=== PATIENT | female | born 1965 | race Caucasian/White ===

== ENCOUNTER 2016-12-30 06:30 | Day surgery (SDC) | payer OTHER ==
[~2016-12-30] VITALS: Ht 160 cm; Wt 62.1 kg
[~2016-12-30 06:30] MED LIST: ALPRAZOLAM0.5 MG PO; CITALOPRAM HBR20 MG PO; CLONIDINE HCL0.1 MG PO; CLONIDINE HCL0.2 MG PO; CYMBALTA30 MG PO; FAMCICLOVIR500 MG PO; MELOXICAM15 MG PO; NIACOR500 MG PO; NORCO 10-325 T1 EACH PO; NORCO 5-325 TA1 EACH PO; NORTRIPTYLINE H25 MG PO; OMEPRAZOLE20 MG PO; PREDNISONE20 MG PO; PROPRANOLOL HCL20 MG PO; TIROSINT75 MCG PO; TRAZODONE HCL100 MG PO; VENTOLIN HFA18 GM INH
--- NOTE | 2016-12-30 10:15 | NUR ---
12/30/16 1015 Lexi Ngo 0930 PT IV IS HARD TO FLUSH, DRESSING INTACT, BLOOD RETURN NOTED AND NO SWELLING AT IV SITE. 0959 PT O2 SAT, 100% O2 REMOVED. 1013 PT O2 DECREASED TO 89 WHEN ASLEEP, 2L NC PLACED ON PT. 1015 PT O2 SAT 100%.
[2016-12-30] MEDS ORDERED: HYDROCODON-ACE1 EAC8 PO (11:38)
[2016-12-30] MEDS ORDERED: PROMETHAZINE HC25 M1 PO (11:43)
--- NOTE | 2016-12-30 12:57 | NUR ---
LE 1200 UP TO BATHROOM WITH ONE PERSON ASSIST. VOIDED. BACK IN ROOM GETTING DRESSED. 1225 DC INSTRUCTIONS GIVEN. LEFT VIA W/C.
--- NOTE | 2017-01-01 07:17 | OR ---
[facility] [address] [place], [place] [address] Signed DATE OF OPERATION: 12/30/2016 SURGEON: Holger Hess MD PREOPERATIVE DIAGNOSIS: Loose bodies, right elbow. POSTOPERATIVE DIAGNOSIS: Loose bodies, right elbow with severe osteoarthritis, radiocapitellar joint. PROCEDURE: Arthrotomy, right elbow with removal of loose bodies x3 followed by a radial head excision. SURGEON: Holger Hess MD. ANESTHESIA: General. SPECIMENS: There were no specimens. COMPLICATIONS: There were no complications. TOURNIQUET TIME: About 45 minutes. WHAT WAS DONE: The patient was taken to the operating room. After anesthesia was induced and airway secured, the patient was positioned, prepped and draped in a routine sterile fashion. The arm was exsanguinated with Esmarch bandage. Pneumatic tourniquet was inflated to about 250 mmHg pressure. We then made a gentle anterolateral incision centered over the lateral epicondyle. Skin was divided sharply. Subcutaneous tissue was bluntly spread. The extensor origin was gently released and retracted anteriorly. Several loose bodies were identified and extracted from the elbow. We then examined the elbow joint. We still could not quite achieve full extension, but not because of residual loose bodies, because of impingement of the radiocapitellar joint. Inspection reveals severe peripheral osteophytes about the radial head. We, therefore, took a small oscillating saw and resected the radial head. Once this was accomplished, the patient again had a full extension of the elbow without any impingement. We placed a bone wax over the open bony surface. The elbow was copiously irrigated. No additional loose fragments were identified. We then gently elevated the posterior flap and passed into the olecranon fossa and again there were no additional loose fragments noted. The wounds were gently irrigated. A single 3.5 BioComposite anchor was then placed in the lateral epicondylar area and used to reattach the common extensor origin. We then closed the extensor origin Electronically Signed By: HOLGER HESS MD 01/01/17 0717 PATIENT NAME: JOHNATHAN GOMEZ MAI OPERATIVE REPORT DATE OF : 63 PHYSICIAN: HOLGER HESS MD REPORT #: [id number] REPORT IS CONFIDENTIAL AND NOT TO BE RELEASED WITHOUT AUTHORIZATION [address] [address] Signed with interrupted sutures of FiberWire. Routine wound closure was then accomplished and sterile dressing applied over to bulky dressing and a posterior splint were placed. The patient was awakened to the recovery room where she arrived in stable condition. Counts were correct and antibiotic protocols were followed. MD NORTH Jones/MODL /[id number] cc: Jacob Pablo MD Electronically Signed By: HOLGER HESS MD 01/01/17 0717 PATIENT NAME: JOHNATHAN GOMEZ MAI OPERATIVE REPORT DATE OF : 63 PHYSICIAN: HOLGER HESS MD REPORT #: [id number] REPORT IS CONFIDENTIAL AND NOT TO BE RELEASED WITHOUT AUTHORIZATION
== END 2016-12-30 12:25 | disposition home or self-care (01) ==
LOC: DS 06:30 → OPS 06:30 → DS 09:15 → OPS 09:15
PROVIDERS: Orthopaedic Surgery
PROC: 0RCL0ZZ Extirpation of Matter from Right Elbow Joint, Open Approach (ICD-10-PCS; 2016-12-30)
PROC: 0HBDXZZ Excision of Right Lower Arm Skin, External Approach (ICD-10-PCS; principal; 2016-12-30 08:15)
DX: M19.021 Primary osteoarthritis, right elbow (principal); M24.021 Loose body in right elbow; G43.909 Migraine, unspecified, not intractable, without status migrainosus; F43.10 Post-traumatic stress disorder, unspecified; F32.9 Major depressive disorder, single episode, unspecified; F41.9 Anxiety disorder, unspecified; E03.9 Hypothyroidism, unspecified; K76.9 Liver disease, unspecified; Z88.5 Allergy status to narcotic agent; Z88.8 Allergy status to other drugs, medicaments and biological substances; Z79.899 Other long term (current) drug therapy
CPT/HCPCS: 01710; 01740; C1713; J0330; J0690; J1170; J1885; J2250; J2270; J2405; J2704; J3010; J7120

== ENCOUNTER 2018-03-24 12:27 | Emergency (ER) | payer OTHER ==
[~2018-03-24] VITALS: Ht 160 cm; Wt 62.1 kg
[~2018-03-24 12:27] MED LIST changes: +HYDROCODON-ACE1 EAC8 PO; +PROMETHAZINE HC25 M1 PO
--- OUTSIDE RECORDS SUMMARY | 2018-03-24 12:32 | XMS ---
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 Denisse has no Care Guidelines for this patient. Leonidas VISIT COUNT (12 MO.) 1 CHATO Fraser TOTAL 1 NOTE: Visits indicate total known visits. ED/UCC VISIT TRACKING (12 MO.) 03/24/2018 12:28 CHATO M[facility]ugh OR TYPE: Emergency COMPLAINT: - NVD/ABD PAIN INPATIENT VISIT TRACKING (12 MO.) No inpatient visits to display in this time frame [email or web address]
[2018-03-24] MEDS ORDERED: LEXAPRO20 MG PO (12:43)
[2018-03-24] MEDS ORDERED: ROPINIROLE HC0.25 MG PO (12:44)
[2018-03-24] MEDS ORDERED: ONDANSETRON ODT8 MG PO (14:37)
== END 2018-03-24 14:55 | disposition home or self-care (01) ==
LOC: ED 12:27
DX: R11.2 Nausea with vomiting, unspecified (principal); R10.84 Generalized abdominal pain; G43.909 Migraine, unspecified, not intractable, without status migrainosus; F43.10 Post-traumatic stress disorder, unspecified; F17.200 Nicotine dependence, unspecified, uncomplicated; Z88.8 Allergy status to other drugs, medicaments and biological substances; Z79.899 Other long term (current) drug therapy
CPT/HCPCS: 36415; 80053; 83690; 85025; 96360; 99284-25; 99406; J3486; J7030

== ENCOUNTER 2019-01-04 06:35 | Day surgery (SDC) | payer OTHER ==
[~2019-01-04] VITALS: Ht 157.5 cm; Wt 47.6 kg
[~2019-01-04 06:35] MED LIST changes: +LEXAPRO20 MG PO; +ONDANSETRON ODT8 MG PO; +ROPINIROLE HC0.25 MG PO; +ULTRAM50 MG PO
--- NOTE | 2019-01-04 10:54 | NUR ---
01/04/19 1054 Carolina,Lexi 1027 PT ARRIVED TO PACU ASLEEP AND RESP EVEN AND UNLABORED. PT ON RA AND MAINTAINING OWN AIRWAY 1030 PT WOKE TO VERBAL STIMULI AND IS REORIENTED TO PACU, PT REPORTS NO PAIN OR NAUSEA. PT ENOCUARGED TO DEEP BREATHE. PT VERY DROWSY AND BACK TO SLEEP. 1036 PT WOKE AND REPORTS PAIN IN ELBOW 09/25, O2 SAT 91%. PT ENCOURAGED TO DEEP BREATHE. O2 INCREASING.
--- NOTE | 2019-01-04 11:55 | NUR ---
ICED WATER AND PUDDING GIVEN. CALL LIGHT WITHIN REACH. CAREGIVER PAGED.
[2019-01-04] MEDS ORDERED: ULTRAM50 MG PO (12:33)
--- NOTE | 2019-01-04 13:33 | NUR ---
1250 PT USED CALL LIGHT TO TELL US KNOW SHE IS READY TO GO HOME, GAVE HER DISCHARGE INSTRUCTIONS SHE VOICED UNDERSTANDING. REMOVED IV CATH. TIP IN TACT. HELPED HER GET DRESSED AND WHEELED HER FRONT OF HOSPITAL VIA WHEELCHAIR.
--- NOTE | 2019-01-04 14:46 | NUR ---
PT SLEEPING SOUNDLY, DID NOT DISTURB. WILL FOLLOW NEEDED
--- NOTE | 2019-01-06 07:44 | OR ---
[facility] [address] [place] [place] [address] Signed DATE OF OPERATION: 01/04/2019 SURGEON: Holger Townsend MD PREOPERATIVE DIAGNOSIS: Loose bodies, right elbow. POSTOPERATIVE DIAGNOSIS: Loose bodies, right elbow, with intra-articular fibrosis, right elbow, following radial head fracture and radial head excision. PROCEDURE: Elbow arthroscopy with limited debridement and removal of loose bodies x2. ANESTHESIA: General. SPECIMENS AND COMPLICATIONS: There were no specimens or complications. TOURNIQUET TIME: 45 minutes. WHAT WAS DONE: The patient was taken to the operating room. After anesthesia was induced and airway secured, the patient was positioned prone. The right arm was placed on an arm board and hung over the side of the bed at 90 degrees of flexion. After routine prep and sterile drape, the bony topography in the location of the ulnar nerve were marked on the elbow. An anteromedial portal was created about 1.5 cm anterior to the medial epicondyle. We then introduced an 18-gauge needle into the anconeal triangle and filled the elbow with saline. We then introduced the scope through the anteromedial portal. An anterolateral portal was created using transillumination and localization with a spinal needle. There was a rather marked synovitis in the elbow and 2 mm shaver was introduced and a limited synovectomy performed. Two loose fragments were identified and removed from the elbow. There was also a fair amount of scar tissue/fibrous tissue both in the ulnar trochlear groove and in the radial capitellar space. We then made an auxiliary posterolateral portal. Again through this, we introduced the scope. There were no additional loose bodies encountered in the medial and the lateral gutter or in the olecranon fossa; however, there was still a fair amount of scar tissue. Again, we introduced the shaver by redirecting the portal and did an excision of the scar tissue. At this point, the Electronically Signed By: HOLGER TOWNSEND MD 01/06/19 0744 PATIENT NAME: JOHNATHAN GOMEZ OPERATIVE REPORT DATE OF : 63 REPORT #: [id number] PHYSICIAN: HOLGER TOWNSEND MD PCP: DIANELYS SAMANO MD REPORT IS CONFIDENTIAL AND NOT TO BE RELEASED WITHOUT AUTHORIZATION [facility] [address] [place] [id number] Signed elbow could be extended to about 5 degrees. The elbow was irrigated and drained. The portals were closed and sterile dressings applied. The patient was awakened and taken to the recovery room and arrived in stable condition. Counts were correct and antibiotic protocols were followed. Holger Townsend MD WFB/MODL /[id number] Copies: ~ Electronically Signed By: HOLGER TOWNSEND MD 01/06/19 0744 PATIENT NAME: JOHNATHAN GOMEZ OPERATIVE REPORT DATE OF : 63 REPORT #: [id number] PHYSICIAN: HOLGER TOWNSEND MD PCP: DIANELYS SAMANO MD REPORT IS CONFIDENTIAL AND NOT TO BE RELEASED WITHOUT AUTHORIZATION
== END 2019-01-04 13:05 | disposition home or self-care (01) ==
LOC: OPS 06:35 → DS 06:35 → OPS 08:45 → DS 08:45 → OPS 13:05
PROVIDERS: Orthopaedic Surgery
PROC: 0RBL4ZZ Excision of Right Elbow Joint, Percutaneous Endoscopic Approach (ICD-10-PCS; 2019-01-04)
PROC: 0RCL4ZZ Extirpation of Matter from Right Elbow Joint, Percutaneous Endoscopic Approach (ICD-10-PCS; principal; 2019-01-04 08:45)
DX: M24.021 Loose body in right elbow (principal); M25.821 Other specified joint disorders, right elbow; G43.909 Migraine, unspecified, not intractable, without status migrainosus; F43.10 Post-traumatic stress disorder, unspecified; F42.9 Obsessive-compulsive disorder, unspecified; F32.9 Major depressive disorder, single episode, unspecified; F41.9 Anxiety disorder, unspecified; E03.9 Hypothyroidism, unspecified; M86.9 Osteomyelitis, unspecified; Z88.8 Allergy status to other drugs, medicaments and biological substances; Z79.899 Other long term (current) drug therapy
CPT/HCPCS: 01740; J0131; J0330; J0690; J1100; J1885; J2250; J2405; J2704; J3010; J7121

== ENCOUNTER 2019-11-08 22:57 | Emergency (ER) | payer OTHER ==
[~2019-11-08] VITALS: Ht 157.5 cm; Wt 47.6 kg
--- OUTSIDE RECORDS SUMMARY | ~2019-11-08 | XMS | Clinical Summary ---
Demographics + + + | Address | [address] | | | [place] [address] | + + + | Home Phone | | + + + | Preferred Language | Unknown | + + + | Marital Status | Single | + + + | Bahai Affiliation | Unknown | + + + | Race | White | + + + | Ethnic Group | Not or | + + + Author + + + | Author | [facility] | | | and [place] | + + + | Organization | [facility] | | | and [place] | + + + | Address | Unknown | + + + | Phone | Unavailable | + + + Support + + +---------+ + | Name | Relationship | Address | Phone | + + +---------+ + | Elida Langenhahn | ECON | Unknown | | + + +---------+ + Care Team Providers + +------+ + | Care Supervisor Shaving And Splitting Name | Role | Phone | + +------+ + | Jacob Pablo MD | PCP | | + +------+ + Allergies + + + + + + | Active Allergy | Reactions | Severity | Noted | Comments | | | | | Date | | + + + + + + | Rosuvastatin | Rash | Low | 06/02/19 | | | | | | 19 | | + + + + + + | Haloperidol | Other (See Comments) | | 06/02/19 | Stroke like | | | | | 19 | symptoms | + + + + + + | Interferons | Other (See Comments) | | 06/02/19 | Blisters in mouth | | | | | 19 | | + + + + + + Medications + +-----+ +---------+------+------+-------+ | Medication | Sig | Dispensed | Refills | Star | End | Statu | | | | | | t | Date | s | | | | | | Date | | | + +-----+ +---------+------+------+-------+ | cloNIDine | | | 0 | 03/1 | | Activ | | (CATAPRES) 0.2 MG | | | | 3/20 | | e | | tablet | | | | 19 | | | + +-----+ +---------+------+------+-------+ | levothyroxine | | | 0 | 04/0 | | Activ | | (SYNTHROID) 75 MCG | | | | 6/20 | | e | | tablet | | | | 19 | | | + +-----+ +---------+------+------+-------+ | omeprazole | | | 0 | 04/0 | | Activ | | (PRILOSEC) 20 mg | | | | 6/20 | | e | | capsule | | | | 19 | | | + +-----+ +---------+------+------+-------+ | ondansetron | | | 0 | 02/0 | | Activ | | (ZOFRAN ODT) 8 mg | | | | 6/20 | | e | | disintegrating | | | | 19 | | | | tablet | | | | | | | + +-----+ +---------+------+------+-------+ | rOPINIRole | | | 0 | 04/1 | | Activ | | (REQUIP) 0.25 mg | | | | 0/20 | | e | | tablet | | | | 19 | | | + +-----+ +---------+------+------+-------+ Active Problems No known active problems Immunizations + + + + | Name | Administration Dates | Next Due | + + + + | PNEUMOCOCCAL | 07/01/2014 | | | POLYSACCHARIDE | | | | 23-VALENT (PPSV23) | | | + + + + Social History + +-------+ +--------+------+ | Tobacco Use | Types | Packs/Day | Years | Date | | | | | Used | | + +-------+ +--------+------+ | Current Every Day | | | | | | Smoker | | | | | + +-------+ +--------+------+ + +---+---+---+ | Smokeless Tobacco: | | | | | Never Used | | | | + +---+---+---+ + + + | Sex Assigned at | Date Recorded | | | | + + + | Not on file | | + + + Last Filed Vital Signs + + + + + | Vital Sign | Reading | Time Taken | Comments | + + + + + | Blood Pressure | 142/87 | 06/01/2018 9:09 AM | | | | | PDT | | + + + + + | Pulse | 82 | 06/01/2018 9:09 AM | | | | | PDT | | + + + + + | Temperature | - | - | | + + + + + | Respiratory Rate | - | - | | + + + + + | Oxygen Saturation | - | - | | + + + + + | Inhaled Oxygen | - | - | | | Concentration | | | | + + + + + | Weight | 57.6 kg (127 lb) | 06/01/2018 9:09 AM | | | | | PDT | | + + + + + | Height | 160 cm (5' 3") | 06/01/2018 9:09 AM | | | | | PDT | | + + + + + | Body Mass Index | 22.5 | 06/01/2018 9:09 AM | | | | | PDT | | + + + + + Plan of Treatment + + + + + | Health Maintenance | Due Date | Last | Comments | | | | Done | | + + + + + | Hepatitis C | | | | | Screening | 5 | | | + + + + + | Med Mgmt: TSH | | | | | | 5 | | | + + + + + | Medication | | | | | Management | 5 | | | + + + + + | Cervical Cancer | | | | | Screening (Pap) | 5 | | | + + + + + | Colorectal Cancer | | | | | Screening | 5 | | | | (Colonoscopy) | | | | + + + + + | Vaccine: Zoster (1 | | | | | of 2) | 5 | | | + + + + + | Breast Cancer | | | | | Screening | 0 | | | + + + + + | Vaccine: Influenza | | 03/07/19 | | | (#1) | 0 | 20, | | | | | 11/07/19 | | | | | 17, | | | | | 11/27/19 | | | | | 16, | | | | | Addition | | | | | al | | | | | history | | | | | exists | | + + + + + | Vaccine: | | 11/07/19 | | | Dtap/Tdap/Td (2 - | 7 | 17, | | | Td) | | 08/22/19 | | | | | 13, | | | | | 06/15/19 | | | | | 13 | | + + + + + | Vaccine: | Completed | 07/02/19 | | | Pneumococcal 19-64 | | 15 | | + + + + + Results Not on filefrom Last 3 Months Insurance + +--------+ +--------+ +---------+--------+ | Payer | Benefi | Subscriber | Effect | Phone | Address | Type | | | t Plan | ID | donna | | | | | | / | | Dates | | | | | | Group | | | | | | + +--------+ +--------+ +---------+--------+ | [employer] | MODA | [id number] | | [phone] | | Medica | | MEDICAID HMO | HEALTH | | 018-Pr | 1 | | id | | | MDCD | | esent | | | | | | [place]MO [place] | | | | | | + +--------+ +--------+ +---------+--------+ + +--------+ +--------+ + + | Guarantor Name | Accoun | Relation to | Date | Phone | Billing Address | | | t Type | Patient | of | | | | | | | | | | + +--------+ +--------+ + + | Kendall Clay | Person | Self [birth year] [address] | | | al/Fam | | 1966 | [phone] | [place] [address] | | | [place] | | | 5 (Home) | | + +--------+ +--------+ + + | Kendall Clay Rigoberto | Person | Self | [birth year] | [address] | | | al/Fam | | 1966 | [phone] | [place] [address] | | | [place] | | | 5 (Home) | | + +--------+ +--------+ + + Advance Directives + + + + + | Type | Date Recorded | Patient | Explanation | | | | Gravedigger | | + + + + + | Power of | | | | | Whip Operator | | | | + + + + + | Advance | | | | | Directive | | | | + + + + +
--- OUTSIDE RECORDS SUMMARY | ~2019-11-08 | XMS | Encounter Summary ---
Demographics + + + | Address | [address] | | | [place] [address] | + + + | Home Phone | | + + + | Preferred Language | Unknown | + + + | Marital Status | Single | + + + | Muslim Affiliation | Unknown | + + + | Race | White | + + + | Ethnic Group | Not or | + + + Author + + + | Author | [facility] | | | and [place] | [...] Team Providers + +------+ + | Care Analytical Lab Technician Name | Role | Phone | + +------+ + | Jacob Pablo MD | PCP | | + +------+ + Reason for Visit + + + | Reason | Comments | + + + | Elbow Pain | right elbow pain | + + + | Numbness | right hand | + + + Evaluate & Treat (Routine) +--------+--------+ + + + + | Status | Reason | Specialty | Diagnoses / | Referred By | Referred To | | | | | Procedures | Contact | Contact | +--------+--------+ + + + + | Closed | | Physical | Diagnoses | Hess, | Coleman, | | | | Medicine and | Cubital | Holger Finn, | Siva Marquez MD | | | | Rehabilitatio | tunnel | MD [address] | [address] | | | | n | syndrome, | [address] | [place] | | | | | right | [place], | [place], [place] | | | | | Procedures | [place] [address] | [address] Phone: | | | | | [place] | Phone: | [phone] | | | | | &/SENS 3-4 | [phone] | Fax: | | | | | NRV CNDJ | Fax: | [phone] | | | | | PRECONF | [phone] | | | | | | ELTRODE [place] | | | | | | | [place] | | | | | | | &/SENS 5-6 | | | | | | | NRV CNDJ | | | | | | | PRECONF | | | | | | | [place] | | | | | | | [place] EM[place], | | | | | | | NEEDLE, TWO | | | | | | | [place] | | | | | | | NEEDLE EMG | | | | | | | EA EXTREMITY | | | | | | | W/PARASPINL | | | | | | | AREA | | | | | | | LIMITED | | | +--------+--------+ + + + + Encounter Details +--------+ + + + + | Date | Type | Department | Care Team | Description | +--------+ + + + + | 06/01/ | Procedure | [facility] [place] | Siva Cee | Carpal tunnel | | 2019 | visit | PHYSIATRY [address] | TMD [address] | syndrome of right | | | | [address] | [place], [place] | wrist; Ulnar | | | | [place], [place] | [address] | neuropathy at elbow, | | | | [address] | | right | | | | [phone] | | | +--------+ + + + + Social History + [...] on file | | + + + documented as of this encounter Last Filed Vital Signs + + + [...] | | + + + + + documented in this encounter Progress Notes Siva Cee MD - 06/01/2018 9:00 AM PDT [facility] Musculoskeletal, Sports and Spine, Physiatry [address] [address] Test Date: 06/01/2018 Patient Name: Kendall Clay : 1965 Physician: Siva Cee MD MR #: [id number] Sex: Male Referring Physician: Holger Hess MD HISTORY: The patient is a very pleasant 53 year-old left-handed female who is being seen today at th e request of Dr. Holger Hess for complaints of right elbow pain, on the ulnar side of the e lbow, radiating down the forearm to the 5th digit of the right hand. She does report period ic paresthesias, primarily in the ulnar side of the hand but she does state that at times al l of the fingers can be numb. The patient does also report a "locking" sensation of the lef t elbow. She has had a prior surgery for arthritis in that elbow. The patient denies any history of diabetes. She does have a history of multiple cancers, a lcohol abuse and hypothyroidism. She denies any numbness in the left hand or in the feet. Nerve Conduction Studies Anti Sensory Summary Table Site NR Peak (ms) Norm Peak (ms) P-T Amp (V) Norm P-T Amp Site1 Site2 Delta-P (ms) Dist (cm) Benjy (m/s) Norm Benjy (m/s) Right Radial Anti Sensory (Base 1st Digit) Wrist 2.5 <3.1 31.3 Wrist Base 1st Digit 2.5 10.0 40 Motor Summary Table Site NR Onset (ms) Norm Onset (ms) O-P Amp (mV) Norm O-P Amp Site1 Site2 Delta-0 (ms) Dist (cm) Benjy (m/s) Norm Benjy (m/s) Right Median Motor (Abd Poll Brev) Wrist *5.2 <4.2 *4.5 >5 Elbow Wrist 3.9 19.0 *49 >50 Elbow 9.1 4.6 Right Ulnar Motor (Abd Dig Minimi) Wrist 2.9 <4.2 10.6 >3 B Elbow Wrist 3.4 19.0 56 >53 B Elbow 6.3 8.7 A Elbow B Elbow 2.3 10.0 *43 >53 A Elbow 8.6 8.2 Comparison Summary Table Site NR Peak (ms) Norm Peak (ms) P-T Amp (V) Site1 Site2 Delta-P (ms) Norm Delta (ms) Right Median/Ulnar Palm Comparison (Wrist - 8cm) Median Palm *2.5 <2.2 32.5 Median Palm Ulnar Palm *0.4 <0.3 Ulnar Palm 2.1 <2.2 7.7 EMG Side Muscle Nerve Root Ins Act Fibs Psw Amp Dur Poly Recrt Int Pat Comment Right Deltoid Axillary C5-6 Nml Nml Nml Nml Nml 0 Nml Nml Right Biceps Musculocut C5-6 Nml Nml Nml Nml Nml 0 Nml Nml Right Triceps Radial C6-7-8 Nml Nml Nml Nml Nml 0 Nml Nml Right PronatorTeres Median C6-7 Nml Nml Nml Nml Nml 0 Nml Nml Right 1stDorInt Ulnar C8-T1 Nml Nml Nml Nml Nml 0 Nml Nml Nerve Conduction Studies Motor Left/Right Comparison Site L Lat (ms) R Lat (ms) L-R Lat (ms) L Amp (mV) R Amp (mV) L-R Amp (%) Site1 Site2 L Ve l (m/s) R Benjy (m/s) L-R Benjy (m/s) Median Motor (Abd Poll Brev) Wrist *5.2 *4.5 Elbow Wrist *49 Elbow 9.1 4.6 Ulnar Motor (Abd Dig Minimi) Wrist 2.9 10.6 B Elbow Wrist 56 B Elbow 6.3 8.7 A Elbow B Elbow *43 A Elbow 8.6 8.2 Anti Sensory Left/Right Comparison Site L Lat (ms) R Lat (ms) L-R Lat (ms) L Amp (V) R Amp (V) L-R Amp (%) Site1 Site2 L Benjy (m/s) R Benjy (m/s) L-R Benjy (m/s) Radial Anti Sensory (Base 1st Digit) Wrist 2.5 31.3 Wrist Base 1st Digit 40 Comparison Left/Right Comparison Site L Lat (ms) R Lat (ms) L-R Lat (ms) L Amp (V) R Amp (V) L-R Amp (%) Median/Ulnar Palm Comparison (Wrist - 8cm) Median Palm *2.5 32.5 Ulnar Palm 2.1 7.7 NCV FINDINGS: Evaluation of the Right median motor nerve showed prolonged distal onset latency, reduced a mplitude, and decreased conduction velocity (Elbow-Wrist). The Right ulnar motor nerve show ed decreased conduction velocity (A Elbow-B Elbow). The Right median/ulnar (palm) compariso n nerve showed prolonged distal peak latency (Median Palm) and abnormal peak latency differe nce (Median Palm-Ulnar Palm). All remaining nerves (as indicated in the preceding tables) w ere within normal limits. EMG FINDINGS: All examined muscles (as indicated in the preceding table) showed no evidence of electrical instability. IMPRESSION: There is electrodiagnostic evidence of ulnar neuropathy at the elbow. The severity would b e classified as moderate as there is considerable slowing but no significant drop in amplitu de. There is also electrodiagnostic evidence of median neuropathy at the wrist. The findings a re consistent with a clinical diagnosis of carpal tunnel syndrome. The severity would be gr aded as moderate. There was no electrodiagnostic evidence of cervical radiculopathy, brachial plexopathy or p eripheral neuropathy. We briefly discussed treatment options for these issues. The patient will also be followin g up with Dr. Holger Hess for further discuss of today s test and for additional treatmen t. Siva Cee MD Fellow, [employer]. documented in this encounter Plan of Treatment Not on filedocumented as of this encounter Visit Diagnoses + + | Diagnosis | + + | Carpal tunnel syndrome of right wrist Carpal tunnel syndrome | + + | Ulnar neuropathy at elbow, right | + + documented in this encounter
--- OUTSIDE RECORDS SUMMARY | ~2019-11-08 | XMS ---
Demographics + + + | Address | [address] | | | [place] [address] | + + + | Preferred Language | Unknown | + + + | Marital Status | Unknown | + + + | Spiritism Affiliation | Unknown | + + + | Race | Unknown | + + + | Ethnic Group | Unknown | + + + Author + + + | Author | [facility] | + + + | Organization | [facility] | + + + | Address | [address] | | | [place] [address] | + + + | Phone | | + + + Care Team Providers + + + + | Care Wire Straightener Name | Role | Phone | + + + + Unavailable | Unavailable | + + + + PROBLEMS +---------+ + + +--------+ + + | Type | Condition | ICD9-CM | [id number] | Onset | Condition | SNOMED | | | | Code | Code | Dates | Status | Code | +---------+ + + +--------+ + + | Problem | Marijuana | F12.10 | | | Active | 66311843 | | | use | | | | | | +---------+ + + +--------+ + + | Problem | Hypothyroi | | E03.9 | | Active | 34460419 | | | dism | | | | | | +---------+ + + +--------+ + + | Problem | Tobacco | | Z72.0 | | Active | 936192306 | | | use | | | | | | | | disorder | | | | | | +---------+ + + +--------+ + + | Problem | Mixed | | N39.46 | | Active | 344804540 | | | incontinen | | | | | | | | ce | | | | | | +---------+ + + +--------+ + + | Problem | | Q86.0 | | | Active | 816077753 | | | alcohol | | | | | | | | syndrome | | | | | | +---------+ + + +--------+ + + | Problem | Hypertensi | 401.9 | | | Active | 04864562 | | | on | | | | | | +---------+ + + +--------+ + + | Problem | Osteoarthr | M15.9 | | | Active | 824806015 | | | itis of | | | | | | | | multiple | | | | | | | | joints | | | | | | +---------+ + + +--------+ + + | Problem | RLS | | G25.81 | | Active | 42302252 | | | (restless | | | | | | | | legs | | | | | | | | syndrome) | | | | | | +---------+ + + +--------+ + + | Problem | Osteomyeli | M46.26 | | | Active | | | | tis of | | | | | | | | lumbar | | | | | | | | spine | | | | | | +---------+ + + +--------+ + + | Problem | Injury of | S69.92XA | | | Active | 7042532615 | | | left hand | | | | | 4875015 | +---------+ + + +--------+ + + | Problem | Injury of | S69.92XA | | | Active | 7041763643 | | | left wrist | | | | | 2984301 | +---------+ + + +--------+ + + | Problem | Acute | 296.20 | | | Active | 146663997 | | | depression | | | | | | +---------+ + + +--------+ + + | Problem | Anxiety | 300.00 | | | Active | 41843046 | +---------+ + + +--------+ + + | Problem | Depression | 311 | | | Active | 569663193 | +---------+ + + +--------+ + + | Problem | HTN | | I10 | | Active | 41898328 | | | (hypertens | | | | | | | | ion) | | | | | | +---------+ + + +--------+ + + | Problem | Depression | | F32.9 | | Active | 974824795 | +---------+ + + +--------+ + + | Problem | Colorectal | C19 | | | Active | 935212427 | | | cancer | | | | | | +---------+ + + +--------+ + + | Problem | Alcohol | Z78.9 | | | Active | 627880 | | | use | | | | | | +---------+ + + +--------+ + + | Problem | Migraine | 346.90 | | | Active | 99739223 | +---------+ + + +--------+ + + | Problem | Cervical | 622.8 | | | Active | 1024334660 | | | mass | | | | | 1702379 | +---------+ + + +--------+ + + | Problem | Wellness | V70.0 | | | Active | 0943144838 | | | examinatio | | | | | 36504 | | | n | | | | | | +---------+ + + +--------+ + + | Problem | Bug bites | 919.4 | | | Active | 36607862 | +---------+ + + +--------+ + + | Problem | Left | | M25.512 | | Active | 316889989 | | | shoulder | | | | | | | | pain | | | | | | +---------+ + + +--------+ + + | Problem | Wart | B07.9 | | | Active | 78850746 | +---------+ + + +--------+ + + | Problem | Hyperlipid | 272.4 | | | Active | 94604964 | | | emia | | | | | | +---------+ + + +--------+ + + | Problem | Hyperchole | | E78.0 | | Active | 87677722 | | | sterolemia | | | | | | +---------+ + + +--------+ + + ALLERGIES Unknown Allergies SOCIAL HISTORY No smoking Hx information available PLAN OF CARE VITAL SIGNS MEDICATIONS Unknown Medications RESULTS No Results PROCEDURES No Known procedures IMMUNIZATIONS No Known Immunizations"
--- OUTSIDE RECORDS SUMMARY | ~2019-11-08 | XMS ---
Demographics + + + | Address | [address] | | | [place] [address] | + + + | Preferred Language | Unknown | + + + | Marital Status | Unknown | + + + | Gnosticism Affiliation | Unknown | + + + | Race | Unknown | + + + | Ethnic Group | Unknown | + + + Author + + + | Author | [facility] | + + + | Organization | [facility] | + + + | Address | [address] | | | [place] [address] | + + + | Phone | | + + + Care Team Providers + + + + | Care Staff Technologist Name | Role | Phone | + + + + Unavailable | Unavailable | + + + + PROBLEMS + + + + + + + + | Type | Condition | ICD9-CM | [id number] | Onset | Condition | SNOMED | | | | Code | Code | Dates | Status | Code | + + + + + + + + | Assessment | Seasonal | | J30.2 | 07 July, | Active | [id number] | | | allergies | | | 2017 | | | + + + + + + + + | Assessment | Tobacco | | Z72.0 | 07 July, | Active | 074066263 | | | use | | | 2017 | | | | | disorder | | | | | | + + + + + + + + | Problem | Marijuana | F12.10 | | | Active | 87627107 | | | use | | | | | | + + + + + + + + | Problem | Hypothyroi | | E03.9 | | Active | 05727631 | | | dism | | | | | | + + + + + + + + | Problem | Tobacco | | Z72.0 | | Active | 301558136 | | | use | | | | | | | | disorder | | | | | | + + + + + + + + | Problem | Mixed | | N39.46 | | Active | 552298931 | | | incontinen | | | | | | | | ce | | | | | | + + + + + + + + | Problem | | Q86.0 | | | Active | 632418028 | | | alcohol | | | | | | | | syndrome | | | | | | + + + + + + + + | Problem | Hypertensi | 401.9 | | | Active | 82728322 | | | on | | | | | | + + + + + + + + | Problem | Osteoarthr | M15.9 | | | Active | 263265698 | | | itis of | | | | | | | | multiple | | | | | | | | joints | | | | | | + + + + + + + + | Problem | RLS | | G25.81 | | Active | 40703131 | | | (restless | | | | | | | | legs | | | | | | | | syndrome) | | | | | | + + + + + + + + | Problem | Osteomyeli | M46.26 | | | Active | | | | tis of | | | | | | | | lumbar | | | | | | | | spine | | | | | | + + + + + + + + | Problem | Injury of | S69.92XA | | | Active | 3817618033 | | | left hand | | | | | 2126432 | + + + + + + + + | Problem | Injury of | S69.92XA | | | Active | 5202176552 | | | left wrist | | | | | 0060552 | + + + + + + + + | Problem | Acute | 296.20 | | | Active | 214888307 | | | depression | | | | | | + + + + + + + + | Problem | Anxiety | 300.00 | | | Active | 00625053 | + + + + + + + + | Problem | Depression | 311 | | | Active | 155819465 | + + + + + + + + | Problem | HTN | | I10 | | Active | 85790228 | | | (hypertens | | | | | | | | ion) | | | | | | + + + + + + + + | Problem | Depression | | F32.9 | | Active | 523075568 | + + + + + + + + | Problem | Colorectal | C19 | | | Active | 825437386 | | | cancer | | | | | | + + + + + + + + | Problem | Alcohol | Z78.9 | | | Active | 440308 | | | use | | | | | | + + + + + + + + | Problem | Migraine | 346.90 | | | Active | 90846168 | + + + + + + + + | Problem | Cervical | 622.8 | | | Active | 9179167036 | | | mass | | | | | 8617984 | + + + + + + + + | Problem | Wellness | V70.0 | | | Active | 8505603240 | | | examinatio | | | | | 15369 | | | n | | | | | | + + + + + + + + | Problem | Bug bites | 919.4 | | | Active | 65860074 | + + + + + + + + | Problem | Left | | M25.512 | | Active | 972883374 | | | shoulder | | | | | | | | pain | | | | | | + + + + + + + + | Problem | Wart | B07.9 | | | Active | 32994576 | + + + + + + + + | Problem | Hyperlipid | 272.4 | | | Active | 67912651 | | | emia | | | | | | + + + + + + + + | Problem | Hyperchole | | E78.0 | | Active | 90494887 | | | sterolemia | | | | | | + + + + + + + + ALLERGIES + + + + +--------+ | Substance | Reaction | Event Type | Date | Status | + + + + +--------+ | Haldol | stroke like | Non Drug | June, | Active | | | symptoms | Allergy | | | + + + + +--------+ | Crestor | rash | Non Drug | June, | Active | | | | Allergy | | | + + + + +--------+ | Interferon | Blisters in | Non Drug | June, | Active | | | mouth | Allergy | | | + + + + +--------+ SOCIAL HISTORY No smoking Hx information available PLAN OF CARE VITAL SIGNS + + + + | Height | 62 in | 2016-07-07 | + + + + | Weight | 137 lbs | 2016-07-07 | + + + + | BMI | 25.05 kg/m2 | 2016-07-07 | + + + + | Temperature | 98.2 degrees Fahrenheit | 2016-07-07 | + + + + | Heart Rate | 78 /min | 2016-07-07 | + + + + | Blood pressure systolic | 131 mm Hg | 2016-07-07 | + + + + | Blood pressure diastolic | 81 mm Hg | 2016-07-07 | + + + + MEDICATIONS + + + + + + + +--------+ | Medicati | Instruct | Dosage | Frequenc | Start | End Date | Duration | Status | | on | ions | | y | Date | | | | + + + + + + + +--------+ | Levothyr | Orally | 1 tablet | 24h | | | | Active | | oxine | Once a | every | | | | | | | Sodium | day | morning | | | | | | | 75 MCG | | on an | | | | | | | | | empty | | | | | | | | | stomach | | | | | | + + + + + + + +--------+ | Sumatrip | | | | | | | Active | | zazueta 25 | | | | | | | | | MG/ACT | | | | | | | | + + + + + + + +--------+ | Albutero | Inhalati | 2 puffs | 4h | 19 Sep, | | | Active | | l | on every | as | | 2015 | | | | | Sulfate | 4 hrs | needed | | | | | | | HFA 108 | | | | | | | | | (90 | | | | | | | | | Base) | | | | | | | | | MCG/ACT | | | | | | | | + + + + + + + +--------+ | Omeprazo | Orally | 1 tablet | 24h | | | 90 days | Active | | le 20 MG | Once a | | | | | | | | | day | | | | | | | + + + + + + + +--------+ | Escitalo | Orally | 1 tablet | 24h | | | | Active | | pram | Once a | | | | | | | | Oxalate | day | | | | | | | | 10 MG | | | | | | | | + + + + + + + +--------+ | Ventolin | | | | | | | Active | | HFA | | | | | | | | + + + + + + + +--------+ | Requip | Orally | 1 tablet | 24h | 20 Nov, | | 90 days | Active | | 0.25 MG | Once a | 1 to 3 | | 2015 | | | | | | day | hours | | | | | | | | | before | | | | | | | | | bedtime | | | | | | + + + + + + + +--------+ | Clonidin | Orally | 1 tablet | | 23 Dec, | | 90 days | Active | | e HCl | daily at | | | 2014 | | | | | 0.2 MG | bedtime | | | | | | | + + + + + + + +--------+ RESULTS No Results PROCEDURES + + + + + | Procedure | Date Ordered | Related Diagnosis | Body Site | + + + + + | Est Level II | July 07, 2016 | | | | Limited | | | | + + + + + | [id number] MED/CURRENT | July 07, 2016 | | | | MED MERGE | | | | + + + + + IMMUNIZATIONS No Known Immunizations"
--- OUTSIDE RECORDS SUMMARY | ~2019-11-08 | XMS | Encounter Summary ---
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 Artem. 3. NG tube coiled in the fundus. LEM LIST Active Problems: Acute respiratory failure Metabolic encephalopathy Drug overdose Leukopenia Hypothermia ASSESSMENT & PLAN NEURO: Unknown baseline or underlying psychiatric problems but she overdosed on nortryptiline; we will make sure her qrs <100 msec otherwise she will need bicarb drip, also will support h er airways and hemodynamics The pt does present with hypothernmia and leukopenia: the latter could be explained by t he alf effect of nortriptiline but the combination makes me suspiciuos of infection, w ill wells culture and rewarm; will hold off abx since pt is hemoidynamically stable Suicidal: Consultted psychiatry. Crisis response will need to be consulted when the bridgette ent is medically cleared. Sitter 1:1. CV: stable PULM: No concerns GI/NUTRITION: Nutrition: swallow eval per speech. RENAL/LYTES: No issues , watch uo ID: As above under neuro HEME: No e/o active bleeding Leukopenia as above ENDO: bs goal 80-180 MUSC/SKIN: Early mobility PROPHYLAXIS: Stress ulcer prophylaxis: pepcid DVT prophylaxis: heparin VAP bundle: chlorhexadine oral care, HOB >30 degrees. Disposition: I have spoken with Dr. Davison and she has graciously accepted the care of is patient out to the acute care floor. Code Status: Full Code Primary Care Physician: Jef Diaz *Please bill 40 minutes of critical care time spent evaluating the patient, reviewing the d natacha and formulating a plan exclusive of all other procedures. KIT Pleitez 07/02/2014 1:20 PM Tree Carrillo MA, CCC-LEARNING COACH - 07/02/2014 12:45 PM PDTFormatting of this note might be different from e original. Therapy Progress Note by Erica Cardenas MA CCC-LEARNING COACH at 07/02/14 5939 Author: Erica Cardenas MA CCC-LEARNING COACH Service: (none) Author Type: Speech and Office Secretary ologist Filed: 07/02/14 8114 Date of Service: 07/02/145 Status: Signed Wood Shingle Roofer: Erica Cardenas MA CCC-LEARNING COACH (Speech and Language Pathologist) 07/02/14 2775 Swallowing Assessment Eval Swallowing Evaluation Yes Initial Swallow Assessment Behavior/Cognition Cooperative Dentition Dentures upper;Dentures lower;Dentures not present Oral Motor Exam Labial ROM WFL Lingual ROM WFL Consistencies Consistencies Assessed Yes Thin Presentation Cup;Self Fed Oral Phase Thin WFL Pharyngeal Phase No overt signs or symptoms of aspiration Regular Presentation Self Fed Oral Phase WFL Pharyngeal Phase No overt signs or symptoms of aspiration Recommendations Liquids Consistency Recommendations Thin Diet Consistency Recommendation Regular Recommendations Set up with meals;Check on patients frequently throught out meals Risk for Aspiration Mild Compensatory Swallowing Strategies Upright as possible for all oral intake;Remain upright f or 30 minutes after meals;Slow rate presentation;Small bites/sips;Eat/feed slowly Recommended Form of Meds Meds with recommended liquid Summary pt states she had her esophagus "streched in 2003" and has no difficulty since then . no overt s/s of aspiraiton. Pt able to chew without dentures and states she wants a regu lar diet. please re-order ST if further concerns arise. Staff Notified RN Plan of Care Treatment Plan Eval consult only;No futher therapy recommended;Discharge from ST at this ti me Dysphagia Goals Dice Table Person Goals Safe/efficient oral intake Pt will have safe/efficient oral intake Thin liquids;Regular diet;Goal met;New/revised goa l Short Term Goals Follow swallow precautions Pt will follow swallow precautions Goal met;New/revised goal onversion T ransaction, Provider Unknown - 07/02/2014 12:06 AM PDTFormatting of this note might be diffe rent from the original. Progress Notes by Mimi Gant RRT at 07/02/145 Author: Mimi Gant RRT Service: (none) Author Type: Registered Respiratory Therapi Filed: 07/02/148 Date of Service: 07/02/145 Status: Signed Wood Shingle Roofer: Mimi Gant RRT (Registered Respiratory Therapist) 07/01/14 6694 Automode Pressure Support 10 cmH20 Insp cycle off (%) 30 % Vent Type/Mode Vent Type Servo i Vent Mode CPAP/pressure support Device feeds Resp Rate Total 10 br/min Inhaled Vt (mL) 369 mL Exhaled Vt (mL) 414 mL PEEP 5 cmH20 FiO2 30 % ET CO2 31 mmHg Peak Airway Pressure 15 cmH2O Mean Airway Pressure 9 cmH20 Ve 4.3 mL RT Entry Insp Rise Time (sec) 0.15 sec Trigger flow (L/min) 5 L/m Apnea backup On RSBI 86 WOB (V/L) 0.7 Dynamic Compliance (L/cm H2O) 50 L/cm H2O HOB>/= 30 Degrees Y Backup Ventilation Backup Ti 0.9 sec. Backup PC above PEEP 20 cmH2O Backup Set Rate 15 b/min Alarms Alarms On Y Resp Rate High Alarm 36 br/min Resp Rate Low Alarm 4 Press High Alarm 45 cmH2O Ve High Alarm 17 L/min Ve Low Alarm 2 L/min PEEP High Alarm 10 cmH2O PEEP Low Alarm 2 cmH2O T Apnea 45 sec(s) Alarm sound level (%) 100 % Extubated Extubated Yes How was extubation tolerated? Well Oxygen Therapy/Pulse Ox O2 Device ETT Humidification HME SpO2 100 % Vitals/Respiratory Assessment Assessment Type Assess only Heart Rate 81 Heart Rate Source Monitor Resp 10 Patient Effort Good Level of Consciousness Restless;Agitated;Alert Respiratory Pattern Irregular;Unlabored Patient Tolerance Tolerated well Breath Sounds Breath Sounds Bilateral Clear Airway Suctioning/Secretions Suction Type Inline Secretion Amount Scant Secretion Color LYNN Secretion Consistency LYNN Oral Suctioning/Secretions Suction Type Yankauer Secretion Amount Moderate Secretion Color Creamy;Yellow Secretion Consistency Thick Sx Tolerance Tolerated well Pt extubated post ABG results. MD notified and aware that pt occasionally decreased RR to 4 bpm, but Ve remains constant and adequate. Pt immediately began crying post extubation and stated that was a DNR and did not want to be resuscitated. Nursing at bedside. No increased wob. No c/o sob. No stridor at this time. Good oxygenation on 2 lpm nc. Good vocal demonstra tion. HD stable at this time. Uneventful extubation. onver hernan Transaction, Provider Unknown - 07/01/2014 4:00 PM PDT Progress Notes by Radha Centeno RN at 07/01/141599 Author: Radha Centeno RN Service: Wound/Ostomy Care Author Type: Registered Nurse Filed: 07/01/14 1607 Date of Service: 07/01/141599 Status: Signed Wood Shingle Roofer: Radha Centeno RN (Registered Nurse) Patient seen today by travel cota for evaluation due to low Siva score. Today's Siva scale score is 12 indicating the patient is at high risk for pressure ulcer development or i njury. Currently has no pressure injury. Patient is on a Progress mattress providing her w ith low air loss as well as pressure redistribution. Assisted RN to turn her onto her right side. Heels offloaded on pillow. Developed care plan: potential for skin breakdown. SPOT is in place. Please consult wound care if further needs arise. Thank you, Radha Centeno RN CWON 4:00 PM 07/01/2014 onver hernan Transaction, Provider Unknown - 07/01/2014 2:53 PM PDT Progress Notes by Charles Green RN at 07/01/141452 Author: Charles Green RN Service: (none) Author Type: Registered Nurse Filed: 07/01/141455 Date of Service: 07/01/141452 Status: Signed Wood Shingle Roofer: Charles Green RN (Registered Nurse) Received call from [facility], regarding pt home medication. As pharmacist was going throug h medication, it was found that bottle said to contain Alprazolam actually held 14 tabs of t razadone 50mg and 18 tabs of trazadone 100mg. Pharmacist was concerned that pt may have take n other medication than just what was initially believed. KIT Gonzales notified. onver hernan Transaction, Provider Unknown - 07/01/2014 2:06 PM PDT Progress Notes by Yesenia Page RD, CD at 07/01/14 5190 Author: Yesenia Page RD CD Service: (none) Author Type: Registered Dietitian Filed: 07/01/144 Date of Service: 07/01/141405 Status: Signed Wood Shingle Roofer: Yesenia Page RD, CD (Registered Dietitian) 07/01/14 7021 Subjective Timepoint Admit Pt c/o Routine ICU consult received. Pt also triggered for wt loss and difficulty chewing. Admitted secondary to drug overdose. RN reports pt may be extubated later today. Propofol currently off for sedation holiday. Diet Experience Self-selected diet(s) followed Unknown as no family/friends in room. Fluid / Beverage Intake Oral Fluids Amount NPO. No maintenance IV fluids running, piggybacks hanging. Food Intake Amount of Food NPO Enteral Nutrition Intake Access OG Anthropometrics Weight change Pt's BMI (21.5) WNL, pt 105% of midpoint of ideal body wt range. Wt maintena nce desired. Biochemical data, medical tests, and procedures reviewed Biochemical data, medical tests, and procedures reviewed K+ low, being replaced per electro lyte replacement protocol. Na+ elevated at 146. Blood sugars well controlled. Estimated Energy Needs Total Energy Estimated Needs 6010-4534 kcal/day Method for Estimating Needs 25-30 kcal/kg based on admit wt of 55 kg Estimated Protein Needs Total Protein Estimated Needs 66-83 gr/day Method for Estimating Needs 1.2-1.5 gr/kg based on admit wt of 55 kg Fluid Needs Total Fluid Estimated Needs 8697-9978 ml/day Method for Estimating Needs 30-35 ml/kg based on admit wt of 55 kg. Recommendations Recommended energy needs If extubated, ADAT to general. Enteral feeds if pt remains intuba rupinder. Will follow for reported wt loss and dysphagia. Further nutrition intervention as ind icated. Yesenia Page RD, CD onver hernan Transaction, Provider Unknown - 07/01/2014 1:23 PM PDT Case Management by DON Olivarez at 07/01/14 1323 Author: DON Olivarez Service: (none) Author Type: Printer Slotter Operator Filed: 07/01/14 4122 Date of Service: 07/01/14 1323 Status: Addendum Wood Shingle Roofer: DON Olivarez (Printer Slotter Operator) Related Notes: Original Note by DON Olivarez (Printer Slotter Operator) filed at 07/01/14 1342 07/01/14 1318 Discharge Planning Evaluation Admitting Diagnosis altered mental status Readmission No Living Arrangements Alone Support Systems Spouse/significant other Type of Residence Private residence House type House-1 story Steps to enter 1 Bathrooms on 1st Floor 1-Full Independent with ADL's Yes Independent with Mobility Yes (does not own/use cane, walker, w/c) Mental Status Unable to answer questions Prior functional status Pt is independent in ADLs and IADLs (drives). Pt has [facility] in-home care 2 times per week for cooking, cleaning, etc. Resources Financial concerns No Transportation issues No Patient/Family concerns No Prescription Plan Yes Previous home health equipment No Vascular access device No Ostomy/Drains/Appliances No Anticipated Disposition Facility Type Home .Met with: pt's SO Yunior [phone] and discussed discharge planning, Pt is a 49 y.o., female who lives alone. Yunior reports pt is on SSI, no HH, no home 02, no blood thinners. Yunior reports pt has hx of depression and "gets frustrated with life" but does not believe pt purposefully overdosed. Yunior states pt has no hx of suicide in the past. CM attempted to call dtr Elida "Gia" but number was di sconnected. Pt lives alone in low income housing and can do chores that do not require heav y lifting. Pt has state caregiver 2x/week that helps w/ chores. Yunior is unsure if pt has P OA. CM spoke w/ pt's dtr Elida "Gia" [phone] who confirms above information. Elida whiting in [place] and is pt's only child. Elida reports she does not believe pt would intentio bobby overdose on medication. CM updated Elida phone in [employer]. Patient's PCP is: Jef Diaz Patient's insurance: [employer] Medicaid Coverage concerns: no Medication coverage/concerns: yes/no Community resources utilized / needed: Assistance in transportation: family transport via private auto Identification of any specific education / training: Barriers to Discharge / Alternative housing needed: Anticipated DCP: pending clinical course, anticipate pt will return home to prior living si [facility] DON Olivarez Jagruti Tyler ARNP - 07/01/2014 1:15 PM PDTFormatting of this note might be different f rom the original. Progress Notes by KIT Pleitez at 07/01/14 5490 Author: KIT Pleitez Service: Second Facing Baster Author Type: Second Facing Baster Filed: 07/01/14 7931 Date of Service: 07/01/14 8216 Status: Signed Wood Shingle Roofer: KIT Pleitez (Nurse Practitioner) [facility] Service: Second Facing Baster Progress Note Johnathan Clay 49 y.o. Date of Admission: 06/30/2014 Indication for ICU Admission: mental status changes CHIEF COMPLAINT: drug overdose HISTORY OF PRESENT ILLNESS The patient is a 49 y.o. female with significant past medical history of depression on derrick riptyline, cervical and rectal cancer(?) s/p hysterectomy , s/p cholecystectomy, PTSD, and l iver disease(?). Patient was found down by her SO, confused; he thinks she took 18 tablets of the 25 mg nort riptyline. Parametrics were called and she was found to be altered-unresponsive to 2 mg narc an. She arrived to the [facility] ED with GCS of 4, was intubated due to need for airway prot ection. Her temp was cold at 85 fahrenheit; UDS pos for tca, ecg : qtc 507 ms, qrs 94; the p t was started on bicarb drip. ICU Timeline: 06/30/14: Patient was admitted to the ICU already intubated. Started on a bicarbonate infusi on. Overnight Event: Overnight she woke up and was agitated and not following commands. Sedatio n was started. PAST MEDICAL HISTORY Past Medical History Diagnosis Date Cancer cervical and colorectal, per report from [facility] PTSD (post-traumatic stress disorder) Migraines Thyroid disease PAST SURGICAL HISTORY Past Surgical History Procedure Laterality Date Hysterectomy Cholecystectomy ALLERGIES Allergies Allergen Reactions Crestor [Rosuvastatin] Other (See Comments) Unknown Haldol [Haloperidol] Other (See Comments) Unknown Interferons Other (See Comments) Unknown MEDICATIONS PRIOR TO ADMISSION Prior to Admission medications Not on File FAMILY HISTORY OF SIGNIFICANCE History reviewed. No pertinent family history. SOCIAL HISTORY History Social History Marital Status: Single Spouse Name: N/A Number of Children: N/A Years of Education: N/A Occupational History Not on file. Social History Main Topics Smoking status: Current Every Day Smoker Smokeless tobacco: Not on file Alcohol Use: Yes Comment: unknown Drug Use: Yes Special: Marijuana Comment: per daughter, has medical marijuana card. Sexual Activity: Not on file Other Topics Concern Not on file Social History Narrative No narrative on file PHYSICAL EXAM VITAL SIGNS Temp: [91.8 F (33.2 C)-99.3 F (37.4 C)] 98.2 F (36.8 C) Heart Rate: [68-113] 69 Resp: [9-36] 14 BP: (79-165)/(48-106) 89/55 mmHg FiO2 : [25 %-35 %] 35 % EXAM GEN: tubed vented sedated NEURO: PERRLA, Off sedation she NARAYAN but is not yet following commands. She reaches for the ETT. Currently in physical restraints. HEENT: sclerae clear, nonicteric, oral mmm, pink, no exudates NGT and ETT in place. NECK: supple, trachea midline HEART: RRR, LUNGS: clear b/l, no wheezing, rales or rhonchi, symmetric chest expansion, even/unlabored respirations ABD: soft, nondistended, nontender to palpation, no masses, abd with low transverse surgic al scar EXTR: no edema, clubbing or cyanosis SKIN: warm, dry, no rash or mottling; no e/o skin breakdown over the occiput, scapulae, elb ows, sacrum or heels, left elbow bruise, LINES/TUBES: NGT, ett 5-15, 3 piv DATA Recent Labs Lab 07/01/14 0414 WBC 5.41 HGB 12.3 HCT 36.8 PLT 234 Recent Labs Lab 07/01/14 1150 07/01/14 0414 06/30/14 1700 NA -- 146* -- 143 K 3.9 3.3* < > 2.9* CL -- 114* -- 110* CO2 -- 22* -- 22* ANIONGAP -- 13 -- 13 GLUF -- 73 -- 104* BUN -- 10 -- 13 CREATININE -- 0.94 -- 0.73 BCR -- 11 -- 17 CA -- 8.2* -- 7.6* EGFR -- >60 -- >60 PHOS -- 3.2 -- -- MG 3.0* 1.8 < > -- < > = values in this interval not displayed. No results for input(s): INR in the last 168 hours. IMAGING X-ray Chest 1 View 07/01/2014 FINDINGS/ IMPRESSION: Endotracheal tube 4.9 cm above the josé luis. Enteric tube side-port within the stomach. No pneumothorax, no pleural effusion. Lungs are clear. Upper mediastinal contour and heart size are normal. No acute osseous abnormality. Electronical ly signed by Casey Kohli MD on 07/01/2014 7:05 AM X-ray Chest 1 View 06/30/2014 1. No infiltrates or congestion. 2. ET tube 2.5 cm above the josé luis. Retract 2 cm for optimal positioning. This was called to the ICU at 3:30 PM date of study, and discu ssed with the patient's nurse Artem. 3. NG tube coiled in the fundus. LEM LIST Active Problems: Acute respiratory failure Metabolic encephalopathy Drug overdose Leukopenia Hypothermia ASSESSMENT & PLAN NEURO: Unknown baseline or underlying psychiatric problems but seems like she overdosed on nort ryptiline; we will make sure her qrs <100 msec otherwise she will need bicarb drip, also denita l support her airways and hemodynamics The pt does present with hypothernmia and leukopenia: the latter could be explained by t he alf effect of nortriptiline but the combination makes me suspiciuos of infection, w ill wells culture and rewarm; will hold off abx since pt is hemoidynamically stable Precedex started and hopefully will be able to wean to extubate. CV: stable PULM: Intubated for airway protection, no e/o aspiration GI/NUTRITION: Npo for now RENAL/LYTES: No issues , watch uo ID: As above under neuro HEME: No e/o active bleeding Leukopenia as above ENDO: bs goal 80-180 MUSC/SKIN: Early mobility PROPHYLAXIS: Stress ulcer prophylaxis: pepcid DVT prophylaxis: heparin VAP bundle: chlorhexadine oral care, HOB >30 degrees. Disposition: ICU care as above Code Status: Full Code Primary Care Physician: Jef Diaz *Please bill 40 minutes of critical care time spent evaluating the patient, reviewing the d natacha and formulating a plan exclusive of all other procedures. KIT Pleitez 07/01/2014 1:15 PM onversion Transaction, Provider Unknown - 06/30/2014 3:05 PM PDTFormatting of this note might be diff erent from the original. Progress Notes by Jacklyn Barroso RPH at 06/30/14 1505 Author: Jacklyn Barroso RPH Service: (none) Author Type: Pharmacist Filed: 06/30/14 1505 Date of Service: 06/30/14 150 Status: Signed Wood Shingle Roofer: Jacklyn Barroso RPH (Pharmacist) Clinical Pharmacy Note: Renal Monitoring Johnathan Clay 49 y.o. female Ht Readings from Last 1 Encounters: No data found for Ht Wt Readings from Last 1 Encounters: No data found for Wt Creatinine clearance cannot be calculated (Unknown ideal weight.) Pharmacy dosing for renal function per Dr. Jacques Santo. Currently, there are no labs. Pharmacy will adjust medications, if necessary, when labs are reported. Jacklyn Barroso PharmD 06/30/2014 3:04 PM docume nted in this encounter H&P Notes Jacques Santo MD - 06/30/2014 3:04 PM PDTFormatting of this note might be different fro m the original. H&P by Jacques Santo MD at 06/30/14 1500 Author: Jacques Santo MD Service: Second Facing Baster Author Type: Second Facing Baster Filed: 06/30/14 1621 Date of Service: 06/30/141503 Status: Signed Wood Shingle Roofer: Jacques Santo MD (Physician) [facility] Service: Second Facing Baster Admission History & Physical Johnathan Clay 49 y.o. Date of Admission: 06/30/2014 Requesting Physician: Er at [facility], dr ontiveros Indication for ICU Admission: mental status changes History Obtained From: chart review CHIEF COMPLAINT: drug overdose HISTORY OF PRESENT ILLNESS The patient is a 49 y.o. female with significant past medical history of depression on derrick ryptiline, per report has a hx of cervical and rectal cancer(?) s/p hysterectomy , s/p chelc ystectomy, ptsd, liver disease(?); she was found down by her SO , confused; he thinks she to ok 18 tablets of the 25 mg nortryptiline; ems called and she was altered , did not respond to 2 mg narcan; she arrived to the [facility] ED with gcs of 4, was intubated. Her temp w as 85 fahrenheit; uds pos for tca, ecg : qtc 507 ms, qrs 94; the pt was started on bicarb dr preciado. Wbc 1.7 hct 45 plt 238 ua negative lft wnl REVIEW OF SYSTEMS Review of systems not obtained due to intubated. PAST MEDICAL HISTORY No past medical history on file. PAST SURGICAL HISTORY No past surgical history on file. ALLERGIES Allergies Allergen Reactions Crestor [Rosuvastatin] Other (See Comments) Unknown Haldol [Haloperidol] Other (See Comments) Unknown Interferons Other (See Comments) Unknown MEDICATIONS PRIOR TO ADMISSION Prior to Admission medications Not on File FAMILY HISTORY OF SIGNIFICANCE No family history on file. SOCIAL HISTORY History Social History Marital Status: Single Spouse Name: N/A Number of Children: N/A Years of Education: N/A Occupational History Not on file. Social History Main Topics Smoking status: Not on file Smokeless tobacco: Not on file Alcohol Use: Not on file Drug Use: Not on file Sexual Activity: Not on file Other Topics Concern Not on file Social History Narrative No narrative on file PHYSICAL EXAM VITAL SIGNS Temp: [92.5 F (33.6 C)-93.2 F (34 C)] 93.2 F (34 C) Heart Rate: [80-90] 83 Resp: [9-36] 14 BP: (130-165)/(85-106) 130/85 mmHg EXAM GEN: tubed vented sedated NEURO: PERRLA, heavily sedated on admission, will assess the neuro exam off sedation HEENT: sclerae clear, nonicteric, oral mmm, pink, no exudates NECK: supple, trachea midline HEART: RRR, LUNGS: clear b/l, no wheezing, rales or rhonchi, symmetric chest expansion, even/unlabored respirations ABD: soft, nondistended, nontender to palpation, no masses, abd with low transverse surgic al scar EXTR: no edema, clubbing or cyanosis SKIN: warm, dry, no rash or mottling; no e/o skin breakdown over the occiput, scapulae, elb ows, sacrum or heels, left elbow bruise, LINES/TUBES: ett 5-15, 3 piv DATA No results for input(s): WBC, RBC, HGB, HCT, MCV, MCH, MCHC, RDW, PLT, MPV, BANDSABS, NEUTR OABS, LYMPHSABS, ATYPLYMPABS, MONOSABS, BASOSABS, EOSABS, MORPH in the last 168 hours. No results for input(s): NA, K, CL, CO2, ANIONGAP, GLUF, BUN, CREATININE, BCR, CA, ALB, ISMAEL B, AG, PROT, BILITOT, ALKPHOS, ALT, AST, EGFR, PHOS, MG in the last 168 hours. No results for input(s): INR in the last 168 hours. IMAGING cxr ett deep , will pull out 2 cm PROBLEM LIST Active Problems: Acute respiratory failure Metabolic encephalopathy Drug overdose Leukopenia Hypothermia ASSESSMENT & PLAN NEURO: Unknown baseline or underlying psychiatric problems but seems like she overdosed on nort ryptiline; we will make sure her qrs <100 msec otherwise she will need bicarb drip, also denita l support her airways and hemodynamics The pt does present with hypothernmia and leukopenia: the latter could be explained by t he alf effect of nortriptiline but the combination makes me suspiciuos of infection, w ill wells culture and rewarm; will hold off abx since pt is hemoidynamically stable CV: stable PULM: Intubated for airway protection, no e/o aspiration GI/NUTRITION: Npo for now RENAL/LYTES: No issues , watch uo ID: As above under neuro HEME: No e/o active bleeding Leukopenia as above ENDO: bs goal 80-180 MUSC/SKIN: Early mobility PROPHYLAXIS: Stress ulcer prophylaxis: pepcid DVT prophylaxis: heparin VAP bundle: chlorhexadine oral care, HOB >30 degrees. Disposition: Will wake her up and assess her neuro status and try to get hold of family Code Status: Full Code Primary Care Physician: Jef Diaz *Please bill 75 minutes of critical care time spent evaluating the patient, reviewing the d natacha and formulating a plan exclusive of all other procedures. Jacques Santo MD 06/30/2014 3:34 PM documented in this e ncounter Consult Notes Priyanka Kenney ARNP - 07/03/2014 10:03 AM PDT Consults by VICTORIANO Sharma at 07/03/14 1003 Author: VICTORIANO Sharma Service: (none) Author Type: Advanced Registered Nurs e Practitioner Filed: 07/03/14 1045 Date of Service: 07/03/14 1003 Status: Signed Wood Shingle Roofer: VICTORIANO Sharma (Advanced Registered Nurse Practitioner) Consult Orders: 1. Inpatient consult to Psychiatry [[id number]] ordered by KIT Pleitez at [id number] [facility] Service: Psychiatry Initial Consult Note Date of Admission: 06/30/2014 Reason for Consultation: Psychiatry Requesting Physician: KIT Pleitez History Obtained From: patient, chart review, Quality of history: fair PROBLEM LIST Active Problems: Acute respiratory failure Metabolic encephalopathy Drug overdose Leukopenia Hypothermia I. IDENTIFYING INFORMATION This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 section. | + +--------+ + + + | CULTURE, BLOOD, 2ND | STAT | 06/30/2014 | | Results for this | | SPECIMEN (NON-ORD) | | 5:08 PM | | procedure are in the | | | | PDT | | results section. | + +--------+ + + + | CULTURE, BLOOD | STAT | 06/30/2014 | | Results for this | | | | 5:00 PM | | procedure are in the | | | | PDT | | results section. | + +--------+ + + + | BASIC METABOLIC | Routin | 06/30/2014 | | Results for this | | PANEL | e | 5:00 PM | | procedure are in the | | | | PDT | | results section. | + +--------+ + + + | POC GLUCOSE | Routin | 06/30/2014 | | Results for this | | | e | 4:31 PM | | procedure are in the | | | | PDT | | results section. | + +--------+ + + + | XR CHEST 1 VIEW | Routin | 06/30/2014 | | Results for this | | | e | 3:24 PM | | procedure are in the | | | | PDT | | results section. | + +--------+ + + + | POC CG 4, ISTAT | Routin | 06/30/2014 | | Results for this | | ARTERIAL | e | 3:23 PM | | procedure are in the | | | | PDT | | results section. | + +--------+ + + + | ECG 12 LEAD | Routin | 06/30/2014 | | Results for this | | | e | 3:08 PM | | procedure are in the | | | | PDT | | results section. | + +--------+ + + + | MRSA NAAT | Routin | 06/30/2014 | | Results for this | | | e | 2:55 PM | | procedure are in the | | | | PDT | | results section. | + +--------+ + + + | URINALYSIS WITH | Routin | 06/30/2014 | | Results for this | | MICROSCOPIC IF | e | 2:55 PM | | procedure are in the | | INDICATED | | PDT | | results section. | + +--------+ + + + | GRAM STAIN, REFLEX | Timed | 06/30/2014 | | Results for this | | SPUTUM CULTURE | | 2:45 PM | | procedure are in the | | | | PDT | | results section. | + +--------+ + + + documented in this encounter Results ECG 12 lead (07/04/2014 11:44 AM PDT) + + + + + + | Component | Value | Ref Range | Performed | Pathologist | | | | | At | Signature | + + + + + + | DIAGNOSIS: | Normal sinus | | EXTERNAL | | | | rhythmNormal ECGWhen | | LAB | | | | compared with ECG of | | | | | | 04-JUL-2014 05:45,No | | | | | | significant change was | | | | | | foundConfirmed by TERESA, | | | | | | KHURRAM ([id number]) on 07/04/2014 | | | | | | 1:42:03 PM | | | | + + + + + + + + | Specimen | + + | | + + + + + | Narrative | Performed At | + + + | Historically converted procedure from [facility] Epic environment | EXTERNAL LAB | + + + + +---------+ + + | Performing | Address | City/State/Zipcode | Phone Number | | Organization | | | | + +---------+ + + | EXTERNAL LAB | | | | + +---------+ + + ECG 12 lead (07/04/2014 5:45 AM PDT) + + + + + + | Component | Value | Ref Range | Performed | Pathologist | | | | | At | Signature | + + + + + + | DIAGNOSIS: | Normal sinus | | EXTERNAL | | | | rhythmNormal ECGWhen | | LAB | | | | compared with ECG of | | | | | | 30-JUN-2014 15:08,QT has | | | | | | shortenedConfirmed by | | | | | | KHURRAM MOORE ([id number]) on | | | | | | 07/04/2014 1:29:00 PM | | | | + + + + + + + + | Specimen | + + | | + + + + + | Narrative | Performed At | + + + | Historically converted procedure from [facility] Epic environment | EXTERNAL LAB | + + + + +---------+ + + | Performing | Address | City/State/Zipcode | Phone Number | | Organization | | | | + +---------+ + + | EXTERNAL LAB | | | | + +---------+ + + External Lab: [facility] (07/04/2014 4:40 AM PDT) + + + + + + | Component | Value | Ref Range | Performed | Pathologist | | | | | At | Signature | + + + + + + | WBC | 4.30Comment: Testing | 3.80 - 11.00 | EXTERNAL | | | | performed at [facility], [address] | K/uL | LAB | | | | [address], | | | | | | [place] [address] | | | | + + + + + + | Non- | 3.95Comment: Testing | 3.70 - 5.10 | EXTERNAL | | | Red Blood | performed at [facility], [address] | M/uL | LAB | | | Cells | [address], | | | | | Counted | [place] [address] | | | | + + + + + + | Hemoglobin | 12.8Comment: Testing | 11.3 - 15.5 | EXTERNAL | | | | performed at [facility], [address] | g/dL | LAB | | | | [address], | | | | | | [place] [address] | | | | + + + + + + | Hematocrit, | 38.8Comment: Testing | 34.0 - 46.0 % | EXTERNAL | | | POC | performed at [facility], [address] | | LAB | | | | [address], | | | | | | [place] [address] | | | | + + + + + + | MCV | 98.1Comment: Testing | 80.0 - 100.0 fl | EXTERNAL | | | | performed at [facility], [address] | | LAB | | | | [address], | | | | | | [place] [address] | | | | + + + + + + | MCH | 32.3Comment: Testing | 27.0 - 34.0 pg | EXTERNAL | | | | performed at [facility], [address] | | LAB | | | | [address], | | | | | | [place] [address] | | | | + + + + + + | MCHC | 32.9Comment: Testing | 32.0 - 35.5 | EXTERNAL | | | | performed at [facility], [address] | g/dL | LAB | | | | [address], | | | | | | [place] [address] | | | | + + + + + + | RDW-CV | 45.5Comment: Testing | 37 - 53 fl | EXTERNAL | | | | performed at [facility], [address] | | LAB | | | | [address], | | | | | | [place] [address] | | | | + + + + + + | Platelet | 274Comment: Testing | 150 - 400 K/uL | EXTERNAL | | | Count | performed at [facility], [address] | | LAB | | | Plasma | [address], | | | | | | [place] [address] | | | | + + + + + + | MPV | 8.2Comment: Testing | fl | EXTERNAL | | | | performed at [facility], [address] | | LAB | | | | [address], | | | | | | [place] [address] | | | | + + + + + + | Differentia | AUTOMATEDComment: | | EXTERNAL | | | l Type | Testing performed at | | LAB | | | | [facility], [address] | | | | | | [place] | | | | | | [address] | | | | + + + + + + | % Segmented | 44.81Comment: Testing | % | EXTERNAL | | | | performed at [facility], [address] | | LAB | | | Neutrophils | [address], | | | | | | [place] [address] | | | | + + + + + + | % | 28.27Comment: Testing | % | EXTERNAL | | | Lymphocytes | performed at [facility], [address] | | LAB | | | | [address], | | | | | | [place] [address] | | | | + + + + + + | % Monocytes | 20.58Comment: Testing | % | EXTERNAL | | | | performed at [facility], [address] | | LAB | | | | [address], | | | | | | [place] [address] | | | | + + + + + + | % | 5.14Comment: Testing | % | EXTERNAL | | | Eosinophils | performed at [facility], [address] | | LAB | | | | [address], | | | | | | [place] [address] | | | | + + + + + + | % Basophils | 1.20Comment: Testing | % | EXTERNAL | | | | performed at [facility], [address] | | LAB | | | | [address], | | | | | | [place] [address] | | | | + + + + + + | Absolute | 1.93Comment: Testing | 1.90 - 7.40 | EXTERNAL | | | Segmented | performed at [facility], [address] | K/uL | LAB | | | Neutrophils | [address], | | | | | | [place] [address] | | | | + + + + + + | Absolute | 1.22Comment: Testing | 1.00 - 3.90 | EXTERNAL | | | Lymphocytes | performed at [facility], [address] | K/uL | LAB | | | | [address], | | | | | | [place] [address] | | | | + + + + + + | Absolute | 0.89 (H)Comment: Testing | 0.00 - 0.80 | EXTERNAL | | | Monocytes | performed at [facility], [address] | K/[address] | LAB | | | | [address], | | | | | | [place] [address] | | | | + + + + + + | Absolute | 0.22Comment: Testing | 0.00 - 0.50 | EXTERNAL | | | Eosinophils | performed at [facility], [address] | K/uL | LAB | | | | [address], | | | | | | [place] [address] | | | | + + + + + + | Absolute | 0.05Comment: Testing | 0.00 - 0.10 | EXTERNAL | | | Basophils | performed at [facility], [address] | K/uL | LAB | | | | [address], | | | | | | [place] [address] | | | | + + + + + + + + | Specimen | + + | Blood specimen | | (specimen) | + + + +---------+ + + | Performing | Address | City/State/Zipcode | Phone Number | | Organization | | | | + +---------+ + + | EXTERNAL LAB | | | | + +---------+ + + Phosphorus (07/04/2014 4:40 AM PDT) + + + + + + | Component | Value | Ref Range | Performed | Pathologist | | | | | At | Signature | + + + + + + | PHOSPHORUS | 4.3Comment: Testing | 2.3 - 4.8 mg/dL | EXTERNAL | | | | performed at [facility], [address] | | LAB | | | | [address], | | | | | | [place] [address] | | | | + + + + + + + + | Specimen | + + | Blood specimen | | (specimen) | + + + +---------+ + + | Performing | Address | City/State/Zipcode | Phone Number | | Organization | | | | + +---------+ + + | EXTERNAL LAB | | | | + +---------+ + + Magnesium (07/04/2014 4:40 AM PDT) + + + + + + | Component | Value | Ref Range | Performed | Pathologist | | | | | At | Signature | + + + + + + | Magnesium | 1.9Comment: Testing | 1.7 - 2.4 mg/dL | EXTERNAL | | | | performed at [facility], [address] | | LAB | | | | [address], | | | | | | [place] [address] | | | | + + + + + + + + | Specimen | + + | Blood specimen | | (specimen) | + + + +---------+ + + | Performing | Address | City/State/Zipcode | Phone Number | | Organization | | | | + +---------+ + + | EXTERNAL LAB | | | | + +---------+ + + Basic Metabolic Panel (07/04/2014 4:40 AM PDT) + + + + + + | Component | Value | Ref Range | Performed | Pathologist | | | | | At | Signature | + + + + + + | Na | 137Comment: Testing | 135 - 143 | EXTERNAL | | | | performed at [facility], [address] | mmol/L | LAB | | | | [address], | | | | | | [place] [address] | | | | + + + + + + | K | 4.0Comment: Testing | 3.5 - 4.9 | EXTERNAL | | | | performed at [facility], [address] | mmol/L | LAB | | | | [address], | | | | | | [place] [address] | | | | + + + + + + | Cl | 103Comment: Testing | 99 - 109 mmol/L | EXTERNAL | | | | performed at [facility], [address] | | LAB | | | | [address], | | | | | | [place] [address] | | | | + + + + + + | CO2 | 28Comment: Testing | 23 - 32 mmol/L | EXTERNAL | | | | performed at [facility], [address] | | LAB | | | | [address], | | | | | | [place] [address] | | | | + + + + + + | Anion Gap | 10Comment: Testing | 5 - 20 mmol/L | EXTERNAL | | | | performed at [facility], [address] | | LAB | | | | [address], | | | | | | [place] [address] | | | | + + + + + + | Glucose, | 93Comment: Testing | 65 - 99 mg/dL | EXTERNAL | | | Fasting | performed at [facility], [address] | | LAB | | | | [address], | | | | | | [place] [address] | | | | + + + + + + | BUN | 9Comment: Testing | 8 - 25 mg/dL | EXTERNAL | | | | performed at [facility], [address] | | LAB | | | | [address], | | | | | | [place] [address] | | | | + + + + + + | Creatinine | 0.81Comment: Testing | 0.50 - 1.00 | EXTERNAL | | | | performed at [facility], [address] | mg/dL | LAB | | | | [address], | | | | | | [place] [address] | | | | + + + + + + | BUN/Creatin | 11Comment: Testing | | EXTERNAL | | | ine Ratio | performed at [facility], [address] | | LAB | | | | [address], | | | | | | [place] [address] | | | | + + + + + + | Calcium | 8.8Comment: Testing | 8.5 - 10.5 | EXTERNAL | | | | performed at [facility], [address] | mg/dL | LAB | | | | [address], | | | | | | [place] [address] | | | | + + + + + + | Estimated | >60Comment: GFR <60: | mL/min/1.73m2 | EXTERNAL | | | GFR | CHRONIC KIDNEY DISEASE, | | LAB | | | | IF FOUND OVER A 3 MONTH | | | | | | PERIOD.GFR <15: KIDNEY | | | | | | FAILURE.FOR | | | | | | AMERICANS, MULTIPLY THE | | | | | | CALCULATED GFR BY | | | | | | 1.210.Testing performed | | | | | | at [facility], [address] | | | | | | [address], | | | | | | [place] [address] | | | | + + + + + + + + | Specimen | + + | Blood specimen | | (specimen) | + + + +---------+ + + | Performing | Address | City/State/Zipcode | Phone Number | | Organization | | | | + +---------+ + + | EXTERNAL LAB | | | | + +---------+ + + Potassium (07/03/2014 4:45 PM PDT) + + + + + + | Component | Value | Ref Range | Performed | Pathologist | | | | | At | Signature | + + + + + + | K | 4.2Comment: Testing | 3.5 - 4.9 | EXTERNAL | | | | performed at [facility];[address] | mmol/L | LAB | | | | [address];[place], [place] | | | | | | [address] | | | | + + + + + + + + | Specimen | + + | Blood specimen | | (specimen) | + + + +---------+ + + | Performing | Address | City/State/Zipcode | Phone Number | | Organization | | | | + +---------+ + + | EXTERNAL LAB | | | | + +---------+ + + Potassium (07/03/2014 11:16 AM PDT) + + + + + + | Component | Value | Ref Range | Performed | Pathologist | | | | | At | Signature | + + + + + + | K | 3.5Comment: Testing | 3.5 - 4.9 | EXTERNAL | | | | performed at [facility];[address] | mmol/L | LAB | | | | [address];[place], [place] | | | | | | [address] | | | | + + + + + + + + | Specimen | + + | Blood specimen | | (specimen) | + + + +---------+ + + | Performing | Address | City/State/Zipcode | Phone Number | | Organization | | | | + +---------+ + + | EXTERNAL LAB | | | | + +---------+ + + External Lab: CBC (07/03/2014 5:19 AM PDT) + + + + + + | Component | Value | Ref Range | Performed | Pathologist | | | | | At | Signature | + + + + + + | WBC | 5.80Comment: Testing | 3.80 - 11.00 | EXTERNAL | | | | performed at [facility], [address] | K/uL | LAB | | | | [address], | | | | | | [place] [address] | | | | + + + + + + | Non- | 3.86Comment: Testing | 3.70 - 5.10 | EXTERNAL | | | Red Blood | performed at [facility], [address] | M/uL | LAB | | | Cells | [address], | | | | | Counted | [place] [address] | | | | + + + + + + | Hemoglobin | 12.4Comment: Testing | 11.3 - 15.5 | EXTERNAL | | | | performed at [facility], [address] | g/dL | LAB | | | | [address], | | | | | | [place] [address] | | | | + + + + + + | Hematocrit, | 37.4Comment: Testing | 34.0 - 46.0 % | EXTERNAL | | | POC | performed at [facility], [address] | | LAB | | | | [address], | | | | | | [place] [address] | | | | + + + + + + | MCV | 97.0Comment: Testing | 80.0 - 100.0 fl | EXTERNAL | | | | performed at [facility], [address] | | LAB | | | | [address], | | | | | | [place] [address] | | | | + + + + + + | MCH | 32.0Comment: Testing | 27.0 - 34.0 pg | EXTERNAL | | | | performed at [facility], [address] | | LAB | | | | [address], | | | | | | [place] [address] | | | | + + + + + + | MCHC | 33.0Comment: Testing | 32.0 - 35.5 | EXTERNAL | | | | performed at [facility], [address] | g/dL | LAB | | | | [address], | | | | | | [place] [address] | | | | + + + + + + | RDW-CV | 45.1Comment: Testing | 37 - 53 fl | EXTERNAL | | | | performed at [facility], [address] | | LAB | | | | [address], | | | | | | [place] [address] | | | | + + + + + + | Platelet | 241Comment: Testing | 150 - 400 K/uL | EXTERNAL | | | Count | performed at [facility], [address] | | LAB | | | Plasma | [address], | | | | | | [place] [address] | | | | + + + + + + | MPV | 8.3Comment: Testing | fl | EXTERNAL | | | | performed at [facility], [address] | | LAB | | | | [address], | | | | | | [place] [address] | | | | + + + + + + | Differentia | AUTOMATEDComment: | | EXTERNAL | | | l Type | Testing performed at | | LAB | | | | [facility], [address] | | | | | | [place] | | | | | | [address] | | | | + + + + + + | % Segmented | 70.16Comment: Testing | % | EXTERNAL | | | | performed at [facility], [address] | | LAB | | | Neutrophils | [address], | | | | | | [place] [address] | | | | + + + + + + | % | 15.84Comment: Testing | % | EXTERNAL | | | Lymphocytes | performed at [facility], [address] | | LAB | | | | [address], | | | | | | [place] [address] | | | | + + + + + + | % Monocytes | 10.76Comment: Testing | % | EXTERNAL | | | | performed at [facility], [address] | | LAB | | | | [address], | | | | | | [place] [address] | | | | + + + + + + | % | 2.48Comment: Testing | % | EXTERNAL | | | Eosinophils | performed at [facility], [address] | | LAB | | | | [address], | | | | | | [place] [address] | | | | + + + + + + | % Basophils | 0.76Comment: Testing | % | EXTERNAL | | | | performed at [facility], [address] | | LAB | | | | [address], | | | | | | [place] [address] | | | | + + + + + + | Absolute | 4.07Comment: Testing | 1.90 - 7.40 | EXTERNAL | | | Segmented | performed at [facility], [address] | K/uL | LAB | | | Neutrophils | [address], | | | | | | [place] [address] | | | | + + + + + + | Absolute | 0.92 (L)Comment: Testing | 1.00 - 3.90 | EXTERNAL | | | Lymphocytes | performed at [facility], [address] | K/uL | LAB | | | | [address], | | | | | | [place] [address] | | | | + + + + + + | Absolute | 0.62Comment: Testing | 0.00 - 0.80 | EXTERNAL | | | Monocytes | performed at [facility], [address] | K/uL | LAB | | | | [address], | | | | | | [place] [address] | | | | + + + + + + | Absolute | 0.14Comment: Testing | 0.00 - 0.50 | EXTERNAL | | | Eosinophils | performed at [facility], [address] | K/uL | LAB | | | | [address], | | | | | | [place] [address] | | | | + + + + + + | Absolute | 0.04Comment: Testing | 0.00 - 0.10 | EXTERNAL | | | Basophils | performed at [facility], [address] | K/uL | LAB | | | | [address], | | | | | | [place] [address] | | | | + + + + + + + + | Specimen | + + | Blood specimen | | (specimen) | + + + +---------+ + + | Performing | Address | City/State/Zipcode | Phone Number | | Organization | | | | + +---------+ + + | EXTERNAL LAB | | | | + +---------+ + + Phosphorus (07/03/2014 5:19 AM PDT) + + + + + + | Component | Value | Ref Range | Performed | Pathologist | | | | | At | Signature | + + + + + + | PHOSPHORUS | 4.0Comment: Testing | 2.3 - 4.8 mg/dL | EXTERNAL | | | | performed at [facility], [address] | | LAB | | | | [address], | | | | | | [place] [address] | | | | + + + + + + + + | Specimen | + + | | + + + +---------+ + + | Performing | Address | City/State/Zipcode | Phone Number | | Organization | | | | + +---------+ + + | EXTERNAL LAB | | | | + +---------+ + + Magnesium (07/03/2014 5:19 AM PDT) + + + + + + | Component | Value | Ref Range | Performed | Pathologist | | | | | At | Signature | + + + + + + | Magnesium | 1.9Comment: Testing | 1.7 - 2.4 mg/dL | EXTERNAL | | | | performed at [facility], [address] | | LAB | | | | [address], | | | | | | [place] [address] | | | | + + + + + + + + | Specimen | + + | | + + + +---------+ + + | Performing | Address | City/State/Zipcode | Phone Number | | Organization | | | | + +---------+ + + | EXTERNAL LAB | | | | + +---------+ + + Basic Metabolic Panel (07/03/2014 5:19 AM PDT) + + + + + + | Component | Value | Ref Range | Performed | Pathologist | | | | | At | Signature | + + + + + + | Na | 135Comment: Testing | 135 - 143 | EXTERNAL | | | | performed at [facility], [address] | mmol/L | LAB | | | | [address], | | | | | | [place] [address] | | | | + + + + + + | K | 3.2 (L)Comment: Testing | 3.5 - 4.9 | EXTERNAL | | | | performed at [facility], [address] | mmol/L | LAB | | | | [address], | | | | | | [place] [address] | | | | + + + + + + | Cl | 102Comment: Testing | 99 - 109 mmol/L | EXTERNAL | | | | performed at [facility], [address] | | LAB | | | | [address], | | | | | | [place] [address] | | | | + + + + + + | CO2 | 28Comment: Testing | 23 - 32 mmol/L | EXTERNAL | | | | performed at [facility], [address] | | LAB | | | | [address], | | | | | | [place] [address] | | | | + + + + + + | Anion Gap | 8Comment: Testing | 5 - 20 mmol/L | EXTERNAL | | | | performed at [facility], [address] | | LAB | | | | [address], | | | | | | [place] [address] | | | | + + + + + + | Glucose, | 124 (H)Comment: Testing | 65 - 99 mg/dL | EXTERNAL | | | Fasting | performed at [facility], [address] | | LAB | | | | [address], | | | | | | [place] [address] | | | | + + + + + + | BUN | 9Comment: Testing | 8 - 25 mg/dL | EXTERNAL | | | | performed at [facility], [address] | | LAB | | | | [address], | | | | | | [place] [address] | | | | + + + + + + | Creatinine | 0.89Comment: Testing | 0.50 - 1.00 | EXTERNAL | | | | performed at [facility], [address] | mg/dL | LAB | | | | [address], | | | | | | [place] [address] | | | | + + + + + + | BUN/Creatin | 10Comment: Testing | | EXTERNAL | | | ine Ratio | performed at [facility], [address] | | LAB | | | | [address], | | | | | | [place] [address] | | | | + + + + + + | Calcium | 8.5Comment: Testing | 8.5 - 10.5 | EXTERNAL | | | | performed at [facility], [address] | mg/dL | LAB | | | | [address], | | | | | | [place] [address] | | | | + + + + + + | Estimated | >60Comment: GFR <60: | mL/min/1.73m2 | EXTERNAL | | | GFR | CHRONIC KIDNEY DISEASE, | | LAB | | | | IF FOUND OVER A 3 MONTH | | | | | | PERIOD.GFR <15: KIDNEY | | | | | | FAILURE.FOR | | | | | | AMERICANS, MULTIPLY THE | | | | | | CALCULATED GFR BY | | | | | | 1.210.Testing performed | | | | | | at [facility], [address] | | | | | | [address], | | | | | | [place] [address] | | | | + + + + + + + + | Specimen | + + | Blood specimen | | (specimen) | + + + +---------+ + + | Performing | Address | City/State/Zipcode | Phone Number | | Organization | | | | + +---------+ + + | EXTERNAL LAB | | | | + +---------+ + + POC Glucose (07/02/2014 11:35 AM PDT) + + + + + + | Component | Value | Ref Range | Performed | Pathologist | | | | | At | Signature | + + + + + + | Glucose, | 75Comment: Testing | 65 - 99 mg/dL | EXTERNAL | | | Fingerstick | performed at [facility];[address] | | LAB | | | | [address];[place] | | | | | | [address] | | | | + + + + + + + + | Specimen | + + | | + + + +---------+ + + | Performing | Address | City/State/Zipcode | Phone Number | | Organization | | | | + +---------+ + + | EXTERNAL LAB | | | | + +---------+ + + XR Chest 1 Vw (07/02/2014 5:50 AM PDT) + + | Specimen | + + | | + + + + + | Impressions | Performed At | + + + | 1. Interval removal of endotracheal tube with unchanged | | | nasogastric tube. 2. Unchanged probable minimal segmental | | | atelectasis at the left lung base. 3. Evidence of old | | | granulomatous disease. 4. Small right pleural effusion. | | | | | + + + + + + | Narrative | Performed At | + + + | [facility] XR CHEST 1 VIEW 07/02/2014 5:50 AM HISTORY: | | | Overdose. Daily assessment for life support lines and tubes. | | | TECHNIQUE: AP chest film 0515 hours. COMPARISON: Chest | | | radiographs, most recent 07/01/14. FINDINGS: The endotracheal tube | | | has been. The enteric tube is again noted, the tip in the region of | | | the gastric cardia. Unchanged minimal opacity at both lung bases | | | probably related to subsegmental atelectasis. Tiny probable calcified | | | granulomas are seen bilaterally. Slight blunting of the right | | | costophrenic angle is again seen. No pneumothorax is found. The | | | cardiac silhouette and pulmonary vasculature are normal. | | + + + + + | Procedure Note | + + | Dimitri, Rad Conversion - 10/01/2018 8:46 AM PDT [facility] CHE[facility] 1 VIEW07/02/2014 | | 5:50 AM HISTORY:Overdose. Daily assessment for life support lines and tubes. | | TECHNIQUE:AP chest film 0515 hours. COMPARISON:Chest radiographs, most recent 07/01/14. | | FINDINGS:The endotracheal tube has been. The enteric tube is again noted, the tip in the | | region of the gastric cardia. Unchanged minimal opacity at both lung bases probably | | related to subsegmental atelectasis. Tiny probable calcified granulomas are seen | | bilaterally. Slight blunting of the right costophrenic angle is again seen. No | | pneumothorax is found. The cardiac silhouette and pulmonary vasculature are normal. | | IMPRESSION: 1. Interval removal of endotracheal tube with unchanged nasogastric tube. | | 2. Unchanged probable minimal segmental atelectasis at the left lung base. 3. Evidence | | of old granulomatous disease. 4. Small right pleural effusion. | | | |FINDINGS: | |The endotracheal tube has been. The enteric tube is again noted, the tip in the region of t he gastric cardia. Unchanged minimal opacity at both lung bases probably related to subsegme ntal atelectasis. Tiny probable calcified granulomas are seen | |bilaterally. Slight blunting of the right costophrenic angle is again seen. No pneumothorax is found. The cardiac silhouette and pulmonary vasculature are normal. | | | |IMPRESSION: | |1. Interval removal of endotracheal tube with unchanged nasogastric tube. | | | |2. Unchanged probable minimal segmental atelectasis at the left lung base. | | | |3. Evidence of old granulomatous disease. | | | |4. Small right pleural effusion. | | | | | + + External Lab: [facility] (07/02/2014 4:11 AM PDT) + + + + + + | Component | Value | Ref Range | Performed | Pathologist | | | | | At | Signature | + + + + + + | WBC | 8.12Comment: Testing | 3.80 - 11.00 | EXTERNAL | | | | performed at [facility];888 | K/uL | LAB | | | | [address];[place] | | | | | | [address] | | | | + + + + + + | Non- | 4.01Comment: Testing | 3.70 - 5.10 | EXTERNAL | | | Red Blood | performed at [facility];888 | M/uL | LAB | | | Cells | [address];[place] | | | | | Counted | [id number] | | | | + + + + + + | Hemoglobin | 13.2Comment: Testing | 11.3 - 15.5 | EXTERNAL | | | | performed at [facility];888 | g/dL | LAB | | | | [address];[place] | | | | | | [address] | | | | + + + + + + | Hematocrit, | 39.3Comment: Testing | 34.0 - 46.0 % | EXTERNAL | | | POC | performed at [facility];[address] | | LAB | | | | [address];[place] | | | | | | [address] | | | | + + + + + + | MCV | 97.9Comment: Testing | 80.0 - 100.0 fl | EXTERNAL | | | | performed at [facility];[address] | | LAB | | | | [address];[place] | | | | | | [address] | | | | + + + + + + | MCH | 32.8Comment: Testing | 27.0 - 34.0 pg | EXTERNAL | | | | performed at [facility];[address] | | LAB | | | | [address];[place] | | | | | | [address] | | | | + + + + + + | MCHC | 33.5Comment: Testing | 32.0 - 35.5 | EXTERNAL | | | | performed at [facility];888 | g/dL | LAB | | | | [address];[place] | | | | | | [address] | | | | + + + + + + | RDW-CV | 45.9Comment: Testing | 37 - 53 fl | EXTERNAL | | | | performed at [facility];[address] | | LAB | | | | [address];[place] | | | | | | [address] | | | | + + + + + + | Platelet | 232Comment: Testing | 150 - 400 K/uL | EXTERNAL | | | Count | performed at [facility];888 | | LAB | | | Plasma | [address];[place] | | | | | | [address] | | | | + + + + + + | MPV | 7.8Comment: Testing | fl | EXTERNAL | | | | performed at [facility];[address] | | LAB | | | | [address];[place] | | | | | | [address] | | | | + + + + + + | Differentia | AUTOMATEDComment: | | EXTERNAL | | | l Type | Testing performed at | | LAB | | | | [facility];[address];[place] [address] | | | | + + + + + + | % Segmented | 76.85Comment: Testing | % | EXTERNAL | | | | performed at [facility];888 | | LAB | | | Neutrophils | [address];[place] | | | | | | [address] | | | | + + + + + + | % | 10.13Comment: Testing | % | EXTERNAL | | | Lymphocytes | performed at [facility];[address] | | LAB | | | | [address];[place] | | | | | | [address] | | | | + + + + + + | % Monocytes | 10.46Comment: Testing | % | EXTERNAL | | | | performed at [facility];[address] | | LAB | | | | [address];[place] | | | | | | [address] | | | | + + + + + + | % | 1.54Comment: Testing | % | EXTERNAL | | | Eosinophils | performed at [facility];[address] | | LAB | | | | [address];[place] | | | | | | [address] | | | | + + + + + + | % Basophils | 1.02Comment: Testing | % | EXTERNAL | | | | performed at [facility];[address] | | LAB | | | | [address];[place] | | | | | | [address] | | | | + + + + + + | Absolute | 6.24Comment: Testing | 1.90 - 7.40 | EXTERNAL | | | Segmented | performed at [facility];888 | K/uL | LAB | | | Neutrophils | [address];[place] | | | | | | [address] | | | | + + + + + + | Absolute | 0.82 (L)Comment: Testing | 1.00 - 3.90 | EXTERNAL | | | Lymphocytes | performed at [facility];888 | K/uL | LAB | | | | [address];[place] | | | | | | [address] | | | | + + + + + + | Absolute | 0.85 (H)Comment: Testing | 0.00 - 0.80 | EXTERNAL | | | Monocytes | performed at [facility];888 | K/uL | LAB | | | | [address];[place] | | | | | | [address] | | | | + + + + + + | Absolute | 0.13Comment: Testing | 0.00 - 0.50 | EXTERNAL | | | Eosinophils | performed at [facility];888 | K/uL | LAB | | | | [address];[place] | | | | | | [address] | | | | + + + + + + | Absolute | 0.08Comment: Testing | 0.00 - 0.10 | EXTERNAL | | | Basophils | performed at [facility];888 | K/uL | LAB | | | | [address];[place], [place] | | | | | | [address] | | | | + + + + + + + + | Specimen | + + | Blood specimen | | (specimen) | + + + +---------+ + + | Performing | Address | City/State/Zipcode | Phone Number | | Organization | | | | + +---------+ + + | EXTERNAL LAB | | | | + +---------+ + + Phosphorus (07/02/2014 4:11 AM PDT) + + + + + + | Component | Value | Ref Range | Performed | Pathologist | | | | | At | Signature | + + + + + + | PHOSPHORUS | 3.3Comment: Testing | 2.3 - 4.8 mg/dL | EXTERNAL | | | | performed at [facility] | | LAB | | | | [address];[place], [place] | | | | | | [address] | | | | + + + + + + + + | Specimen | + + | | + + + +---------+ + + | Performing | Address | City/State/Zipcode | Phone Number | | Organization | | | | + +---------+ + + | EXTERNAL LAB | | | | + +---------+ + + Magnesium (07/02/2014 4:11 AM PDT) + + + + + + | Component | Value | Ref Range | Performed | Pathologist | | | | | At | Signature | + + + + + + | Magnesium | 1.9Comment: SLT | 1.7 - 2.4 mg/dL | EXTERNAL | | | | HEMOLYSISTesting | | LAB | | | | performed at [facility] | | | | | | [address];[place], [place] | | | | | | [address] | | | | + + + + + + + + | Specimen | + + | | + + + +---------+ + + | Performing | Address | City/State/Zipcode | Phone Number | | Organization | | | | + +---------+ + + | EXTERNAL LAB | | | | + +---------+ + + Basic Metabolic Panel (07/02/2014 4:11 AM PDT) + + + + + + | Component | Value | Ref Range | Performed | Pathologist | | | | | At | Signature | + + + + + + | Na | 138Comment: Testing | 135 - 143 | EXTERNAL | | | | performed at [facility];888 | mmol/L | LAB | | | | [address];[place] | | | | | | [address] | | | | + + + + + + | K | 3.4 (L)Comment: Testing | 3.5 - 4.9 | EXTERNAL | | | | performed at [facility];888 | mmol/L | LAB | | | | [address];[place] | | | | | | [address] | | | | + + + + + + | Cl | 106Comment: Testing | 99 - 109 mmol/L | EXTERNAL | | | | performed at [facility];[address] | | LAB | | | | [address];[place] | | | | | | [address] | | | | + + + + + + | CO2 | 24Comment: Testing | 23 - 32 mmol/L | EXTERNAL | | | | performed at [facility];[address] | | LAB | | | | [address];[place] | | | | | | [address] | | | | + + + + + + | Anion Gap | 11Comment: Testing | 5 - 20 mmol/L | EXTERNAL | | | | performed at [facility];[address] | | LAB | | | | [address];[place] | | | | | | [address] | | | | + + + + + + | Glucose, | 76Comment: Testing | 65 - 99 mg/dL | EXTERNAL | | | Fasting | performed at [facility];[address] | | LAB | | | | [address];[place] | | | | | | [address] | | | | + + + + + + | BUN | 5 (L)Comment: Testing | 8 - 25 mg/dL | EXTERNAL | | | | performed at [facility];[address] | | LAB | | | | [address];[place] | | | | | | [address] | | | | + + + + + + | Creatinine | 0.75Comment: Testing | 0.50 - 1.00 | EXTERNAL | | | | performed at [facility];888 | mg/dL | LAB | | | | [address];[place] | | | | | | [address] | | | | + + + + + + | BUN/Creatin | 6Comment: Testing | | EXTERNAL | | | ine Ratio | performed at [facility];888 | | LAB | | | | [address];[place] | | | | | | [address] | | | | + + + + + + | Calcium | 8.3 (L)Comment: Testing | 8.5 - 10.5 | EXTERNAL | | | | performed at [facility];888 | mg/dL | LAB | | | | [address];[place] | | | | | | [address] | | | | + + + + + + | Estimated | >60Comment: GFR <60: | mL/min/1.73m2 | EXTERNAL | | | GFR | CHRONIC KIDNEY DISEASE, | | LAB | | | | IF FOUND OVER A 3 MONTH | | | | | | PERIOD.GFR <15: KIDNEY | | | | | | FAILURE.FOR | | | | | | AMERICANS, MULTIPLY THE | | | | | | CALCULATED GFR BY | | | | | | 1.210.Testing performed | | | | | | at [facility];[address];[place] [address] | | | | + + + + + + + + | Specimen | + + | Blood specimen | | (specimen) | + + + +---------+ + + | Performing | Address | City/State/Zipcode | Phone Number | | Organization | | | | + +---------+ + + | EXTERNAL LAB | | | | + +---------+ + + Potassium (07/01/2014 10:58 PM PDT) + + + + + + | Component | Value | Ref Range | Performed | Pathologist | | | | | At | Signature | + + + + + + | K | 4.3Comment: SLT | 3.5 - 4.9 | EXTERNAL | | | | HEMOLYSISTesting | mmol/L | LAB | | | | performed at [facility];[address] | | | | | | [address];[place] | | | | | | [address] | | | | + + + + + + + + | Specimen | + + | Blood specimen | | (specimen) | + + + +---------+ + + | Performing | Address | City/State/Zipcode | Phone Number | | Organization | | | | + +---------+ + + | EXTERNAL LAB | | | | + +---------+ + + Potassium (07/01/2014 6:15 PM PDT) + + + + + + | Component | Value | Ref Range | Performed | Pathologist | | | | | At | Signature | + + + + + + | K | 4.0Comment: Testing | 3.5 - 4.9 | EXTERNAL | | | | performed at [facility];888 | mmol/L | LAB | | | | [address];[place], [place] | | | | | | [address] | | | | + + + + + + + + | Specimen | + + | Blood specimen | | (specimen) | + + + +---------+ + + | Performing | Address | City/State/Zipcode | Phone Number | | Organization | | | | + +---------+ + + | EXTERNAL LAB | | | | + +---------+ + + Potassium (07/01/2014 11:50 AM PDT) + + + + + + | Component | Value | Ref Range | Performed | Pathologist | | | | | At | Signature | + + + + + + | K | 3.9Comment: Testing | 3.5 - 4.9 | EXTERNAL | | | | performed at [facility];888 | mmol/L | LAB | | | | [address];[place] | | | | | | [address] | | | | + + + + + + + + | Specimen | + + | Blood specimen | | (specimen) | + + + +---------+ + + | Performing | Address | City/State/Zipcode | Phone Number | | Organization | | | | + +---------+ + + | EXTERNAL LAB | | | | + +---------+ + + Magnesium (07/01/2014 11:50 AM PDT) + + + + + + | Component | Value | Ref Range | Performed | Pathologist | | | | | At | Signature | + + + + + + | Magnesium | 3.0 (H)Comment: Testing | 1.7 - 2.4 mg/dL | EXTERNAL | | | | performed at [facility];[address] | | LAB | | | | [address];[place], [place] | | | | | | [address] | | | | + + + + + + + + | Specimen | + + | Blood specimen | | (specimen) | + + + +---------+ + + | Performing | Address | City/State/Zipcode | Phone Number | | Organization | | | | + +---------+ + + | EXTERNAL LAB | | | | + +---------+ + + XR Chest 1 Vw (07/01/2014 6:02 AM PDT) + + | Specimen | + + | | + + + + + | Impressions | Performed At | + + + | FINDINGS/ IMPRESSION: Endotracheal tube 4.9 cm above the josé luis. | | | Enteric tube side-port within the stomach. No pneumothorax, no | | | pleural effusion. Lungs are clear. Upper mediastinal contour and | | | heart size are normal. No acute osseous abnormality. | | | | | + + + + + + | Narrative | Performed At | + + + | JOHNATHAN CLAY 1965 49 years XR CHEST 1 VIEW 07/01/2014 6:02 | | | AM INDICATION: Tube and line position. COMPARISON: Jun 30 2014 | | | TECHNIQUE: Chest 1 view, AP view of the chest | | + + + + + | Procedure Note | + + | Dimitri, Rad Conversion - 10/01/2018 8:46 AM PDT [facility] | | 1965 | | 49 years | | XR CHEST 1 VIEW | | 07/01/2014 6:02 AM | | | | INDICATION: Tube and line position. | | | | COMPARISON: Jun 30 2014 | | | | TECHNIQUE: Chest 1 view, AP view of the chest | | | | IMPRESSION: | | FINDINGS/ IMPRESSION: | | | | Endotracheal tube 4.9 cm above the josé luis. Enteric tube side-port within the stomach. | | | | No pneumothorax, no pleural effusion. Lungs are clear. | | | | Upper mediastinal contour and heart size are normal. | | | | No acute osseous abnormality. | | | | | + + External Lab: CBC (07/01/2014 4:14 AM PDT) + + + + + + | Component | Value | Ref Range | Performed | Pathologist | | | | | At | Signature | + + + + + + | WBC | 5.41Comment: Testing | 3.80 - 11.00 | EXTERNAL | | | | performed at [facility];888 | K/uL | LAB | | | | [address];[place], [place] | | | | | | [address] | | | | + + + + + + | Non- | 3.77Comment: Testing | 3.70 - 5.10 | EXTERNAL | | | Red Blood | performed at [facility];888 | M/uL | LAB | | | Cells | [address];[place] | | | | | Counted | [address] | | | | + + + + + + | Hemoglobin | 12.3Comment: Testing | 11.3 - 15.5 | EXTERNAL | | | | performed at [facility];888 | g/dL | LAB | | | | [address];[place] | | | | | | [address] | | | | + + + + + + | Hematocrit, | 36.8Comment: Testing | 34.0 - 46.0 % | EXTERNAL | | | POC | performed at [facility];[address] | | LAB | | | | [address];[place] | | | | | | [address] | | | | + + + + + + | MCV | 97.7Comment: Testing | 80.0 - 100.0 fl | EXTERNAL | | | | performed at [facility];[address] | | LAB | | | | [address];[place] | | | | | | [address] | | | | + + + + + + | MCH | 32.7Comment: Testing | 27.0 - 34.0 pg | EXTERNAL | | | | performed at [facility];[address] | | LAB | | | | [address];[place] | | | | | | [address] | | | | + + + + + + | MCHC | 33.5Comment: Testing | 32.0 - 35.5 | EXTERNAL | | | | performed at [facility];888 | g/dL | LAB | | | | [address];[place] | | | | | | [address] | | | | + + + + + + | RDW-CV | 45.1Comment: Testing | 37 - 53 fl | EXTERNAL | | | | performed at [facility];[address] | | LAB | | | | [address];[place] | | | | | | [address] | | | | + + + + + + | Platelet | 234Comment: Testing | 150 - 400 K/uL | EXTERNAL | | | Count | performed at [facility];[address] | | LAB | | | Plasma | [address];[place] | | | | | | [address] | | | | + + + + + + | MPV | 7.6Comment: Testing | fl | EXTERNAL | | | | performed at [facility];[address] | | LAB | | | | [address];[place] | | | | | | [address] | | | | + + + + + + | Differentia | AUTOMATEDComment: | | EXTERNAL | | | l Type | Testing performed at | | LAB | | | | [facility];[address];[place] [address] | | | | + + + + + + | % Segmented | 70.03Comment: Testing | % | EXTERNAL | | | | performed at [facility];[address] | | LAB | | | Neutrophils | [address];[place] | | | | | | [address] | | | | + + + + + + | % | 18.23Comment: Testing | % | EXTERNAL | | | Lymphocytes | performed at [facility];[address] | | LAB | | | | [address];[place] | | | | | | [address] | | | | + + + + + + | % Monocytes | 10.16Comment: Testing | % | EXTERNAL | | | | performed at [facility];[address] | | LAB | | | | [address];[place] | | | | | | [address] | | | | + + + + + + | % | 0.99Comment: Testing | % | EXTERNAL | | | Eosinophils | performed at [facility];[address] | | LAB | | | | [address];[place] | | | | | | [address] | | | | + + + + + + | % Basophils | 0.59Comment: Testing | % | EXTERNAL | | | | performed at [facility];[address] | | LAB | | | | [address];[place] | | | | | | [address] | | | | + + + + + + | Absolute | 3.79Comment: Testing | 1.90 - 7.40 | EXTERNAL | | | Segmented | performed at [facility];888 | K/uL | LAB | | | Neutrophils | [address];[place] | | | | | | [address] | | | | + + + + + + | Absolute | 0.99 (L)Comment: Testing | 1.00 - 3.90 | EXTERNAL | | | Lymphocytes | performed at [facility];888 | K/uL | LAB | | | | [address];[place] | | | | | | [address] | | | | + + + + + + | Absolute | 0.55Comment: Testing | 0.00 - 0.80 | EXTERNAL | | | Monocytes | performed at [facility];888 | K/uL | LAB | | | | [address];[place] | | | | | | [address] | | | | + + + + + + | Absolute | 0.05Comment: Testing | 0.00 - 0.50 | EXTERNAL | | | Eosinophils | performed at [facility];888 | K/uL | LAB | | | | [address];[place] | | | | | | [address] | | | | + + + + + + | Absolute | 0.03Comment: Testing | 0.00 - 0.10 | EXTERNAL | | | Basophils | performed at [facility];888 | K/uL | LAB | | | | [address];[place] | | | | | | [address] | | | | + + + + + + + + | Specimen | + + | Blood specimen | | (specimen) | + + + +---------+ + + | Performing | Address | City/State/Zipcode | Phone Number | | Organization | | | | + +---------+ + + | EXTERNAL LAB | | | | + +---------+ + + Phosphorus (07/01/2014 4:14 AM PDT) + + + + + + | Component | Value | Ref Range | Performed | Pathologist | | | | | At | Signature | + + + + + + | PHOSPHORUS | 3.2Comment: Testing | 2.3 - 4.8 mg/dL | EXTERNAL | | | | performed at [facility];[address] | | LAB | | | | [address];[place], [place] | | | | | | [address] | | | | + + + + + + + + | Specimen | + + | | + + + +---------+ + + | Performing | Address | City/State/Zipcode | Phone Number | | Organization | | | | + +---------+ + + | EXTERNAL LAB | | | | + +---------+ + + Magnesium (07/01/2014 4:14 AM PDT) + + + + + + | Component | Value | Ref Range | Performed | Pathologist | | | | | At | Signature | + + + + + + | Magnesium | 1.8Comment: Testing | 1.7 - 2.4 mg/dL | EXTERNAL | | | | performed at [facility];[address] | | LAB | | | | [address];[place], [place] | | | | | | [address] | | | | + + + + + + + + | Specimen | + + | | + + + +---------+ + + | Performing | Address | City/State/Zipcode | Phone Number | | Organization | | | | + +---------+ + + | EXTERNAL LAB | | | | + +---------+ + + Basic Metabolic Panel (07/01/2014 4:14 AM PDT) + + + + + + | Component | Value | Ref Range | Performed | Pathologist | | | | | At | Signature | + + + + + + | Na | 146 (H)Comment: Testing | 135 - 143 | EXTERNAL | | | | performed at [facility];888 | mmol/L | LAB | | | | [address];[place] | | | | | | [address] | | | | + + + + + + | K | 3.3 (L)Comment: Testing | 3.5 - 4.9 | EXTERNAL | | | | performed at [facility];888 | mmol/L | LAB | | | | [address];[place] | | | | | | [address] | | | | + + + + + + | Cl | 114 (H)Comment: Testing | 99 - 109 mmol/L | EXTERNAL | | | | performed at [facility];[address] | | LAB | | | | [address];[place] | | | | | | [address] | | | | + + + + + + | CO2 | 22 (L)Comment: Testing | 23 - 32 mmol/L | EXTERNAL | | | | performed at [facility];[address] | | LAB | | | | [address];[place] | | | | | | [address] | | | | + + + + + + | Anion Gap | 13Comment: Testing | 5 - 20 mmol/L | EXTERNAL | | | | performed at [facility];[address] | | LAB | | | | [address];[place] | | | | | | [address] | | | | + + + + + + | Glucose, | 73Comment: Testing | 65 - 99 mg/dL | EXTERNAL | | | Fasting | performed at [facility];[address] | | LAB | | | | [address];[place] | | | | | | [address] | | | | + + + + + + | BUN | 10Comment: Testing | 8 - 25 mg/dL | EXTERNAL | | | | performed at [facility];[address] | | LAB | | | | [address];[place] | | | | | | [address] | | | | + + + + + + | Creatinine | 0.94Comment: Testing | 0.50 - 1.00 | EXTERNAL | | | | performed at [facility];888 | mg/dL | LAB | | | | [address];[place] | | | | | | [address] | | | | + + + + + + | BUN/Creatin | 11Comment: Testing | | EXTERNAL | | | ine Ratio | performed at [facility];[address] | | LAB | | | | [address];[place] | | | | | | [address] | | | | + + + + + + | Calcium | 8.2 (L)Comment: Testing | 8.5 - 10.5 | EXTERNAL | | | | performed at [facility];888 | mg/dL | LAB | | | | [address];[place], [place] | | | | | | [address] | | | | + + + + + + | Estimated | >60Comment: GFR <60: | mL/min/1.73m2 | EXTERNAL | | | GFR | CHRONIC KIDNEY DISEASE, | | LAB | | | | IF FOUND OVER A 3 MONTH | | | | | | PERIOD.GFR <15: KIDNEY | | | | | | FAILURE.FOR | | | | | | AMERICANS, MULTIPLY THE | | | | | | CALCULATED GFR BY | | | | | | 1.210.Testing performed | | | | | | at [facility];[address];[place] [address] | | | | + + + + + + + + | Specimen | + + | Blood specimen | | (specimen) | + + + +---------+ + + | Performing | Address | City/State/Zipcode | Phone Number | | Organization | | | | + +---------+ + + | EXTERNAL LAB | | | | + +---------+ + + Potassium (06/30/2014 10:54 PM PDT) + + + + + + | Component | Value | Ref Range | Performed | Pathologist | | | | | At | Signature | + + + + + + | K | 3.7Comment: Testing | 3.5 - 4.9 | EXTERNAL | | | | performed at [facility];888 | mmol/L | LAB | | | | [address];[place] | | | | | | [id number] | | | | + + + + + + + + | Specimen | + + | Blood specimen | | (specimen) | + + + +---------+ + + | Performing | Address | City/State/Zipcode | Phone Number | | Organization | | | | + +---------+ + + | EXTERNAL LAB | | | | + +---------+ + + Culture, Blood, 2nd Specimen (06/30/2014 5:08 PM PDT) + + | Specimen | + + | Blood specimen | | (specimen) | + + + + + | Narrative | Performed At | + + + | Specimen Description BLOOD, PERIPHERAL DRAW | EXTERNAL LAB | | SPECIAL REQUESTS L HAND | | | Testing performed at [facility];[address] | | | [facility];[place] [address] CULTURE | | | NO GROWTH | | | Testing performed at [facility], [address], [place], [place] | | | [address] | | + + + + +---------+ + + | Performing | Address | City/State/Zipcode | Phone Number | | Organization | | | | + +---------+ + + | EXTERNAL LAB | | | | + +---------+ + + Basic Metabolic Panel (06/30/2014 5:00 PM PDT) + + + + + + | Component | Value | Ref Range | Performed | Pathologist | | | | | At | Signature | + + + + + + | Na | 143Comment: Testing | 135 - 143 | EXTERNAL | | | | performed at [facility];888 | mmol/L | LAB | | | | [address];[place] | | | | | | [id number] | | | | + + + + + + | K | 2.9 (L)Comment: Testing | 3.5 - 4.9 | EXTERNAL | | | | performed at [facility] [place];[address] | mmol/L | LAB | | | | [address];[place] | | | | | | [address] | | | | + + + + + + | Cl | 110 (H)Comment: Testing | 99 - 109 mmol/L | EXTERNAL | | | | performed at [facility];[address] | | LAB | | | [address];[place] | | | | | | [address] | | | | + + + + + + | CO2 | 22 (L)Comment: Testing | 23 - 32 mmol/L | EXTERNAL | | | | performed at [facility];[address] | | LAB | | | | [address];[place] | | | | | | [id number] | | | | + + + + + + | Anion Gap | 13Comment: Testing | 5 - 20 mmol/L | EXTERNAL | | | | performed at [facility];[address] | | LAB | | | | [address] [address];[place] | | | | | | [address] | | | | + + + + + + | Glucose, | 104 (H)Comment: Testing | 65 - 99 mg/dL | EXTERNAL | | | Fasting | performed at [facility];[address] | | LAB | | | | [address];[place] | | | | | | [address] | | | | + + + + + + | BUN | 13Comment: Testing | 8 - 25 mg/dL | EXTERNAL | | | | performed at [facility];[address] | | LAB | | | | [address];[place] | | | | | | [address] | | | | + + + + + + | Creatinine | 0.73Comment: Testing | 0.50 - 1.00 | EXTERNAL | | | | performed at [facility];888 | mg/dL | LAB | | | | [address];[place] | | | | | | [address] | | | | + + + + + + | BUN/Creatin | 17Comment: Testing | | EXTERNAL | | | ine Ratio | performed at [facility];[address] | | LAB | | | | [address];[place] | | | | | | [address] | | | | + + + + + + | Calcium | 7.6 (L)Comment: Testing | 8.5 - 10.5 | EXTERNAL | | | | performed at [facility];888 | mg/dL | LAB | | | | [address];[place], [place] | | | | | | [address] | | | | + + + + + + | Estimated | >60Comment: GFR <60: | mL/min/1.73m2 | EXTERNAL | | | GFR | CHRONIC KIDNEY DISEASE, | | LAB | | | | IF FOUND OVER A 3 MONTH | | | | | | PERIOD.GFR <15: KIDNEY | | | | | | FAILURE.FOR | | | | | | AMERICANS, MULTIPLY THE | | | | | | CALCULATED GFR BY | | | | | | 1.210.Testing performed | | | | | | at [facility];[address];[place] [address] | | | | + + + + + + + + | Specimen | + + | Blood specimen | | (specimen) | + + + +---------+ + + | Performing | Address | City/State/Zipcode | Phone Number | | Organization | | | | + +---------+ + + | EXTERNAL LAB | | | | + +---------+ + + Culture, Blood (06/30/2014 5:00 PM PDT) + + | Specimen | + + | Blood specimen | | (specimen) | + + + + + | Narrative | Performed At | + + + | Specimen Description BLOOD, PERIPHERAL DRAW | EXTERNAL LAB | | SPECIAL REQUESTS RAC | | | Testing performed at [facility];8 | | | [facility];[place] [address] CULTURE | | | NO GROWTH | | | Testing performed at [facility], [address] [place] | | | [address] | | + + + + +---------+ + + | Performing | Address | City/State/Zipcode | Phone Number | | Organization | | | | + +---------+ + + | EXTERNAL LAB | | | | + +---------+ + + POC Glucose (06/30/2014 4:31 PM PDT) + + + + + + | Component | Value | Ref Range | Performed | Pathologist | | | | | At | Signature | + + + + + + | Glucose, | 111 (H)Comment: Testing | 65 - 99 mg/dL | EXTERNAL | | | Fingerstick | performed at [facility];[address] | | LAB | | | | [address];[place], [place] | | | | | | [address] | | | | + + + + + + + + | Specimen | + + | | + + + +---------+ + + | Performing | Address | City/State/Zipcode | Phone Number | | Organization | | | | + +---------+ + + | EXTERNAL LAB | | | | + +---------+ + + XR Chest 1 Vw (06/30/2014 3:24 PM PDT) + + | Specimen | + + | | + + + + + | Impressions | Performed At | + + + | 1. No infiltrates or congestion. 2. ET tube 2.5 cm above the | | | josé luis. Retract 2 cm for optimal positioning. This was called to the [facility] ICU at 3:30 PM date of study, and discussed with the patient's nurse | | | Artem. 3. NG tube coiled in the fundus. | | + + + + + + | Narrative | Performed At | + + + | HISTORY: Drug overdose. COMPARISON: None. TECHNIQUE: AP | | | portable film of the chest at 1520 hours FINDINGS: No infiltrates | | | or effusions. The heart size is normal. ET tube tip 2.5 cm above the | | | josé luis. Optimally, this should be retracted 2 cm. NG tube partially | | | coiled in the fundus. Clips in the right upper quadrant of the | | | abdomen. | | + + + + + | Procedure Note | + + | Dimitri, Rad Conversion - 10/01/2018 8:46 AM PDT HISTORY:Drug overdose. COMPARISON:None. | | TECHNIQUE:AP portable film of the chest at 1520 hours FINDINGS:No infiltrates or | | effusions. The heart size is normal. ET tube tip 2.5 cm above the josé luis. Optimally, | | this should be retracted 2 cm. NG tube partially coiled in the fundus. Clips in the | | right upper quadrant of the abdomen. IMPRESSION: 1. No infiltrates or congestion.2. ET | | tube 2.5 cm above the jsoé luis. Retract 2 cm for optimal positioning. This was called to | | the ICU at 3:30 PM date of study, and discussed with the patient's nurse Artem.3. NG | | tube coiled in the fundus. | | PM | |FINDINGS: | |No infiltrates or effusions. The heart size is normal. ET tube tip 2.5 cm above the josé luis. Optimally, this should be retracted 2 cm. NG tube partially coiled in the fundus. Clips in the right upper quadrant of the abdomen. | | | |IMPRESSION: | |1. No infiltrates or congestion. | |2. ET tube 2.5 cm above the josé luis. Retract 2 cm for optimal positioning. This was called to the ICU at 3:30 PM date of study, and discussed with the patient's nurse Artem. | |3. NG tube coiled in the fundus. | | | | | + + POC CG 4, ISTAT Arterial (06/30/2014 3:23 PM PDT) + + + + + + | Component | Value | Ref Range | Performed | Pathologist | | | | | At | Signature | + + + + + + | PH ART | 7.514 (H)Comment: | 7.350 - 7.450 | EXTERNAL | | | | Testing performed at | | LAB | | | | [facility];[address];[place] [address] | | | | + + + + + + | PCO2 ART | 29 (L)Comment: Testing | 35 - 45 mmHg | EXTERNAL | | | | performed at [facility];[address] | | LAB | | | | [address];[place] | | | | | | [address] | | | | + + + + + + | PO2 ART | 82Comment: Testing | 80 - 105 mmHg | EXTERNAL | | | | performed at [facility];[address] | | LAB | | | | [address];[place] | | | | | | [address] | | | | + + + + + + | Lactate, | <0.3 (L)Comment: Testing | 0.36 - 1.25 | EXTERNAL | | | Arterial | performed at [facility];888 | mmol/L | LAB | | | | [address];[place] | | | | | | [address] | | | | + + + + + + | HCO3 ART | 24Comment: Testing | 22 - 26 mmol/L | EXTERNAL | | | | performed at [facility];[address] | | LAB | | | | [address];[place] | | | | | | [address] | | | | + + + + + + | POC | 25Comment: Testing | 23 - 27 mEq/L | EXTERNAL | | | APPEARANCE | performed at [facility];[address] | | LAB | | | UA | [address];[place] | | | | | | [address] | | | | + + + + + + | Base | 0Comment: Testing | 0 - 3 mEq/L | EXTERNAL | | | Excess, | performed at [facility];[address] | | LAB | | | Arterial | [address];[place] | | | | | | [address] | | | | + + + + + + | O2 SAT ART | 98Comment: Testing | 95 - 98 % | EXTERNAL | | | | performed at [facility];[address] | | LAB | | | | [address];[place] | | | | | | [address] | | | | + + + + + + | Temp, POC | 33.9 (L)Comment: Testing | C | EXTERNAL | | | | performed at [facility];[address] | | LAB | | | | [address];[place] | | | | | | [address] | | | | + + + + + + | FiO2, POC | 25Comment: Testing | % | EXTERNAL | | | | performed at [facility];[address] | | LAB | | | | [address];[place] | | | | | | [address] | | | | + + + + + + | Comment, | Tidal Volume = | | EXTERNAL | | | POC | 14Comment: Peep = 5Resp | | LAB | | | | Rate = 42Testing | | | | | | performed at [facility];[address] | | | | | | [address];[place], [place] | | | | | | [address] | | | | + + + + + + + + | Specimen | + + | | + + + +---------+ + + | Performing | Address | City/State/Zipcode | Phone Number | | Organization | | | | + +---------+ + + | EXTERNAL LAB | | | | + +---------+ + + ECG 12 lead (06/30/2014 3:08 PM PDT) + + + + + + | Component | Value | Ref Range | Performed | Pathologist | | | | | At | Signature | + + + + + + | DIAGNOSIS: | Normal sinus | | EXTERNAL | | | | rhythmProlonged | | LAB | | | | QTAbnormal ECGNo | | | | | | previous ECGs | | | | | | availableConfirmed by | | | | | | THIERNO PETERSON ([id number]) on | | | | | | 07/01/2014 11:16:34 AM | | | | + + + + + + + + | Specimen | + + | | + + + + + | Narrative | Performed At | + + + | Historically converted procedure from [employer] Epic environment | EXTERNAL LAB | + + + + +---------+ + + | Performing | Address | City/State/Zipcode | Phone Number | | Organization | | | | + +---------+ + + | EXTERNAL LAB | | | | + +---------+ + + Urinalysis with Microscopic if Indicated (06/30/2014 2:55 PM PDT) + + + + + + | Component | Value | Ref Range | Performed | Pathologist | | | | | At | Signature | + + + + + + | Color | YELLOWComment: Testing | | EXTERNAL | | | | performed at [facility], [address] | | LAB | | | | [address], | | | | | | [place] [address] | | | | + + + + + + | Clarity, | CLEARComment: Testing | | EXTERNAL | | | Urine | performed at [facility], [address] | | LAB | | | | [address], | | | | | | [place] [address] | | | | + + + + + + | Specific | 1.009Comment: Testing | 1.002 - 1.030 | EXTERNAL | | | [place], | performed at [facility], [address] | | LAB | | | Urine | [address], | | | | | | [place] [address] | | | | + + + + + + | Leukocyte | NEGATIVEComment: | | EXTERNAL | | | Esterase, | Testing performed at | | LAB | | | Urine | [facility], [address] | | | | | | [place] | | | | | | [address] | | | | + + + + + + | Nitrite, | NEGATIVEComment: Testing | | EXTERNAL | | | Urine | performed at [facility], [address] | | LAB | | | | [address], | | | | | | [place] [address] | | | | + + + + + + | Urobilinoge | 0.2Comment: Testing | mg/dL | EXTERNAL | | | n, Urine | performed at [facility], [address] | | LAB | | | | [address], | | | | | | [place] [address] | | | | + + + + + + | Protein, | NEGATIVEComment: Testing | mg/dL | EXTERNAL | | | Urine | performed at [facility], [address] | | LAB | | | | [address], | | | | | | [place] [address] | | | | + + + + + + | pH, Urine | 7.5Comment: Testing | 5.0 - 8.0 | EXTERNAL | | | | performed at [facility], [address] | | LAB | | | | [address], | | | | | | [place] [address] | | | | + + + + + + | Blood, | NEGATIVEComment: Testing | | EXTERNAL | | | Urine | performed at [facility], [address] | | LAB | | | | [address], | | | | | | [place] [address] | | | | + + + + + + | Ketones | TRACE (A)Comment: | mg/dL | EXTERNAL | | | | Testing performed at | | LAB | | | | [facility], [address] | | | | | | [place] | | | | | | [address] | | | | + + + + + + | Bilirubin, | NEGATIVEComment: Testing | | EXTERNAL | | | Urine | performed at [facility], [address] | | LAB | | | | [address], | | | | | | [place] [address] | | | | + + + + + + | Glucose, | NEGATIVEComment: Testing | mg/dL | EXTERNAL | | | Urine | performed at [facility], [address] | | LAB | | | | [address], | | | | | | [place] [address] | | | | + + + + + + + + | Specimen | + + | Urine specimen | | (specimen) | + + + +---------+ + + | Performing | Address | City/State/Zipcode | Phone Number | | Organization | | | | + +---------+ + + | EXTERNAL LAB | | | | + +---------+ + + MRSA NAAT (06/30/2014 2:55 PM PDT) + + | Specimen | + + | | + + + + + | Narrative | Performed At | + + + | S[facility]ARES(NOSE) | EXTERNAL LAB | | Testing performed at [address];[place] [address] MRSA PCR | | | NEGATIVE Testing performed at | | | [address];[place] [address] | | + + + + +---------+ + + | Performing | Address | City/State/Zipcode | Phone Number | | Organization | | | | + +---------+ + + | EXTERNAL LAB | | | | + +---------+ + + Gram Stain, reflex Sputum Culture (06/30/2014 2:45 PM PDT) + + | Specimen | + + | Body fluid sample | | (specimen) | + + + + + | Narrative | Performed At | + + + | Specimen Description TRACHEAL ASPIRATE GRAM | EXTERNAL LAB | | STAIN LESS THAN 10 WBCS/LPF | | | LESS THAN 10 SEC/LPF | | | NO ORGANISMS SEEN | | | CULTURE 4+ | | | NORMAL UPPER | | | RESPIRATORY TREMAYNE | | | Testing performed at [facility], [address], [place] | | | [address] | | + + + + +---------+ + + | Performing | Address | City/State/Zipcode | Phone Number | | Organization | | | | + +---------+ + + | EXTERNAL LAB | | | | + +---------+ + + documented in this encounter Visit Diagnoses + + | Diagnosis | + + | Acute respiratory failure (HCC) Acute respiratory failure | + + | Drug overdose, initial encounter | + + | Leukopenia Leukocytopenia, unspecified | + + | Metabolic encephalopathy | + + documented in this encounter
--- OUTSIDE RECORDS SUMMARY | ~2019-11-08 | XMS | Encounter Summary ---
Demographics + + + | Address | [address] | | | [place] [address] | + + + | Home Phone | | + + + | Preferred Language | Unknown | + + + | Marital Status | Single | + + + | Mu-Ism Affiliation | Unknown | + + + | Race | White | + + + | Ethnic Group | Not or | + + + Author + + + | Author | [facility] | | | and [place] | + + + | Organization | [facility] | | | and [...] Team Providers + +------+ + | Care Hydraulic Barker Operator Name | Role | Phone | + +------+ + | Jacob Pablo MD | PCP | | + +------+ + Encounter Details +--------+ + + + + | Date | Type | Department | Care Team | Description | +--------+ + + + + | 05/24/ | Imaging | [facility] | Provider, | | | 2020 | Exam | [facility] | [address] | | | | | [address] | [address] | | | | | [address] | [place] [address] | | | | | [place] [address] | | | | | | [phone] | | | +--------+ + + + [...] + + documented as of this encounter Plan of Treatment Not on filedocumented as of this encounter Procedures + +--------+ + + + | Procedure Name | Priori | Date/Time | Associated Diagnosis | Comments | | | ty | | | | + +--------+ + + + | XR ELBOW RIGHT 3 + | Routin | 12/31/2017 | | Results for this | | VW | e | 12:00 AM | | procedure are in the | | | | PST | | results section. | + +--------+ + + + documented in this encounter Results XR Elbow Right 3 + Vw (12/31/2017 12:00 AM PST) + + | Specimen | + + | | + + + + + | Narrative | Performed At | + + + | External films for comparison only | [facility] | | | | | No results will be in the chart. | | + + + + +---------+ + + | Performing | Address | City/State/Zipcode | Phone Number | | Organization | | | | + +---------+ + + | [facility] | | | | + +---------+ + + documented in this encounter Visit Diagnoses Not on filedocumented in this encounter"
== END 2019-11-09 01:35 | disposition home or self-care (01) ==
LOC: ED 22:57
DX: S53.401A Unspecified sprain of right elbow, initial encounter (principal); W01.198A Fall on same level from slipping, tripping and stumbling with subsequent striking against other object, initial encounter; G43.909 Migraine, unspecified, not intractable, without status migrainosus; F43.10 Post-traumatic stress disorder, unspecified; F17.200 Nicotine dependence, unspecified, uncomplicated; Z88.8 Allergy status to other drugs, medicaments and biological substances; Z79.899 Other long term (current) drug therapy; Z85.41 Personal history of malignant neoplasm of cervix uteri; Z85.038 Personal history of other malignant neoplasm of large intestine
CPT/HCPCS: 73080; 90471; 90715; 99283-25

== ENCOUNTER 2020-03-11 08:47 | Inpatient (IN) | payer OTHER ==
[~2020-03-11] VITALS: Ht 157.5 cm; Wt 52.8 kg
--- NOTE | 2020-03-11 13:40 | NUR ---
PT ARRIVED TO FLOOR VIA STRETCHER. TRANSFERED SELF TO BED. PT IS ALERT AND ORIENTED X4. RATING UPPER ABDOMINAL PAIN AT 6/10 A BURNING SENSATION. BOWEL TONES ARE HYPOACTIVE. LUNGS SOMEWHAT COARSE IN BASES AND WITH EXPIRATORY WHEEZING IN UPPER LOBES. CIWA SCORE OF 4. PT REPORTS PREVIOUS WITHDRAWLS FROM ALCOHOL. HEART SOUNDS NORMAL. PT CAME TO FLOOR ON 2L NC. PT TITRATED TO RA SATTING AT 95%. PT REPROTS NAUSEA AND IS DRY HEAVING. MEDICATION TO BE GIVEN.
--- NOTE | 2020-03-11 15:00 | NUR ---
PT UP TO BATHROOM THEN BACK TO BED WITH NO ASSISTANCE. IV CAME OUT. REPLACED IN LEFT FOREARM. PT REPORTS NAUSEA AND STARTED TO DRY HEAVE, WITH SCANT AMOUNT OF CLEAR YELLOW COLORED EMESIS. COMPAZINE ADMISNTERED. CALL LIGHT IN REACH.
--- NOTE | 2020-03-11 16:00 | NUR ---
ROUNDED ON PT. PT IN BED WITH EYES CLOSED. RESPIRATIONS EQUAL AND NONLABORED. CALL LIGHT IN REACH.
--- NOTE | 2020-03-11 17:44 | NUR ---
PT DRY HEAVING WITH ABOUT 30ML OF YELLOW EMESIS. PHENERGAN ADMINISTERED.
--- NOTE | 2020-03-11 18:27 | NUR ---
PT REPORTING 6/10 ABDOMINAL PAIN. 4MG MORPHINE ADMISNTERED.
--- NOTE | 2020-03-11 19:03 | NUR ---
RECEIVED REPORT FROM BASIL AVILEZ. pt RESTING IN BED. CALL LIGHT WITHIN REACH. WHITEBOARD UPDATED.
--- NOTE | 2020-03-11 20:14 | NUR ---
pt WOULD LIKE CAILIN WYATT, BOYFRIEND, TO BE HER VISITOR FOR TOMORROW.
--- NOTE | 2020-03-11 20:14 | NUR ---
ROUNDED CHARGE. ALLERGY BAND PLACED ON pt. PRIMARY RN PAULA IN ROOM.
--- NOTE | 2020-03-11 20:28 | NUR ---
IN TO DO ASSESSMENT AND MEDS. pt REPORTED 3/10 PAIN, DISCUSSED PAIN MANAGEMENT. DENIES NAUSEA AT THIS TIME. SCORED 7 ON THE CIWA SCORE. DISCUSSED WITHDRAWAL MANAGEMENT. pt WILL CALL IF SYMPTOMS BECOME WORSE. MEDICATIONS GIVEN (SEE MAR). ASSESSMENT DONE. pt UP TO VOID AND BACK TO BED SBA. CALL LIGHT WITHIN REACH.
--- NOTE | 2020-03-11 22:15 | NUR ---
ROUNDED ON pt. RESTING IN BED WITH EYES CLOSED, RESPIRATIONS REGULAR AND UNLABORED. CALL LIGHT WITHIN REACH.
--- NOTE | 2020-03-11 23:44 | NUR ---
IV PUMP BEEPING, NEW BAG HUNG (SEE MAR). NO REQUESTS AT THIS TIME. pt DENIED NAUSEA, REPORTED "A LITTLE PAIN" REFUSED MEDICATION. CALL LIGHT WITHIN REACH.
--- NOTE | 2020-03-12 02:02 | NUR ---
CALL LIGHT ON. pt SITTING IN BED MOANING FROM PAIN REPORTED 11/25. SEE MAR, NAUSEA MEDS PER pt REQUEST "IN CASE THE PAIN MEDS MAKE ME VOMIT" ASSESSMENT DONE. OTHER THAN PAIN NO CHANGES FROM PRIOR. pt REPORTED DECREASED HEADACHE AND TREMORS, NO SWEATING AT THIS TIME. CALL LIGHT WITHIN REACH.
--- NOTE | 2020-03-12 03:09 | NUR ---
ROUNDED ON pt. RESTING WITH EYES CLOSED, RESPIRATIONS REGULAR AND UNLABORED. DID NOT WAKE TO QUIET VOICE. CALL LIGHT WITHIN REACH.
--- NOTE | 2020-03-12 05:21 | NUR ---
CALL LIGHT ON. IV PUMP BEEPING, ERROR RESOLVED. pt UP TO VOID SBA. BACK TO BED. REPORTED 3/10 PAIN. VITALS AND I&O RECORDED. LAB INTO DRAW. CALL LIGHT WITHIN REACH.
--- NOTE | 2020-03-12 08:16 | NUR ---
PT RESTING SOUNDLY AT TIME OF REPORT. CONTINUES TO REST EYES CLOSED BREATHING EVEN AND UNLABORED
[2020-03-12] MEDS ORDERED: CLONIDINE HCL0.2 MG PO (09:16)
[2020-03-12] MEDS ORDERED: ROPINIROLE HC0.25 MG PO (09:17)
[2020-03-12] MEDS ORDERED: LEVOTHYROXINE75 MCG PO (09:18)
--- NOTE | 2020-03-12 10:02 | NUR ---
Patient states that she has enough money for food and medications through food stamps. She states that she does not have enough money for laundry soap, and dish soap etc. She states that she does buy cigarrettes but she is trying to quit "now that they are nine dollars per pack". Pt states she going back and forth between vape pen and cigarrettes while she is trying to quit. Pt states that her rent is $112.00 per month [place] [address], and she is able to pay this with her social security money.
--- NOTE | 2020-03-12 10:22 | NUR ---
PT DIET ADVANCED TO CLEAR LIQUID SHE REQUESTS JELLO AND TOELRATES IT WITH NO NAUSEA OR INCREASED PAIN. PANCREATITIS EDUCATIONAL MATERIAL PROVIDED DISCUSSED AT LENGTH SHE VERBALIZES UNDERSTANDNING. NO TREMORS, HEADACHE, INCREASED BP, CONFUSION, OR OTHER AT THIS TIME
--- NOTE | 2020-03-12 10:28 | NUR ---
Kendall is requesting smoking cessation, this referral was made to [facility]. In initial assessment it was thought that the patient has 20 hours of assistance each week, when in reality her caregiver actually helps her 5 hours per week. Pt does feel that this is adequate.
--- NOTE | 2020-03-12 10:29 | NUR ---
Patient rounding has been completed on this patient. Patient is happy with her care, states that her pain is well controlled, and feels like the nurses "are taking good care of me."
--- NOTE | 2020-03-12 10:51 | NUR ---
PATIENT UP TO BATHROOM, IND. VITALS AND I&O'S CHARTED. CALL LIGHT IN REACH. NO FURTHER NEEDS AT THIS TIME.
--- NOTE | 2020-03-12 12:27 | NUR ---
PT AWAKENS FROM A NAP RATES PAIN 2/10 AT THIS TIME. EATS ANOTHER JELLO WITH SCHEDULED POTASSIUM.
--- NOTE | 2020-03-12 13:31 | NUR ---
PATIENT UP TO BATHROOM AND BACK TO BED, IND. PATIENT SAID SHOWER MAYBE LATER. VITALS AND I&O'S CHARTED. CALL LIGHT IN REACH. NO FURTHER NEEDS AT THIS TIME.
--- NOTE | 2020-03-12 13:56 | NUR ---
PT REFUSED NICOTINE PATCH THIS MORNING BUT REQUESTS IT AT THIS TIME STATING SHE IS STARTING TO CRAVE. OFFERED LOZENGE SHE CHOOSES PATCH. OXY ADMINISTERED TO KEEP PAIN CONTROLLED.
--- NOTE | 2020-03-12 16:57 | NUR ---
PT SCORES 15 ON CWA C/0 PUGH, PAIN, ANXIETY. DR DALTON NOTIFIED. MEDICATED WT MORPHINE FOR BACK PAIN. PT CONTINUES TO BE COOPERATIVE STATES SHE DRINKS ABOUT A 1/2 CASE OF BEER DAILY NORMALLY, BUT OVER DID IT FOR HER BIRTHDAY.
--- NOTE | 2020-03-12 18:08 | NUR ---
PT NO LONGER RESTLESS VISITING ON THE PHONE
--- NOTE | 2020-03-12 18:50 | NUR ---
PATIENT IN BED WATCHING TV. FRESH WATER GIVEN. VITALS AND I&O'S CHARTED. CALL LIGHT IN REACH. NO FURTHER NEEDS AT THIS TIME.
--- NOTE | 2020-03-12 19:05 | NUR ---
CHARGE REPORT RECEIVED FROM DAY SHIFT.
--- NOTE | 2020-03-12 19:45 | NUR ---
REPORT RECEIVED FROM DAY SHIFT RN. PT LYING IN BED ALERT AND ORIENTED. DENIES PAIN OR NAUSEA AT THIS TIME. IVF INFUSING. WHITE BOARD UPDATED. PT DENIES NEEDS. CALL LIGHT IN REACH.
--- NOTE | 2020-03-12 20:36 | NUR ---
PT BACK TO BED FROM INDEPENDENTLY. PT C/O ITCHING. STATES "I FEEL LIKE I'M TEARING MY SKIN OFF". SMALL OPEN AREAS NOTED ON BACK ALONG WITH RAISED SCRATCH GUSTAFSON. PT ALSO NOTED TO BE TREMULOUS, RESTLESS/ANXIOUS. C/O HEADACHE AND REPORTS WHAT SHE THOUGHT WAS AUDITORY HALLUCINATIONS. CIWA=14. VS WITHIN PARAMETERS. DR. DALTON NOTIFIED AND WILL PUT NEW ORDERS IN.
--- NOTE | 2020-03-12 20:45 | NUR ---
PRN ADMINISTERED FOR CIWA >8 PER ORDER. CLEAR LIQUIDS PROVIDED.
--- NOTE | 2020-03-12 22:00 | NUR ---
V/S AND I&O DONE AND RECORDED. WARM BLANKET PROVIDED.
--- NOTE | 2020-03-12 22:00 | NUR ---
UPON ENTERING ROOM PT RESTING WITH EYES CLOSED. REPORTS SHE WAS "HAVING NIGHTMARES" BUT THIS IS NOT UNUSUAL FOR HER. PT APPEARS LESS ANXIOUS THAN BEFORE. REPORTS SHE IS FEELING BETTER AND ITCHING HAS IMPROVED. ASSESSMENT COMPLETE. PRN ADMINISTERED FOR 7/10 ABD PAIN. SCHEDULED MEDS ADMINISTERED. IVF INFUSING PER ORDER. WARM BLANKET PROVIDED. PT DENIES QUESTIONS OR CONCERNS. CALL LIGHT IN REACH.
--- NOTE | 2020-03-12 23:07 | NUR ---
PT RESTING ON RIGHT SIDE WITH EYES CLOSED. RESPIRATIONS EVEN AND UNLABORED. SLIGHT TREMORS NOTED IN UPPER AND LOWER EXTREMITIES. PT'S FACE RELAXED.
--- NOTE | 2020-03-13 01:01 | NUR ---
PT RESTING IN BED WITH EYES CLOSED. MILD TREMORS NOTED. RESPIRATIONS EVEN AND ULABORED. SpO2 94% ON RA. HR 70'S.
--- NOTE | 2020-03-13 02:48 | NUR ---
PT RESTING ON LEFT SIDE WITH EYES CLOSED, NAD.
--- NOTE | 2020-03-13 04:12 | NUR ---
PT UP TO BR WITH MINIMAL SBA TO VOID 900 ML YELLOW URINE. GAIT STEADY. BACK TO BED, MO WELL. PT C/O ITCHING, HEADACHE, AND AGITATION. TREMORS VISIBLE. CIWA=11. MEDICATED WITH PRN FOR CIWA >8. PRN FOR PAIN ADMINISTERED FOR REPORTED 5/10 ABD PAIN. WARM BLANKET PROVIDED. CALL LIGHT IN REACH.
--- NOTE | 2020-03-13 06:01 | NUR ---
PATIENT WAS IN BED RESTING WITH EYES CLOSED WHEN THIS BELT OPERATOR ENTERED ROOM. VITALS AND I&O RECORDED. PATIENT REQUESTED A RED JELLO TO EAT. JELLO PROVIDED. PATIENT WAS SLIGHTLY UNSTEADY ON HER FEET. PATIENT ENCOURAGED TO NOT GET UP OFF THE TOILET WITHOUT A STAFF MEMBER THERE TO ASSIST. CALL LIGHT IN REACH. PATIENT DENIES ANY FUTHER NEEDS AT THIS TIME AND STATES "I'M PROBABALY GOING TO FALL BACK TO SLEEP".
--- NOTE | 2020-03-13 06:23 | NUR ---
SCHEDULED MEDS ADMINISTERED PER EMAR. PT WAS UP TO BR WITH SBA. GAIT UNSTEADY. BACK TO BED, MO WELL. PT ENCOURAGED TO USE NURSE CALL LIGHT WITH AMBULATION. PT VERBALIZES AGREEMENT. PT DENIES NAUSEA. REPORTS PAIN IS TOLERABLE. ALSO REPORTS ITCHING AND ANXIETY IMPROVED. SLIGHT TREMORS NOTED. NO FURTHER NEEDS. BED ALARM FOR SAFETY. CALL LIGHT IN REACH.
--- NOTE | 2020-03-13 06:50 | NUR ---
BED ALARM SOUNDING. PT UP TO SIDE OF BED BECAUSE SHE FELT INCONTINENT OF URINE. SMALL AMOUNT OF INCONTINENCE NOTED. PT UP TO BR WITH SBA TO VOID. LINEN CHANGED. CLEAN UNDERWEAR PROVIDED FOR PT. PT GAIT UNSTEADY. REMINDED PT TO USE NURSE CALL LIGHT IF GETTING OUT OF BED. PT VERBALIZES UNDERSTANDING. CIWA=3 WITH MILD TREMORS NOTED. BED ALARM FOR SAFETY. CALL LIGHT IN REACH.
--- NOTE | 2020-03-13 07:34 | NUR ---
this rn received report from thien elkins. pt appears to be resting at this time with bed alarm on.
--- NOTE | 2020-03-13 08:23 | NUR ---
Pt. up in bed eating. no other needs at this time. call light with in reach
--- NOTE | 2020-03-13 08:25 | NUR ---
this rn in pts room with seamus elkins. pt appears to be sitting up in bed and is alert and oriented. pt does have some trembling, itching and hallucinations noted. pt stated to this rn that she was "hoping the doctor will let me go tomorrow so i can go see the sharks" this rn [place] pt [place] pt stated that she might have dreamed this
[2020-03-13] MEDS ORDERED: OMEPRAZOLE40 MG PO (08:56)
--- NOTE | 2020-03-13 09:05 | NUR ---
MED REC COMPELETE
--- NOTE | 2020-03-13 09:15 | NUR ---
IN TO DO ASSESSMENT AND MORNING MEDS. PT ORIENTED TO PLACE AND TIME. REPORTS PAIN AT 4. REPORTS NOT WANTING ANY PRN MEDS AT THIS TIME. UP TO HELP PT IN RESTROOM. PT REPORTS MILD HEADACHE AND OCCASSIONAL ITCHING. TREMORS ON RT ARM WHEN ARMS STRETCHED OUT AND GRIPPING HAND.PT REPORTS " I HOPE TO GO HOME TOMORROW SO I CAN SEE THE SHARKS." WHEN TALKING WITH HER SHE STATES "MAYBE IT WAS A DREAM" PT NOW IN BED RESTING. CALL LIGHT WITH IN REACH. NO OTHER NEEDS AT THIS TIME.
--- NOTE | 2020-03-13 09:15 | NUR ---
Spoke with Kendall. She states she is feeling somewhat better today. Tolerating liquid diet without pain. Denies needs to go home when cleared medically by Dr. Ochoafriend will stay with her to help out on discharge.
--- NOTE | 2020-03-13 10:09 | NUR ---
PATIENT WAS ADMITTED AT HIGH RISK FOR MALNUTRITION DUE TO SOME WEIGHT LOSS. SHE STATES THAT HER NORMAL BODY WEIGHT IS 135 LBS. SHE WAS ADMITTED AT 116 LBS (BUT SAID SHE WAS UP TO 110 LBS). SHE GOT DOWN TO 101 LBS WITHIN THE PAST FEW MONTHS BECAUSE SHE WOULD EAT THEN VOMIT IT BACK UP "BECAUSE MY PANCREAS DIDN'T LIKE IT." SHE HAS A HISTORY OF DRINKING ETOH. SHE HAS UPPER AND LOWER DENTURES WHICH SHE WAS NOT WEARING THIS MORNING. HER DIET JUST GOT ADVANCED TO A FULL LIQUID. A NUTRITION INTERNVENTION COULD BE TO TALK TO HER ABOUT FOOD CHOICES WHEN SHE GOES HOME, DEPENDING ON IF SHE NEEDS A LOW-FAT DIET OR NOT. WILL CONTINUE TO MONITOR.
--- NOTE | 2020-03-13 11:25 | NUR ---
this rn in to check on pt. pt appears to be resting at this time with respirations noted. pt has some tremors noted while at rest
--- NOTE | 2020-03-13 12:18 | NUR ---
PT IN BED, TV ON. PT APPEARS VERY DROWSY, SEEMS UNINTERESTED IN VISIT AT THIS TIME. GAVE BLESSING, WILL FOLLOW
--- NOTE | 2020-03-13 13:00 | NUR ---
THIS RN IN PTS ROOM TO EDUCATE PT AND PTS BOYFRIEND ON PRACREATITIS. PT STATED UNDERSTANDING AND STATES THERE IS NO NEED FOR ANYTHING FURTHER AT THIS TIME
--- NOTE | 2020-03-13 13:20 | NUR ---
Spoke with pt and she complains of feeling antsy. She is a smoker and would like to stop smoking. Informed I will order Smoking Cessation and someone from [facility] will discuss with her.
--- NOTE | 2020-03-13 15:09 | NUR ---
pt. has been resting in bed most of the day. She is sitting up in bed talking to her visitor. no other needs at this time. call light with in reach
--- NOTE | 2020-03-13 15:12 | NUR ---
PT TELLING [facility] MENTAL RETARDATION AIDE ARVIND THAT SHE WAS HAVING PAIN IN HER RUQ. ARVIND IN TO GIVE PT THE OPTION TO USE HEAT OR ICE PACKS AT THIS TIME TO ASSIST WITH HER PAIN OF 4/10. PT DECIDED TO WANT TO USE HEAT
--- NOTE | 2020-03-13 17:13 | NUR ---
Pt. took a shower, bed linens changed. no other needs at this time. call light with in reach
--- NOTE | 2020-03-13 19:01 | NUR ---
IN ROOM FOR REPORT, PT IS SLEEPING ON/OFF. SHE HAS A WARM PACK TO HER ABD AT THIS TIME FOR PAIN. CALL LIGHT IS CLOSE AND PT DENIES NEEDS.
--- NOTE | 2020-03-13 19:05 | NUR ---
CHARGE NURSE REPORT RECEIVED FROM DAYSNVFT. NO NEEDS AT THIS TIME.
--- NOTE | 2020-03-13 19:51 | NUR ---
PT CALLED COMPLAINING OF 7/10 CAS IN RUQ THAT RADIATES TO HER BACK. SHE IS BENT OVER IN PAIN AND MOANING. ADMINISTERED 2 OXYCODONE. AND WILL RETURN TO CHECK ON HER IN A BIT. SHE DENIES FURTHER NEEDS AT THIS TIME. CALL LIGHT IS CLOSE.
--- NOTE | 2020-03-13 21:32 | NUR ---
PATIENT WAS UP TO THE BATHROOM. PATIENT IS BACK IN BED. REGULAR SODA AND CUP OF ICE PROVIDED AND CHEWING GUM PER PATIENT'S REQUEST. PRIMARY RN ASHLEY IS AWARE.
--- NOTE | 2020-03-13 22:00 | NUR ---
IN ROOM TO ADMINISTER MEDICATIONS AND ASSESS PT. CIWA IS 9 ADMINISTERED ATIVAN PER PROTOCOL. PT STATES ITCHING IS GONE. PT REPORTS INCREASED ABD PAIN MAY BE FROM HAVING TOO MUCH FULL LIQUIDS. HER PAIN IS UNDER CONTROL NOW. SHE DENIES FURTHER NEEDS AT THIS TIME. CALL LIGHT IS CLOSE.
--- NOTE | 2020-03-14 00:24 | NUR ---
PT IS RESTING WITH EYES CLOSED, RR IS EVEN AND NONLABORED. CALL LIGHT IS CLOSE.
--- NOTE | 2020-03-14 02:19 | NUR ---
PT IS RESTING WITH EYES CLOSED, RR IS EVEN AND NONLABORED. CALL LIGHT IS CLOSE.
--- NOTE | 2020-03-14 04:20 | NUR ---
PT IS RESTING WITH EYES CLOSED, RR IS EVEN AND NONLABORED. CALL LIGHT IS CLOSE AND IV IS INFUSING FINE.
--- NOTE | 2020-03-14 06:01 | NUR ---
AFTER LAB WAS DONE DRAWING BLOOD, ADMINISTERED THYROID MED AND ASSESSED PT. SHE RATES PAIN AT 4/10. ADMINISTERED 5MG OXYCODONE. CIWA SCORE OF 2 AT THIS TIME. PT HAS FRESH ICEWATER AT BEDSIDE AND DENIES FURTHER NEEDS. CALL LIGHT IS CLOSE.
--- NOTE | 2020-03-14 07:24 | NUR ---
this rn received report from oriana elkins. pt appears to be resting comfortably at this time with respirations noted.
--- NOTE | 2020-03-14 09:00 | NUR ---
THIS RN IN PTS ROOM TO DO PTS MORNING ASSESSMENT AND GIVE MORNING MEDS. PT STATES THAT SHE HAS A HEADACHE THIS AM. THIS RN TO GIVE PT ANOTHER 5MG TAB OF OXYCODONE TO ASSIST PT IN HER PAIN. PT AGREEABLE TO THIS PLAN. PT HAS NO OTHER CONCERNS AT THIS TIME.
--- NOTE | 2020-03-14 10:11 | NUR ---
pt appears to be resting comforatbly at this time with respirations noted
--- NOTE | 2020-03-14 10:20 | NUR ---
No change in plan for dc.
--- NOTE | 2020-03-14 12:22 | NUR ---
this rn in pts room to get pt slunch order. pt states that she has no pain at this time. pt states that she is hungry this rn assisted pt in picking out food to assist with not making her stomach upset like it did yesterday
[2020-03-14] MEDS ORDERED: ONDANSETRON ODT4 MG SL (13:50)
[2020-03-14] MEDS ORDERED: NICOTINE LOZENGE4 MG BUCCAL (13:51)
[2020-03-14] MEDS ORDERED: NICOTINE PATCH1 EACH TD (13:51)
== END 2020-03-14 15:14 | disposition home or self-care (01) | DRG 440 ==
LOC: ED 08:47 → MS 12:22
PROVIDERS: ADMIT Internal Medicine; ATTEND Internal Medicine
DX: K85.20 Alcohol induced acute pancreatitis without necrosis or infection (principal); F10.10 Alcohol abuse, uncomplicated; Z20.822 Contact with and (suspected) exposure to COVID-19; F43.10 Post-traumatic stress disorder, unspecified; E03.9 Hypothyroidism, unspecified; J44.9 Chronic obstructive pulmonary disease, unspecified; F32.9 Major depressive disorder, single episode, unspecified; F17.210 Nicotine dependence, cigarettes, uncomplicated; Z88.8 Allergy status to other drugs, medicaments and biological substances; Z79.899 Other long term (current) drug therapy; Z79.891 Long term (current) use of opiate analgesic; Z85.41 Personal history of malignant neoplasm of cervix uteri; Z85.038 Personal history of other malignant neoplasm of large intestine
CPT/HCPCS: 36415; 74177; 80053; 80076; 83690; 83735; 85025; 99285-25; 99406; C9803; J0780; J1170; J1200; J1650; J2060; J2270; J2405; J2550; J3480; J3486; J7030; J7121; Q0177; Q9967; U0003

== ENCOUNTER 2020-03-19 21:29 | Observation (INO) | payer OTHER ==
[~2020-03-19] VITALS: Ht 157.5 cm; Wt 50.7 kg
[~2020-03-19 21:29] MED LIST changes: +LEVOTHYROXINE75 MCG PO; +NICOTINE LOZENGE4 MG BUCCAL; +NICOTINE PATCH1 EACH TD; +OMEPRAZOLE40 MG PO; +ONDANSETRON ODT4 MG SL
[2020-03-20] MEDS ORDERED: IBU-200200 MG PO (05:49)
--- NOTE | 2020-03-20 06:25 | NUR ---
0530 - pT ADMITTED TO ROOM 119 VIA STRETCHER FROM ED, ALERT AND ORIENTED, COOPERATIVE, UP TO BR, VOIDED, INDEPENDENT, BACK TO BED. WAS ON 2L NC O2 WHEN TRANSFERRED FROM ED TO M/S FLOOR. 100% SATS, WEANED OFF AND IS ON ROOM AIR AT THIS TIME, SL RFA, PATENT. NO C/O PAIN OR N/V AT THIS TIME, ORIENTED TO ROOM AND HOSP ROUTINES. NPO, DID OWN MOUTH CARE, ORAL SPONGES AT BEDSIDE. STATED UNDERSTANDING, MALE MEDICAL CASH POSTER IN ROOM
--- NOTE | 2020-03-20 06:32 | NUR ---
Pt admitted at 0530 from ED. c/o N/V and abd pain, comfortable at this time, no further emesis or c/o abd pain. was medicated in ED with Dilaudid,Morphine and Zofran, effective. Coop with assessment, currently on room air. Independent/SBA in room, no gait problems. CIWA score on admit was 2, very mild hand tremors. [place], states vision problems. IVF infusing. 2 warm blankets given, NPO. oral swabs at bedside. Has voided large amounts of yellow urine. Call light at bedside. Pt hx of daily 9-12 beers and 3-6 in last few days, had 1/2 beer yesterday. hx of daily MJ smoking and cigarrette smoking.
--- NOTE | 2020-03-20 09:05 | NUR ---
REPORT RECIEVED FROM NIGHT RN AND PT. CARE RESUMED. PT. RESTLESS AND STATES SHE HAS EPIGASTRIC PAIN RADIATING TO BACK THAT IS 5/10. PT. STATES SHE DRINKS A 12 PACK BEER PER DAY AND LAST DRINK WAS THURSDAY. SHE HAS HAD 3 BEERS/DAY PAST WEEK DUE TO PAIN. CIWA SCORE OF 9. IV SITE WNL W/ LR RUNNING AT 125ML/HR. PT. ALERT AND ORIENTED. BOWEL TONES HYPOACTIVE. PT. LEFT RESTING IN BED WITH CALL LIGHT IN REACH AND WITH FRIEND PRESENT
--- NOTE | 2020-03-20 10:30 | NUR ---
CIWA ASSESSMENT COMPLETED. PT. STILL IS DROWSY AND STILL REPORTS PAIN OF 5/10. NICODERM PATCH APPLIED TO LEFT DELTOID. 1MG ATIVAN ADMIN. PT. LEFT RESTING IN BED WITH CALL LIGHT IN REACH.
--- NOTE | 2020-03-20 12:47 | NUR ---
PATIENT ASLEEP AND DROWSY BUT EASY TO AROUSE. REPORTS 5/10 PAIN IN EPIGASTRIC AREA RADIATING TO BACK. CIWA SCORE OF 11. IV SITE WNL AND FLUSHED. PT. ALERT AND ORIENTED. IVF RUNNING AT 125ML/HR. FRIEND AT BEDSIDE AND PT. LEFT RESTING IN BED WITH CALL LIGHT IN REACH.
--- NOTE | 2020-03-20 14:16 | NUR ---
PT SOMEWHAT ALERT-LAYING IN BED WITH LEGS VERY RESTLESS. PT STATED PAIN AT 3-4 SHE WOULD FADE IN AND OUT DURING VISIT. GAVE BLESSING WILL FOLLOW
--- NOTE | 2020-03-20 14:30 | NUR ---
CIWA SCORE OF 13. PT. GIVEN 1MG OF ATIVAN. PT. DESATS. WHILE SLEEPING TO 87-89%. SEEMS TO HAVE APNEIC PERIODS. PLACED ON 1L O2 NC. O2 SAT INCREASED TO 92% WHILE RESTING.
--- NOTE | 2020-03-20 15:17 | NUR ---
CIWA SCORE OF 5. PT. AMBULATED WITH 1 PERSON STANDBY ASSIST TO BATHROOM. PT. VOIDED 350ML YELLOW URINE. PT. STILL TREMULOUS AND ITCHY AND REPORTS MILD HEADACHE. PT. DROWSY BUT ORIENTED. BP WAS 185/[address] LOU NOTIFIED. NO NEW ORDERS. PT. LEFT RESTING IN BED WITH CALL LIGHT IN REACH.
--- NOTE | 2020-03-20 17:27 | NUR ---
CIWA SCORE OF 9. PT. AMBULATED WITH STANDBY ASSIST TO BATHROOM . VERY TREMULOUS AND REPORTS BEING LIGHTHEADED. VOIDED 150ML CLEAR YELLOW URINE IN TOILET. PT. REPORTS INCREASED PAIN 6/10 AND REQUESTED PAIN MED. GIVEN 1MG DILAUDID. BP IS 185/107 AND MAP IS 126. TAKEN AGAIN, BP IS 177/93 AND MAP IS 113. PT. LEFT RESTING IN BED WITH CALL LIGHT IN REACH.
--- NOTE | 2020-03-20 18:04 | NUR ---
PATIENT ON 1L 02 NC. Q1H CIWA ASSESSMENTS STARTED AT 0900 AND NOW ARE Q2H. CIWA SCORES RANGE FROM 5-13 AND PATIENT HAS RECEIVED 2MG OF ATIVAN. PT. TREMULOUS AND WEAK WITH AMBULATION BP ELEVATED THROUGHOUT THE DAY. CONTINUOUS EPIGASTRIC PAIN RADIATING TO BACK. DILAUDID GIVEN FOR PAIN. PT. IS ORIENTED AND ALERT AND AMBULATES WITH STANDBY ASSIST TO BATHROOM.
--- NOTE | 2020-03-20 19:10 | NUR ---
SHIFT REPORT FROM NURSE CHOWDHURY AND NURSE SEGUNDO. PT LAYING IN BED BUT DOES AWAKE STAFF ENTERS ROOM. PT REQUESTS "SOMETHING FOR MY GUT", FURTHER QUESTIONING REVEALS THAT PT WOULD LIKE PAIN MEDS. WILL CHECK EMAR AND PROVIDE FOR PT.
--- NOTE | 2020-03-20 20:00 | NUR ---
IN ROOM TO ADMINISTER PRN DILAUDID. IV IN R FA INFILTRATED. NEW 22G IV PLACED IN L FA. 1MG PRN DILAUDID ADMINISTERED FOR 5/10 ABDOMINAL PAIN. IVF INFUSING PER ORDERS.
--- NOTE | 2020-03-20 20:34 | NUR ---
PT IV ALARMING. PT WITH EYES CLOSED RESP EVEN AND UNLABORED. IV SITE WNL. IV FLUIDS INFUSING PER ORDER.
--- NOTE | 2020-03-20 21:36 | NUR ---
IN ROOM FOR ASSESSMENT, VS/I&OS, MEDS. PT WAS SLEEPING THIS NURSE ENTERED ROOM. PT AWOKE TO LIGHT TOUCH ON LEG. NO TREMORS NOTED UNTIL PT ATTEMPTED TO STAND TO GO TO TOILET; LIGHT TREMORS NOTED WHEN PT TURNING SANDER TENDER. NO SWEATING, NO APPARENT ANXIETY, PT IS ORIENTED. CIWA 1 AT THIS TIME. PT VOIDED 400ML CLEAR YELLOW URINE. PT ASSISTED BACK TO BED, TOOK PO MEDS. BP ELEVATED; ADMINISTERED SCHEDULED CLONIDINE. NO FURTHER NEEDS AT THIS TIME. CALL LIGHT WITHIN REACH.
--- NOTE | 2020-03-21 00:15 | NUR ---
CHECKED ON PT. PT LAYING RIGHT LATERAL, NO SIGNS OF DISTRESS. EVEN UNLABORED BREATHING NOTED. CALL LIGHT WITHIN REACH
--- NOTE | 2020-03-21 02:10 | NUR ---
0200 VS PERFORMED. VSS. PT WAS SLEEPING STAFF ENTERED THE ROOM; AWAKES EASILY. PT UP TO TOILET TO VOID. PT REPORTS PAIN 5/10. 1MG DILAUDID ADMINISTERED. SHORTLY AFTER PT BACK IN BED, PT BEGAN TO EXPERIENCE NAUSEA. 4MG IV ZOFRAN ADMINISTERED. EMESIS BAG WITHIN REACH. CALL LIGHT AND BEDSIDE TABLE WITHIN REACH. NO FURTHER NEEDS AT THIS TIME.
--- NOTE | 2020-03-21 05:20 | NUR ---
PT UP TO TOILET TO VOID. VS/I&OS PERFORMED AT THIS TIME. PT REPORTS SLIGHT HEADACHE, "A LITTLE SWEATY" AND LIGHT TREMOR NOTICABLE. CIWA 5 AT THIS TIME. PT RETURNED TO BED. NO FURTHER NEEDS AT THIS TIME. CALL LIGHT WITHIN REACH
--- NOTE | 2020-03-21 07:45 | NUR ---
PATIENT USED CALL LIGHT APPROPRIATELY TO REQUEST PAIN MEDS. PT. GRIMACING AND HOLDING ABDOMEN. REPORTS 6/10 PAIN AND DENIES NAUSEA. LUNGS CLEAR THROUGHOUT. IV SITE WNL AND FLUSHED WELL. CIWA SCORE OF 7. PT. AMBULATED WITH STANDBY ASSIST TO BATHROOM AND TOLERATED WELL. MORNING MEDS GIVEN. PT. ORIENTED, ALERT AND PLEASANT. PT. LEFT RESTING IN BED WITH BOYFRIEND AT BEDSIDE.
--- NOTE | 2020-03-21 10:42 | NUR ---
IVF TITRATED TO 85ML/HR PER ORDER. PT. ON THE PHONE AND ALERT, ORIENTED.
--- NOTE | 2020-03-21 10:56 | NUR ---
PATIENT AWAKE IN BED, VITALS AND I&OS CHARTED. NO OTHER NEEDS AT THIS TIME
--- NOTE | 2020-03-21 11:32 | NUR ---
PATIENT USED CALL LIGHT APPROPRIATELY TO REQUEST PAIN MEDS. PAIN IS 6/10 IN ABD AND BURNING. ADMIN. 1MG DILAUDID. CIWA SCORE OF 7.
--- NOTE | 2020-03-21 13:36 | NUR ---
PATIENT REPORTS PAIN HAS DECREASED TO A TOLERABLE LEVEL AT 3/10. AMBULATED INDEPENDENTLY TO BATHROOM AND BACK TO THE CHAIR. TOLERATED WELL AND APPEARED ONLY MILDLY TREMULOUS. PT. ALERT AND ORIENTED AND ATE JELLO AND APPLE TOLERATED WELL. DENIES NAUSEA. IV SITE WNL AND IVF RUNNING AT 85ML/HR.
--- NOTE | 2020-03-21 14:09 | NUR ---
BASIL CHOWDHURY HAD JUST MOVED PT TO CHAIR FROM BED. PT LOOKS BETTER TODAY, HOPES TO TAKE A SHOWER SOON. PT BEGAN TO VISIT WITH ME, AND ASKED QUESTIONS FOR HER RN OR . SHE SAID SHE HAS HAD ALL THE ALCOHOL TAKEN FROM HER HOME, IS READY TO QUIT DRINKING. SHE STATED IF I DON'T QUIT I WILL . INFORMED BASIL SEGUNDO, SHE WILL GIVE PT INFO SHE IS REQUESTING.GAVE PT A Peggy [place]IS[place] AND HAD PRAYER WITH HER. WILL FOLLOW NEEDED
--- NOTE | 2020-03-21 14:20 | NUR ---
PATIENT UP IN CHAIR, FAMILY IN ROOM. RN IN ROOM. LINENS CHANGED. VITALS AND I&OS CHARTED. NO OTHER NEEDS AT THIS TIME
--- NOTE | 2020-03-21 14:28 | NUR ---
Patient states that she has a caregiver and a boyfriend who help her. Caregiver comes 20 hrs per week, helps with cleaning, helps with shopping. Boyfriend helps with other needs, but does not have a drivers license. Pt requesting Peer to Peer to help with her alcohol use this admission. [place] [facility] [place] this pt.
--- NOTE | 2020-03-21 14:36 | NUR ---
PT REQUESTING INFORMATION ABOUT ALCOHOL WITHDRAWALS AND HOW TO MANAGE SYMPTOMS. EDUCATIONAL HANDOUTS PROVIDED AND REVIEWED WITH PT AND Fletcher BAHENA. CASE MANAGEMENT WILL WORK ON GETTING A PEER TO PEER COUNSELOR. PT WITH ABD PAIN 4/10, GIVEN 1MG IV DILAUDID. IV SALINE LOCKED FOR SHOWER.
--- NOTE | 2020-03-21 15:17 | NUR ---
Called and left a message for Peer to Peer requesting they visit pt. I spoke with Kendall and she states she has consistently consumed alcohol for 45 years. He SO is in the room and is also want her to stop drinking. He states he seldom drinks and has removed all the alcohol from the house. Pt feels she is starting to go into DTs as she is jittery and sweating. She has ativan she can take if needed.
--- NOTE | 2020-03-21 15:47 | NUR ---
PATIENT ASSISTED WITH SHOWER BY MACHINE PACKAGE SEALER. RETURNED TO CHAIR AND BECAME TREMULOUS THROUGHOUT BODY. PT. DENIES PAIN, BUT STATES SHE FEELS LIKE IT IS DUE TO WITHDRAWAL. ADMIN. 1MG OF ATIVAN. CIWA SCORE OF 17. WILL REASSESS IN AN HOUR. PT. LEFT RESTING IN CHAIR WITH BOYFRIEND AT BEDSIDE.
--- NOTE | 2020-03-21 16:49 | NUR ---
PATIENT CIWA SCORE IS 13. PATIENT'S BOYFRIEND NOTED THAT SHE WAS FACETIMING WITH SISTER AND STATED SHE THOUGHT SHE WAS ON A BEACH, WHICH SHE WAS NOT. PT. AMBULATED FROM CHAIR TO BED AND STATED SHE WAS VERY SLEEPY. MARGARITA FROM [facility] HERE TO SEE PT. WILL REASSESS CIWA IN AN HOUR
--- NOTE | 2020-03-21 17:39 | NUR ---
PATIENT AWAKE IN BED, BOYFRIEND IN ROOM. SBA TO BR. PATIENT ASKED TO GO OUTSIDE WITH BF TO HAVE A CIGARETTE, THIS [employer] CLERK EXPLAINED THE NON SMOKING POLICY AT THE HOSPITAL. PATIENT UNDERSTANDS, ASKS FOR NEW NICOTINE PATCH. CALL LIGHT IN REACH. NO OTHER NEEDS
--- NOTE | 2020-03-21 18:16 | NUR ---
PATIENT CIWA SCORE IS 15. PT. REPORTS WORSENING 4/10 PAIN IN EPIGASTRIC/BACK AREA. ALERT AND ORIENTED, BUT FIDGETY AND TREMORS PRESENT. GIVEN 1MG DILAUDID. PT. LEFT RESTING IN BED WITH BOYFRIEND AT BEDSIDE.
--- NOTE | 2020-03-21 19:00 | NUR ---
REPORT RECEIVED FROM LUCIANA GRACIA AND SANYA GRACIA. PT RESTING IN BED, VISITOR AT BEDSIDE. STATES NO NEEDS. IVF INFUSING WNL. CALL LIGHT IN REACH
--- NOTE | 2020-03-21 19:45 | NUR ---
IN TO GET VITALS FOR RN, NO FURTHER NEEDS AT THIS TIME
--- NOTE | 2020-03-21 20:45 | NUR ---
IN TO GET VITALS, I&Os DONE, RN IN FOR MEDS, WATER, JUICE, AND JELLO PROVIDED
--- NOTE | 2020-03-21 20:59 | NUR ---
MEDICATIONS ADMINISTERED, PT REQUESTS PRN MEDICATIONS FOR 4/10 ABDOMINAL PAIN. IVF INFUSING WNL. CIWA SCORE OF 8. HOURLY VITALS CONTINUE TO BE COMPLETED. PT STATES NO NAUSEA, NO TREMORS NOTED, MODERATE HEADACHE, MILD ANXIETY. TOLERATING CLEAR LIQUID DIET. WIN[employer] RUNNER PROVIDED JUICE, JELLO. NO OTHER NEEDS AT THIS TIME. CALL LIGHT IN REACH
--- NOTE | 2020-03-21 21:40 | NUR ---
ROUNDED ON PATIENT, WHO IS RESTING IN BED ON R LATERAL SIDE. IVF INFUSING WNL. PT REPORTS NO NEEDS, IS CALM AND COOPERATIVE, CONTINUES TO STATE SLIGHT HEADACHE AND MINIMAL ABD/BACK PAIN. AGRICULTURIST CONTINUES TO TAKE VS HOURLY
--- NOTE | 2020-03-21 23:10 | NUR ---
IN TO GET Q1 VITALS, NO FURTHER NEEDS AT THIS TIME
--- NOTE | 2020-03-21 23:45 | NUR ---
IN TO GET Q1 VITALS, NO FURTHER NEEDS AT THIS TIME, PT IS RESTING
--- NOTE | 2020-03-22 00:13 | NUR ---
CALL LIGHT ON, PT STATES AND ACCADENTAL PULL OU OF IV, SHOT MAN IN TO ASST PT, WILL INFORM PRIMARY RN
--- NOTE | 2020-03-22 00:28 | NUR ---
PT REQUESTS PRN DILUADID FOR 4/10 ABD/BACK PAIN. CIWA SCORE OF 4. VSS. REHABILITATION THERAPIST IN ROOM TO START NEW IV. IVF INFUSING WNL. NO FURTHER NEEDS, CALL LIGHT IN REACH
--- NOTE | 2020-03-22 00:35 | NUR ---
CALL LIGHT ANSWERED. pt ACCIDENTLY PULLED IV SITE WHILE GETTING UP TO GO TO RESTROOM. CATHETER TIP INTACT. NEW PIV STARTED WITH THREE ATTEMPTS IN LEFT FOREARM, pt TOLERATED WELL. VEINS FRAGILE, IV STARTED WITHOUT TOURNIQUET. IVF INFUSING WNL. PRIMARY RN IN ROOM. CALL LIGHT IN REACH. pt INSTRUCTED TO USE CALL LIGHT PRIOR TO GETTING OUT OF BED, VERBALIZES UNDERSTANDING.
--- NOTE | 2020-03-22 00:45 | NUR ---
IN TO GET Q1 VITALS, PT IS BACK TO RESTING
--- NOTE | 2020-03-22 02:56 | NUR ---
VITALS COMPLETE. PT RESTING IN BED WITH EYES CLOSED. INTERMITTENT TWITCHING/TREMORS NOTED. WAKES TO VOICE, CALM AND COOPERATIVE WITH CARE. VSS. CIWA 3. IVF INFUSING WNL. NO FURTHER NEEDS AT THIS TIME
--- NOTE | 2020-03-22 03:18 | NUR ---
CALL LIGHT ANSWERED. pt REQUESTING PRN PAIN MEDICATION, RATES PAIN 4/10 IN ABDOMEN, "MY HEAD HURTS, BUT NOT BAD EARLIER." CIWA 7 AT THIS TIME. pt REQUESTING ANXIETY MEDICATION. STATES "I WOKE UP FEELING ANGRY AND I DON'T LIKE THAT, I'M REALLY AGITATED". TREMORS VISIBLE, SLIGHTLY DIAPHORETIC, pt DENIES HALLUCINATIONS, BUT STATES MY MIND IS ALL OVER THE PLACE. "I DON'T KNOW WHAT I THOUGHT I SAW OR IF IT WAS IN MY DREAM". PRN PAIN AND ANXIETY MEDICATION ADMINISTERED IV WNL. NEW BAG IVF INFUSING. CALL LIGHT IN REACH. LIGHTS OFF IN ROOM.
--- NOTE | 2020-03-22 03:33 | NUR ---
CALL LIGHT ON, UNABLE TO HEAR PT, IN RM PT GROGGY ASKING OF SHE IS GOING ANYWHERE, REDIECTABLE, PT THEN ASKING FOR AT CONSULTING BUSINESS DEVELOPER, TOLD PT NONE TO OFFER, PRIMARY RN INFORMED
--- NOTE | 2020-03-22 04:45 | NUR ---
IN TO GET VITALS, RN IN ASSESS PT, NO FURTHER NEEDS AT THIS TIME
--- NOTE | 2020-03-22 05:07 | NUR ---
CIWA INCREASED TO 17 PT IS NOW AWAKE. MODERATE SWEATING, SCRATCHING HEAD, MILD TREMORS, CONFUSION. PT STATES "MY TAIL KEEPS WAGGING". ORIENTED TO THE FACT THAT SHE FEELS AGITATED. RATES PAIN 4/10, 1MG DILAUDID ADMINISTERED. WILL INITIATE HOURLY VITALS ONCE MORE.
--- NOTE | 2020-03-22 05:48 | NUR ---
IN TO GET Q1 VITALS, PT BACK TO RESTING AT THIS TIME
--- NOTE | 2020-03-22 06:19 | NUR ---
ROUNDED ON PATIENT, RESTING IN BED WITH EYES CLOSED, BREATHING EVEN AND UNLABORED. AWAKENS TO TOUCH AND VOICE. CIWA SCORE 7, PT STATES NO NAUSEA, NO HEADACHE, TREMORS CAN BE FELT BUT NOT SEEN. STATES MILDLY AGITATED. ORIENTED x4. PT RUBS STOMACH AND SAYS "I FEEL SOMETHING HERE", DENIES PAIN AT THIS TIME. THIS RN LEAVING, PT CLOSES EYES AND RESUMES RESTING. NO FURTHER APPARENT NEEDS.
--- NOTE | 2020-03-22 07:27 | NUR ---
REPORT RECEIVED FROM BASIL GONZLAEZ. PT RESTING ON RIGHT SIDE IN POSITION IN BED. RESPIRATIONS EVEN AND UNLABORED. BED RAILS UP. CALL LIGHT WITHIN REACH. PT ALLOWED TO REST.
--- NOTE | 2020-03-22 07:30 | NUR ---
THIS RN TO ROOM TO CHECK CIWA SCORE AND VITALS SIGNS. PT AWAKENS TO VOICE AND REPORTS 5/10 HEADACHE, ITCHING AND STATES "I'M IRRITABLE." CIWA SCORE OF 9 AT THIS TIME. 0.5 ATAVAN GIVEN BY BASIL CHOWDHURY. ASSESSMENT DONE BY LUCIANA RNL. PT DENIES ADDITIONAL REQUESTS OR COMPLAINTS. CALL LIGHT WITHIN REACH.
--- NOTE | 2020-03-22 08:00 | NUR ---
REPORT RECEIVED FROM NIGHT RN AND PT. CARE RESUMED. PT. REPORTS PAIN OF 4/10 AND ADMIN. IV DILAUDID. PT. ASKS "IS THERE SOMEONE ELSE IN THE ROOM? I HEAR PEOPLE TALKING TO ME". PT. SCRATCHING CHEST AND ARMS AND MILDLY TREMULOUS. AMBULATED WITH STANDBY ASSIST TO BATHROOM AND UNMEASURED VOID. PT. ORIENTED AND STATES SHE HAS NOT SLEPT WELL. PT. CLOSED HER EYES AND STATED THAT THERE WAS A PET SHE WAS SEEING. WHEN ASKED, SHE STATED SHE WAS SEEING A SQUIRREL. PT. RESTING IN BED WITH BED ALARM ON.
--- NOTE | 2020-03-22 08:04 | NUR ---
Notified by Rn, pt was seen by Peer to Peer last night after I left. Pt is not feeling well today and having hallucinations.
--- NOTE | 2020-03-22 08:23 | NUR ---
THIS RN TO ROOM TO CHECK ON PT. PT RESTING IN BED ON BACK WITH EYES CLOSED. RESPIRATIONS EVEN AND UNLABOED. HEAD OF BED ELEVATED TO 30 DEGREES. BED RAILS UP. BED ALARM ON. PT ALLOWED TO REST.
--- NOTE | 2020-03-22 09:21 | NUR ---
THIS RN TO ROOM TO CHECK ON PT. MD STATES SHE WOULD LIKE PT TO TRY TO EAT. PT RESTING ON RIGHT SIDE WITH EYES CLOSED, RESPIRATIONS EVEN AND UNLABORED. PT RESPONDS TO VOICE AND LIGHT TOUCH. PT REPORTS SHE IS "EXCITED" TO EAT BREAKFAST. ORDER PLACED. SBA UP TO RESTROOM. PT VOIDS CLEAR YELLOW URINE WITHOUT ISSUE. PT UP TO CHAIR, PLAYING VIDEO GAMES. PT REPORTS 3/10 PAIN IN ABDOMEN AND DENIES NEED FOR ADDITIONAL PAIN MEDICAITON. CIWA SCORE OF 4. PT UPDATED ON PLAN OF CARE. PT STATES SHE IS NOT READY TO GO HOME "BECAUSE I DONT' KNOW IF MY DTs ARE UNDER CONTROL." PT REPORTS SHE PLANS TO STOP DRINKING ALCOHOL WHEN SHE GETS HOME. PT DENIES ADDITIONAL REQUESTS OR COMPLAINTS. PT EATING BREAKFAST. CALL LIGHT WITHIN REACH.
--- NOTE | 2020-03-22 09:54 | NUR ---
NEW MEDICATION DUE. PT REMAINS UP TO CHAIR EATING BREAKFAST. PT DENIES NAUSEA AND REPORTS 2/10 ABDOMINAL PAIN. MEDICATION GIVEN (SEE MAR). IV FLUIDS STOPPED PER MD ORDER. IV SALINE LOCKED PER PROTOCOL. ALCOHOL CAP APPLIED. PT DENIES ADDITIONAL REQUESTS OR COMPLAINTS AT THIS TIME. CALL LIGHT WITHIN REACH.
--- NOTE | 2020-03-22 11:52 | NUR ---
PATIENT AMBULATED TO BATHROOM WITH STANDBY ASSIST. TOLERATED WELL. PT. RATES ABD PAIN 04/25. PT. ORIENTED. AND STATED SHE WAS WORRIED ABOUT GOING HOME WHILE SHE WAS WITHDRAWING AND IN PAIN. THIS RN DISCUSSED HER CONCERNS AND SUPPORT SYSTEMS AT HOME. PT. PT. LEFT RESTING IN BED AND DENIED FURTHER NEED. CALL LIGHT IN REACH.
[2020-03-22] MEDS ORDERED: CHLORDIAZEPOXID25 MG PO (12:41)
[2020-03-22] MEDS ORDERED: VITAMIN B-1100 M1 PO (12:42)
[2020-03-22] MEDS ORDERED: HYDROCODON-ACE1 EA14 PO (12:43)
--- NOTE | 2020-03-22 13:20 | NUR ---
PT SITTING IN CHAIR, TRYING TO FINISH MEAL. DT'S MAKING IT DIFFICULT FOR PT TO EAT AND DRINK FROM A STRAW. PT AGAIN STATES SHE IS READY TO QUIT DRINKING. PT ALSO SAID SHE IS "NOT GOING TO NO GROUP SESSION". SHE SAYS SHE WILL DO PEER TO PEER COUNSELING. I ENCOURAGED HER TO LEAVE EVERY OPTION AVAILABLE TO HER TO SUCCEED. SHE SAID SHE WOULD CONSIDER. GAVE BLESSING
--- NOTE | 2020-03-22 13:30 | NUR ---
PATIENT DISCHARGED. DISCHARGE INSTRUCTIONS REVIEWED AND PT VERBALIZED UNDERSTANDING. IV REMOVED WITH CATH INTACT. PT. VITALS STABLE, PT. AMBULATED INDEPENDENTLY TO THE WHEELCHAIR. PT. GIVEN PO TYLENOL FOR ABD PAIN. PT. ORIENTED AND ALERT. PICKED UP BY CAR BY TELE TECH WITH ALL BELONGINGS.
== END 2020-03-22 13:30 | disposition home or self-care (01) ==
LOC: ED 21:29 → MS 21:30
PROVIDERS: ADMIT Internal Medicine; ATTEND Internal Medicine
DX: K85.90 Acute pancreatitis without necrosis or infection, unspecified (principal); K86.1 Other chronic pancreatitis; F10.20 Alcohol dependence, uncomplicated; F17.200 Nicotine dependence, unspecified, uncomplicated; I10 Essential (primary) hypertension; E03.9 Hypothyroidism, unspecified; K21.9 Gastro-esophageal reflux disease without esophagitis; Z90.49 Acquired absence of other specified parts of digestive tract; Z88.8 Allergy status to other drugs, medicaments and biological substances; Z20.822 Contact with and (suspected) exposure to COVID-19
CPT/HCPCS: 36415; 71045; 80053; 81001; 83690; 83735; 85025; 96372; 96374; 96375; 96376; 99285-25; 99406; C9113; C9803; G0378; J1170; J1650; J1885; J2060; J2270; J2405; J2765; J3411; J3480; J7120; J7121; U0003

== ENCOUNTER 2020-08-15 16:49 | Emergency (ER) | payer OTHER ==
[~2020-08-15] VITALS: Ht 157.5 cm; Wt 54.4 kg
[~2020-08-15 16:49] MED LIST changes: +CHLORDIAZEPOXID25 MG PO; +HYDROCODON-ACE1 EA14 PO; +IBU-200200 MG PO; +VITAMIN B-1100 M1 PO
[2020-08-15] MEDS ORDERED: ESCITALOPRAM OX20 MG PO (19:52)
[2020-08-16] MEDS ORDERED: ONDANSETRON ODT4 MG PO (10:18)
[2020-08-16] MEDS ORDERED: HYDROCODON-ACE1 EA10 PO (10:18)
== END 2020-08-16 10:42 | disposition home or self-care (01) ==
LOC: ED 16:49
DX: K85.90 Acute pancreatitis without necrosis or infection, unspecified (principal); G43.909 Migraine, unspecified, not intractable, without status migrainosus; F17.200 Nicotine dependence, unspecified, uncomplicated; Z88.8 Allergy status to other drugs, medicaments and biological substances; Z79.899 Other long term (current) drug therapy; Z85.41 Personal history of malignant neoplasm of cervix uteri; Z85.038 Personal history of other malignant neoplasm of large intestine
CPT/HCPCS: 74177; 80053; 83690; 85025; 96375; 96376; 99284-25; J1170; J1200; J1790; J2270; J2405; J3480; J7030; Q9967

== ENCOUNTER 2020-10-26 09:31 | Emergency (ER) | payer OTHER ==
[~2020-10-26] VITALS: Ht 157.5 cm; Wt 59.0 kg
[~2020-10-26 09:31] MED LIST changes: +ESCITALOPRAM OX20 MG PO; +HYDROCODON-ACE1 EA10 PO; +ONDANSETRON ODT4 MG PO
[2020-10-26] MEDS ORDERED: HYDROCODON-ACE1 EA10 PO (11:55)
[2020-10-26] MEDS ORDERED: PROMETHAZINE HC25 M1 PO (11:56)
== END 2020-10-26 12:14 | disposition home or self-care (01) ==
LOC: ED 09:31
DX: K86.1 Other chronic pancreatitis (principal); G43.909 Migraine, unspecified, not intractable, without status migrainosus; F17.200 Nicotine dependence, unspecified, uncomplicated; Z91.09 Other allergy status, other than to drugs and biological substances; Z88.1 Allergy status to other antibiotic agents; Z88.8 Allergy status to other drugs, medicaments and biological substances; Z79.899 Other long term (current) drug therapy; F43.10 Post-traumatic stress disorder, unspecified; Z85.038 Personal history of other malignant neoplasm of large intestine; Z85.41 Personal history of malignant neoplasm of cervix uteri
CPT/HCPCS: 80053; 81001; 83690; 85025; 96374; 96375; 99284-25; J1170; J2550; J7030

== ENCOUNTER 2020-11-09 03:49 | Emergency (ER) | payer OTHER ==
[~2020-11-09] VITALS: Ht 160 cm; Wt 61.2 kg
[2020-11-09] MEDS ORDERED: HYDROCODON-ACE1 EA10 PO (05:42)
== END 2020-11-09 06:21 | disposition home or self-care (01) ==
LOC: ED 03:49
DX: R11.10 Vomiting, unspecified (principal); G43.909 Migraine, unspecified, not intractable, without status migrainosus; K85.90 Acute pancreatitis without necrosis or infection, unspecified; F17.200 Nicotine dependence, unspecified, uncomplicated; Z85.41 Personal history of malignant neoplasm of cervix uteri; Z85.038 Personal history of other malignant neoplasm of large intestine; Z91.038 Other insect allergy status; Z88.8 Allergy status to other drugs, medicaments and biological substances; Z79.899 Other long term (current) drug therapy
CPT/HCPCS: 80053; 81001; 83690; 83735; 85025; 96374; 96375; 99284-25; C9113; J1170; J2405; J7040

== ENCOUNTER 2020-11-28 15:24 | Emergency (ER) | payer OTHER ==
[~2020-11-28] VITALS: Ht 160 cm; Wt 54.4 kg
[2020-11-28] MEDS ORDERED: HYDROCODON-ACE1 EAC8 PO (17:01)
[2020-11-28] MEDS ORDERED: ONDANSETRON ODT4 MG SL (17:01)
== END 2020-11-28 17:53 | disposition home or self-care (01) ==
LOC: ED 15:24
DX: K86.1 Other chronic pancreatitis (principal); F17.200 Nicotine dependence, unspecified, uncomplicated; G43.909 Migraine, unspecified, not intractable, without status migrainosus; Z85.3 Personal history of malignant neoplasm of breast; Z85.41 Personal history of malignant neoplasm of cervix uteri; Z85.038 Personal history of other malignant neoplasm of large intestine; Z88.8 Allergy status to other drugs, medicaments and biological substances; Z79.899 Other long term (current) drug therapy
CPT/HCPCS: 74022; 80053; 83690; 83735; 85025; 96374; 96375; 96376; 99284-25; J1170; J2405; J7030

== ENCOUNTER 2020-12-10 12:25 | Inpatient (IN) | payer OTHER ==
[~2020-12-10] VITALS: Ht 160 cm; Wt 54.0 kg
[2020-12-11] MEDS ORDERED: ONDANSETRON ODT4 MG PO (14:38)
[2020-12-11] MEDS ORDERED: ENZYMATIC DIGE1 EACH PO (14:40)
[2020-12-11] MEDS ORDERED: IBU-200200 MG PO (14:41)
[2020-12-11] MEDS ORDERED: MELATONIN5 M5 PO (14:41)
[2020-12-13] MEDS ORDERED: ONDANSETRON ODT4 MG PO (17:00)
[2020-12-13] MEDS ORDERED: HYDROCODON-ACE1 EA10 PO (17:00)
== END 2020-12-13 18:00 | disposition home or self-care (01) | DRG 440 ==
LOC: ED 12:25 → MS 12:26
PROVIDERS: ADMIT Student in an Organized Health Care Education/Training Program; ATTEND Student in an Organized Health Care Education/Training Program
DX: K85.90 Acute pancreatitis without necrosis or infection, unspecified (principal); F32.A Depression, unspecified; F43.10 Post-traumatic stress disorder, unspecified; F10.10 Alcohol abuse, uncomplicated; E78.5 Hyperlipidemia, unspecified; Z85.41 Personal history of malignant neoplasm of cervix uteri; Z66 Do not resuscitate; Z85.3 Personal history of malignant neoplasm of breast; Z20.822 Contact with and (suspected) exposure to COVID-19; G43.909 Migraine, unspecified, not intractable, without status migrainosus; Z90.710 Acquired absence of both cervix and uterus; F17.290 Nicotine dependence, other tobacco product, uncomplicated; Z90.49 Acquired absence of other specified parts of digestive tract; Z88.8 Allergy status to other drugs, medicaments and biological substances; Z98.890 Other specified postprocedural states; Z79.899 Other long term (current) drug therapy
CPT/HCPCS: 74177; 74183; 80048; 80053; 80061; 81001; 83690; 83735; 85025; 94760; 96372; 96374; 96375; 96376; 99285-25; A9577; A9579; C9803; G0378; J1170; J1650; J2405; J2550; J7121; U0003

== ENCOUNTER 2020-12-23 21:01 | Emergency (ER) | payer OTHER ==
[~2020-12-23] VITALS: Ht 160 cm; Wt 54.4 kg
[~2020-12-23 21:01] MED LIST changes: +ENZYMATIC DIGE1 EACH PO; +MELATONIN5 M5 PO
[2020-12-23] MEDS ORDERED: FENOFIBRATE48 MG PO (21:32)
== END 2020-12-24 01:55 | disposition home or self-care (01) ==
LOC: ED 21:01
DX: K85.90 Acute pancreatitis without necrosis or infection, unspecified (principal); G43.909 Migraine, unspecified, not intractable, without status migrainosus; F17.200 Nicotine dependence, unspecified, uncomplicated; Z88.8 Allergy status to other drugs, medicaments and biological substances; Z79.899 Other long term (current) drug therapy
CPT/HCPCS: 80053; 81001; 83690; 83735; 85025; 96374; 96375; 96376; 99284-25; C9113; J1170; J2405; J7030

== ENCOUNTER 2020-12-27 09:41 | Observation (INO) | payer OTHER ==
[~2020-12-27] VITALS: Ht 160 cm; Wt 52.3 kg
[~2020-12-27 09:41] MED LIST changes: +FENOFIBRATE48 MG PO
[2020-12-27] MEDS ORDERED: ONDANSETRON ODT8 MG PO (13:37)
--- NOTE | 2020-12-27 14:55 | NUR ---
PT ARRIVED TO FLOOR FROM ER VIA STRECHER. PT ALERT AND ORIETNED X 3. REPORTS PAIN 5/10, DECLINED PAIN MANMAGEMENT AT THIS TIME. ADMIT ASSESSMENT COMPLETED AT THIS TIME. IV FLUIDS RUNNING, IV TO RIGHT AC PATENT, NO S/SX OF PHELIBITIS OR INFILTRATION. PUPILS ROUND AND REACTIVE. HRR, LUNGS CTA THROUGHOUT. PT HAS BILATERAL WEAKNESS TO ALL EXTREMEITITES AT THIS TIME. PT STATES "I FEEL MORE WEAK THAN USUAL." NO NAUSEA AND VOMITING AT THIS ITME, PT REPORTS SHE DID HAVE SOME NAUSEA AND VOMITING WHILE IN THE ER. PT ABD SOFT, TENDER, BT X 4, DISTENDED MODERATELY PER PATIENT REPORT. PT DENIES ANY DIARRHEA AT THIS TIME BUT REPORTS "I SOMETIMES HAVE ISSUES WITH CONSITPATION DUE TO THE PAIN MEDS." CMS INTACT. PT DENIES ANY NUMBNESS AND TINGLING AT THIS TIME. SKIN IS INTACT AT THIS TIME. WATER, JELLO, AND LEMON EGEGIK SODA GIVEN TO PATIENT PER HER REQUEST. NO OTHER CONCERNS AT THIS TIME, BED RAILS X 2 UP, CALL LIGHT IN REACH.
--- NOTE | 2020-12-27 14:58 | NUR ---
PT. BROUGHT TO FLOOR BY PROFESSOR OF HISTORY VIA STRETCHER. ALERT AND ORIENTED. DISCUSSED SAFETY, DIET AND POC. BED ALARM ON AND CALL LIGHT IN REACH.
--- NOTE | 2020-12-27 16:16 | NUR ---
PT WITH C/O INCREASED PAIN TO ABD AND A HEADACHE 09/25, PT GIVEN PRN OXYCODONE AND TYLENOL. PT EDUCATION PROVIDED REGARDING MEDICATIONS. EMESIS BAG IN REACH. NO OTHER CONCERNS OR REQUESTS AT THIS TIME. BED RAILS UP X 2. PATIENT WATCHING TV. SHELIA, FROM DISCHARGE PLANNING IN ROOM WITH PT AT THIS TIME. CALL LIGHT IN REACH.
--- NOTE | 2020-12-27 16:49 | NUR ---
Patient call light is in reach. Patient is comfortable.
--- NOTE | 2020-12-27 16:53 | NUR ---
Patient said she is eating slowly to help with not throwing it back up.
--- NOTE | 2020-12-27 16:57 | NUR ---
Spoke with Kendall. States she has been ill and vomiting since last night. Unsure what set off her pancreatitis. Denies alcohol use since July. States she does smoke pot, but denies meth. Wants help to control nausea and pain. Plans on dc to home with Life Partner Mian when pain is controlled.
--- NOTE | 2020-12-27 17:52 | NUR ---
in to check on pt. pt resting in bed with her eyes closed. pt offered assistance to order a dinner tray, pt declined at this time. no other concerns or requests at this time. bed rails x 2 up, call light in reach.
--- NOTE | 2020-12-27 18:24 | NUR ---
IN TO CHECK ON PT. PT REPORTS PAIN IS BETTER 3/10. PT CONTINUES TO DENY NAUSEA AT THIS TIME. PT EXPRESSED CONCENR OVER ANY POSSIBLE REOCCURANCE OF CURRENT PROBLEM AND EXPRESSED DESIRE TO HAVE SOME ANSWERS. THIS NURSE REMINDED PT SHE HAS AN UPCOMING APPT WITH THE GASTROENTROLOGIST IN THE NEAR FUTURE. THIS NURSE OFFERED ASSISTANCE TO USE THE RESTROOM, PT DENIES NEED AT THIS TIME. THIS NURSE ENCORAGED PT TO CALL WHEN SHE NEEDS ASSISTANCE. NO OTHER CNOCERNS OR NEEDS OR REQUESTS. BEDRAILS X 4 UP, CALL LIGHT IN REACH.
--- NOTE | 2020-12-27 19:26 | NUR ---
SHIFT REPORT RECEIVED FROM MARIE GRACIA. PT RESTING IN BED. IV FLUIDS INFUSING PER ORDER. ABD PAIN 06/25, PT REPOSITIONED. NO OTHER NEEDS. CALL LIGHT IN REACH.
--- NOTE | 2020-12-27 21:21 | NUR ---
IN ROOM TO ADMINISTER 10MG PO OXYCODONE FOR 7/10 ABD PAIN. PT DENIES FURTHER NEEDS AT THIS TIME. CALL LIGHT IS CLOSE.
--- NOTE | 2020-12-27 21:30 | NUR ---
IN TO GET VITALS, WARM BLANKET PROVIDED, PT WILL TRY TO VOID LATER, NO FURTHER NEEDS
--- NOTE | 2020-12-27 22:05 | NUR ---
PT CALLED NURSES STATION TO REPORT NAUSEA, ZOFRAN 4MG IV PRN GIVEN, PT REPORTS NAUSEA CAME ON AFTER TAKING PAIN MEDICATIONS.
--- NOTE | 2020-12-27 22:36 | NUR ---
ASSESSMENT COMPLETED. SCHEDULED MED PROVIDED. GCS 15, A&O X4. LUNGS CLEAR. HEART TONES REGULAR. ABD FIRM, MODERATELY DISTENDED, BOWEL TONES ACTIVE. CMS INTACT. IV WNL, CDI, IV FLUIDS INFUSING PER ORDER. IPIGASTRIC PAIN 08/25, PT ALREADY RECEIVED PRN PAIN MED RECENTLY. NO OTHER NEEDS. CALL LIGHT IN REACH.
--- NOTE | 2020-12-27 23:05 | NUR ---
PT UP TO BR AND BACK TO BED. PT REPORTS PAIN IS TOLERABLE AT 3/10. NO OTHER NEEDS. CALL LIGHT IN REACH.
--- NOTE | 2020-12-28 00:08 | NUR ---
IV PUMP ALARMING, NEW BAG IV FLUIDS PROVIDED. NO OTHER NEEDS AT THIS TIME. CALL LIGHT IN REACH.
--- NOTE | 2020-12-28 02:15 | NUR ---
IN TO GET VITALS, PT UP TO VOID, NO FURTHER NEEDS AT THIS TIME
--- NOTE | 2020-12-28 03:22 | NUR ---
pt iv pump alarming, resolved. assessment completed. epigastric pain 7/10, prn pain med provided. pt reports moderate abd distension, firm, bowel tones active. pt tolerating clear liquid diet well. ice water provided. no other needs. call light in reach.
--- NOTE | 2020-12-28 05:50 | NUR ---
SCHEDULED MED PROVIDED. NO OTHER NEEDS. CALL LIGHT IN REACH.
--- NOTE | 2020-12-28 09:31 | NUR ---
PT IV IN R AC LEAKING, REMOVED BY THIS NURSE. TIP INTACT. TOLERATED WELL. 2 ATTMEPT MADE BY THIS NURSE TO INSERT NEW IV. ATTEMPTS UNSUCCESSFUL. BASIL CHOWDHURY ATTEMPTED TO INSERT NEW IV X 2, UNSUCCESSFUL. CHARGE NURSE RAGHAV NOTIFED. PT TOLERATED WELL. BREAKFAST DELIVERED AT THIS TIME. PT SITTING UP IN BED EATING BREAKFAST, BED RAILS X 2 UP. NO OTHER CONCERNS OR REQUESTS. CALL LIGHT IN REACH.
--- NOTE | 2020-12-28 09:46 | NUR ---
IV PLACED BY MANAGER LABOR DELIVERY AFTER 2 ATTEMPTS. PT. TOLERATED WELL. IVF INFUSING. PT. LEFT RESTING WITH CALL LIGHT IN REACH.
--- NOTE | 2020-12-28 10:08 | NUR ---
PT. USES CALL LIGHT APPROPRIATELY FOR BLEEDING AT IV REMOVAL SITE. GAUZE AND TAPE APPLIED. PT. LEFT RESTING WITH CALL LIGHT IN REACH.
--- NOTE | 2020-12-28 10:13 | NUR ---
IN TO SEE PT, AM MEDICATIONS AND ASSESSMENT DUE. PT SITTING IN BED WATCHING TV AT THIS ITME. PT REPORTS PAIN 8/10 TO EPIGASTRIC AREA AND BACK. PT GIVEN 10 MG PRN OXYCODONE AT THIS TIME FOR PAIN MANAGEMENT. HRR, LUNGS CLEAR WITH POSTERIAER EXPIRATORY WHEEZES LEFT UPPER LOBE, LEFT MIDDLE LOBE AND RIGHT MIDDLE LOBE; LUNGS OTHERWISE CLEAR. OXYGEN SATURATION 100% ON RA. NO COUGH NOTED. ABD REMAINS MODERATELY DISTENDED AND TENDER. BT X 4. PT STRENGTH TO UPPER AND LOWER EXTREMITIES STRONG AND EQUAL. PUPILS ROUND AND REACTIVE, MUCUOUS MEMEBRANES MOIST. NO EDEMA NOTED. ALL SKIN INTACT AT THIS TIME. PT DENIES NAUSEA AND VOMITING AT THIS TIME. PT TOLERATING CLEAR LIQUID DIET AT THIS TIME. NO TOHER CONCERNS OR REQUESTS AT THIS TIME. BED RAILS X 2 UP, CALL LIGHT IN REACH.
--- NOTE | 2020-12-28 10:39 | NUR ---
Patient call light is in reach. Vitals, I&Os are complete.
--- NOTE | 2020-12-28 12:00 | NUR ---
in to check on pt. pat resting in supine position with eyes closed. pt wakens easily to voice stimuli. assisted pt to restroom at this time. pt declined lunch order at this time stating "i am not hungry riught now." assisted to chair, warm blanket provided. no other concerns or requests at this time. call light in reach.
--- NOTE | 2020-12-28 13:00 | NUR ---
in to check on pt. pt slouching in chair with a frown on her face. pt reported pain to epigastic area, back, and head 6/10. prn 10mg oxycodone given per order. lunch at the bedside. no ohter concerns or requests at this time. call light in reach.
--- NOTE | 2020-12-28 14:30 | NUR ---
PT FINISHED SOUP AND DENIES NAUSEA OR VOMITING.
--- NOTE | 2020-12-28 14:39 | NUR ---
Patient is trying some soup in bed. Vitals are complete.
--- NOTE | 2020-12-28 15:13 | NUR ---
in to check on pt. assessment due. pt sitting up in bed watching tv at this itme. pt accepted 75% of lunch this afternoon. pt reports " my belly is not as distended as before, or as tender. " pt tolerating upgrade in diet well. denies nasuea at this time. no episodes of emesis. HRR, lungs cta throughout, epiratory wheezes have resolved at this time. pt reports pain continues to decrease, pain currently at pt acceptable level 3/10. offered to order pt dinner, pt declined. pt is hoping to go home today.
--- NOTE | 2020-12-28 16:04 | NUR ---
No plan for dc today.
--- NOTE | 2020-12-28 16:30 | NUR ---
IN TO CHECK ON PT. DISCUSSED PT DISCHARGE INSTRUCTIONS WITH PT. PT VERBALIZED UNDERSTANDING. IV TO LFA REMOVED, TIP INTACT. VS OBTAINED. DAMEON FROM PHARMACY INTO TALK TO PT. NO OTHER CONCERNS OR REQUESTS AT THIS TIME. PT SITTING ON BED WATCHING TV. CALL JORDAN IN REACH.
--- NOTE | 2020-12-28 17:00 | NUR ---
PT DISCHARGED. PT VERBALIZED DISCHARGED INSTRUCTIONS. TAKEN TO FRONT TO MEET TAXI BY NURSING STAFF. PT HAD ALL BELONGINGS ON LEAVING FACILITY.
== END 2020-12-28 17:30 | disposition home or self-care (01) ==
LOC: ED 09:41 → MS 09:43
PROVIDERS: ADMIT Student in an Organized Health Care Education/Training Program; ATTEND Student in an Organized Health Care Education/Training Program
DX: K85.90 Acute pancreatitis without necrosis or infection, unspecified (principal); F32.9 Major depressive disorder, single episode, unspecified; F43.10 Post-traumatic stress disorder, unspecified; F17.210 Nicotine dependence, cigarettes, uncomplicated; E03.9 Hypothyroidism, unspecified
CPT/HCPCS: 80048; 80053; 81001; 83690; 83735; 85025; C9803; J1170; J1650; J2405; J2765; J7121; U0003

== ENCOUNTER 2021-01-10 16:11 | Observation (INO) | payer OTHER ==
[~2021-01-10] VITALS: Ht 160 cm; Wt 52.8 kg
[2021-01-10] MEDS ORDERED: OMEPRAZOLE40 MG PO (16:18)
[2021-01-10] MEDS ORDERED: GABAPENTIN300 MG PO (16:18)
--- NOTE | 2021-01-10 19:31 | NUR ---
PT ARRIVED TO ROOM 113 FROM E.D. VIA STRETCHER WITH PAULA SLIP DUMPER NURSE, ASHLEY FUNDRAISING SALE REPRESENTATIVE INTO PT ROOM TO COMPLETE ADMISSION AND IMMEDIATE NEEDS
--- NOTE | 2021-01-10 20:28 | NUR ---
PT RESTING IN BED ALERT AND ORIENTED, SHE REPORTS NAUSEA, NO EMESIS, ATIVAN 1MG IV GIVEN PER ORDERS FOR #3 USE, OTHERS ARE NOT AVAILABLE YET. UPDATED AT NURSES STATION. PT REPORTS NO OTHER NEEDS AT THIS TIME.
--- NOTE | 2021-01-10 20:32 | NUR ---
PT ARRIVED TO [facility] AT [address] VIA STRETCHER. SHE WAS UP TO USE THE RESTROOM SBA AND IS NOW BACK IN BED. RR IS ELEVATED AFTER AMBULATING TO THE RESTROOM BUT CAME DOWN SHORTLY AFTER. COMPLETED ADMISSION HX AND STARTED IV FLUIDS PER ORDERS. ALSO ADMINISERED 1MG OF DILAUDID IVP. PT ATE A JELLO. ORDERED NIO NICOTINE PATCH TO START IN THE AM PT DOES NOT WANT IT TONIGHT. PT DENIES FURTHER NEEDS AT THIS TIME. CALL LIGHT IS CLOSE.
--- NOTE | 2021-01-10 21:24 | NUR ---
PT RESTING IN BED ALERT AND ORIENTED. NO COMPLAINT NAUSEA AT THIS TIME. SHE HAS CONSUMED A CUP OF JELLO, WE DISCUSSED HER PLAN OF CARE, NPO AT MIDNIGHT FOR POSSIBLE PROCEDURE TOMORROW. PT VERBALIZED UNDERSTANDING. PT REPORTS STILL HAS PAIN AT ABD. WILL PROVIDE HEAT PACK.
--- NOTE | 2021-01-10 22:13 | NUR ---
PT CALLED NURSES STATION TO REPORT SHE FELT LIKE SHE IS GOING TO "PUKE" THIS RN INTO ROOM WITH ZOFRAN 4MG IV AT THIS TIME, GAVE PT EMESIS BAG SHE PRODUCED 100ML OF YELLOW LIQUID EMESIS.
--- NOTE | 2021-01-10 22:21 | NUR ---
PT REPORTS PAIN 8/10 AFTER EMESIS, 1MG IV DILAUDID ADMINISTERED AT THIS TIME.
--- NOTE | 2021-01-10 23:04 | NUR ---
PT CALLED TO REQUEST ASSISTANCE TO BATHROOM TO VOID. PT UP WITH ONE PERSON ASSIST, PT REPORTS MORE PAINFUL WITH AMBULATION. PT GIVEN NEW WARM PACK AND WARM BLANKET, SHE SAID "I HOPE I CAN DRIFT OFF TO SLEEP NOW" NO OTHER REQUESTS AT THIS TIME.
--- NOTE | 2021-01-10 23:14 | NUR ---
SPOKE WITH JOSEF IN LAB IN REGARDS TO [facility], JOSEF SAID HE HAD IT FIGURED OUT AND THE BLOOD HAS BEEN SENT OUT. AT START OF SHIFT IT WAS REPORT LAB NEEDED CLARIFICATION.
--- NOTE | 2021-01-10 23:22 | NUR ---
CALLED POLYMERIZATION HELPER AT [facility] TO HAVE RECENT VISITS WITH GI SPECIALIST FAXED OVER.
--- NOTE | 2021-01-11 03:02 | NUR ---
PT ALERT TO STAFF AT BEDSIDE FOR V/S, AND ASSESSMENT. SHE VERBALIZED NEED TO USE BATHROOM, SHE VOIDED 600ML CLEAR YELLOW URINE, SHE IS STANDBY ASSIST WITH IV POLE. SHE REQUEST NEW HEAT PACK. NO OTHER REQUESTS OR CONCERNS AT THIS TIME. ORAL SWABS PROVIDED SHE IS NPO AFTER MIDNIGHT.
--- NOTE | 2021-01-11 04:05 | NUR ---
PT'S IV PUMP WAS BEEPING, NEW BAG OF IV FLUIDS NOW INFUSING. PT IS RESTING WITH EYES CLOSED, RR IS EVEN AND UNLABORED. CALL LIGHT IS CLOSE AND IV IS INFUSING FINE.
--- NOTE | 2021-01-11 05:01 | NUR ---
PT ADMITTED FROM E.D. EARLY IN SHIFT, SHE HAD PAIN ON ARRIVAL HAS HAD THREE TOTAL PRN DILAUDID DOSES, WARM PACKS HAVE HELPED SIGNIFICANTLY WITH PAIN TO RUQ, SHE HAS HAD ON EMESIS 100ML YELLOW ZOFRAN ADMINISTERED NO FURTHER NAUSEA TO REPORT. SHE HAS BEEN UP TO BATHROOM THREE TIMES OVER SHIFT, VOIDING QUANTITY SUFFICIENT. SHE HAS BEEN COOPERATIVE WITH CARE, ANXIOUS AT TIMES VERBALIZING CONCERNS ABOUT CONTIUED PAIN AND WANTING ANSWERS, SHE REPORTS SHE HAS HAD THIS PAIN FOR OVER A YEAR. PT IS EASILY REASSURED OF CARE PLAN. IVF INFUSING WNL TO LEFT HAND SITE, PT ALERT AND ORIENTED OVER SHIFT. LAST BM 01/10/21.
--- NOTE | 2021-01-11 05:46 | NUR ---
PLACED NEW 20GA IV TO PT LEFT FA, REMOVED FIELD START. PT TOLERATED WELL, DRAWED BLOOD FOR LAB. PT UP TO BATHROOM, SHE REPORTED PAIN 8/10, WITH NAUSEA, ZOFRAN AND DILAUDID RPN GIVEN.
--- NOTE | 2021-01-11 07:31 | NUR ---
in to see pt, nurse to nurse report. [facility]. pt reports pain 08/25. request for heat pack and pain medications. bed rails up. call light in reach. no other cocners or requests at this time.
--- NOTE | 2021-01-11 07:31 | NUR ---
REPORT RECEIVED FROM BASIL VÁZQUEZ. PT RESTING IN BED, REPORTS 7/10 UPPER RIGHT QUADRANT ABDOMINAL PAIN. REQUESTS ADDITIONAL HEAT PACK. PROVIDED. BASIL SALAZAR, [facility] WITH [facility] FROM THIS RN. BED RAILS UP. CALL LIGHT WITHIN REACH.
--- NOTE | 2021-01-11 08:00 | NUR ---
IN TO SEE PT PRMN PAIN MANAGEMENT AND HEAT PACK PROVIDED PER REQUEST. PT DENIES NAUSEA AT THIS TIME. IV FLUIDS RUNNIGN AT THIS TIME. PT ALERT AND OREITNED X 4. PLEASANT AND COOPERATIVE WITH STAFF AND CARES. NO THER CONCERNS OR REQUESTS AT THIS TIME. CALL LIGHT IN REACH.
--- NOTE | 2021-01-11 09:15 | NUR ---
THIS RN TO ROOM WITH DR. CHEN FOR ROUNDS. PT TEARFUL AND EXPRESSES FRUSTRATION WITH SITUATION STATING "I JUST CAN'T LIVE LIKE THIS." PT VERBALIZES UNDERSTANDING OF PLAN OF CARE AND ENDOSCOPY PROCEEDURE. CONSENT REVIEWED BY DR. CHEN WITH PT AND SIGNED. DR. CANO TO ROOM FOR ROUNDS AND REVIEWS PLAN OF CARE WITH PT. PT VERBALIZES UNDERSTANDING. NO ADDITIONAL REQUESTS OR COMPLAINTS. AT THIS TIME. CALL LIGHT WITHIN REACH. BED RAILS UP.
--- NOTE | 2021-01-11 09:30 | NUR ---
IN TO SEE PT. AM ASSESSMENT DUE. DR CANO IN TO DO ROUNDS AND UPDATE PT ON PLAN OF CARE. PT EXPRESSED FRUSTRATION WITH CURRENT ILLNESS AND EMOTIONAL, CRYING WHILE TALKING WITH PROVIDER. AM MEDICATIONS GIVEN PER ORDER. PT ALERT AND ORIENTED X 4. PLEASNAT AND COOPERAITVE WITH STAFF AND CARES. PT REPORTS PAIN NOW 6/10 TO RUQ. PT DENIES NAUSEA, VOMITING, DIARHHEA AND CONSTIPATION AT THIS TIME. PT REMIANS NPO AT THIS TIME. NO OTHER CONCERS OR REQUESTS. CALL LIGHT IN REACH.
--- NOTE | 2021-01-11 09:40 | NUR ---
INTO PATIENTS ROOM, CASE MANAGEMENT ASSESSMENT COMPLETED. PATIENT LAYING IN BED WITH WELDING PANTOGRAPH MACHINE OPERATOR AT BEDSIDE. PATIENT STATES SHE LIVES IN A GROUND LEVEL WITH HER SO JOSEF. PATIENT DOES NOT REQUIRE DME FOR ASSIST AT THIS TIME. PATIENT IS USING [employer], HAS AN EBT CARD AND HAS ACCESS TO THE FOOD BANK IF NEEDED. PATIENT STATES THAT SHE NEEDS A CAREGIVER AND HAS BEEN APPROVED FOR ONE WITH [facility], BUT HAS HAD DIFFICULTY FINDING ONE. PATIENT STATES "I CAN'T FIND ANYONE WHO WANTS TO WORK." PATIENT STATES SHELIA MCNEAL AT [facility] IS THE DIE CAST OPERATOR SHE IS WORKING WITH. BASIL BUTLER INTO ROOM TO PREPARE PATIENT FOR ENDOSCOPY. WILL CONTINUE TO FOLLOW UP WITH PATIENT DURING HER STAY.
--- NOTE | 2021-01-11 09:44 | NUR ---
OR TEAM ARRIVED TO TAKE PT FOR ENDOSCOPY. PRE PROCEEDURE CHECK LIST COMPLETED. LR ON STRAIGHT TUBING HUNG PER OR ORDERS. ROSA MURO, TO BEDSIDE TO REIVEW PROCEEDURE WITH PT. PT VERBALIZES UNDERSTANDING OF PROCEEDURE. REPORT GIVEN TO SHARI ARIAS RN. PT TRANSFERSE SELF TO STRETCHER. NO ASSTANCE NEEDED. PT TO ENDOSCOPY ROOM.
--- NOTE | 2021-01-11 10:13 | NUR ---
01/11/21 Sang3 Elissa Frey 1009- PT ARRIVES TO PACU EASILY AROUSABLE TO VOICE. PT FALLS INSTANTLY BACK TO SLEEP WHEN NOT BEING STIMULATED. RESP EVEN AND UNLABORED. OXYGEN SAT HIGH 90'S ON 6L VIA CO2 NC. 1012- OXYGEN TITRATED DOWN TO 3L VIA CO2 NC.
--- NOTE | 2021-01-11 10:35 | NUR ---
PT RETURNED FROM PACU. REPORT RECEIVED FROM BASIL ROSENBAUM. PT TRANSFERSE SELF TO BATHROOM WITH STAND BY ASSIST. VOIDS 200ML CLEAR YELLOW CONCENTRATED URINE. PT PERFORMES SELF DEN CARE. STAND BY ASSIST BACK TO BED. PT REPORTS FEELING COLD. WARM BLANKETS PROVIDED. VITAL SIGNS STABLE. 100% OXGYEN SATURATION ON ROOM AIR. PT REPORTS 7/10 RUQ ABDOMINAL PAIN. SEE MAR FOR MEDICAITON GIVEN. IV FLUIDS RESTARTED. PT RESING WITH EYES CLOSED, RESPIRATIONS EVEN AND UNALBORED. CALL LIGHT WITHIN REACH. BED RAILS UP. BED ALARM ON. UPDATE GIVEN TO PTS PRIMARY RNMARIE.
--- NOTE | 2021-01-11 10:49 | CONS ---
[facility] [address], [place] [address] Signed DATE OF CONSULTATION: 01/11/2021 CHIEF COMPLAINT: Right upper quadrant abdominal pain. HISTORY OF PRESENT ILLNESS: Johnathan is a 55-year-old female, who I have met in the past. She has a long associated alcohol-related pancreatitis. She also had her gallbladder removed several years ago. Her common bile duct is a little dilated around 10 mm since the gallbladder has been removed. She finally quit drinking a couple of months ago. She comes in every few weeks to the internal medicine service. She has had gastritis and peptic ulcer disease in the past as well. She normally improves within two or three days. She has already been to see her outpatient melting furnace skimmer and the nurse practitioner, Geovanni Crawley at [facility] in [place], [place]. That note was reviewed and of course, she has been recommended to have outpatient endoscopic ultrasound to evaluate the pancreas, pancreatic ducts and a small 11 mm stable cystic lesion in the pancreatic neck. She even had an MRCP back in November of this year and CT scan yesterday and overall she has the same findings except for some mild inflammatory changes around the pyloric bulb and the gastric antrum. An 11 mm cyst in the pancreatic neck is stable. The mild common bile duct dilation is also stable at 9 to 10 mm. I have been asked to see her as a general surgeon on-call. There was some consideration for standard upper endoscopy to evaluate for peptic ulcer disease and gastritis and if that is unremarkable of course she needs to pursue her endoscopic ultrasound. She may need to be transferred at some point just to expedite her care. Unfortunately, she is in a very difficult situation. PAST MEDICAL HISTORY: Recurring pancreatitis, hypothyroidism, depression, PTSD, restless legs syndrome, cervical cancer, rectal cancer removed transanally, migraines, hepatitis, pneumonia, brain aneurysm, osteomyelitis, COPD, alcohol syndrome, obsessive-compulsive disorder, MRSA, osteoarthritis, shingles, peptic ulcer disease, colonic polyps and gastritis. PAST SURGICAL HISTORY: Includes the laparoscopic cholecystectomy, the right ear surgery x3 as a child, hysterectomy, transanal excision of her rectal cancer in [place], [place], right carpal tunnel release, removal of right elbow foreign body, cerebral aneurysm surgery x3 and her last colonoscopy was in 2019 with myself. SOCIAL HISTORY: She does not smoke. She quit drinking two months ago. She has made herself a DNR. She still likes to smoke marijuana Daniel Ramires is her life partner at [phone] Dr. Jacob Pablo is her primary care provider. Geovanni Crawley is her Electronically Signed By: JAYA CHEN MD 01/11/21 1049 PATIENT NAME: JOHNATHAN GOMEZ CONSULTATION DATE OF : 63 REPORT #: [id number] PHYSICIAN: JAYA CHEN MD PCP: JACOB PABLO MD REPORT IS CONFIDENTIAL AND NOT TO BE RELEASED WITHOUT AUTHORIZATION [address] [address] Signed Gastroenterology nurse practitioner. Dr. Lorenzo Mao has been recommended to her at the [facility] with [facility] in [place], [place]. [facility] FAMILY HISTORY: None. REVIEW OF SYSTEMS: She had 10 systems reviewed and everything surrounds her recurring pancreatitis. ALLERGIES: 1. Interferon. 2. Rosuvastatin. 3. Haldol. MEDICATIONS: 1. Gabapentin. 2. Omeprazole. 3. Fenofibrate. 4. Clonidine. 5. Ropinirole. 6. Levothyroxine. 7. Escitalopram. 8. Pancreatic enzymes. 9. Ibuprofen. 10. Melatonin. 11. Zofran. PHYSICAL EXAMINATION: VITAL SIGNS: Her blood pressure is 122/72, heart rate is 76, respiratory rate 18, temperature is 98.1. She is 94% on room air. She is 5 feet 3 inches at 54 kg. GENERAL: Johnathan is a 55-year-old female, who looks much older than her stated age. She has been a long-time smoker and drinker. She is quite cachectic. LUNGS: Clear to auscultation bilaterally. HEART: Regular rate and rhythm without murmurs. ABDOMEN: Soft, flat but tender in the right upper quadrant in the epigastric area, however, there is no fullness or sense of mass. LABORATORY DATA: Her white blood count is 5.9, hemoglobin 11.6, mean cell volume is 94, neutrophils 49, platelets are 292, BUN 4, creatinine 0.94, total bilirubin 0.4, AST 18, ALT 16, alkaline phosphatase 125, albumin is 2.8, lipase is 624. Her COVID is negative. RADIOGRAPHIC STUDIES: Electronically Signed By: JAYA CHEN MD 01/11/21 1049 PATIENT NAME: JOHNATHAN GOMEZ CONSULTATION DATE OF : 63 REPORT #: [id number] PHYSICIAN: JAYA CHEN MD PCP: JACOB PABLO MD REPORT IS CONFIDENTIAL AND NOT TO BE RELEASED WITHOUT AUTHORIZATION [address] [address] Signed The MRCP from November of this year and the CT scan from yesterday are reviewed. She has mild chronic dilation to the common bile duct around 9 to 10 mm. There was no filling defects. She has a tiny 11 mm cyst in the pancreatic neck which seems to be stable. She has had some trace edema around the pyloric bulb and the gastric antrum. Of course, her gallbladder is absent. ASSESSMENT AND PLAN: Johnathan is a 55-year-old female, who presents as above. She clearly has recurring pancreatitis. Her pain is a little more to the right on this occasion, and we can see that is where the inflammation is on the CT scan. She has the cystic lesion in the pancreatic neck, which is stable. She is known to have gastritis in the past along with peptic ulcer disease. I explained to Johnathan I am certainly happy to perform a standard upper endoscopy for her. We could certainly take biopsies as well to rule out any gastritis or peptic ulcer disease. However, she needs to understand the need for endoscopic ultrasound, which we have reviewed in great detail. She may or may not make that as an outpatient. She may at some point need to be transferred just to expedite her evaluation and proceed from there. She has actually made herself a DNR and maintains that desire today. She knows that will be suspended at least for the procedure. She has expressed understanding and would like to proceed with her upper endoscopy. She knows there is risk including, but not limited to gas bloating, crampy abdominal pain, bleeding, perforation requiring surgery, and missed diagnosis. She also requires monitored anesthesia care given her overall health and situation. She has expressed understanding and agrees with the above plan. MD JESUS Cantrell/MODL /[id number] cc: MD Dr. Lorenzo Cantrell MD Copies: JAYA CHEN MD Electronically Signed By: JAYA CHEN MD 01/11/21 1049 PATIENT NAME: JOHNATHAN GOMEZ CONSULTATION DATE OF : 63 REPORT #: [id number] PHYSICIAN: JAYA CHEN MD PCP: JACOB PABLO MD REPORT IS CONFIDENTIAL AND NOT TO BE RELEASED WITHOUT AUTHORIZATION [facility] [address] [place] [id number] Signed JACOB PABLO MD ~ Electronically Signed By: JAYA CHEN MD 01/11/21 1049 PATIENT NAME: JOHNATHAN GOMEZ CONSULTATION DATE OF : 63 REPORT #: [id number] PHYSICIAN: JAYA CHEN MD PCP: JACOB PABLO MD REPORT IS CONFIDENTIAL AND NOT TO BE RELEASED WITHOUT AUTHORIZATION
--- NOTE | 2021-01-11 11:41 | NUR ---
IN TO CHECK ON PT. VS OBTAINED, PT RESTING IN BED WITH HOB ELEVATED AT 21 DEGREES. PT PAIN 05/26 TO RUQ. NO OTHER CONCERNS OR REQUESTS AT THIS TIME CALL LIGHT IN REACH.
--- NOTE | 2021-01-11 11:46 | NUR ---
VITALS AND ASSESSMENT DUE. THIS RN TO ROOM. PT RESTING IN BED WITH EYES CLOSED, AWAKENS TO MOVEMENT IN ROOM. PT REPORTS 4/10 PAIN IN RIGHT UPPER QUADRANT THAT IS TOLERABLE. PT DENIES NEED FOR ADDITIONAL MEDICATION. PT REPORTS "IF I TRY TO TAKE A RICHY PBREATH OR MOVE IT HURTS, IF I STAY STILL IT DON'T HURT AT ALL." PT DESCRIBES PAIN "SHARP." HEAT PACK PROVIDED. PT STEADY ON FEET TO AMBULATE TO RESTROOM BUT DOES REPORTS INCREASED PAIN WITH MOVEMENT. PT DENIES NASUEA. PT ALERT AND ORIETNED TO ALL. PT REPORTS ABDOMEN SEEMS "A LITTLE" SWOLLEN, BOWEL TONES ACTIVE. ABOMEN TENDER AND PT CONTINUES TO GUARD AREA. PT ADVANCED TO CLEAR LIQUID DIET. PT REQUESTS 7-UP. PT REPORTS CRAVINGS FOR A CIGARRETTE. NICOTENE GUM ADDED PER NURSE INITIATED ORDER. SEE MAR. VITAL SIGNS STABLE. NO ADDITONAL REQUESTS OR COMPLAINTS. CALL LIGHT WITHIN REACH. BED RAILS UP.
--- NOTE | 2021-01-11 12:03 | NUR ---
PT ALERT, ORIENTED AND RESTING IN BED. PT SAID SHE WASN'T FEELING WELL. HAD A BIOPSY AND WAITING FOR RESULTS. GAVE ENCOURAGEMENT, PT REQUESTED PRAYER. LEFT G.POST AND WILL FOLLOW
--- NOTE | 2021-01-11 12:30 | NUR ---
VS OBTAINED POST PROCEDURE. IN TO CHEK ON PT. PT SITTING UP IN BED, HOB ELEVATED 35 DEGREES. NEW BAG IV FLUIDS HUNG. PT STATES "I HAVE A HEADACHE." PT REPORTS HER HEADACHE PAIN 08/25. PT GIVEN PRN TYLENOL PER ORDER. PTPAIN TO RUQ 4 AT THIS TIME. PT WITH WARM PACK IN PLACE TO RUQ. PT UPDATED ON NEW MEDICATION ORDERED. NO OTHER COCNERNS OR REQUETS AT THIS TIME. CALL LIGHT IN REACH.
--- NOTE | 2021-01-11 12:56 | NUR ---
THIS RN TO ROOM TO CHECK ON PT. PT SITTING UP IN BED EATING JELLO. PT DENIES NASUEA. REPORTS 4/10 PAIN IN RIGHT UPPER QUADRANT AND ONGOING HEADACHE, SEE MAR FOR MEDICATION GIVEN. PT REPORTS SHE DOESN'T WANT TO GO HOME UNTIL THERE IS A "FIX TO ALL THIS BECAUSE I'M GOING TO EAT SOMETHING THAT MAKES IT COME BACK." PT DENIES ADDITIONAL REQUESTS OR COMPLAINTS. CALL LIGHT WITHIN REACH. BED RAILS UP.
--- NOTE | 2021-01-11 13:39 | NUR ---
THIS RN TO ROOM TO CHECK ON PT. PT RESTING IN BED. CONTINUES TO REPORT 7/10 HEADACHE. COOL CLOTH PROVIDED. PT REPORTS SHE DOES DRINK COFFE DAILY. COFFEE PROVIDED WELL WITH SUGAR BUT NO CREAM. PT REPORTS RIGHT UPPER QUDRANT PAIN REMAINS AT 4/10, PT DENIES NEED FOR ADDITIONAL PAIN MEDICATIONS. VITAL SIGNS STABLE. NICORETTE GUM ARRIVED FROM PHARMACY, GIVEN ORDERED. NO ADDITIONAL REQUESTS OR COMPLAINTS. CALL LIGHT WITHIN REACH. BED RAILS UP.
--- NOTE | 2021-01-11 14:33 | NUR ---
Patient is in chair with call light in reach. Patient said she would like to know the results about her surgery and has questions about the surgery pictures she recieved.
--- NOTE | 2021-01-11 15:11 | NUR ---
THIS RN TO ROOM TO CHECK ON PT. PT REMAINS UP TO CHAIR. LOOKING OVER PICTURES FROM HER ENDOSCOPY. PICTURES REVEIWED WITH PT, PT VERBALIZES UNDERSTANDING AND REPEATS BACK FINDINGS NOTED BY DR. CHEN. PT REPORTS HEADACHE HAS IMPROVED NOW 06/25 STATING "THE COFFEE IS HELPING, I'M STILL WORKING ON IT." PT REPORTS IN REGARDS TO HER RIGHT UPPER QUDRANT PAIN, HER "STOMACH FEELS FINE, I'M A GOOD 3." PT DENIES NEED FOR PAIN MEDICATION. PT DENIES NAUSEA. NO ADDITIONAL REQUESTS OR COMPLAINTS. CALL LIGHT WITHIN REACH.
--- NOTE | 2021-01-11 15:42 | NUR ---
[address] CANO REGARDING ASSISTING THE PATIENT WITH SCHEDULING AND TRANSPORTATION TO OUTPATIENT ENDOSCOPIC ULTRASOUND AT THE [facility]. ADVISED MD THIS RN WILL SPEAK WITH PATIENT TO PLAN ASSISTANCE 1510 INTO PATIENT ROOM. DISCUSSED THE NEED FOR VISIT WITH GASTROENTEROLGY AT THE [facility]. PATIENT STATES SHE HAS RECENTLY BEEN OVERWHELMED WITH MANAGING HER HEALTH CARE AND THE LACK OF CAREGIVER AVAILABILITY. PATIENT STATES SHE MISSED THE CALL FROM THE GASTROENTEROLOGY CLINIC AND IS WAITING FOR THEM TO CALL HER SO SHE CAN MAKE AN APPOINTMENT. PATIENT GIVEN CONTACT INFORMATION TO [facility]. THIS RN ALSO GIVE PATIENT THE INFORMATION TO GASTROENTEROLOGY TO ASSIST WITH SETTING UP TRANSPORATION WHEN NEEDED. ATTEMPTED TO CONTACT GASTRO OFFICE TO SCHEDULE FOR PATIENT, BUT OFFICE CLOSED AT THIS TIME. THIS RN ADVISES PATIENT THAT SHE WILL ATTEMPT TO CONTACT THADDEUS MCNEAL, PATIENT DHS WORKER TO DISCUSS THE PATIENT NEEDS FOR A CAREGIVER. ADVISED PATIENT THIS RN TO EMAIL PCP CASE MANAGEMENT FOR DISCHARGE FOLLOW UP. THIS RN WILL ALSO INVOLVE [facility] CASE MANAGEMENT CHW FOR FURTHER FOLLOW TO ATTEMPT TO HELP PATIENT IN ANY WAY POSSIBLE.
--- NOTE | 2021-01-11 15:45 | NUR ---
AFTERNON ASSESSMENT DUE. THIS RN TO ROOM. PT UP TO RESTROOM INDEPENDANTLY, STEADY ON FEET. FALL PRECAUTIONS REVIEWED WITH PT. PT REPORTS HEADACHE HAS RESOLVED. REPORTS "MY STOMACH IS GREAT, IT'S ONLY ABOUT A 3" PT ALSO STATES PAIN IS MOSTLY WHEN MOVING OR TAKING DEEP BREATHS. PT TOLERATING CLEAR LIQUIDS, 7-UP, AND JELLO, WITHOUT NAUSEA, CONTINUES TO DENY NAUSA AT THIS TIME. PT REMAINS ALERT AND ORIENTED. REPORTS NORMAL STRENGHT AND IS AMBULATING WELL IN ROOM. ABDOMEN REMAINS SOFT BUT TENDER TO TOUCH. PT TALKS WITH FAMILY ON PHONE AND IS ABLE TO REPEAT HER DIAGNOSIS WELL PLAN OF CARE ACCURATLY TO FAMILY. PT REPORTS TO FAMILY, "I'M JUST DOING A LOT BETTER NOW." PT DENIES ADDITIONAL REQUESTS OR COMPLAINTS. CALL LIGHT WITHIN REACH.
--- NOTE | 2021-01-11 15:57 | NUR ---
ATTEMPTED TO CONTACT KELLEE MCNEAL, OFFICE CLOSED AND UNABLE TO LEAVE VOICEMAIL.
--- NOTE | 2021-01-11 17:34 | NUR ---
RAGHAV, TREE GIRDLER, STATES PT CALLED TO ASK FOR FOODS OTHER THAN CLEAR LIQUIDS. BASIL AVILEZ CALLED DR. CANO AND ADVANCED DIET TO FULL LIQUID. PT HAS LIMITED OPTIONS ON FULL LIQUID DUE TO LACTOSE INTOLERANCE. SOUP AND APPLESAUCE ORDERED FOR PT IN ADDITONAL TO CLEAR LIQUIDS. PT CONTINUES TO REPORTS 3/10 RUQ PAIN THAT IS WELL CONTROLED "IF ONLY IT WAS ALWAYS LIKE THIS." PT REPORTS HEADACHE HAS RESOLVED. PT WATCHING TV AND PLAYING ON PHONE. NO ADDITONAL REQUESTS OR COMPLAINTS. CALL LIGHT WITHIN REACH.
--- NOTE | 2021-01-11 17:56 | NUR ---
PT CALL LIGHT ON. PT STATES SHE IS READY TO GET BACK TO BED. PT REPORTS SHE WAS ABLE TO EAT HER APPLESAUCE BUT IS NOW DONE EATING AND READY TO REST. PT REPORTS PAIN IS NOW 6/10 "AFTER EATING THAT APPLESAUCE." SEE MAR FOR MEDIATION GIVEN. PT ENCORUAGED TO STAY WITH CLEAR LIQUIDS AND TAKE THE ADVANCING OF HER DIET SLOWLY. PT VERBALIZES UNDERSTANDING. STAND BY ASSIST UP TO RESTROOM. PT VOIDS 200ML CLEAR YELLOW URINE WITH OUT ISSUE. PT PERFORMES SELF DEN CARE. STAND BY ASSIST BACK TO BED. VITAL SIGNS TAKEN. BLOOD PRESSURE NOTED TO BE ELEVATED, BLOOD PRESSURE RETAKEN MANNUALLY AND FOUND TO BE 158/78. PT DENIES ADDITIONAL REQUESTS OR COMPLAINTS. CALL LIGHT WITHIN REACH. BED RAILS UP.
--- NOTE | 2021-01-11 18:25 | NUR ---
PT HERE FOR PANCREATITIS. PT UP IN ROOM WITH STAND BY ASSIST THIS SHIFT, MUCH OF SHIFT SPENT UP TO CHAIR. PT ADVANCED TO FULL LIQUID DIET, TOLERATED CLEARS WELL, INCREASED PAIN WITH FULL LIQUID DIET. ENDOSCOPY DONE THIS MORNING, PTS SPIRITS IMPROVED AFTER RESULTS WERE FOUND. PRN PAIN MEDICATION GIVEN THIS MORNING AND LATE THIS AFTER NOON FOR RIGHT UPPER QUADRANT PAIN. PT WENT MUCH OF SHIFT WITHOUT PAIN MEDICATION. PT DENIES NAUSEA THIS SHIFT. HEAT PACKS ALSO PROVIDED FOR PAIN WITH GOOD EFFECT. PT VOIDING QUANTITY SUFFICIENT. PT USES CALL LIGHT AND MAKES NEEDS KNOWN.
--- NOTE | 2021-01-11 19:15 | NUR ---
SHIFT REPORT RECEIVED FROM [facility] BASIL BUTLER AT BEDSIDE. pt AWAKE AND RESTING IN BED, RR EVEN AND UNLABORED. IV FLUIDS INFUSING DIRECTED. pt ON THE PHONE, NO NEEDS OR CONCERNS VERBALIZED. CALL LIGHT IN REACH.
--- NOTE | 2021-01-11 19:42 | NUR ---
PT CALLED FOR ASSISTANCE TO THE RESTROOM SBA, SHE IS NOW BACK IN BED. WARM PACK PROVIDED AND PT DENIES FURTHER NEEDS. CALL LIGHT IS CLOSE.
--- NOTE | 2021-01-11 19:53 | NUR ---
IN ROOM TO TITRATE IV FLUIDS ORDERED FROM 125MLS TO 75MLS/HR. IV SITE REMAINS WNL. NO NEEDS VERBALIZED, CALL LIGHT IN REACH.
--- NOTE | 2021-01-11 20:44 | NUR ---
PATIENT CALLED FOR NAUSEA MEDICATION AND 4MG IV ZOFRAN GIVEN BY THIS RN. IN THE ROOM TALKING TO THE PATIENT AT THIS TIME.
--- NOTE | 2021-01-11 21:28 | NUR ---
IN ROOM TO GET VS AND I&O'S. ROOM STRAIGHTENED UP AND FRESH ICEWATER PROVIDED. PRIMARY RN BOB IN ROOM WITH PT AT THIS TIME. CALL LIGHT IS CLOSE.
--- NOTE | 2021-01-11 21:30 | NUR ---
ASSESSMENT COMPLETE, SCHEDULED MEDS GIVEN (SEE EMAR). pt REPORTED NAUSEA EARLIER IN SHIFT, REPORTS NAUSEA IMPROVED AND IS ABLE TO TAKE PO MEDS AT THIS TIME. NO ISSUES WITH SWALLOWING MEDS NOTED. IV FLUIDS INFUSING DIRECTED, SITE WNL AND BRISK BLOOD RETURN NOTED. pt FULLY A/O AT THIS TIME, REPORTS PAIN IS TOLERABLE AT 3-4/10. NO NEED FOR PAIN MEDICATION AT THIS TIME, CALL LIGHT IN REACH. pt UP SBA TO VOID AND BACK IN BED.
--- NOTE | 2021-01-11 23:00 | NUR ---
ROUNDED ON pt, pt RESTING IN BED WITH EYES CLOSED, RR EVEN AND UNLABORED. NO DISTRESS NOTED. IV FLUIDS INFUSING DIRECTED. CALL LIGHT IN REACH.
--- NOTE | 2021-01-12 00:35 | NUR ---
ROUNDED ON pt, pt RESTING QUIETLY IN BED WITH EYES CLOSED. RR EVEN AND UNLABORED. AWOKE WHEN THIS RN ENTERED ROOM TO ASSESS IV SITE. IV SITE WNL, FLUIDS INFUSING DIRECTED. pt DENIES NEEDS OR CONCERNS AT THIS TIME. CALL LIGHT IN REACH.
--- NOTE | 2021-01-12 02:45 | NUR ---
pt RESTING IN BED WITH EYES CLOSED. RR EVEN AND UNLABORED. CALL LIGHT IN REACH. BED ALARM ON.
--- NOTE | 2021-01-12 04:21 | NUR ---
pt RESTING IN BED WITH EYES CLOSED, AWOKE TO VOICE. DENIES NEED TO VOID. IV FLUIDS INFUSING DIRECTED, IV SITE WNL. NO NEEDS VERBALIZED, CALL LIGHT IN REACH AND BED ALARM ON.
--- NOTE | 2021-01-12 05:25 | NUR ---
VSS AND I&O'S COLLECTED. IV FLUIDS INFUSING DIRECTED, IV SITE WNL. PRN PAIN MEDICATION GIVEN FOR 7/10 PAIN IN RUQ. CALL LIGHT IN REACH AND SCHEDULED THYROID MEDICATION ALSO GIVEN.
--- NOTE | 2021-01-12 07:05 | NUR ---
Report received from Jeanette GRACIA. Pt is resting in bed with eyes closed. On room air, resp even and unlabored. No needs identified at this time, will continue plan of care.
--- NOTE | 2021-01-12 08:14 | OR ---
[facility] [address] [place], [place] [address] Signed DATE OF OPERATION: 01/11/2021 SURGEON: Jaya Chen MD PREOPERATIVE DIAGNOSES: 1. Chronic recurring pancreatitis. 2. History of peptic ulcer disease. 3. History of gastritis. 4. History of hiatal hernia. POSTOPERATIVE DIAGNOSES: 1. Small to moderate sized hiatal hernia. 2. Mild gastroduodenitis (bulb/antrum). PROCEDURE: EGD with CLOtest and biopsies of the pyloric bulb and antrum. ESTIMATED BLOOD LOSS: None. INDICATIONS: Johnathan is a 55-year-old female, who looks much older than her stated age. She has a long past medical history as listed in the history and physical. I helped her with upper and lower endoscopy back in 2019. She is known to have history of peptic ulcer disease as well as mild gastritis. She also has a small to moderate sized hiatal hernia. I also helped remove her gallbladder several years ago. She has been admitted to our internal medicine service several weeks in a row over the last several months. She is having recurring pancreatitis. She quit drinking alcohol altogether two months ago. She has made herself a DNR. She even had an MRCP in November of this year confirming her mildly dilated common bile duct at 9 to 10 mm. No obvious filling defect. Probably all post cholecystectomy dilation. She has a tiny 11 mm pancreatic cyst in the neck of the pancreas. It also appears to be stable. Her repeat CT scan yesterday showed some remaining edema and inflammatory changes around the pyloric bulb and the antrum, although the pancreas itself seems to be a little bit improved. Of course, the 11 mm cyst is still present in the neck and the common bile duct was dilated but stable. She also takes pancreatic enzymes for supplement. She also remains on omeprazole, but does use ibuprofen intermittently for pain. She was sent to [facility] Crawley, a Gastroenterology nurse practitioner for outpatient evaluation. Of course, she recommended endoscopic ultrasound. Her insurance would not cover her in [place], [place]. Consequently she was asked to see Dr. Lorenzo Mao at the [facility] Electronically Signed By: JAYA CHEN MD 01/12/21 0814 PATIENT NAME: JOHNATHAN GOMEZ OPERATIVE REPORT DATE OF : 63 REPORT #: [id number] PHYSICIAN: JAYA CHEN MD PCP: DIANELYS SAMANO MD REPORT IS CONFIDENTIAL AND NOT TO BE RELEASED WITHOUT AUTHORIZATION [facility] [address] [place], [place] [address] Signed at [facility] in [place], [place]. That is about 3 hours away and she is yet to make that arrangement. In the meantime, I was asked to see her here locally as a general surgeon. I explained yesterday to the hospitalist service as well as today that there was not much more we can offer here locally. However, it was felt worthwhile to at least proceed with a routine upper endoscopy to make sure there was not an obvious ulcer and to assess the amount of inflammation she has in the pylorus and the antrum. I had reviewed all this with Johnathan in detail. She recalls upper endoscopy quite well. There is risk including, but not limited to gas bloating, crampy abdominal pain, bleeding, perforation requiring surgery, and missed diagnosis. We also reviewed the need for monitored anesthesia care given her advanced medical issues. She had expressed understanding and wished to proceed. She understands that this does not forgo her need for endoscopic ultrasound. She had expressed understanding and wished to proceed. PROCEDURE NOTE: Johnathan was taken into our endoscopy suite and placed in the supine semi-recumbent position. She was given monitored anesthesia care with propofol per our nurse order puller. A bite block was utilized for the case. The adult gastroscope was introduced and advanced down the third portion of the duodenum under direct visualization of the camera without difficulty. The duodenum was quite healthy with clear green bile. We could not specifically see the ampulla with our forward viewing scope. The pyloric bulb and antrum did show some mild edema and erythematous changes. There were no ulcerations. We took a biopsy of the pyloric bulb as well as antrum for pathologic review. We took an additional biopsy from the antrum for CLOtest. She did have some murky bile in the fundus of her stomach, I suspect that is partly from the ileus from her pancreatitis. That was easily suctioned out. Upon retroflexion of scope, we can see a small to moderate sized hiatal hernia. The scope was withdrawn up to the area of the GE junction, which was compliant without stricture. We saw no gastric or esophageal varices. Very little if any disruption to the Z-line. Certainly no Morgan's mucosa. No distal esophagitis. Middle and upper esophagus were unremarkable. After this, the gas was suctioned out and the gastroscope removed. Johnathan tolerated the procedure quite well. RECOMMENDATIONS: Johnathan will be returning to her room on the Internal Medicine Service. She can resume a clear liquid diet. She needs to maintain her outpatient appointment for endoscopic ultrasound. However, this is becoming an issue with frequent recurrent admissions for the pancreatitis. She might consider transfer down to tertiary care facility where she can expedite her evaluation. Electronically Signed By: JAYA CHEN MD 01/12/21 0814 PATIENT NAME: JOHNATHAN GOMEZ OPERATIVE REPORT DATE OF : 63 REPORT #: [id number] PHYSICIAN: JAYA CHEN MD PCP: DIANELYS SAMANO MD REPORT IS CONFIDENTIAL AND NOT TO BE RELEASED WITHOUT AUTHORIZATION [facility] [address] [place], [place] [address], [place] [address] Signed Jaya Chen MD ALB/MODL /[id number] cc: MD Dr. Lorenzo Umaña MD Cyrus Ombaire, NP Copies: DIANELYS SAMANO MD, ANDREW L MD ~ Electronically Signed By: JAYA CHEN MD 01/12/21 0814 PATIENT NAME: JOHNATHAN GOMEZ OPERATIVE REPORT DATE OF : 63 REPORT #: [id number] PHYSICIAN: JAYA CHEN MD PCP: DIANELYS SAMANO MD REPORT IS CONFIDENTIAL AND NOT TO BE RELEASED WITHOUT AUTHORIZATION
--- NOTE | 2021-01-12 08:47 | NUR ---
PT INDEPENDENT IN THE ROOM AND UP TO THE CHAIR FOR BREAKFAST. WARM CLOTH GIVEN FOR FACE. WHITE BOARD UPDATED. CALL LIGHT WITHIN REACH. NO FURTHER NEEDS AT THIS TIME.
--- NOTE | 2021-01-12 09:22 | NUR ---
Scheduled medications administered, assessment complete. Dr Rosario in room to talk with patient. Education provided regarding low fat and dairy free diet for discharge. Pt states pain is tolerable at this time and states she can "take a deep breath without pain now". IVF infusing WNL. Pt on RA. A+O. ABD mildly distended, nontender. No further needs at this time
[2021-01-12] MEDS ORDERED: OXYCODONE HCL5 MG PO (09:46)
--- NOTE | 2021-01-12 10:04 | NUR ---
PT READY FOR DISCHARGE. PHARMACIST CALLED TO REVIEW MEDICATIONS WITH PT. PT UP IN ROOM, INDEPENDANTLY TO DRESS, NO ASSISTANCE NEEDED. IV DC'D PER PROTOCOL. GAUZE AND COBAN APPLIED. TIP INTACT. DISCHRAGE INSTRUCTIONS REVIEWED WITH PT. PT VERBALIZES UNDERSTANDING OF INSTRUCTIONS, MEDICATIONS, FOLLOW UP, MEDICAL TRANSPORTATION NUMBER, AND DIET RESTRICTIONS. PT STATES HER QUESTIONS HAVE BEEN ANSWERED. PHARMACIST, NORMA, REVIEWES MEDICATIONS WITH PT. PT VERBALIZES UNDERSTANDING AND STATES HER QUESTIONS HAVE BEEN ANSWERED. NO ADDITIONAL REQUESTS OR COMPLAINTS.
== END 2021-01-12 10:20 | disposition home or self-care (01) ==
LOC: ED 16:11 → MS 16:12
PROVIDERS: Colon & Rectal Surgery; ADMIT Student in an Organized Health Care Education/Training Program; ATTEND Student in an Organized Health Care Education/Training Program
PROC: 0DB68ZZ Excision of Stomach, Via Natural or Artificial Opening Endoscopic (ICD-10-PCS; principal; 2021-01-11 10:00)
DX: K85.20 Alcohol induced acute pancreatitis without necrosis or infection (principal); K86.0 Alcohol-induced chronic pancreatitis; K29.90 Gastroduodenitis, unspecified, without bleeding; K44.9 Diaphragmatic hernia without obstruction or gangrene; Z66 Do not resuscitate; E03.9 Hypothyroidism, unspecified; J44.9 Chronic obstructive pulmonary disease, unspecified; Z85.048 Personal history of other malignant neoplasm of rectum, rectosigmoid junction, and anus; Z85.41 Personal history of malignant neoplasm of cervix uteri; F43.10 Post-traumatic stress disorder, unspecified; G25.81 Restless legs syndrome; Z20.822 Contact with and (suspected) exposure to COVID-19
CPT/HCPCS: 74177; 80053; 83009; 83690; 83735; 85025; C9113; C9803; J1170; J1650; J2001; J2405; J2704; J3010; J7030; J7121; Q9967; U0003

== ENCOUNTER 2021-02-20 12:31 | Inpatient (IN) | payer OTHER ==
[~2021-02-20] VITALS: Ht 160 cm; Wt 52.9 kg
[~2021-02-20 12:31] MED LIST changes: +GABAPENTIN300 MG PO; +OXYCODONE HCL5 MG PO
--- NOTE | 2021-02-20 16:30 | NUR ---
Pt arrives to med surg unit via stretcher to room 109. Pt states pain 3/10, denies nausea at this time. Tolerating clears at this time. Assessment and hx completed. IV WNL. IVF infusing WNL. Scheduled medications administered. Pt oriented to room/unit, call light in reach
--- NOTE | 2021-02-20 16:39 | NUR ---
MED REC COMPLETE
--- NOTE | 2021-02-20 19:30 | NUR ---
eyes closed, no distress, on room air. call light at hands reach
--- NOTE | 2021-02-20 20:55 | NUR ---
c/o 10/26 abd pain, medicated with Morphine 4mg IV, IVF infusing RH, patent. Tolerating fluids, up to br w/o assist, back to bed, tolerated well, no other c/o. call light at hands reach
--- NOTE | 2021-02-20 23:06 | NUR ---
sitting up in bed, c/o 810 abd pain. medicated with morphine 4mg iv, warm pad to abd. ivf infusing w/o problems
--- NOTE | 2021-02-21 00:35 | NUR ---
TOLERATED PUDING, DIET INCREASED TO FULL LIQUID, CONT TO AAT IF NO EMESIS, AND CONTROLLEF ABD PAIN. PT AWARE, TOLERATING LIQUIDS WELL
--- NOTE | 2021-02-21 02:21 | NUR ---
SATS 95% PER CPOX/TELE, PT RESTING ON HIS BACK, HIGH FLOW NC O2 5L, NO DISTRESS, CALL LIGHT AT HANDS REACH
--- NOTE | 2021-02-21 02:23 | NUR ---
AWAKES EASILY, COOP WITH VITALS AND ASSESSMENT. ON ROOM AIR, IVF INFUSING W/O PROBLEMS. NO EMESIS, VOIDED QS, INDEPENDENT INROOM. C/O ABD PAIN, MEDICATED WITH MORPHINE 4MG IV. TOLERATED PUDINGS, WILL KEEP ON FULL LIQUID FOR BREAKFAST AND ADVANCE IF TOLERATED. USES CALL LIGHT, TURNS AND REPOSITIONS SELF IN BED
--- NOTE | 2021-02-21 04:18 | NUR ---
IVF infusing, on room air, resting, eys closed, no distress. call light and fluids at bedside
--- NOTE | 2021-02-21 05:06 | NUR ---
PT SLEPT OFF AND ON THIS SHIFT. ON ROOM AIR, C/O ABD CRAMPING, NO STOOL THIS SHIFT. HAS BEEN MEDICATED PER ABD PAIN WITH MORPHINE WITH GOOD PAIN RELIEF, NO EMESIS. IVF INFUSING, DIET UPDATED TO FULL, AAT
--- NOTE | 2021-02-21 07:30 | NUR ---
Report received from RN Lucy, pt resting in bed safely w/ call light in reach, no needs at this time.
--- NOTE | 2021-02-21 09:30 | NUR ---
Spoke with Kendall and she again has pain from pancreatitis. Believes it was eating chili which bothered her. She cont. to live alone and her boyfriend stays with her frequently. Does not drive or have a car. She does have free transport through [employer] and I again gave her the number. She does not use any DME. Plans on dc to home when feeling better.
--- NOTE | 2021-02-21 10:00 | NUR ---
Pt resting in bed safely w/ call light in reach. Morning assesment complete and scheduled meds given per provider orders. Pt c/o 07/26 pain, PRN pain meds given per request. Pt denies any further needs at this time
--- NOTE | 2021-02-21 12:00 | NUR ---
Pt resting in bed safely w/ call light in reach, pt c/o continuing pain PRN IV pain meds given per request, no further needs at this time
--- NOTE | 2021-02-21 14:30 | NUR ---
Pt resting in bed safely w/ call light in reach, pt c/o 8/10 pain in abd, PRN pain meds given. Pt denies any other needs at this time
--- NOTE | 2021-02-21 16:30 | NUR ---
Pt resting in bed safely w/ call light in reach, pt c/o pain in abd, PRN pain meds given per request. Denies any further needs at this time
--- NOTE | 2021-02-21 18:00 | NUR ---
Pt resting in bed safely w/ call light in reach, no needs at this time
--- NOTE | 2021-02-21 19:55 | NUR ---
medicated with morphine 4mg iv c/o abd pain. up to br, voided large amounts of medium colored yellow urine. back to bed, tolerated well, IVF infusing w/o problems. RH. alert, oriented, cooperative, on room air
--- NOTE | 2021-02-21 22:55 | NUR ---
c/o h/a nd abd pain, temp 99.0. medicated with tylenol 500mg po and morphine 4mg iv. ivf infusing w/oproblems. up to br, voiding large amounts of clear urine, tolerating large amounts olf fluids, on clear liquids, no emsis
--- NOTE | 2021-02-22 02:31 | NUR ---
c/o 08/25 abd pain, medicated with morphine 4mg, tolerating fluids well, ivf infusing no emesis, turns and repositions self in bed, onb room air
--- NOTE | 2021-02-22 05:12 | NUR ---
Pt up to br with minimum of assist. voiding QS, clear yellow urine. On room air, cont on clear liquids, tolerating well, no emesis, no bm's. c/o abd pain and flareups, medicated with Oxycodone po and Morphine IV with good pain relief. cooperative, alert and oriented. Continues on clear liquids pt had many frequent clear liquid snacks and fluids and c/o increaesd abd pain. Pt instructed to pace self with the snacks and fluids to give abd a reast. stated understanding. currently awake, watching tv
--- NOTE | 2021-02-22 06:34 | NUR ---
medicated with morphine 4mg IV, per abd pain. tolerating fluids well, warm pad to abd
--- NOTE | 2021-02-22 07:05 | NUR ---
this rn received report from meryl elkins. pt appears to be resting at this time with respirtions noted
--- NOTE | 2021-02-22 08:23 | NUR ---
PT REFUSED CHAIR. BASIL THOMAS NOTIFIED. UPDATED WHITE BOARD, CALL LIGHT WITHIN REACH. PT C/O PAIN, REQUESTING PAIN MEDS. BASIL THOMAS NOTIFIED. NO FURTHER NEEDS.
--- NOTE | 2021-02-22 09:00 | NUR ---
Spoke with cont. Kendall with pain. No plan for dc today.
--- NOTE | 2021-02-22 09:16 | NUR ---
THIS RN IN PTS ROOM TO GIVE PT HER MORNING MEDS AND PRN PAIN MEDS. PT STATES THAT SHE IS DOING OKAY THIS AM AND IS WORKING THROUGH HER CLEAR LIQUID TRAY AT THIS TIME WITH NO NAUSEA BUT SOME PAIN NOTED. THIS RN PROVIDED PT WITH 5MG OF OXY. NO OTHER NEEDS NOTED AT THIS TIME
--- NOTE | 2021-02-22 11:33 | NUR ---
this rn to check on pt. pt appears to be resting with respirations noted.
--- NOTE | 2021-02-22 12:18 | NUR ---
THIS RN IN PTS ROOM TO GIVE PT REQUESTED PAIN MEDS. THIS RN PROVIDED PT WITH 4MG MORPHINE AT THIS TIME. PT STATES THAT SHE LIKES TO GET MED UNDILUTED, DOESN'T LIKE WHEN "THE OTHER RN PUTS IT ON THE PUMP- IT GIVES ME A HEADACHE" THIS RN EDUCATED PT THAT DILUTING THE MED IS SAFE PRACTICE- THIS RN PUSHED MED SLOWING WITH INFUSING FLUIDS. NO OTHER NEEEDS AT THIS ITME AND CALL LIGHT WITHIN REACH
--- NOTE | 2021-02-22 14:00 | NUR ---
PATIENT FAMILIAR TO ME FROM AN OUTPATIENT NUTRITION COUNSELING SESSION IN MID-JANUARY FOR A LOW-FAT DIET FOR PANCREATITIS. SHE STATES SHE ATE [employer] WITH LOW-FAT SOUR CREAM AND LOW-FAT CHEESE BUT IT WAS TOO MUCH FOR HER AND SHE GOT PANCREATITIS PAIN. OTHERWISE, SHE STATES SHE WAS DOING WELL WITH A LOW-FAT DIET. SHE KNOWS SHE NEEDS TO EAT SMALL AMOUNTS AND SHE WAS DOING WELL UNTIL SHE GOT TOO HUNGRY AND ATE THE [employer]. SHE HAS NO OTHER QUESTIONS AT THIS TIME. WILL REMAIN AVAILABLE IF NEEDED.
--- NOTE | 2021-02-22 14:30 | NUR ---
IN TO GET VS. PT HAD LOW INTAKE; RN WILLIAM NOTIFIED. PT SAYS THEYRE TIRED AND JUST WANT TO SLEEP. CALL LIGHT WITHIN REACH, NO FURTHER NEEDS AT THIS TIME.
--- NOTE | 2021-02-22 15:20 | NUR ---
RN IN ROOM TO ANSWER CALL LIGHT, PT STATES SHE HAD AN EMESIS EPISODE REQUESTING ZOFRAN, STATES HER BOYFREIND TOLD HER SOMETHING THAT UPSET HER, PRN ZOFRAN GIVEN ONLY A SMALL AMOUNT OF EMESIS GIVEN, DENIES ANY OTHER NEEDS AT THE MOMENT, PRIMARY NURSE WILLIAM NOTIFIED.
--- NOTE | 2021-02-22 16:00 | NUR ---
this rn in pts room to give pt 500mg of tylenol per pt request. pt out walking halls at this time. pt states that her pain is a headache
--- NOTE | 2021-02-22 17:00 | NUR ---
PT IN SHOWER. CHANGED LINENS AND TIDIED ROOM. PT INDEPENDENT IN SHOWER AND IN ROOM. TIDIED ROOM. PT WAS TALKING ABOUT GETTING BOYFRIEND TO BRING THEM A PACK OF CIGARETTES TO SMOKE WHILE IN HOSPITAL. THIS LADLE MECHANIC ATTEMPTED TO EDUCATE PT, HOWEVER PT GREW MORE AGITATED. ALERTED BASIL THOMAS. BR TIDIED, PT NOW IN CHAIR TALKING TO BASIL THOMAS. CALL LIGHT WITHIN REACH, NO FURTHER NEEDS AT THIS TIME.
--- NOTE | 2021-02-22 17:40 | NUR ---
THIS RN IN PTS ROOM TO GIVE SCHEDULED MEDS. PT STATES THAT HER ABD PAIN IS 6/10 BUT HER PUGH HAS IMPROVED. PT ASKING FOR PAIN MEDS- OXY 5MG PROVIDED.
--- NOTE | 2021-02-22 19:34 | NUR ---
BEDSIDE REPORT FROM WILLIAM GRACIA, PT RESTING IN BED ALERT AND ORIENTED, HER IV SITE IS NOTED TO HAVE A RED LINE 0.5 INCH WIDE 2.5 INCHES LONG EXTENDING FROM SITE. IV REMOVED BY WILLIAM Gusman RN, DISCUSSED WITH PATIENT PAIN MANAGEMENT PLAN FOR DISCHARGE PT COOPERATIVE, SHE VERBALIZES SHE WANTS TO DISCHARGE TOMORROW.
--- NOTE | 2021-02-22 21:33 | NUR ---
PT REPORTS PAIN 4/10, REQUEST PAIN MEDICATION AT THIS TIME, OXYCODONE ADMINISTERED AT THIS TIME, PT ALERT AND ORIENTED, SHE HAS MNO OTHER CONCERNS OTHER THAN MILD HEADACHE, SHE AGREES LICKLY FROM LACK OF CAFFINE.
--- NOTE | 2021-02-22 23:49 | NUR ---
PT RESTING IN BED EYES CLOSED RR EVEN 16BPM, NO DISTRESS NOTED, PT BODY POSITION RELAXED, NO RESLTLESSNESS, NO MOANING, FACILA FEACTURES RELAXED.
--- NOTE | 2021-02-23 01:14 | NUR ---
PT CALLED [facility] ST[facility] TO REPORT SHE IS PAINFUL AND NEEDS PAIN MEDICATIONS. OXYCODONE IS AVAILABLE AT THIS TIME. ADMINISTERED TO PT PER ORDERS. PT RESTING IN BED ALERT PLAYING CANDRenthackrH ON HER PHONE. SHE SAID "I THOUGHT I WAS DUE FOR MORPHINE?" EXPLAIN TO PT THAT THE MORPHINE IS FOR BREAK THROUGH PAIN, NUT THAT THE OXYCODONE IS TO BE GIVEN FIRST IF IT IS AVAILBLE. SHE REPORTS HER PAIN "4-07/26. PT SAID "OH OK" AND WENT BACK TO PLAYING HER GAME. SHE VERBALIZED NO OTHER NEEDS AT THIS TIME.
--- NOTE | 2021-02-23 02:55 | NUR ---
IN ROOM TO ADMINISTER 4MG IV MORPHINE TO 7/10 ABD PAIN. PT DENIES FURTHER NEEDS AT THIS TIME. CALL LIGHT IS CLOSE.
--- NOTE | 2021-02-23 04:33 | NUR ---
PT SLEPT WELL OVER SHIFT, HER PAIN HAS BEEN MANAGED WITH ORAL PAIN MEDICATION WITH ONE DOSE OF MORPHINE FOR BREAKTHOUGH. SHE HAS NEW IV SITE THIS SHIFT RIGHT WRIST IV SITE NOTED TO BE RED AT SHIFT CHNAGE (SEE OTHER RN NOTES). SHE HAS BEEN INDEPENDENT IN ROOM. SHE HAS VERBALIZED WANTING TO DISCHARGE TODAY. NO NAUSEA OVER SHIFT, VOIDING QUANTITY SUFFICIENT.
--- NOTE | 2021-02-23 07:25 | NUR ---
bedside report from Suzy elkins, pt with call light, denies needs - looking over menu.
--- NOTE | 2021-02-23 07:37 | NUR ---
PT RESTING IN BED. PT SAID THEY GOT A GOOD NIGHTS SLEEP. WHITE BOARD UPDATED. WARM CLOTH GIVEN FOR FACE. CALL LIGHT WITHIN REACH. NO FURTHER NEEDS AT THIS TIME.
--- NOTE | 2021-02-23 10:22 | NUR ---
spoke with dr rothman - let him know pt tollerating full liquid diet - she is eating shaila. pudding now sitting at side of bed on phone.
--- NOTE | 2021-02-23 11:23 | NUR ---
pt reports pain improved but still request po oxy for abd pain. discussing meds for dc - pt reports no new meds and is comfortable with going home today and pharmacy is [facility].
[2021-02-23] MEDS ORDERED: OXYCODONE HCL5 MG PO (11:58)
--- NOTE | 2021-02-23 12:35 | NUR ---
IV DC, WRITTEN INSTRUCTIONS REVIEWED PT AND PHARMACY AND RN. DENIES NEEDS - WAITING FOR TAXI.
== END 2021-02-23 12:40 | disposition home or self-care (01) | DRG 440 ==
LOC: ED 12:31 → MS 12:32
PROVIDERS: ADMIT Internal Medicine; ATTEND Internal Medicine
DX: K85.90 Acute pancreatitis without necrosis or infection, unspecified (principal); E03.9 Hypothyroidism, unspecified; E78.5 Hyperlipidemia, unspecified; K21.9 Gastro-esophageal reflux disease without esophagitis; Z20.822 Contact with and (suspected) exposure to COVID-19; G25.81 Restless legs syndrome; E78.1 Pure hyperglyceridemia; F39 Unspecified mood [affective] disorder; F32.A Depression, unspecified; G89.4 Chronic pain syndrome; Z88.5 Allergy status to narcotic agent; Z88.8 Allergy status to other drugs, medicaments and biological substances
CPT/HCPCS: 80053; 81001; 83690; 84478; 85025; 96372; 96374; 96375; 96376; 99285-25; G0378; J1170; J1650; J2270; J2405; J7121; U0003

== ENCOUNTER 2021-05-05 05:35 | Emergency (ER) | payer OTHER ==
[~2021-05-05] VITALS: Ht 160 cm; Wt 52.6 kg
[2021-05-05] MEDS ORDERED: ONDANSETRON ODT8 MG PO (06:54)
[2021-05-05] MEDS ORDERED: HYDROCODON-ACE1 EA10 PO (06:54)
--- NOTE | 2021-05-05 08:09 | EKG ---
[facility] [address] [place], [place] [address] Signed Normal sinus rhythm Normal ECG When compared with ECG of 19-JUL-2018 13:25, No significant change was found Confirmed by JENSEN LOU MD ([id number]) on 05/05/2021 8:08:47 AM Electronically Signed By: JENSEN LOU MD 05/05/21808 PATIENT NAME: JOHNATHAN GOMEZ Rigoberto Electrocardiogram DATE OF : 63 PHYSICIAN: JENSEN LOU MD REPORT #: [id number] REPORT IS CONFIDENTIAL AND NOT TO BE RELEASED WITHOUT AUTHORIZATION
== END 2021-05-05 07:00 | disposition home or self-care (01) ==
LOC: ED 05:35
DX: K86.1 Other chronic pancreatitis (principal); Z85.038 Personal history of other malignant neoplasm of large intestine; Z85.41 Personal history of malignant neoplasm of cervix uteri; G43.909 Migraine, unspecified, not intractable, without status migrainosus; Z85.841 Personal history of malignant neoplasm of brain; F17.200 Nicotine dependence, unspecified, uncomplicated; Z88.8 Allergy status to other drugs, medicaments and biological substances; Z79.899 Other long term (current) drug therapy
CPT/HCPCS: 36415; 80053; 83690; 84484; 85025; 93005; 93010; 96374; 96375; 99284-25; A9270; C9113; J1885; J2270; J2405; J7030

== ENCOUNTER 2021-06-06 20:40 | Emergency (ER) | payer OTHER ==
[~2021-06-06] VITALS: Ht 160 cm; Wt 53.5 kg
[2021-06-06] MEDS ORDERED: VENTOLIN HFA18 GM INH (21:04)
[2021-06-06] MEDS ORDERED: PANCREATIN PO (21:06)
[2021-06-06] MEDS ORDERED: STOOL SOFTENER250 MG PO (23:57)
[2021-06-06] MEDS ORDERED: OXYCODONE HCL5 MG PO (23:57)
== END 2021-06-07 00:16 | disposition home or self-care (01) ==
LOC: ED 20:40
DX: K85.90 Acute pancreatitis without necrosis or infection, unspecified (principal); Z85.41 Personal history of malignant neoplasm of cervix uteri; Z85.038 Personal history of other malignant neoplasm of large intestine; G43.909 Migraine, unspecified, not intractable, without status migrainosus; Z85.841 Personal history of malignant neoplasm of brain; M86.9 Osteomyelitis, unspecified; F17.200 Nicotine dependence, unspecified, uncomplicated; Z88.8 Allergy status to other drugs, medicaments and biological substances; Z79.899 Other long term (current) drug therapy
CPT/HCPCS: 36415; 80053; 81001; 83690; 85025; 96374; 96375; 96376; 99284-25; A9270; J1170; J1885; J2405; J7121

== ENCOUNTER 2021-06-23 15:06 | Emergency (ER) | payer OTHER ==
[~2021-06-23] VITALS: Ht 160 cm; Wt 53.5 kg
[~2021-06-23 15:06] MED LIST changes: +PANCREATIN PO; +STOOL SOFTENER250 MG PO
[2021-06-23] MEDS ORDERED: PREDNISONE20 MG PO (16:36)
== END 2021-06-23 18:35 | disposition home or self-care (01) ==
LOC: ED 15:06
DX: U07.1 COVID-19 (principal); J44.1 Chronic obstructive pulmonary disease with (acute) exacerbation; G43.909 Migraine, unspecified, not intractable, without status migrainosus; F43.10 Post-traumatic stress disorder, unspecified; F17.200 Nicotine dependence, unspecified, uncomplicated; Z88.8 Allergy status to other drugs, medicaments and biological substances; Z85.038 Personal history of other malignant neoplasm of large intestine; Z85.841 Personal history of malignant neoplasm of brain; Z79.899 Other long term (current) drug therapy
CPT/HCPCS: 71045; 87502; 94640; 96374; 99284-25; A9270; C9803; J7512; U0003

== ENCOUNTER 2021-07-17 16:53 | Emergency (ER) | payer OTHER ==
[~2021-07-17] VITALS: Ht 160 cm; Wt 54.4 kg
== END 2021-07-17 19:56 | disposition home or self-care (01) ==
LOC: ED 16:53
DX: K85.90 Acute pancreatitis without necrosis or infection, unspecified (principal); G43.909 Migraine, unspecified, not intractable, without status migrainosus; F43.10 Post-traumatic stress disorder, unspecified; F17.200 Nicotine dependence, unspecified, uncomplicated; Z88.8 Allergy status to other drugs, medicaments and biological substances; Z79.899 Other long term (current) drug therapy
CPT/HCPCS: 36415; 80053; 81001; 83690; 85025; 85060; 96374; 96375; 99284-25; A9270; J1170; J2405; J7030

== ENCOUNTER 2021-07-19 16:09 | Emergency (ER) | payer OTHER ==
[~2021-07-19] VITALS: Ht 160 cm; Wt 53.9 kg
[2021-07-19] MEDS ORDERED: EUTHYROX75 MCG PO (16:58)
[2021-07-19] MEDS ORDERED: DULOXETINE HCL20 MG PO (16:58)
[2021-07-19] MEDS ORDERED: PROMETHAZINE HC25 M1 PO (20:02)
[2021-07-19] MEDS ORDERED: HYDROCODON-ACE1 EA10 PO (20:02)
[2021-07-19] MEDS ORDERED: PROTONIX40 MG PO (20:58)
== END 2021-07-19 21:25 | disposition home or self-care (01) ==
LOC: ED 16:09
DX: K29.00 Acute gastritis without bleeding (principal); G43.909 Migraine, unspecified, not intractable, without status migrainosus; F43.10 Post-traumatic stress disorder, unspecified; F17.200 Nicotine dependence, unspecified, uncomplicated; Z88.8 Allergy status to other drugs, medicaments and biological substances; Z79.899 Other long term (current) drug therapy
CPT/HCPCS: 36415; 74177; 80053; 81001; 83690; 85025; 96375; 96376; 99284-25; A9270; C9113; J1170; J2405; J2550; J7030; Q9967

== ENCOUNTER 2021-07-21 13:31 | Inpatient (IN) | payer OTHER ==
[~2021-07-21] VITALS: Ht 160 cm; Wt 55.1 kg
[~2021-07-21 13:31] MED LIST changes: +DULOXETINE HCL20 MG PO; +EUTHYROX75 MCG PO; +PROTONIX40 MG PO
--- NOTE | 2021-07-21 21:32 | NUR ---
PT ARRIVED TO THE FLOOR IN NO ACUTE DISTRESS. PT REPORTS AB PAIN AT 7, WILL MEDICATE AFTER RN GETS ANOTHER IV SITE. 22 G RT RT FA. MEDICATED WITH PRN PAIN MEDS AND PHERGAN PER PT FELT NAUSEATED. UP TO VOID INDEPENDENTLY. CALL LIGHT WITHIN REACH WILL CONTINUE TO MONITOR
--- NOTE | 2021-07-21 23:58 | NUR ---
PT LAYING IN BED TRYING TO GO TO SLEEP . DENIES ANY CONCERNS AT THIS TIME. RESP EVEN AND UNLABORED. CALL LIGHT WITHIN REACH WILL CONTINUE TO MONITOR.
--- NOTE | 2021-07-22 02:20 | NUR ---
PT UP TO BATHROOM . PT C/O PAIN RN MEDICATED WITH PRN PAIN MEDS. CALL LIGHT WITHIN REACH WILL CONTINUE TO MONITOR.
--- NOTE | 2021-07-22 04:30 | NUR ---
PT REPORTS PAIN SIMILIAR TO WHAT SHE WAS HAVING YESTERDAY. PRN PAIN MEDS GIVEN. VSS RESP EVEN AND UNLABORED. NO S,SX OF ANY DISTRESS, CALL LIGHT WITHIN REACH WILL CONTINUE TO MONITOR
--- NOTE | 2021-07-22 05:23 | NUR ---
PT SLEEPING IN BED IN NO ACUTE DISTRESS. PT ON 2L NC SATS GREATER THAN 97% NO S/SX OF ANY DISTRESS NOTED. CALL LIGHT WITHIN REACH WILL CONTINUE TO MONITOR
--- NOTE | 2021-07-22 07:45 | NUR ---
PT CALLS TO ASK IF SHE CAN HAVE COFFEE AND PAIN MEDICATION. PT REMINDED OF NPO STATUS AND NOT TO EAT AND DRINK. PLAN FOR MRI DISCUSSED WITH PT WELL. ASSESSMENT DONE. 1MG IV DILAUDID GIVEN FOR 7/10 RIGHT SIDED ABDOMINAL PAIN. IVF INFUSING AT 150ML/HR.
--- NOTE | 2021-07-22 07:46 | NUR ---
PATIENT AWAKE IN BED, VITALS AND I&OS CHARTED. CALL LIGHT IN REACH, NO OTHER NEEDS
--- NOTE | 2021-07-22 08:15 | NUR ---
PT REPORTS PAIN DOWN TO 3/10, "IT FEELS PRETTY GOOD RIGHT NOW.". MRI FORM FILLED OUT WITH PT.
[2021-07-22] MEDS ORDERED: IPRAT-ALBUT 0.5-3 ML INH (08:21)
--- NOTE | 2021-07-22 09:17 | NUR ---
PT DOWN TO MRI
--- NOTE | 2021-07-22 09:58 | NUR ---
PT NOW BACK FROM MRI, REQUESTING COFFEE. WILL TALK WITH REGARDING NEED FOR NPO.
--- NOTE | 2021-07-22 10:29 | NUR ---
Kendall plans to discharge to home possibly today. She plans to return home to her current living condition with assistance of boyfriend, senior neon tube pumper and care provider. 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 She denies questions or concerns at this time. She adds that her care has been good while here in the hospital. She plans to follow-up with Dr. Pablo as her established PCP.
[2021-07-22] MEDS ORDERED: ADVIL200 MG PO (10:37)
--- NOTE | 2021-07-22 10:53 | NUR ---
TO BR TO VOID. STABLE ON FEET. BACK TO BED W/O INCIDENT.
--- NOTE | 2021-07-22 11:02 | NUR ---
DILAUDID 1 MG IV GIVNE FOR ABD PAIN. DENIES NAUSEA.
--- NOTE | 2021-07-22 13:00 | NUR ---
PT SITTING UP IN BED WATCHING TV, IS STILL FINISHING HER LUNCH, NO REQUESTS AT THIS TIME.
--- NOTE | 2021-07-22 15:15 | NUR ---
PT CALLED TO ASK FOR PAIN MEDICATION, 1MG IV DILAUDID GIVEN FOR 8/10 ABDOMINAL PAIN, REPORTS SOME INCREASED PAIN AFTER EATING HER LUNCH BUT IS NOT NAUSEATED.
--- NOTE | 2021-07-22 17:00 | NUR ---
PT UP TO VOID AND THEN BACK TO BED, STEADY ON FEET. C/O SOME INFLAMMATION AND PAIN AROUND IV SITE, IV DC'D. ATTEMPTED X2 TO START NEW ONE AND THEN PT REFUSED FURTHER ATTEMPTS STATING SHE NEEDS TO RELAX A WHILE.
--- NOTE | 2021-07-22 18:03 | NUR ---
PT SITTING UP IN BED, DOES NOT HAVE ANY REQUESTS AT THIS TIME.
--- NOTE | 2021-07-22 18:45 | NUR ---
PT HAD VISITOR COME BY STATES HE IS HER BOYFRIEND, BROUGHT HER A BAG OF THINGS THEN LEFT AND PT SUDDENLY WALKS OUT OF ROOM REQUESTING TO GO OUTSIDE AND SMOKE. EXPLAINED TOBACCO FREE POLICY AT THE HOSPITAL. OVER THE COURSE OF 30 MINUTES PT BECAME MORE AND MORE RESTLESS AND IRRITATED AT HER SITUATION AND IS WANTING TO GO HOME AND STATES SHE IS WANTING TO GO AMA BUT WILL THINK ABOUT IT A LITTLE LONGER. DR ROMAN NOTIFIED, WILL PLAN TO CHECK LABS IF PT ALLOWS AND SWITCH PT TO ORAL PAIN MEDICATION. PT INFORMED OF PLAN AND AGREES TO STAY FOR NOW AND EVENTUALLY DOES AGREE TO TRY A NICOTINE PATCH.
--- NOTE | 2021-07-22 19:07 | NUR ---
PT GIVEN 10MG OXYCODONE FOR 7/10 ABDOMINAL PAIN ALONG WITH NICOTINE PATCH PER REQUEST.
--- NOTE | 2021-07-22 19:53 | NUR ---
RECEIVED REPORT FROM DAY SHIFT RN . PT SITTING IN BED IN NO ACUTE DISTRESS. PT ASKING IF I CAN FIX HER IV. PT DENIES ANY ACUTE DISTRESS, RESP EVEN AND ULABORED. CALL LIGHT WITHIN REACH WILL CONTINUE TO MONITOR
--- NOTE | 2021-07-22 20:40 | NUR ---
LAB IN ROOM AT THIS TIME, PT ASKING IF I CAN PULL FROM HER IV. EXPLAINED TO PT THAT IV WAS SMALL AND CATHETER NOT INSERTED IN ALL THE WAY. LAB TO ATTEMPT TO DRAW LABS
--- NOTE | 2021-07-22 23:29 | NUR ---
PT REQUESTING HER PM MEDS, CALLED DR ROMAN. ORDERS FOR DAILY NIGHT MEDS AND PO POTASIUM TO GIVE. WILL WAIT FOR PHARMACY TO VERIFY ORDERS.
--- NOTE | 2021-07-22 23:42 | NUR ---
MEDICATED PT WITH PRN PAIN MEDS. ABLE TO START HOME MEDS. PT IN SITTING IN BED ON THE PHONE , COMPLAINING ABOUT AN ITCHY BACK. RN WIPED BACK AND LOTION APPLIED ON BACK. RESP EVEN AND UNLABORED. CALL LIGHT WITHIN REACH WILL CONTINUE TO MONITOR
--- NOTE | 2021-07-23 04:25 | NUR ---
PT SLEEPING IN BED IN NO ACUTE DISTRESS. PT REPORTS PAIN WHEN WOKEN UP, FELL ASLEEP WHILE IN THE ROOM. WILL MEDICATE WHEN NEEDED. VSS RESP EVEN AND UNLABORED. CALL LIGHT WITHIN REACH WILL CONTINUE TO MONITOR.
--- NOTE | 2021-07-23 05:35 | NUR ---
PT SLEEPING IN BED IN NO ACUTE DISTRESS. CALL LIGHT WITHIN REACH WILL CONTINUE TO MONITOR
--- NOTE | 2021-07-23 07:44 | NUR ---
PT AWAKE AND SITTING UP IN BED EATING SMALL AMT OF BREAKFAST. PT RATES PAIN 7\\10 AND STATES IT "FEELS HOT". ADMINISTERED MORNING MEDS PLUS OXY. PT VERBALIZED SHE IS NOT ALLOWED TO EAT JEFFERSON OR MILK AND REFUSED. STATES SHE IS TAKING IT SLOW WITH FOOD THIS MORNING. PT IV NO LONGER GOOD.
[2021-07-23] MEDS ORDERED: OMEPRAZOLE40 MG PO (08:32)
[2021-07-23] MEDS ORDERED: OXYCODON-ACETA1 EAC2 PO (08:34)
[2021-07-23] MEDS ORDERED: PROMETHAZINE HC25 M1 PO (08:35)
--- NOTE | 2021-07-23 09:30 | NUR ---
MED REC COMPLETE
== END 2021-07-23 10:30 | disposition home or self-care (01) | DRG 393 ==
LOC: ED 13:31 → MS 18:54 → CCU 20:03
PROVIDERS: ADMIT Hospitalist; ATTEND Hospitalist
PROC: 8E0ZXY6 Isolation (ICD-10-PCS; principal; 2021-07-21)
DX: K91.86 Retained cholelithiasis following cholecystectomy (principal); U07.1 COVID-19; K29.80 Duodenitis without bleeding; F43.10 Post-traumatic stress disorder, unspecified; F32.A Depression, unspecified; K83.8 Other specified diseases of biliary tract; G43.909 Migraine, unspecified, not intractable, without status migrainosus; Z86.16 Personal history of COVID-19; F17.200 Nicotine dependence, unspecified, uncomplicated; Z87.01 Personal history of pneumonia (recurrent); Z90.49 Acquired absence of other specified parts of digestive tract; Z90.710 Acquired absence of both cervix and uterus; Z98.890 Other specified postprocedural states; Z88.8 Allergy status to other drugs, medicaments and biological substances; Z79.899 Other long term (current) drug therapy; Y83.8 Other surgical procedures as the cause of abnormal reaction of the patient, or of later complication, without mention of misadventure at the time of the procedure
CPT/HCPCS: 36415; 74183; 80053; 82247; 83690; 85025; 87502; A9270; A9579; C9113; C9803; J1170; J2405; J2550; J2765; J7121; U0003

== ENCOUNTER → 2021-07-30 | Emergency (ER) | payer OTHER ==
[~2021-07-30] VITALS: Ht 160 cm; Wt 55.2 kg
[~2021-07-30] MED LIST changes: +ADVIL200 MG PO; +IPRAT-ALBUT 0.5-3 ML INH; +OXYCODON-ACETA1 EAC2 PO; +PANTOPRAZOLE SO40 MG PO
== END ==
LOC: ED 09:15
DX: K85.90 Acute pancreatitis without necrosis or infection, unspecified (principal); K80.50 Calculus of bile duct without cholangitis or cholecystitis without obstruction; F17.200 Nicotine dependence, unspecified, uncomplicated; Z88.8 Allergy status to other drugs, medicaments and biological substances; Z79.899 Other long term (current) drug therapy; Z20.822 Contact with and (suspected) exposure to COVID-19
CPT/HCPCS: 36415; 80053; 81001; 83690; 85025; 87502; C9113; C9803; J1170; J2405; J2550; J7030; U0003

== ENCOUNTER 2021-08-22 15:53 | Emergency (ER) | payer OTHER ==
[~2021-08-22] VITALS: Ht 160 cm; Wt 55.2 kg
[2021-08-22] MEDS ORDERED: PERCOCET 5-3251 EACH PO (19:59)
[2021-10-22] MEDS ORDERED: OXYCODONE HCL5 MG PO (23:40)
[2021-10-24] MEDS ORDERED: REGLAN10 MG PO (00:46)
[2021-10-24] MEDS ORDERED: GABAPENTIN300 MG PO (00:46)
== END 2021-08-22 20:29 | disposition home or self-care (01) ==
LOC: ED 15:53
DX: K85.90 Acute pancreatitis without necrosis or infection, unspecified (principal); F43.10 Post-traumatic stress disorder, unspecified; F17.200 Nicotine dependence, unspecified, uncomplicated; G43.909 Migraine, unspecified, not intractable, without status migrainosus; Z88.8 Allergy status to other drugs, medicaments and biological substances; Z79.899 Other long term (current) drug therapy
CPT/HCPCS: 36415; 80053; 81001; 83690; 85025; 96361; 96374; 96375; 96376; 99284-25; J1170; J1885; J2405; J7030

== ENCOUNTER 2021-09-16 21:00 | Inpatient (IN) | payer OTHER ==
[~2021-09-16] VITALS: Ht 160 cm; Wt 55.7 kg
[~2021-09-16 21:00] MED LIST changes: +PERCOCET 5-3251 EACH PO
[2021-09-17] MEDS ORDERED: FENOFIBRATE48 MG PO (07:46)
[2021-09-17] MEDS ORDERED: OMEPRAZOLE40 MG PO (07:48)
[2021-09-17] MEDS ORDERED: ONDANSETRON ODT8 MG PO (08:37)
[2021-09-19] MEDS ORDERED: NICOTINE GUM2 MG MM (12:09)
[2021-09-19] MEDS ORDERED: OXYCODONE HCL5 MG PO (12:10)
[2021-09-19] MEDS ORDERED: ONDANSETRON ODT8 MG PO (12:11)
== END 2021-09-19 13:30 | disposition home or self-care (01) | DRG 440 ==
LOC: ED 21:00 → MS 09-17 01:04
PROVIDERS: ADMIT Internal Medicine; ATTEND Internal Medicine
DX: K85.90 Acute pancreatitis without necrosis or infection, unspecified (principal); F17.210 Nicotine dependence, cigarettes, uncomplicated; J45.909 Unspecified asthma, uncomplicated; K29.90 Gastroduodenitis, unspecified, without bleeding; E03.9 Hypothyroidism, unspecified; E78.00 Pure hypercholesterolemia, unspecified; G25.81 Restless legs syndrome; F39 Unspecified mood [affective] disorder; G89.4 Chronic pain syndrome; Z20.822 Contact with and (suspected) exposure to COVID-19; R74.8 Abnormal levels of other serum enzymes; K76.9 Liver disease, unspecified; F43.10 Post-traumatic stress disorder, unspecified; G43.909 Migraine, unspecified, not intractable, without status migrainosus; Z85.038 Personal history of other malignant neoplasm of large intestine; Z85.048 Personal history of other malignant neoplasm of rectum, rectosigmoid junction, and anus; Z98.890 Other specified postprocedural states; Z90.49 Acquired absence of other specified parts of digestive tract; Z90.710 Acquired absence of both cervix and uterus; Z88.8 Allergy status to other drugs, medicaments and biological substances; Z79.899 Other long term (current) drug therapy; Z79.51 Long term (current) use of inhaled steroids; Z85.07 Personal history of malignant neoplasm of pancreas; Z87.39 Personal history of other diseases of the musculoskeletal system and connective tissue; Z87.01 Personal history of pneumonia (recurrent); Z85.841 Personal history of malignant neoplasm of brain
CPT/HCPCS: 36415; 76705; 80053; 83690; 85025; 87502; 96361; 96374; 96375; 96376; 99285-25; A9270; C9113; C9803; J1170; J1650; J2270; J2405; J7121; U0003

== ENCOUNTER 2021-10-31 05:41 | Inpatient (IN) | payer OTHER ==
[~2021-10-31] VITALS: Ht 160 cm; Wt 55.6 kg
[~2021-10-31 05:41] MED LIST changes: +NICOTINE GUM2 MG MM; +REGLAN10 MG PO
--- NOTE | 2021-10-31 12:00 | NUR ---
REPORT RECEIVED FROM BASIL DIEGO IN ER. AWAITINGS PT ARRIVAL TO MED/SURG.
--- NOTE | 2021-10-31 12:27 | NUR ---
PT ARRIVED FROM ER. PT TRANSERES SELF TO BED BY SCOOTING. PT STATES SHE DOES NOT WANT TO STAND UP. PT REPORTS 9/10 PAIN IN UPPER LEFT QUADRANT OF ABDOMEN. PT REPORTS THIS IS HER TYPICAL PAIN WITH PANCRATITIS AND STATES "ITS BEEN A 6 LATELY BUT NORMALLY IT'S A 3." SEE MAR FOR MEDICATION GIVEN. PT DENIES NAUSEA AT THIS TIME. VITAL SIGNS STABLE. PT ALERT AND OREINTED TO ALL. PT UP TO RESTROOM WITH STAND BY ASSIST TO VOID. PT VOIDS 500ML CLEAR YELLOW URINE WITHOUT ISSUE AND HAS MEDIUM SOFT FORMED BOWEL MOVEMENT. PT PERFORMS SELF DEN CARE. URINE SAMPLE SENT TO LAB. STAND BY ASSIST BACK TO BED. CMS INTACT BUT FOR "SOMETIMES MY HANDS" ARE NUMB. LUNG SOUNDS CLEAR ALTHOUGH SLIGHTLY DEMINISHED IN BASES. PT TOELRATING ROOM AIR WITH OXGYEN SATURATIONS ABOVE 94%. HEART TONES REGULAR, TELEMETRY MONITORING PLACED WITH NORMAL SINUS RYTHEM NOTED. MILD DISTENTION NOTE TO ABODMEN. ABDOMEN VERY TENDER TO TOUCH ESPICIALLY IN LEFT UPPER QUADRANT. BOWEL TONES ACTIVE. PT REPORTS "LITTLE RED BUMPS" ON HER ABDOMEN, 1-2 SEEN BY THIS RN. NO ADDITONAL REQUSETS OR COMPLAINTS AT THIS TIME. CALL LIGHT UYA100IN REACH. BED RAILS UP.
--- NOTE | 2021-10-31 12:55 | NUR ---
THIS RN TO ROOM TO CHECK ON PT. PT REPORTS 6/10 ABDOMINAL PAIN AT THIS TIME. PT CONTINUES TO DENY NAUSEA. MEDICATION ARRIVED FROM PHARMACY, GIVEN ORDERED. NO ADDITIONAL NEEDS AT THIS TIME. CALL LIGHT WITHIN REACH. BED RAILS UP.
--- NOTE | 2021-10-31 14:05 | NUR ---
THIS RN TO ROOM TO CHECK ON PT. PT RESTING ON RIGTH SIDE WITH EYES CLOSED, RESPIRATIONS EVEN AND UNLABORED. PT ALLOWED TO REST. BED RAILS UP. CALL LIGHT WITHIN REACH.
--- NOTE | 2021-10-31 15:07 | NUR ---
THIS RN TO ROOM TO CHECK ON PT. PT RESTING ON RIGHT SIDE WITH EYES CLOSED. BLANKET OVER PTS HEAD. PT RESPONDS TO VOICE AND STATES "I'M JUST WAKIGN UP. PT REPORTS 8/10 PAIN IN LEFT UPPER QUADRANT OF ABDOMEN. PT REQUESTS ADDTIONAL PAIN MEDICATION. SEE MAR FOR MEDICATION GIVEN. PT DENIES NAUSEA. VITAL SIGNS STABLE. PT TOLERATING ROOM AIR. NO ADDITIONAL NEEDS AT THIS TIME. CALL LIGHT WITHIN REACH. BED RAILS UP.
[2021-10-31] MEDS ORDERED: FENOFIBRATE48 MG PO (15:52)
--- NOTE | 2021-10-31 15:55 | NUR ---
MED REC COMPLETE
--- NOTE | 2021-10-31 15:57 | NUR ---
IN ROOM FOR PT ASSESSMENT. PT CALM AND COOPERATIVE, ABLE TO MAKE NEEDS KNOWN. PT VSS, A&O X4. PT SEEN TO BE RESTING PEACFULLY, NO INDICATORS OR VOICING OF PAIN AT THIS TIME. AFTERNOON ASSESSMENT COMPLETE. PT LEFT WITH CALL LIGHT IN REACH, FREE FROM FALLS AND INJURIES.
--- NOTE | 2021-10-31 16:10 | NUR ---
THIS RN TO ROOM TO CHECK ON PT. PT RESTING IN BED, REPORTS SHE IS "CATCHING UP ON MY SLEEP." PT REPORTS 6/10 PAIN THAT IS WELL CONTROLLED. NO ADDTIONAL REQUESTS OR COMPLAINTS. CALL LIGHT WITHIN REACH. BED RAILS UP.
--- NOTE | 2021-10-31 16:34 | NUR ---
Pt was calm and cooperative, able to make needs known. Pt seen to have a great deal of pain at admission, stating it was a "9/10". Pain medication given to good effect (see MAR). Pt is A&O x4, VSS. Pt is a stand-by assist for transfer, appearing to be quite weak due to pain. Pt states intermittent numbness to hands, at admission no numbness present, later numbness in right hand only. Pt states "it happens sometimes". Pt voids well, is continent of both bowel and urine. Pt tolerating room air well, 94% and better saturations. Pt remains free from falls and injuries, call light in reach, bed rails up, no complaints or concerns at this time.
--- NOTE | 2021-10-31 16:39 | NUR ---
TELE DC'D PER ORDER
--- NOTE | 2021-10-31 17:42 | NUR ---
NEW ORDERS PLACED, NEW IV FLUIDS HUNG, SEE MAR. PT REPORTS PAIN IS WELL CONTROLLED AT THIS TIME. PT DENIES NAUSEA. STAND BY ASSIST UP TO RESTROOM, PT VOIDS WITHOUT ISSUE. STAND BY ASSIST BACK TO BED. NO ADDITIONAL REQUESTS OR COMPLAINTS AT THIS TIME. CALL LIGHT WITHIN REACH. BED RAILS UP.
--- NOTE | 2021-10-31 18:29 | NUR ---
PT CALL LIGHT ON. PT REPORTS 8/10 PAIN THAT "SUDDENLY SPKIED UP THERE" IN LEFT UPPER QUDRANT OF ABDOMEN. PT REQUESTS PAIN MEDIACTION. SEE MAR FOR MEDICATION GIVEN. PT LOOKING ON PHONE FOR FOOTBALL GAME TO WATCH. PT DENIES NAUSEA. PT DENIES ADDITIONAL REQUESTS OR COMPLAINTS. CALL LIGHT WITHIN REACH. BED RAILS UP.
--- NOTE | 2021-10-31 19:20 | NUR ---
shift report received from glenda mtz at bedside. pt awake and resting in bed, on ra. iv fluids infusing wnl, iv site wnl. no needs or concerns verbalized, call light in reach.
--- NOTE | 2021-10-31 20:53 | NUR ---
assessment complete, scheduled meds given (see emar). pt resting quietly in bed with eyes closed, awoke easily to voice. a/o x4, call light in reach. pt reports tolerable pain 6/10 at this time, will monitor. iv site wnl, blood return noted. iv fluids infusing as directed. no nausea reported, pt remains npo. abd tender with some distension noted. lead data entry operator intact, no additional needs. pt denies need to void. vss. will continue to monitor. board also updated.
--- NOTE | 2021-10-31 21:20 | NUR ---
PT REQUESTED PAIN MEDICATIONS FOR PAIN 11/25 ABD, ADMINISTERED 1MG IV DILAUDID PRN AT THIS TIME. PT THEN SAID "I THINK I BETTER USE THE BATHROOM WHILE YOUR HERE" PT UP TO BATHROOM WITH STANDBY ASSIST, SHE VOIDED 250ML CLEAR YELLOW URINE, SHE AMBULATED WITH STEADY GAIT, SHE REPORTS NO DIZZINESS WITH ACTIVITY. PT VERBALIZED NO FURTHER NEEDS AT THIS TIME.
--- NOTE | 2021-10-31 22:18 | NUR ---
rounded on pt, per chemical engineering intern- pt asking about home medications. pt npo, pt educated on poc for shift and md will reassess pt in the morning. will continue to monitor, call light in reach and bed alarm on.
--- NOTE | 2021-10-31 22:34 | NUR ---
dr rothman made aware of pt's concern regarding not getting her home clonidine because without it she get "night terrors from ptsd". telephone order read back for clonidine po daily at hs 0.1mg, hold for sbp <100 and/or hr <60.
--- NOTE | 2021-10-31 22:55 | NUR ---
SCHEDULED CLONIDINE GIVEN, SEE EMAR WITH SMALL SIP OF WATER. NO ADDITIOANL NEEDS, pt REMAINS NPO OTHERWISE. CALL LIGHT IN REACH.
--- NOTE | 2021-11-01 00:29 | NUR ---
PT CALLED TO REQUEST PAIN MEDICATION FOR 9/10 PAIN ABD. 1MG IV DILAUDID PRN ADMINISTERED AT THIS TIME. PT REPORTS SHE HOPES TO SLEEP THE REST OF THE SHIFT. SHE ALSO REPORTS A MILD HEADACHE. THIS RN WILL NOTIFY PRIMARY RN BOB. PT SAID "I HOPE I CAN JUST GO TO SLEEP NOW" THIS RN SAID OK, STAFF WILL MONITOR FOR FURTHER NEEDS.
--- NOTE | 2021-11-01 01:08 | NUR ---
rounded on pt, pt recently medicated with prn pain medication from [facility], pt resting in bed with eyes closed. on ra, rr even and unlabored. no distress noted. call light remains in reach.
--- NOTE | 2021-11-01 02:13 | NUR ---
vss and i&o's complete, pt up to void via sba, steady on feet. no acute changes to assessment, reports 7/10 pain. recently up to void, will monitor. iv site wnl, iv fluids infusing as directed. no additional needs, call light remains in reach.
--- NOTE | 2021-11-01 03:35 | NUR ---
CALL LIGHT ANSWERED, pt REPORTS 8/10 PAIN, PRN PAIN MEDICATION GIVEN-SEE EMAR. NO ADDITIONAL NEEDS, CALL LIGHT IN REACH. IV FLUIDS CONTINUE TO INFUSE DIRECTED.
--- NOTE | 2021-11-01 04:30 | NUR ---
rounded on pt following recent pain medication administration, pt resting quietly in bed with eyes closed, on ra. rr even and unlabored. no distress noted. call light in reach.
--- NOTE | 2021-11-01 05:39 | NUR ---
VSS AND I&O'S COMPLETE. pt REMAINS NPO. IV FLUIDS INFUSING DIRECTED, IV SITE WNL. NO ADDITIONAL NEEDS VERBALIZED, CALL LIGHT IN REACH.
--- NOTE | 2021-11-01 06:29 | NUR ---
call light answered, prn pain medication given for reported 8.5/10 pain, see emar. iv site remains wnl, call light in reach.
--- NOTE | 2021-11-01 06:51 | NUR ---
pt SLEPT OFF AND ON THIS SHIFT, PAIN CONTROLLED WITH IV PAIN MEDICATION, REQUIRED 1MG IV DILAUDID APPROX Q3H. INTERMITTENT NAUSEA ASSOCIATED WITH PAIN, NO NAUSEA MEDICATION REQUIRED THIS SHIFT. pt SBA, CALLS APPROPRIATELY. IV FLUIDS, NPO. VOIDING QS, NO BM THIS SHIFT.
--- NOTE | 2021-11-01 07:46 | NUR ---
REPORT RECEIVED FROM CERTIFIED EXECUTIVE CHEF NURSE. PT RESTING EASY IN ROOM, STATES NO COMPLAINTS. PT STATES PAIN MEDICATION "WORKING GOOD". CALL LIGHT IN REACH.
--- NOTE | 2021-11-01 09:14 | NUR ---
Pt assessed for beginning of shift. Pt complains of 8/10 pain, medication given. Pt complains of nausea, PRN medication given. Pt continues to be NPO, has asked for something to help with headaches asssociated with PRN pain medications given. Pt appears to be in good spirits, call light within reach, door and curtain left ajar at Pt request.
--- NOTE | 2021-11-01 09:27 | NUR ---
Kendall is awake, alert and oriented to person place and time. She is happy with her care today. She is complaining of a headache and itching. she has reported this to the nursing staff who is currently working on orders for said complaints. Kendall plans to return to home to her current living situation in an apartment with no stairs, and assistance from her boyfriend and a caregive who comes to help two days per week for 2 1/2 hours per day, or 20 hours per month. Caregiver does do her medication management, Kendall denies needs for further help at home at this time.
--- NOTE | 2021-11-01 10:10 | NUR ---
In Pt room for administration of medication. Pt received new order pain medication to help prevent headaches associated with previous med. No further complaints, call light within reach.
--- NOTE | 2021-11-01 10:58 | NUR ---
PATIENT IS SITTING UP IN HER CHAIR WATCHING TV. SET HER UP FOR A SHOWER SOMETIME TODAY.
--- NOTE | 2021-11-01 11:47 | NUR ---
PT ALERT, ORIENTED AND SITTING IN CHAIR. PT WAS COMPLAINING OF HEADACHE, RN HAD JUST CHANGED MEDS AND SHE FEELS THIS WILL HELP. PT REQUESTED PRAYER AND G.POST. WILL FOLLOW
--- NOTE | 2021-11-01 12:17 | NUR ---
In pt room for rounding, pt resting in bed, breathing regularly with no sign of dicomfort or distress. Pt call light within reach, door and curtain remains open at Pt request.
--- NOTE | 2021-11-01 13:06 | NUR ---
In Pt room to assist with toileting. Pt to the restroom without incident, returned to bed, call light in reach. No complaint at this time.
--- NOTE | 2021-11-01 13:07 | NUR ---
FAX REQUEST FOR RECORDS FROM [facility] SENT IN.
--- NOTE | 2021-11-01 15:05 | NUR ---
ROUNDED ON PT. NEW IV RECENTLY STARTED BY CHARGE NURSE. IV FLUIDS AND MAG RUNNING. PT IS A/O, RESPIRATIONS EVEN AND REGULAR. DENIES NEEDS ATT. CALL LIGHT WITHIN REACH.
--- NOTE | 2021-11-01 17:13 | NUR ---
Pt in room resting, watching TV. Pt has no new complaint of pain at this time Call light in reach, rails up
--- NOTE | 2021-11-01 19:10 | NUR ---
RECEIVED REPORT FROM REJI GRACIA. PT IS CURRENTLY RESTING IN BED. BOARD HAS BEEN UPDATED, CALL LIGHT WITHIN REACH, NO FURTHER NEEDS AT THIS TIME.
--- NOTE | 2021-11-01 19:10 | NUR ---
RECEIVED REPORT FROM LUCIANA GRACIA. PT IS CURRENTLY RESTING IN BED. BOARD HAS BEEN UPDATED, CALL LIGHT WITHIN REACH, NO FURTHER NEEDS AT THIS TIME.
--- NOTE | 2021-11-01 20:45 | NUR ---
PERFORMED PROJECT ACCOUNT MANAGER (SEE EMAR) AND PT ASSESSMENT. PT REPORTS PAIN AT 6/10 IN EPIGASTRIC REGION AND RADIATES TO LOWER BACK. BOWEL TONES ACTIVE X4 AND PT HAS MODERATE BLOATING WITH TENDERNESS IN THE EPIGASTRIC/LUQ REGION. PT NOT CURRENTLY EXPERIENCING ANY NAUSEA/DIZZINESS. VSS. SKIN IS WARM BUT DRY AND FRAGILE THROUGHOUT. PT AMBULATED TO RESTROOM WITH STEADY GAIT. PT REMAINS ON CLEAR LIQUID DIET. PT NOW RESTING IN BED WITH CALL LIGHT IN REACH AND NO FURTHER NEEDS AT THIS TIME.
--- NOTE | 2021-11-02 00:30 | NUR ---
ANSWERED PT CALL LIGHT, PT REPORTS PAIN OF 8/10 IN EPIGASTRIC REGION AND HEADACHE. PT ALSO APPEARS TO BE WRITHING IN BED AND HOLDING HEAD IN HAND. ADMINISTERED PRN MEDS FOR PAIN OF TYLENOL AND OXYCODONE (SEE EMAR). CALL LIGHT IS WITHIN REACH, NO FURTHER NEEDS AT THIS TIME. WILL CONTINUE TO MONITOR.
--- NOTE | 2021-11-02 02:45 | NUR ---
NEW BAG OF CONTINUOUS FLUIDS HUNG AT RATE OF 100 ML/HR RUNNING IN RIGHT AC. IV SITE REMAINS PATENT AND BRISK BLOOD RETURN NOTED. PT AMBULATED TO BATHROOM WITH STEADY GAIT. PT BOWEL TONES ACTIVE IN RUQ & LUQ, BUT HYPOACTIVE IN RLQ & LLQ. REMAINS MODERATELY DISTENDED AND 5/10 PAIN IN EPIGASTRIC REGION AND HEADACHE WHICH IS SATISFACTORY FOR PAIN GOAL OF 5/10 AFTER PRN MED. NO NAUSEA PER PT. NUMBNESS IN LEGS, BUT IS CHRONIC PER PT RADIATING FROM BACK PAIN. NO TINGLING PER PT. PT IS A&O X4 AND USES CALL LIGHT APPROPRIATELY. PULSES FELT THROUGHOUT, AND SKIN IS WARM/DRY/FRAGILE. WARM BLANKET PROVIDED AND NO FURTHER NEEDS AT THIS TIME. CALL LIGHT WITHIN REACH.
--- NOTE | 2021-11-02 06:57 | NUR ---
PT VSS THROUGHOUT NIGHT AND PAIN MANAGED WITH PRN PO MEDICATIONS. PT HAS REQUESTED PRN MEDICATIONS AT 0030 WITH REPORTS OF EPIGASTRIC AND HEADACHE PAIN AT 8/10. RESOLVED TO /10 (PAIN GOAL). PT ABLE TO SELF AMBULATE TO RR W/IV PUMP W/NO DIFFICULTIES. LOWER BOWEL TONES HYPOACTIVE, UPPER ARE ACTIVE WITH MODERATE DISTENTION THAT HAS BEEN UNCHANGED. NO NAUSEA REPORTED BY PT. PT NOTED NUMBNESS IN LEGS THAT IS CHRONIC FROM RADIATING BACK PAIN FROM DX. VSS. SLEPT THROUGHOUT NIGHT ONCE PAIN WAS MANAGED. SKIN WARM/DRY BUT FRAGILE, REMAINS INTACT. USES CALL LIGHT APPROPRIATELY.
--- NOTE | 2021-11-02 06:58 | NUR ---
BEEF KILLER FOR PT (SEE EMAR). PT REPORTS PAIN AT 5/10 IN HEADACHE AND 7/10 IN ABDOMEN AND REPORTS NO NAUSEA. PT AMBULATED TO BATHROOM WITH STEADY GAIT AND HAD 400 ML OUT. NO RESTING COMFORTABLY IN BED.
--- NOTE | 2021-11-02 07:53 | NUR ---
received report from offgoing shift. Pt seen to be resting peacfully in room, no signs of labored breathing or distress. Pt call light is in reach, no complaints at this time.
--- NOTE | 2021-11-02 08:13 | NUR ---
PATIENT REFUSED TO GET OUT OF BED UNTIL BREAKFAST CAME. PT HAS NO OTHER NEEDS AT THIS TIME CALL LIGHT WITHIN REACH.
--- NOTE | 2021-11-02 09:15 | NUR ---
PATIENT IN BED, STILL DRINKING FLUIDS. HAS NO OTHER NEEDS AT THIS TIME. CALL LIGHT IN REACH.
--- NOTE | 2021-11-02 09:39 | NUR ---
In pt room for morning assessment and medication pass. Pt is calm and cooperative, able to make needs known. Pt VSS, A&O x4. Pt complains of pain 08/25 which is an improvement over same time yesterday(09/25). Pt compliant with medications, no further complaints, call light in reach, remains free from falls and injuries
--- NOTE | 2021-11-02 10:01 | NUR ---
PATIENT IN BED AFTER USING RESTROOM. VITALS AND I/O'S COMPLETED. NO OTHER NEEDS AT THIS TIME. CALL LIGHT WITHIN REACH.
--- NOTE | 2021-11-02 11:00 | NUR ---
in pt room for rounding, pt resting peacefully asleep with no indicators of pain. Breathing even, unlabored. pt call light in reach.
--- NOTE | 2021-11-02 12:10 | NUR ---
in room for rounding. Pt resting peacefully, no signs of distres. Pt breathing even, unlabored. No complaints of pain. Call light in reach
--- NOTE | 2021-11-02 13:10 | NUR ---
in pt room for rounding. pt seen to be awake and watching TV. Pt requesting shower today. Pt has no complaint of pain at this time, call light is in reach, door left with curtain open at pt request
--- NOTE | 2021-11-02 13:10 | NUR ---
PATIENT IN BED RESTING AFTER MEAL. VITALS SAEED/O'S COMPLETED. THIS WEB ANALYTICS DEVELOPER WILL APPROACH LATER FOR SHOWER. NO OTHER NEEDS AT THIS TIME, CALL LIGHT WITHIN REACH.
--- NOTE | 2021-11-02 14:51 | NUR ---
Pt up after shower to walk on the unit with AUTOMOBILE CLUB MEMBERSHIP SALES AGENT. Pt not complaining of pain at this time. Pt call light within reach.
--- NOTE | 2021-11-02 16:22 | NUR ---
in pt room for assessment, pt in good mood, no complaint of increase in pain. Pt tolerating diet well. Pt call light within reach
--- NOTE | 2021-11-02 17:37 | NUR ---
in pt room for rounding. Pt in good mood, up in bed watching TV. Pt requesting pain medication as soon as available, will provide as ordered. Pt call light within reach.
--- NOTE | 2021-11-02 17:57 | NUR ---
PATIENT IN BED WATCHING TV. VITALS AND I/O'S COMPLETD. PT HAS NO OTHER NEEDS AT THIS TIME. CALL LIGHT WITHIN REACH.
--- NOTE | 2021-11-02 19:10 | NUR ---
RECEIVED REPORT FROM HAZEL GRACIA. PT IS RESTING IN BED A&O. LR IS RUNNING AT 60ML/HR INTO RT AC. PT REQUESTED DEXTER PATCH BE REMOVED DUE TO BAD DREAMS. NO FURTHER NEEDS AT THIS TIME. CALL LIGHT WITHIN REACH.
--- NOTE | 2021-11-02 20:45 | NUR ---
PERFORMED ASSESSMENT. PT IS RESTING IN BED WITH TOLERABLE PAIN AT 6/10 IN ABD, REPOSITIONED AND RELAXATION USED. NO NAUSEA PER PT. VSS. ABDOMEN IS MODERATELY DISTENDED AND BOWEL TONES ARE ACTIVE X4. ABDOMEN IS TENDER IN LUQ/EPIGASTRIC REGION. PT IS A&O X4. PT O2 SATS REMAIN HIGH 90'S ON RA, LUNGS REMAIN CLEAR THROUGHOUT. SENSATION NOTED IN ALL EXTREMETIES, SLIGHT NUMBNESS IN LEGS FROM RADIATING BACK PAIN, PT STATES IS CHRONIC. IV SITE SLIGHTLY BRUISED BUT HAS BRISK BLOOD RETURN AND NO SIGNS OF INFECTION. NEW IV TUBING IN PLACE. CALL LIGHT IS WITHIN REACH, FRESH ICE WATER PROVIDED, NO FURTHER NEEDS AT THIS TIME.
--- NOTE | 2021-11-03 00:34 | NUR ---
ANSWERED PT CALL LIGHT REGARDING PAIN. PT REPORTS ABDOMEN PAIN 8/10, WELL HEADACHE PAIN OF 4/10. ADMINISTERED PRN MED OXY & TYLENOL (SEE EMAR). PT AMBULATED TO THE BATHROOM WITH STANDBY ASSIST. PT WAS STEADY IN GAIT AND VOIDED 710 ML. PT IS NOW BACK IN BED RESTING. NO FURTHER NEEDS AT THIS TIME. CALL LIGHT WITHIN REACH.
--- NOTE | 2021-11-03 01:00 | NUR ---
ANSWERED PT CALL LIGHT FOR BEEPING PUMP. CORRECTED PT ARM ON PILLOW. EDUCATED PT ABOUT KEEPING ARM STRAIGHT. PT DEMONSTRATED UNDERSTANDING OF EDUCATION. PROVIDED PT NEW ICE WATER AND LEMON TWIST SODA. NO FURTHER NEEDS AT THIS TIME. CALL LIGHT WITHIN REACH.
--- NOTE | 2021-11-03 03:20 | NUR ---
PT RESTING COMFORTABLY IN BED WITH EYES CLOSED. CURTAIN OPEN AND DOOR CLOSED AT PT REQUEST. CALL LIGHT WITHIN REACH.
--- NOTE | 2021-11-03 05:06 | NUR ---
ANSWERED PT CALL LIGHT REGARDING BEEPING PUMP. NEW BAG OF LR HUNG AND CONTINUED AT RATE OF 60 ML/HR. PUMP HAS BEEN CLEARED AND VOLUME INFUSED RECORDED. PT AMBULATE TO BATHROOM WITH STANDBY ASSIST. GAIT WAS STEADY. I/O'S UPDATED. PERFORMED ASSESSMENT. NO ACUTE CHANGES. PAIN IS REPORTED BY PT AT 7/10 IN ABDOMEN. NO HEADACHE PER PT. PRN PAIN MED GIVEN (SEE EMAR). VSS. PT IS NOW RESTING IN BED, CALL LIGHT WITHIN REACH, NO FURTHER NEEDS AT THIS TIME.
--- NOTE | 2021-11-03 06:45 | NUR ---
HIGHWAY TRAFFIC CONTROL TECHNICIAN (SEE EMAR). PT RESTING IN BED WITH EYES CLOSED. AWOKE FOR HIGHWAY TRAFFIC CONTROL TECHNICIAN AND DRINK OF WATER. NO NAUSEA REPORTED. PT IS NOW BACK TO RESTING WITH EYES CLOSED. CALL LIGHT WITHIN REACH, NO FURTHER NEEDS AT THIS TIME.
--- NOTE | 2021-11-03 07:13 | NUR ---
UNEVENTFUL NIGHT FOR PT. VSS. PT REPORTS NO NAUSEA DURING SHIFT. PRN PAIN MEDS GIVEN X2 FOR 8/10 ABDOMINAL PAIN AND 4/10 PROGRESSING HEADACHE (SEE EMAR), WELL 0500 FOR 7/10 ABDOMINAL PAIN. PT COMFORTABLY SLEPT THROUGH MOST OF THE NIGHT. INTAKE SUFFICIENT WITH WATER AND OCCASIONAL [place] TWIST SODA X1. PT CONTINUES TO AMBULATE WELL WITH STANDBY ASSIST AND GAIT IS STEADY. ABDOMEN IS MODERATELY BLOATED AND TENDERNESS FELT IN EPIGASTRIC/LUQ. BOWEL SOUNDS HAVE ARE HYPOACTIVE, BUT WERE ACTIVE IN 1ST ASSESSMENT. PT REMAINS ON RA WITH O2 SATS IN HIGH 90'S AND CLEAR LUNG SOUNDS. PULSES FELT STRONG THROUGHOUT. PT USES CALL LIGHT APPROPRIATELY.
--- NOTE | 2021-11-03 07:30 | NUR ---
THIS RN RECEIVED SHIFT REPORT FROM BASIL SERRANO. PATIENT RESTING QUIETLY IN LOW FOWLERS POSITION, EYES CLOSED, RESPIRATIONS ARE REGULAR AND EVEN, AND CALL LIGHT IS IN REACH. PATIENT HAS NO NURSE CARE NEEDS AT THIS TIME.
--- NOTE | 2021-11-03 09:35 | NUR ---
PATIENT CALLED FOR PAIN MEDS FOR ABD/EPIGASTRIC PAIN 08/25. PRN PAIN MEDICATION GIVEN WITH SCHEDULED MEDS. AM ASSESSMENT COMPLETE. IV INFUSING WNL. PATIENT HAS NO OTHER CARE NEEDS AT THIS TIME. PATIENT DIDN'T EAT ANY BREAKFAST. PATIENT DOES NOT WANT TO WALK AT THIS TIME SHE IS WATCHING FOOTBALL. CALL LIGHT IS IN REACH.
--- NOTE | 2021-11-03 10:03 | NUR ---
PATIENT SITTING UP IN BED WATCHING TV AFTER MEAL. VITALS AND I/O'S COMPLETED BY NURSE GIBBS. PT HAS NO OTHER NEEDS AT THIS TIME, INDEPENDENT IN ROOM. CALL LIGHT IS WITHIN REACH.
--- NOTE | 2021-11-03 10:43 | NUR ---
PATIENT FEELING CONSTIPATED AND REQUESTING BOWEL MEDS. PROTOCOL MEDS ORDERED AND JUST GIVEN TO PATIENT. PATIENT DENIES ANY OTHER CARE NEEDS AT THIS TIME. CALL LIGHT IN REACH. PATIENT WATCHING FOOTBAL.
--- NOTE | 2021-11-03 11:19 | NUR ---
PATIENT CALLED AND IT IS HALF TIME IN HER FOOTBALL GAME SO SHE IS READY TO GO FOR A WALK. THIS RN WALKED BESIDE PATIENT WHO WALKED INDEPENDENTLY AND STEADILY AROUND THE MED/SURG UNIT X2. PATIENT BACK IN HER ROOM WATHCING TV. PATIENT DENIES ANY OTHER CARE NEEDS AT THIS TIME. CALL LIGHT IS IN REACH.
--- NOTE | 2021-11-03 12:34 | NUR ---
PATIENT IS HAVING SOME ABD CRAMPING AND REQUESTING PAIN MEDS. DISCUSSED WITH PATIENT THAT THIS NEW PAIN MAY BE FROM THE BOWEL MEDS CAUSING SOME CRAMPING AND THAT I DIDN'T HAVE PAIN MEDICATION AVAILABLE FOR ANOTHER HOUR. PATIENT VERBALIZED UNDERSTANDING AND IS GOING TO TRY AND EAT A LITTLE APPLESAUCE AND THIS RN PROVIDED SOME SPRITE AT PATIENT'S REQUEST. CALL LIGHT IS IN REACH.
[2021-11-03] MEDS ORDERED: OXYCODONE HCL10 MG PO (12:55)
--- NOTE | 2021-11-03 13:14 | NUR ---
PATIENT SITTING IN BED AFTER MEAL. VITALS AND I/O'S COMPLETED. PT HAS NO OTHER NEEDS AT THIS TIME. CALL LIGHT WITHIN REACH.
--- NOTE | 2021-11-03 13:45 | NUR ---
PATIENT DC'D TO HOME VIA CARE RIDE, IV DC'D INTACT, DC AND F/U INSTRUCTIONS GIVEN VERBALLY AND WRITTEN, AND PATIENT VERBALIZED UNDERSTANDING. PATIENT HAVING 7/10 ABD/EPIGASTRIC PAIN AND PATIENT MEDICATED PRIOR TO DC. THIS RN TOOK PATIENT TO FRONT LOBBY VIA WC. PATIENT WAITING FOR CARE RIDE TO ARRIVE.
== END 2021-11-03 13:45 | disposition home or self-care (01) | DRG 439 ==
LOC: ED 05:41 → MS 11:39
PROVIDERS: ADMIT Internal Medicine; ATTEND Internal Medicine
DX: K85.00 Idiopathic acute pancreatitis without necrosis or infection (principal); N17.9 Acute kidney failure, unspecified; Z20.822 Contact with and (suspected) exposure to COVID-19; K21.9 Gastro-esophageal reflux disease without esophagitis; E03.9 Hypothyroidism, unspecified; E78.1 Pure hyperglyceridemia; F39 Unspecified mood [affective] disorder; G25.81 Restless legs syndrome; G43.909 Migraine, unspecified, not intractable, without status migrainosus; E87.6 Hypokalemia; F43.10 Post-traumatic stress disorder, unspecified; F17.210 Nicotine dependence, cigarettes, uncomplicated; Z87.01 Personal history of pneumonia (recurrent); Z71.6 Tobacco abuse counseling; Z85.3 Personal history of malignant neoplasm of breast; Z90.49 Acquired absence of other specified parts of digestive tract; Z90.710 Acquired absence of both cervix and uterus; Z98.890 Other specified postprocedural states; Z88.8 Allergy status to other drugs, medicaments and biological substances; Z79.899 Other long term (current) drug therapy
CPT/HCPCS: 36415; 74177; 80048; 80053; 81001; 83690; 83735; 84478; 85025; 87502; 94760; 96361; 96374; 96375; 99285-25; A9270; C9113; C9803; J1170; J1200; J1650; J1790; J2405; J3475; J3480; J7030; J7060; J7121; Q9967; U0003

== ENCOUNTER 2021-11-23 07:12 | Inpatient (IN) | payer OTHER ==
[~2021-11-23] VITALS: Ht 160 cm; Wt 55.7 kg
[~2021-11-23 07:12] MED LIST changes: +OXYCODONE HCL10 MG PO
--- NOTE | 2021-11-23 09:20 | NUR ---
bedside report received from Danay GRACIA in the ER. Pt transported by Nursing Farmworker Fur Romi and this RN to med surg room 114, at 0920. pt continues to receive the second iv fluid bolus from ER. pt was able to transfer self from er stretcher to med surg bed
--- NOTE | 2021-11-23 10:15 | NUR ---
PT UP TO USE RESTROOM TO VOID, STANDBY ASSIST BY ILENE SAMUEL. PT WAS ABLE TO USE RESTROOM TO VOID WITHOUT DIFFICULTY AND GET SELF BACK IN BED VOIDED 400 ML, SAMPLE SENT TO LAB. PT REPORTING PAIN IS INCREASED TO 9.
--- NOTE | 2021-11-23 10:38 | NUR ---
PHARMACIST CK IN ROOM DISCUSSING HOME MEDS WITH PT
--- NOTE | 2021-11-23 10:53 | NUR ---
PATIENT IN BED, VITALS DONE BY NURSE SAUNDERS, I/O'S COMPLETED AND DOCUMENTED. PT HAS NO OTHER NEEDS AT THIS TIME. CALL LIGHT WITHIN REACH.
--- NOTE | 2021-11-23 11:42 | NUR ---
checked in on patient. Pt.'s eyes closed visible rise and fall of chest. she remains on CPOX, sat on room air 94%, pt is sleeping with her mouth open, snoring slightly, sats will go down to 88-89% but pop back up when she hears alarm beeping and takes deeper breaths. goes back to resting easily. call light remains in reach.
--- NOTE | 2021-11-23 11:51 | NUR ---
MED REC COMPLETE
--- NOTE | 2021-11-23 13:26 | NUR ---
RECIEVED REPORT FROM CHIP GRACIA. PT LAYING IN BED AT THIS TIME. CALL LIGHT WITHIN REACH.
--- NOTE | 2021-11-23 13:28 | NUR ---
reprot given to edilberto elkins
--- NOTE | 2021-11-23 14:00 | NUR ---
PT LAYING LAYING IN BED. CALL LIGHT WITHIN REACH. NO FURTHER NEEDS AT THIS TIME
--- NOTE | 2021-11-23 15:15 | NUR ---
PT RESTING IN BED. REASSESSED PT PAIN, 07/26. CALL LIGHT WITHIN REACH. DENIES FURTHER NEEDS AT THIS TIME.
--- NOTE | 2021-11-23 17:00 | NUR ---
IN ROOM PATIENT IS RESTING IN BED. CALL LIGHT WITHIN REACH. DENIES FURTHER NEEDS AT THIS TIME.
--- NOTE | 2021-11-23 18:06 | NUR ---
PT COMPLAINED OF BACK PAIN 10/10 AND 8/10 ABD PAIN. PRN DILAUDID GIVEN PER EMAR. CALL LIGHT WITHIN REACH. DENIES FURTHER NEEDS AT THIS TIME
--- NOTE | 2021-11-23 19:30 | NUR ---
RECEIVED REPORT FROM FREDDIE GLOVER RN. pt RESTING IN BED PLAYING ON PHONE TALKING WITH VISITOR AT BEDSIDE. REPORTS THAT HER PAIN DECREASED TO 8.5/10 WITH PAIN MEDICATION. pt STATED "IT'S TOO EARLY TO GET MORE PAIN MEDS" NO REQUESTS AT THIS TIME. WHITEBOARD UPDATED. CALL LIGHT WITHIN REACH.
--- NOTE | 2021-11-23 20:42 | NUR ---
pt REPORTS PAIN HAS INCREASED AND SHE HAS A HEADACHE, DISCUSSED PAIN MANAGEMENT. PRN PAIN MEDICATION GIVEN (SEE MAR). pt ABLE TO AMBULATE TO BATHROOM SBA. BACK TO BED. ASSESSMENT DONE. NO FURTHER REQUESTS AT THIS TIME. CALL LIGHT WITHIN REACH.
--- NOTE | 2021-11-23 23:32 | NUR ---
CALL LIGHT ON. pt UP TO VOID SBA AND BACK TO BED. CALL LIGHT WITHIN REACH.
--- NOTE | 2021-11-24 02:08 | NUR ---
PT STATES SHE NEEDS TO USE THE BATHROOM AND HAS 9/10 BACK AND ABD PAIN. SBA TO BR AND BACK TO BED. PT GIVEN PRN PAIN MED. IV FLUIDS INFUSING PER ORDER. NO OTHER NEEDS. CALL LIGHT IN REACH. RAILS UP.
--- NOTE | 2021-11-24 02:51 | NUR ---
VS AND I&O COMPLTED. NEW BAG IV FLUIDS PROVIDED. NO OTHER NEEDS. CALL LIGHT IN REACH.
--- NOTE | 2021-11-24 06:18 | NUR ---
pt UP TO VOID. REPORTED 9/10 PAIN. PRN PAIN MEDICATION GIVEN (SEE MAR). pt REPORTED NAUSEA "WITH THE LAST MEDS" PRN NAUSEA MEDICATION GIVEN (SEE MAR). pt VOMITTED WITH 25 MLS OF EMESIS, BRIGHT YELLOW. pt HAD SCANT BLOOD FROM NOSE AFTER EMESIS. RESTING IN BED WITH WASH CLOTH TO NOSE. NO OTHER CHANGES IN ASSESSMENT. CALL LIGHT WITHIN REACH.
--- NOTE | 2021-11-24 07:25 | NUR ---
RECIEVED SHIFT REPORT. PT LAYING IN BED RESTING. CALL LIGHT WITHIN REACH.
--- NOTE | 2021-11-24 08:28 | NUR ---
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 CALL LIGHT WITHIN REACH.
--- NOTE | 2021-11-24 09:00 | NUR ---
MORNING ASSESSMENT COMPLETE. PT AWAKE IN BED. STATES PAIN LEVEL IS A 7/10 IN BACK/ABD. DISCUSSED WITH PT PRN PAIN MED SCHEDULE, AND PT IS UNDERSTANDING. PT STATES PAIN IS INTERMITENT WHILE AT REST BUT CONSTANT STABBING/THROBBING PAIN WITH MOVEMENT. HEAT PACK APPLIED AT THIS TIME AND PT STATES "IT IS HELPING". PT IS TENDER IN THE UPPER ABD WITH PALPATION. IVF CHANGED TO RUN AT 125 ML/HR (PER EMAR/MD VERBAL ORDER). CPOX IN PLACE HR 78, SPO2 96% RA. CALL LIGHT WITHIN REACH. PT DENIES ANY FURTHER NEEDS AT THIS TIME.
--- NOTE | 2021-11-24 10:00 | NUR ---
PATIENT IN BED WATCHING TV, VITALS AND I/O'S COMPLETED. PT HAS COMPLAINTS OF PAIN, CALL LIGHT WITHIN REACH.
--- NOTE | 2021-11-24 10:15 | NUR ---
IN ROOM TO GIVE PT PRN PAIN MEDICATION. PT COMPLAINS OF 9/10 PAIN LEVEL IN THE BACK/ABD. PRN DILAUDID GIVEN.
--- NOTE | 2021-11-24 11:19 | NUR ---
ASSISTED PT TO RESTROOM AND BACK TO BED. PT DENIES FURTHER NEEDS AT THIS TIME. CALL LIGHT IN REACH.
--- NOTE | 2021-11-24 12:22 | NUR ---
PT IN BED. CALL LIGHT WITHIN REACH.
--- NOTE | 2021-11-24 12:29 | NUR ---
PT COMPLAINS OF ITCHING FROM THE DILAUDID GIVEN AND STATES ITS NOT TOLERABLE. SPOKE WITH MD. VERBAL ORDER GIVEN FOR BENADYRL 12.5 MG IV PRN EVERY 8 HRS.
--- NOTE | 2021-11-24 14:18 | NUR ---
PT GIVEN PRN BENADRYL (PER EMAR) FOR PTS COMPLAINT OF ITCHING. PT STARTED VOMITING. PRN ZOFRAN (PER EMAR) GIVEN. TWO EPISODES OF EMESIS 125 ML AT THIS TIME. PRN DILADID (PER EMAR) GIVEN FOR PTS 10/10 PAIN.
--- NOTE | 2021-11-24 14:46 | NUR ---
PATIENT LYING IN BED WATCHING TV. VITALS AND I/O'S COMPLETED. PT HAS NO OTHER NEEDS AT THIS TIME. CALL LIGHT WITHIN REACH.
--- NOTE | 2021-11-24 16:00 | NUR ---
PT IS RESTING IN BED, EYES CLOSED. CALL LIGHT WITHIN REACH.
--- NOTE | 2021-11-24 17:00 | NUR ---
PT RESTING IN BED AT THIS TIME. CALL LIGHT WITHIN REACH.
--- NOTE | 2021-11-24 18:00 | NUR ---
PT HAD X4 EMESIS EPISODES. SPOKE WITH MD. NEW ORDER PUT IN PHENERGAN 12.5 MG IV Q6 AND DILAUDID 0.5-1 MG IV Q3.
--- NOTE | 2021-11-24 18:51 | NUR ---
PATIENT LYING IN BED, VITALS AND I/O'S COMPLETED. PT HAS NO OTHER NEEDS AT THIS TIME. CALL LIGHT WITHIN REACH.
--- NOTE | 2021-11-24 19:10 | NUR ---
BEDSIDE REPORT RECEIVED FROM OFFGOING RN, FREDDIE. PT RESTINGIN BED. STATES THAT NAUSEA AND PAIN ARE FINALLY IMPROVED FOR NOW. PT DENIES NEEDS AT THIS TIME. CALL LIGHT IN REACH.
--- NOTE | 2021-11-24 22:37 | NUR ---
PT UTLIZES CALL LIGHT, REQUESTS PRN PAIN AND NAUSEA MEDICATION. RATES PAIN 8-9/10 TO ABD AND BACK. REPORTS SLIGHT NAUSEA THAT HAS INCREASED WITH PAIN MED ADMINISTRATION. PRNS ADMINISTERED, SEE EMAR. PT ASSESSMENT COMPLETE. PT DENIES SOB. BT'S ACTIVE. ABD TENDER TO PALPATION. DISTENSION NOTED. IV FLUSHED WITH 10 ML NS. PATENTN, GOOD BLOOD RETURN NOTED. PT DENIES FURTHER NEEDS AT THIS TIME. CALL LIGHT IN REACH.
--- NOTE | 2021-11-24 23:08 | NUR ---
CALL LIGHT ANSWERED. SBA TO THE BATHROOM. PATIENT IS BACK IN BED. WARM BLANKET PROVIDED. PATIENT ASKED FOR MEDS TO HELP HER SLEEP. PRIMARY RN NOTIFIED.
--- NOTE | 2021-11-25 00:13 | NUR ---
PT UTILIZES CALL LIGHT, REPORTS THAT SHE IS HAVING NIGHTMARES. WARRANTY COORDINATOR TO ROOM. PT STATES THAT SHE HAS NIGHTMARES FROM HER PTSD, PT REQUESTS HOME MEDCIATION, CLONIDINE, REQUIP, AND MELATONIN. PER PT SHE TAKES THESE NIGHTLY TO STOP NIGHTMARES. CALLED, NEW ORDERS RECEIVED TORB. ADMINISTERED TO PT. PT DENIES FURTHER NEEDS AT THIS TIME. CALL LIGHT IN REACH.
--- NOTE | 2021-11-25 02:42 | NUR ---
PT ROUNDING. PT RESTING IN BED WITH EYES CLOSED. RESPIRATIONS EVEN AND UNLABORED. PT'S LEGS JERKING DESPITE PT APPEARING TO BE ASLEEP. CALL LIGHT IN REACH.
--- NOTE | 2021-11-25 05:35 | NUR ---
SBA PATIENT GOT UP TO USE THE BATHROOM. PATIENT IS BACK IN BED. V/S AND I&O'S TAKEN AND CHARTED. CALL LIGHT AND TABLE WITHIN REACH.
--- NOTE | 2021-11-25 05:56 | NUR ---
PT ASSESSMENT COMPLETE. PT RATES PAIN 8/10 TO ABD AND BACK. PRN ADMINISTERED, SEE EMAR. NAUSEA MEDICATION ADMINISTERED PER PT REQUEST DUE TO RECENTLY BECOMING NAUSEATED WITH PAIN MED ADMINIISTRATION. PT REPORTS HAVING SLEPT WELL AFTER HOME HS MEDICATIONS ADMINISTERED. PT STATES SHE IS "SLOWLY BUT SURELY" STARTING TO FEEL BACK TO HERSELF. PT DENIES SOB. BT'S ACTIVE. ABD MILDLY DISTENDED. ABD TENDER TO PALPATION. IV FLUSHED WITH 10 ML NS. WNL. IVF INFUSING ORDERED. PT DENIES FURTHER NEEDS AT THIS TIME. CALL LIGHT IN REACH.
--- NOTE | 2021-11-25 07:27 | NUR ---
PT SLEEPING SOUNDLY AT TIME OF SHIFT REPORT, LEFT UNDISTURBED. CALL LIGHT AND NEEDED ITEMS IN REACH.
--- NOTE | 2021-11-25 08:59 | NUR ---
PT IN BED. PT ASSISTED TO BATHROOM. SBA 1 SHEEP KILLER. PT ASSISTED BACK TO BED. VITALS AND IS AND OS COMPLETE. NO NEEDS. CALL LIGHT WITHIN REACH.
--- NOTE | 2021-11-25 09:06 | NUR ---
PT CONTINUES RESTING EYES CLOSED, AWAKENS TO NOISE RETURNS TO DOZING. APPEARS RELAXED AND COMFORTABLE. NPO STATUS CONTINUES
--- NOTE | 2021-11-25 09:25 | NUR ---
DR CARL IN TO SEE PT ALL QUESTIONS ANSWERED, PLAN GOING FORWARD DISCUSSED
--- NOTE | 2021-11-25 12:21 | NUR ---
PT CONTINUES RESTING IN BED, DOZING INTERMITTANTLY. SATS HIGH 90'S PULSE OX IN PLACE, CALL LIGHT IN REACH. TOLERATING ICE CHIPS
--- NOTE | 2021-11-25 12:35 | NUR ---
PATIENT WAS ASLEEP WHEN STEPPED IN TO VISIT.
--- NOTE | 2021-11-25 13:04 | NUR ---
PT was sleeping when I entered, but woke before I could exit. Stated she was ready to wake. Appeared to be in good spirits, and expressed satisfaction with care. Prayed for comfort and healing.
--- NOTE | 2021-11-25 13:08 | NUR ---
PT IN BED. VITALS AND IS AND OS COMPLETE. NO NEEDS. CALL LIGHT WITHIN REACH.
--- NOTE | 2021-11-25 13:19 | NUR ---
PT MEDICATED FOR 09/25 ABD/BACK PAIN. SHE STATES THE MEDICATION IS EFFECTIVE BUT DOES NOT LAST LONG. RESTING IN BED, TOLERATES ICE CHIPS, WATCHING TV, DENIES OTHER NEEDS OF
--- NOTE | 2021-11-25 18:32 | NUR ---
PT HAS CONTINUED TO HAVE INTERMITTENT PAIN THIS SHIFT REQUESTING PAIN MEDS EVERY 4 HOURS. NO NAUSEA OR EMESIS. PT STATES SHE FEELS HUNGRY ASKS IF SHE CAN EAT. ENCOURAGED PT TO REMAIN ICE AND H20 ONLY, ESPECIALLY AFTER SUCH A BAD DAY YESTERDAY. SHE AGREES, HOWEVER, THERE ARE MENTO'S IN HER REACH. PT UP TO THE CHAIR FOR A TIME C/O OF BACK PAIN. DENIES NEEDS OF CURRENTLY
--- NOTE | 2021-11-25 19:10 | NUR ---
BEDSIDE REPORT RECEIVED FROM OFFGOING RNERNESTO. PT SITTING UP IN CHAIR WATCHING FOOTBALL ON HER PHONE. DENIES NEEDS AT THIS TIME. CALL LIGHT IN REACH.
--- NOTE | 2021-11-25 21:31 | NUR ---
PT ASSESSMENT COMPLETE. PT RESTING IN BED. REPORTS PAIN 8-9/10 TO ABD. PT REPORTS SLIGHT NAUSEA WITH BELCHING. PRNS ADMINISTERED. SEE EMAR. PT DENIES SOB. BT'S ACTIVE. ABD TENDER TO PALPATION. IV FLUSHED WITH 10 ML NS. ICE CHIPS PROVIDED PER PT REQUEST. PT DENIES FURTHER NEEDS AT THIS TIME. CALL LIGHT IN REACH.
--- NOTE | 2021-11-26 00:45 | NUR ---
PT ROUNDING. PT RESTING IN BED WITH EYES CLOSED. RESPIRATIONS EVEN AND UNLABORED. PT'S LEGS KICKING. PT APPEARS TO BE SLEEPING. CALL LIGHT IN REACH.
--- NOTE | 2021-11-26 03:53 | NUR ---
PT UTILIZES CALL LIGHT, REQUESTS TO USE THE BATHROOM. PT UP TO BATHROOM AND BACK TO BED WITH SBA. TOLERATED WELL. PT ASSESSMENT COMPLETE. PT RATES PAIN 09/25. PRN ADMINISTERED, SEE EMAR. PT DENIES NAUSEA OR SOB AT THIS TIME. BT'S ACTIVE. ABD TENDER TO PALPATION. IVF INFUSING ORDERED, IV FLUSHED WITH 10 ML NS. PATENT. WNL. WARM BLANKET PROVIDED. PT DENIES FURTHER NEEDS. CALL LIGHT IN REACH.
--- NOTE | 2021-11-26 06:41 | NUR ---
PT UTILIZES CALL LIGHT, REQUESTS PRN PAIN MEDICATINO. RATES PAIN 7/10 TO HER "GUT" STATES HER BACK IS NO LONGER PAINFUL PREVIOUSLY. PRN ADMINISTERED. SEE EMAR. PT DENIES FURTER NEEDS. CALL LIGHT INR EACH.
--- NOTE | 2021-11-26 07:25 | NUR ---
PT RESTING EYES CLOSED AT TIME OF SHIFT REPORT, LEFT UNDISTURBED. CALL LIGHT AND NEEDED ITEMS AT BEDSIDE.
--- NOTE | 2021-11-26 08:32 | NUR ---
PT AWAKENS TO VOICE FOR MORNING MEDS RETURNS TO DOZING.
--- NOTE | 2021-11-26 11:45 | NUR ---
Pt was discussed in 929 meeting. Unclear if she can dc today. Spoke with pt and she states she ran out of pain meds. I asked her if she is going to a pain clinic and she states she is. She goes to [facility] in the and has an appt today, she cancelled and will now go on the . She also states she will no longer be seeing Dr. Pablo and is switching to Dr. Rob Dunlap. She is unable to state if she has been accepted, she thinks she has an appt in Dec. I will call and clarify and check for a follow [place] app[place].
--- NOTE | 2021-11-26 11:49 | NUR ---
PT SITTING UP IN BED WATCHING TV RATES HER PAIN 7/10 STATES IT NEVER GETS BELOW 6/10 EVEN WITH MEDS. SHE HOPES TO ADVANCE HER DIET TODAY, THE DOCTOR HASN'T BEEN IN YET. FRESH ICE CHIPS AT BEDSIDE.
--- NOTE | 2021-11-26 14:09 | NUR ---
Called and spoke with Luanne at [facility]. She states pt is scheduled with Dr. Dunlap for Jan 06. She can put the pt in for an appt soon, but she will have to confirm with Dr. Dunlap. I will fax pts chart and they will call the pt and let her know her follow up appt.
--- NOTE | 2021-11-26 17:01 | NUR ---
DR LOU IN TO SEE PT. PLAN GOING FORWARD DISCUSSED AT LENGTH. ALL QUESTIONS ANSWERED. PT ADVANCED TO LOW FAT CLEAR LIQUIDS.
--- NOTE | 2021-11-26 19:35 | NUR ---
RECEIVED REPORT FROM DAY SHIFT RN. PATIENT IS RESTING IN BED. PATIENT IS REQUESTING PRN MEDS FOR ITCHING. NO PRN MED AVAILABLE AT THIS TIME. EDUCATED PATIENT ON NO MED AVAILABLE, PATIENT VERBALIZES UNDERSTANDING AND WOULD LIKE IT WHEN ITS AVAILABLE. NO FURTHER NEEDS NOTED. CALLL LIGHT IN REACH.
--- NOTE | 2021-11-26 21:00 | NUR ---
PATIENT ASSESMENT COMPLETED. VITALS TAKEN AND RECORDED. INTAKE AND OUTPUT RECORDED. IV INFUSING PER ORDER. PATIENT REQUESTING MEDS BE GIVENT AT 2200. PATIENT DENIES ANY FURTHER NEEDS AT THIS TIME. CALL LIGHT IN REACH.
--- NOTE | 2021-11-26 22:08 | NUR ---
PATIENT IS RESTING IN BED. PM MEDS GIVEN PER ORDER. PATIENT REPORTS 6/10 ABD PAIN, PRN PAIN MEDS GIVEN PER ORDER. PRN SLEEP AID GIVEN PER ORDER. PATIENT REPORTS "ITCHING ALL OVER", PRN MEDS GIVEN PER ORDER. IV INFUSING PER ORDER. NO FURTHER NEEDS NOTED. PATIENT DENIES ANY NAUSEA AT THIS TIME. CALL LIGHT IN REACH.
--- NOTE | 2021-11-26 23:01 | NUR ---
PATIENT IS RESTING IN BED WATCHING TV. PATIENT STATES "PAIN IS IMPROVING AND I AM NOT ITCHING ANYMORE". NO FURTHER NEEDS NOTED. CALL LIGHT IN REACH.
--- NOTE | 2021-11-26 23:53 | NUR ---
PATIENT IS RESTING IN WITH EYES CLOSED, RR 17. CALL LIGHT IN REACH.
--- NOTE | 2021-11-27 01:08 | NUR ---
PATIENT IS RESTING IN BED WITH EYES CLOSED, RR 18. CALL LIGHT IN REACH. IV INFUSING PER ORDER.
--- NOTE | 2021-11-27 01:44 | NUR ---
ANSWERED CALL LIGHT. SBA BATHROOM AND BACK TO BED. PATIENT ASKED FOR PAIN MEDS. PRIMARY RN NOTIFIED. NO OTHER NEEDS AT THIS TIME.
--- NOTE | 2021-11-27 02:11 | NUR ---
PATIENT RATES PAIN AT A 7/10, PRN PAIN MEDICATION GIVEN PER ORDER. PATIENT DENIES ANY NAUSEA. PATIENT IS RESTING IN BED. IV INFUSING PER ORDER. PATIENT DENIES ANY FURTHER NEEDS. CALL LIGHT IN REACH.
--- NOTE | 2021-11-27 06:07 | NUR ---
PATIENTS VITALS TAKEN AND RECORDED. INTAKE AND OUTPU RECORDED. IV INFUSING PER ORDER. PATIENT RATES PAIN AT A 8/10, PRN PAIN MEDICATION GIVEN PER ORDER. PATIENT DENIES ANY NAUSEA. NO FURTHER NEEDS NOTED. CALL LIGHT IN REACH.
--- NOTE | 2021-11-27 07:10 | NUR ---
Report from BASIL Marques. Ambulating in room at this time. Radiology here to take patient for testing in wheelchair.
--- NOTE | 2021-11-27 07:22 | NUR ---
Report from BASIL Marques. Patient lying in bed. Denies needs at this time. Call light in reach. Bed rails up X2.
--- NOTE | 2021-11-27 08:47 | NUR ---
ASSESSMENT COMPLETED. RATES PAIN 8/10 AT THIS TIME. DOES NOT BELIEVE 5MG OF OXYCODONE WILL BE EFFECTIVE. WOULD LIKE TO HAVE 10 MG AND DECREASE TO 5 AFTER A WHILE. STATES SHE IS WILLING TO TRY THE 5MG FOR NOW. AMBULATES INDEPENDENTLY TO THE BR, CONTINENT OF URINE. CALL LIGHT IN REACH, BED RAILS UP X2.
--- NOTE | 2021-11-27 09:21 | NUR ---
PT IN BED. VITALS AND IS AND OS COMPLETE. NO NEEDS. CALL LIGHT WITHIN REACH.
--- NOTE | 2021-11-27 09:54 | NUR ---
PATIENT ADMITTED WITH RECURRENT PANCREATITIS. PATIENT USUALLY NEEDS A COUPLE OF DAYS OF NPO TO FEEL BETTER. DIET NOW FULL LIQUID, LOW FAT. SHE HAS RECEIVED LOW FAT DIET EDUCATION AN OUTPATIENT BEFORE. WILL CONTINUE TO MONITOR.
--- NOTE | 2021-11-27 10:03 | NUR ---
Resting with eyes closed upon entering room to reassess pain level. Pain 7.5/10. Requesting second oxycodone stating first was ineffective. Dr. Boyce notified, no new orders at this time. Lipase remains at normal level.
[2021-11-27] MEDS ORDERED: OXYCODONE HCL5 MG PO (10:51)
== END 2021-11-27 11:15 | disposition home or self-care (01) | DRG 440 ==
LOC: ED 07:12 → MS 07:13
PROVIDERS: ADMIT Family Medicine; ATTEND Internal Medicine
DX: K85.00 Idiopathic acute pancreatitis without necrosis or infection (principal); Z66 Do not resuscitate; Z20.822 Contact with and (suspected) exposure to COVID-19; K86.1 Other chronic pancreatitis; G43.909 Migraine, unspecified, not intractable, without status migrainosus; F17.200 Nicotine dependence, unspecified, uncomplicated; F43.10 Post-traumatic stress disorder, unspecified; Z76.5 Malingerer [conscious simulation]; Z87.01 Personal history of pneumonia (recurrent); Z85.048 Personal history of other malignant neoplasm of rectum, rectosigmoid junction, and anus; Z85.841 Personal history of malignant neoplasm of brain; Z90.49 Acquired absence of other specified parts of digestive tract; Z90.710 Acquired absence of both cervix and uterus; Z98.890 Other specified postprocedural states; Z88.8 Allergy status to other drugs, medicaments and biological substances; Z79.899 Other long term (current) drug therapy
CPT/HCPCS: 36415; 80048; 80053; 81001; 83690; 83735; 85025; 96361; 96374; 96375; 99284-25; A9270; C9113; C9803; J1170; J1200; J1650; J2405; J2550; J3475; J3480; J7030; J7060; U0003

== ENCOUNTER 2021-12-07 06:34 | Inpatient (IN) | payer OTHER ==
[~2021-12-07] VITALS: Ht 160 cm; Wt 54.0 kg
--- NOTE | 2021-12-07 02:30 | NUR ---
PATIENT PROVIDED WITH PRN PAIN MEDS FOR PAIN 10/10 IN ABD. IV FLUIDS CONTINUES PER ORDER. SITE WNL.
--- NOTE | 2021-12-07 15:25 | NUR ---
56 YR OLD FEMALE PATIENT ADMITTED TO ROOM 130 HOUSE CONVENIENCE, UNDER DR. CARL VIA STRETCHER FROM ER WITH DX OF PANCREATITIS. PATIENT HAS LONG HX OF THIS AND WAS DISCHARGED FROM THIS HOSPITAL ON THIS LAST THURSDAY. PATIENT STATES SHE BEGAN HAVING SEVERE PAIN YESTDAY AFTER EATING SOME POTATO CHIPS. IS ADMITTED FOR PAIN CONTROL. RECCIEVED DILAUDID IN ER. DILAUDID 0.5 MG IV GIVEN FOR PAIN IN RIGHT UPPER ABD ON ADMIT TO ROOM 130. RATES PAIN 10/10. ADMISSION PROCESS STARTED.
--- NOTE | 2021-12-07 16:25 | NUR ---
IVF NS HUNG PER ORDERS AT 999 ML. WILL RECIEVE A TOTAL OF 3 LITERS. UP TO COMMODE TO VOID 300 ML OF YELLOW URINE, BACK TO BED W/O INCIDENT.
--- NOTE | 2021-12-07 16:45 | NUR ---
O2 AT 2 LITERS NC APPLIED SAT DOWN TO HIGH 80'S AFTER DILAUDID GIVEN.
--- NOTE | 2021-12-07 17:00 | NUR ---
IV SITE TO RIGHT HAND IS POSITIONAL. SECOUND IV SITE STARTED TO LEFT INNER ARM. PATIENT ASKING FOR MORE PAIN MEDICATION. RATES PAIN 10/10.
--- NOTE | 2021-12-07 17:10 | NUR ---
DILAUDID 1 MG IV GIVEN FOR PAIN.
--- NOTE | 2021-12-07 18:20 | NUR ---
SLEEPING. IVF AT 999 CONTINUES TO INFUSE. WILL HAVE A TOTAL OF 3000 ML.
--- NOTE | 2021-12-07 18:58 | NUR ---
HAS BEEN SLEEPING SINCE DILAUDID 1 MG GIVEN AT 1710.
--- NOTE | 2021-12-07 19:30 | NUR ---
SHIFT REPORT RECEIVED. PATIENT RESTING WITH EYES CLOSED. CALL LIGHT IN REACH.
--- NOTE | 2021-12-07 20:30 | NUR ---
PATIENT REPORTS PAIN AND NAUSEA. PRN ZOFRAN AND DILAUDID PROVIDED. PATIENT VS STABLE. UP TO VOID. NO OTHER NEEDS. MD IN TO SEE PATIENT.
--- NOTE | 2021-12-07 22:45 | NUR ---
PATIENT UP TO THE BATHROOM AND DRY HEAVY. PRN PHENERGAN PROVIDED WITH WARM BLANKETS AND HOT PACK. PATIENT HAS SORE MUSCLES ON HER BACK. ASSISTED TO REPOSITION IN BED FOR COMFORT.
--- NOTE | 2021-12-08 02:30 | NUR ---
PATIENT PROVIDED PRN PAIN MEDS FOR 11/25. VS STABLE. NO NAUSEA. IVF PER ORDER. SITE WNL.
--- NOTE | 2021-12-08 06:36 | NUR ---
patient up to the bathroom to void. tolerates well. reports sore back muscles and questions additional medications for this. Will discuss with MD. Vs stable. no nausea at this time. pain improved from / to 8/10 with dilaudid, patient reports this is "improved, but still sucks". iv fluids per order, site wnl.
--- NOTE | 2021-12-08 07:30 | NUR ---
REPORT RECIEVED. PATIENT RESTING. REMAINS HOUSE CONVENIENCE.
--- NOTE | 2021-12-08 08:00 | NUR ---
ASSESSMENT DONE. PATIENT IS AWARE OF POC AND UNDERSTANDING.
--- NOTE | 2021-12-08 08:50 | NUR ---
DILAUDID 1 MG IV GIVEN FOR RUQ PAIN. ROUTINE MEDICATIONS GIVEN.
--- NOTE | 2021-12-08 12:18 | NUR ---
DILAUDID 1 MG IV GIVEN FOR PAIN. HAS BEEN WATCHING TV.
--- NOTE | 2021-12-08 12:42 | NUR ---
MED REC COMPLETE
--- NOTE | 2021-12-08 12:54 | NUR ---
WILL BE TRANSFERRED TO MEDICAL FLOOR THIS AFTERNOON. CONTINUES TO WATCH TV.
--- NOTE | 2021-12-08 13:15 | NUR ---
TO MED-SURG VIA BED. REPORT HAS BEEN GIVEN.
--- NOTE | 2021-12-08 13:21 | NUR ---
PATIENT ARRIVED TO MED SURG, ROOM 113, VIA BED,
--- NOTE | 2021-12-08 13:45 | NUR ---
PATIENT ALERT AND ORIENTED, WATCHING TV IN ROOM. RATES PAIN 8.5/10 AT THIS TIME. STATES SHE KNOWS NEXT DOSE ANALGESIC ISN'T AVAILABLE UNTIL 1500 AND SHE WILL BE OK UNTIL THEN. ASSESSMENT COMPLETED.
--- NOTE | 2021-12-08 15:58 | NUR ---
Patient watching TV. States pain has improved. Denies other needs at this time. Call light in reach.
--- NOTE | 2021-12-08 19:32 | NUR ---
REPORT RECEIVED FROM DAY SHIFT RN. PT LYING IN BED ALERT AND ORIENTED. DENIES NEEDS AT THIS TIME. CALL LIGHT IN REACH.
--- NOTE | 2021-12-08 20:13 | NUR ---
EVENING ASSESSMENT COMPLETE. PT REPORTS ABD PAIN TOLERABLE AT THIS TIME. DENIES NAUSEA. BOWEL TONES ACTIVE. PT VOIDING QS CLEAR YELLOW URINE. NPO. MOUTH SWABS AT BED SIDE. PT DENIES QUESTIONS OR CONCERNS. CALL LIGHT IN REACH.
--- NOTE | 2021-12-08 21:07 | NUR ---
PT REPORTS ABD/BACK PAIN 07/26. PRN FOR PAIN AND ANXIETY ADMIN PER EMAR. PT UP TO BR INDEPENDENTLY TO VOID AND HAVE SMALL BM. GAIT STEADY. BACK TO BED. NO FURTHER NEEDS.
--- NOTE | 2021-12-08 23:03 | NUR ---
NEW BAG IVF INFUSING PER ORDER. PT UP TO BR TO VOID 600 ML CLEAR YELLOW URINE. BACK TO BED. DENIES NEEDS. CALL LIGHT IN REACH.
--- NOTE | 2021-12-09 00:15 | NUR ---
CALL LIGHT ANSWERED. PT REPORTS ABD/BACK PAIN 08/25. PRN FOR PAIN ADMIN PER EMAR. NO FURTHER NEEDS.
--- NOTE | 2021-12-09 03:06 | NUR ---
PT RESTING IN BED WITH EYES CLOSED. RESPIRATIONS EVEN. CALL LIGHT IN REACH.
--- NOTE | 2021-12-09 03:41 | NUR ---
CALL LIGHT ANSWERED. PT REQUESTING PRN FOR PAIN. ADMIN PER EMAR. NO FURTHER NEEDS. ASSESSMENT COMPLETE. CALL LIGHT IN REACH.
--- NOTE | 2021-12-09 05:50 | NUR ---
PT INDEPENDENT TO BR. BACK TO BED. VS AND I&O COMPLETE. LAB IN ROOM FOR MORNING DRAW. NO NEEDS AT THIS TIME.
--- NOTE | 2021-12-09 06:18 | NUR ---
Pt CALLED AND REQUESTED PAIN MEDICATION FOR 7/10 PAIN IN HER UPPER ABD. PRN PAIN MEDICATION GIVEN PER ORDER. NO FURTHER NEEDS NOTED. CALL LIGHT IN REACH. IV INFUSING PER ORDER.
--- NOTE | 2021-12-09 07:04 | NUR ---
Report from Josiah Maria RN. Patient resting in bed with eyes closed. Respirations even and unlabored. Call light in reach, bed rails up X2.
--- NOTE | 2021-12-09 08:30 | NUR ---
Patient lying in bed. AM medications administered states pain is 7/10 at this time. PRN analgesic administered. Denies other needs at this time. Call light in reach. Bed rails up X2. IV fluids continue infusing.
--- NOTE | 2021-12-09 10:07 | NUR ---
Up to BR, continent of urine. States pain has improved. Denies needs at this time.
--- NOTE | 2021-12-09 10:43 | NUR ---
JAJA CARL/Obi KAPOOR, RN, TO ADVANCE DIET TOLERATING, STARTING WITH CLEAR LIQUIDS AND DECREASE IV FLUIDS TO 100ML/HR WHEN TOLERATING LIQUIDS THEN TO SL IF ORAL INTAKE CONTINUES TO IMPROVE WITHOUT PAIN. KITCHEN STAFF NOTIFIED OF CLEAR LIQUID DIET.
--- NOTE | 2021-12-09 11:08 | NUR ---
IN TO ASK PT IF SHE WOULD LIKE A SHOWER. PT REFUSED. NO NEEDS AT THIS TIME. CALL LIGHT WITHIN REACH.
--- NOTE | 2021-12-09 12:20 | NUR ---
PATIENT UP TO BATHROOM TO VOID, UP TO CHAIR. LINENS ARE CHANGED. 1MG OF IV DILAUDID FOR 6/10 PAIN. PATIENT IS HAVING CLEARS FOR LUNCH.
--- NOTE | 2021-12-09 13:00 | NUR ---
PT IN CHAIR. VITALS AND IS AND OS COMPLETE. NO NEEDS. CALL LIGHT WITHIN REACH.
--- NOTE | 2021-12-09 13:39 | NUR ---
Unable to start IV after 2 attempts by this nurse. Uzma Zuñiga RN, looks and sees no veins for IV start. Bimal Avila RN, notified of need for IV. States he will attempt to start US IV.
--- NOTE | 2021-12-09 14:51 | NUR ---
Bimal Avila RN, in to attempt US IV start.
--- NOTE | 2021-12-09 15:09 | NUR ---
PATIENT STATES SHE HAD EMESIS WITH ORAL INTAKE FROM LUNCH TRAY. ABD PAIN INCREASES PER PATIENT THIS AFTERNOON. STATES SHE IS AFRAID TO ATTEMPT ANY FURTHER ORAL INTAKE TODAY. ULTRASOUND GUIDED IV STARTED BY Bimal SILVA RN. IV FLUIDS RESTARTED, SEE EMAR FOR PRN MEDICATION ADMINISTRATION.
--- NOTE | 2021-12-09 17:03 | NUR ---
Alert and oriented, independent. Attempt to take in clear liquids today with emesis X1. Lost both IV's, ultrasound IV start this afternoon. Remains on IV fluids due to fear of further oral intake this afternoon. Adequate urine output. Pain controlled with IV pain meds. Nausea improved with IV Zofran.
--- NOTE | 2021-12-09 19:25 | NUR ---
REPORT RECEIVED FROM DAY SHIFT RN. PT LYING IN BED ALERT AND ORIENTED. DENIES NEEDS. WHITE BOARD UPDATED. CALL LIGHT IN REACH.
--- NOTE | 2021-12-09 21:30 | NUR ---
EVENING ASSESSMENT COMPLETE. PT REPORTS ABD PAIN AND HEADACHE PAIN /10. PRN FOR PAIN ADMIN PER EMAR. PT ALSO REQUEST PRN FOR ANXIETY. ADMIN PER ORDER. PT BP NOTED TO BE ELEVATED ON MONITOR. MANUAL BP 160/82. PT REQUESTED SPRITE, PROVIDED. NO FURTHER NEEDS AT THIS TIME. CALL LIGHT IN REACH.
--- NOTE | 2021-12-09 22:11 | NUR ---
CALL LIGHT ANSWERED. PT UP TO BR WITH MINIMAL SBA TO VOID. GAIT STEADY. BACK TO BED, MO WELL. WARM BLANKET PROVIDED. NO FURTHER NEEDS.
--- NOTE | 2021-12-10 00:12 | NUR ---
CALL LIGHT ANSWERED. PT REQUESTING "PAIN MEDS" PRN FOR PAIN ADMIN PER EMAR. PT DENIES NAUSEA. DRINKING SPRITE. NO FURTHER NEEDS. LIGHTS OUT AND CURTAIN CLOSED PER REQUEST.
--- NOTE | 2021-12-10 01:36 | NUR ---
CALL LIGHT ANSWERED. PT UP TO BR WITH MINIMAL SBA TO VOID 800 ML CLEAR YELLOW URINE. BACK TO BED. GAIT STEADY. NEW BAG IVF INFUSING. NO FURTHER NEEDS. CALL LIGHT IN REACH.
--- NOTE | 2021-12-10 03:10 | NUR ---
CALL LIGHT ANSWERED. PT STATES "MEDS" IN ROOM FOR PRN ADMIN. PT RESTING WITH EYES CLOSED. AWAKENS TO VOICE. PT REPORTS ABD PAIN /10. PRN GIVEN PER ORDER. PT DENIES NAUSEA. NO FURTHER NEEDS.
--- NOTE | 2021-12-10 05:10 | NUR ---
PATIENT ASSISTED TO THE BR A SBA. PATIENT ABLE TO VOID. PATIENT OFFERED TO SIT IN RECLINER. PATIENT WISHES TO RETURN TO BED AT THIS TIME. PATIENTS VITALS TAKEN AND RECORDED. INTAKE AND OUTPUT RECORDED. NO FURTHER NEEDS NOTED. CALL LIGHT IN REACH. IV INFUSING PER ORDER.
--- NOTE | 2021-12-10 06:13 | NUR ---
PT REPORTS ABD PAIN 08/25. PRN FOR PAIN ADMIN PER EMAR. NO FURTHER NEEDS.
--- NOTE | 2021-12-10 07:10 | NUR ---
REPORT RECEIVED FROM BASIL ALLEN. ILENE STARK IN ROOM WITH PT. PT STANDING UP PERFORMIN HYGIENE. NO NEEDS FROM THIS RN AT THIS TIME.
--- NOTE | 2021-12-10 08:35 | NUR ---
IN TO CHECK ON PT. PT TRAY PUT IN FRONT OF PT BY ILENE (MYSELF). PT STATES "MAN I REALLY WISH I HAD A CUP OF COFFEE". I TOLD PT I WOULD CHECK W RN. RN OK CUP OF COFFEE. CUP OF COFFEE GIVEN TO PT. PT STATES "NOW I WILL NEED CREAM AND SUGAR". I LET PT KNOW SHE MAY NOT BE ABLE TO HAVE CREAM BECAUSE OF HER DIET BUT I LET HER KNOW I WILL CHECK W HER RN. RN SAID NO AND PT WAS ALLOWED SUGAR. SUGAR WAS GIVEN. NO NEEDS. CALL LIGHT WITHIN REACH.
--- NOTE | 2021-12-10 09:33 | NUR ---
IN TO ADMINISTER MEDICATIONS. IV FLUIDS RUNNING. PT SITTING UP IN CHAIR WITH MEAL TRAY. ASSESSMENT COMPLETE. BOWEL TONES ACTIVE IN ALL QUADRANTS, PT STATES BELLY IS "TENDER" WITH LIGHT TOUCH. PT REPORTING PAIN 8/10 IN BACK AND ABD, PRN MEDICATION ADMINISTERED, SEE MAR. PT REQUESTING TO USE BR. PT AMBULATES WITH IV POLE FROM CHIAR TO BR AND BACK TO CHAIR WITH NO ISSUES. CALL LIGHT IN REACH. NO OTHER NEEDS AT THIS TIME. ILENE STARK IN ROOM VITALS COMPLETE.
--- NOTE | 2021-12-10 10:23 | NUR ---
IN TO REASSESS PAIN. PT REPORTING PAIN 08/25. PT ASKING WHEN MD WILL BE IN TO SEE HER PT HAS QUESTIONS FOR MD. NO OTHER NEEDS AT THIS TIME. CALL LIGHT IN REACH.
--- NOTE | 2021-12-10 11:19 | NUR ---
IN TO ANSWER CALL LIGHT. PT REQUESTING TO USE RESTROOM. IV UNPLUGGED FROM WALL FOR PT TO AMBULATE FROM CHAIR TO BR AND BACK TO CHAIR BY SELF WITH NO ISSUES. IV NS DC'd PER MD. OTHER FLUIDS STILL RUNNING AT THIS TIME. NO OTHER NEEDS AT THIS TIME. CALL LIGHT IN REACH.
--- NOTE | 2021-12-10 13:54 | NUR ---
IN TO ROUND ON PT. PT LAYING IN BED ON CELL PHONE. TELEVISION ON. PT REQUESTING MENU FOR DINNER. MENU PROVIDED. NO OTHER NEEDS AT THIS TIME. CALL LIGHT IN REACH.
--- NOTE | 2021-12-10 15:28 | NUR ---
IN TO ADMINISTER MEDICATION. PT SITTING UP IN BED. PT TAKES PO MEDICATIONS WITH NO ISSUES. PT REPROTING PAIN 8/10 IN ABD, PRN PAIN MEDICATION ADMINISTERED, SEE MAR. ASSESSMENT COMPLETE. PT ADVANCING DIET TOLERATED. PT IS SL. ABD TENDER TO TOUCH, BOWEL TONES ACTIVE IN ALL QUADRANTS. PT REPORTING VISUAL CHANGES, "SPOTS AND BLURRED VISION." BASIL GONZALEZ IN ROOM. WILL MONITOR. PUPILS REACTION TO LIGHT WERE EQUAL, BUT SLUGGISH TO LIGHT. PT REQUESTING SPRITE AND SOMETHING TO SNACK ON, SPRITE AND CRACKERS PROVIDED. NO OTHER NEEDS AT THIS TIME. CALL LIGHT IN REACH.
--- NOTE | 2021-12-10 17:16 | NUR ---
PT BP WAS 177/100 (118) RN NOTIFIED
--- NOTE | 2021-12-10 17:20 | NUR ---
THIS RN NOTIFIED BY ILENE DARLING THAT PTs BP WAS 177/100 AND MAP WAS 118. ANJALI DARLINGA REPORTED TAKING BP TWO TIMES. THIS RN REPORTED TO BASIL GONZALEZ.
--- NOTE | 2021-12-10 17:33 | NUR ---
PT WALKED OUT TO NURSES STATION ASKING ABOUT SOUR CREAM OR SALSA. BASIL GONZALEZ CALLED DIETARY. DIETARY WILL BRING SALSA UP FOR PT. PT REPORTING 6/10 PAIN AND STATES THE PAIN "IS OKAY." NO OTHER NEEDS AT THIS TIME.
--- NOTE | 2021-12-10 18:28 | NUR ---
IN ROOM TO ROUND ON PT. PT REPORTING PAIN 08/25. PRN PAIN MEDICATION ADMINISTERED, SEE MAR. PT TAKES PO MEDICATION WITH NO ISSUES. NO OTHER NEEDS AT THIS TIME. CALL LIGHT IN REACH.
--- NOTE | 2021-12-10 19:37 | NUR ---
REPORT RECEIVED FROM DAY SHIFT RN. PT LYING IN BED ALERT AND ORIENTED. COFFEE PROVIDED PER REQUEST. NO FURTHER NEEDS. WHITE BOARD UPDATED. CALL LIGHT IN REACH.
--- NOTE | 2021-12-10 20:40 | NUR ---
EVENING ASSESSMENT COMPLETE. SCHEDULED MEDS ADMIN PER EMAR. PT REPORTS ABD PAIN 08/25. TOO EARLY FOR PRN ADMIN. PT UNDERSTANDS. BP ELEVATED ON MONITOR. MANUAL BP DONE 175/86. PT REPORTS HEADACHE PAIN BUT HAS IMPROVED WITH COFFEE. WILL REASSESS BP AFTER EVENING MEDS. PT DENIES NAUSEA. NO FURTHER NEEDS AT THIS TIME. CALL LIGHT IN REACH.
--- NOTE | 2021-12-10 21:29 | NUR ---
PT SITTING UP IN BED WATCHING TV AND DRINKING COFFEE. REPORTS ABD PAIN /. PRN FOR PAIN ADMIN PER EMAR. BP REASSESSED 148/82. HR 70'S.
--- NOTE | 2021-12-10 23:32 | NUR ---
PT SITTING UP IN BED WATCHING TV. DENIES NEEDS. CALL LIGHT IN REACH.
--- NOTE | 2021-12-11 00:13 | NUR ---
PT REPORTS ABD PAIN 08/25. PRN FOR PAIN ADMIN PER EMAR. NO FURTHER NEEDS.
--- NOTE | 2021-12-11 02:49 | NUR ---
PT RESTING IN BED WITH EYES CLOSED. RESPIRATIONS EVEN. CALL LIGHT IN REACH.
--- NOTE | 2021-12-11 06:38 | NUR ---
PT RESTING WITH EYES CLOSED. AWAKENS EASILY. VS AND I&O COMPLETE. PT REPORTS ABD PAIN 08/25. PRN FOR PAIN ADMIN PER EMAR. DENIES NAUSEA. UP TO BR INDEPENDENTLY. DENIES FURTHER NEEDS. CALL LIGHT IN REACH.
--- NOTE | 2021-12-11 07:10 | NUR ---
REPORT RECEIVED FROM BASIL ALLEN. PT LAYING IN BED WITH EYES CLOSED. RR EVEN AND UNLABORED. NO NEEDS IDENTIFIED AT THIS TIME. CALL LIGHT IN REACH.
--- NOTE | 2021-12-11 09:24 | NUR ---
IN TO ADMINISTER MEDICATION. PT SITTING UP IN BED. PT TAKES PO MEDICATIONS WITH NO ISSUES AND TOLERATES SUB-Q INJECTION WELL. ASSESSMENT COMPLETE. PT REPORTS PAIN 7/10 IN ABD, PRN PAIN MEDICATION GIVEN, SEE MAR. BOWEL TONES ACTIVE IN ALL QUADRANTS. MILD DISTENTION AND TENDER TO PALPITATION. MEAL TRAY REMOVED. NO OTHER NEEDS AT THIS TIME. CALL LIGHT IN REACH.
--- NOTE | 2021-12-11 09:30 | NUR ---
Pt discussed in [address] Boyce and air chipper. Asked if she could assign someone to call and verify pts pain clinic appt as we have had several different dates stated. Pt is asking for pain meds through Dec 24 and last admission I though her appt was sooner than this. They will do this. Pt will dc today. Pt denies needs when I visited earlier this am.
--- NOTE | 2021-12-11 10:53 | NUR ---
THIS RN IN TO CHECK ON PATIENT. PATIENT RESTING IN BED. RR EVEN AND UNLABORED. PATIENT ON HER LEFT SIDE. WILL CONTINUE TO CLOSELY MONITOR.
--- NOTE | 2021-12-11 12:19 | NUR ---
IN TO ROUND ON PT. PT SITTING UP IN BED. PT RESPONDS WHEN ADDRESSED. PT STATES "IT IS TOO EARLY FOR A PAIN PILL." PT REQUESTING ARMANI LOMELI PROVIDED. ILENE TRISTAN IN ROOM. NO OTHER NEEDS FROM THIS RN AT THIS TIME. CALL LIGHT IN REACH.
--- NOTE | 2021-12-11 12:30 | NUR ---
IN ROOM TO ADMINISTER PRN PAIN MEDICATION. PT REPORTING PAIN 8/10 IN ABD AND BACK. MEAL TRAY DELIVERED. NO OTHER NEEDS AT THIS TIME. CALL LIGHT IN REACH.
== END 2021-12-11 13:32 | disposition home or self-care (01) | DRG 440 ==
LOC: ED 06:34 → CCU 14:57 → MS 12-08 13:20
PROVIDERS: ADMIT Family Medicine; ATTEND Family Medicine
DX: K85.00 Idiopathic acute pancreatitis without necrosis or infection (principal); E03.9 Hypothyroidism, unspecified; K86.1 Other chronic pancreatitis; Z66 Do not resuscitate; G43.909 Migraine, unspecified, not intractable, without status migrainosus; F43.10 Post-traumatic stress disorder, unspecified; K76.9 Liver disease, unspecified; F17.210 Nicotine dependence, cigarettes, uncomplicated; F12.90 Cannabis use, unspecified, uncomplicated; Z90.49 Acquired absence of other specified parts of digestive tract; Z90.710 Acquired absence of both cervix and uterus; Z98.890 Other specified postprocedural states; Z79.899 Other long term (current) drug therapy; Z87.01 Personal history of pneumonia (recurrent); Z85.038 Personal history of other malignant neoplasm of large intestine; Z88.8 Allergy status to other drugs, medicaments and biological substances; Z87.39 Personal history of other diseases of the musculoskeletal system and connective tissue; Z85.841 Personal history of malignant neoplasm of brain; Z79.51 Long term (current) use of inhaled steroids; Z20.822 Contact with and (suspected) exposure to COVID-19
CPT/HCPCS: 36415; 74177; 80053; 83690; 83735; 85025; 96361; 96375; 96376; 99285-25; A9270; C9113; C9803; J1170; J1650; J2060; J2405; J2550; J3475; J3480; J7030; J7060; J7121; Q9967; U0003

== ENCOUNTER 2022-01-17 17:57 | Emergency (ER) | payer OTHER ==
[~2022-01-17] VITALS: Ht 160 cm; Wt 56.2 kg
[2022-01-17] MEDS ORDERED: OXYCODONE HCL5 MG PO (18:10)
[2022-01-17] MEDS ORDERED: BUPRENORPHN-NA1 EACH SL (18:10)
== END 2022-01-17 21:02 | disposition home or self-care (01) ==
LOC: ED 17:57
DX: K85.90 Acute pancreatitis without necrosis or infection, unspecified (principal); G43.909 Migraine, unspecified, not intractable, without status migrainosus; F17.200 Nicotine dependence, unspecified, uncomplicated; Z88.8 Allergy status to other drugs, medicaments and biological substances; Z79.899 Other long term (current) drug therapy
CPT/HCPCS: 36415; 80053; 83690; 85025; 96374; 96375; 99284-25; A9270; J1170; J2405; J2550; J7030

== ENCOUNTER 2022-02-07 05:20 | Emergency (ER) | payer OTHER ==
[~2022-02-07] VITALS: Ht 160 cm; Wt 56.2 kg
[~2022-02-07 05:20] MED LIST changes: +BUPRENORPHN-NA1 EACH SL
[2022-02-07] MEDS ORDERED: SUBOXONE 2 MG-1 EAC2 SL (05:34)
[2022-02-07] MEDS ORDERED: HYDROCODON-ACE1 EA10 PO ×2 (06:33)
[2022-02-07] MEDS ORDERED: ONDANSETRON ODT8 MG PO (06:33)
== END 2022-02-07 07:23 | disposition home or self-care (01) ==
LOC: ED 05:20
DX: K86.1 Other chronic pancreatitis (principal); G43.909 Migraine, unspecified, not intractable, without status migrainosus; Z88.8 Allergy status to other drugs, medicaments and biological substances; Z79.899 Other long term (current) drug therapy
CPT/HCPCS: 36415; 80053; 83690; 85025; 96374; 96375; 96376; 99284-25; A9270; J1170; J1790; J2270; J2405

== ENCOUNTER 2022-02-07 16:19 | Inpatient (IN) | payer OTHER ==
[~2022-02-07] VITALS: Ht 160 cm; Wt 55.1 kg
[~2022-02-07 16:19] MED LIST changes: +SUBOXONE 2 MG-1 EAC2 SL
--- NOTE | 2022-02-07 20:07 | NUR ---
pt ARRIVED TO MEDSUR FLOOR FROM ED STRETCHER, pt SELF SCOOTED TO MS BED, ORIENTED TO ROOM. VSS, pt RESTING IN BED. ON RA, RR EVEN AND UNLABORED. NO DISTRESS NOTED. CALL LIGHT IN REACH, PRIMARY RN ZACH AND ED RN CHI BOTH IN ROOM FOR BEDSIDE REPORT.
--- NOTE | 2022-02-07 20:10 | NUR ---
IN PT ROOM FOR RECEIVING OF PT VIA STRETCHER FROM ER. SKIN ASSESSMENT PERFORMED W/[facility] 2ND RN. PT RESTING IN BED. SKIAGRAPHER PERFORMING ADMISSION QUESTIONS.
--- NOTE | 2022-02-07 20:30 | NUR ---
ADMISSION ASSESSMENT PERFORMED. PT RESTING IN BED. ABDOMEN IN MILDLY DISTENDED AND BOWEL TONES ARE HYPOACTIVE AT THIS TIME. PT REPORTS TENDERNESS W/PALPATION TO EPIGASTRIC AND ULQ. NO NAUSEA PRESENT AT THIS TIME. SKIN APPEARS C/D/I AND PINK/WARM/DRY, PULSES PRESENT THROUGHOUT. NO SIGNS OF SKIN BREAKDOWN, PT ABLE TO MOVE SELF IN BED. IV SITE WNL, FLUSHES W/EASE, PT REPORTS NO PAIN W/FLUSHING. LUNGS ARE CLEAR THROUGHOUT. PT IS A&O X4. PT REPORTS NO SOB, DIZZINESS AT THIS TIME. CALL LIGHT WITHIN REACH, NO FURTHER NEEDS AT THIS TIME.
--- NOTE | 2022-02-07 20:40 | NUR ---
PT REPORTS PAIN IN EPIGASTRIC ABDOMINAL REGION OF 8/10 SEVERITY. PRN DILAUDID GIVEN (SEE EMAR). PT STATES NO NAUSEA AT THIS TIME. CALL LIGHT WITHIN REACH, NO FURTHER NEEDS AT THIS TIME.
--- NOTE | 2022-02-07 20:45 | NUR ---
CALLED [facility] FOR IV CONTINUOUS FLUID RATE. VERIFIED W/ORDERS REPEATED BACK TO , BOLUS OF 1L LR, THEN CONTINUOUS OF LR AT 200 ML/HR. NEW ORDERS ADDED BY CHEESE PRODUCTION SUPERVISORBASIL ROJAS, AND BOLUS STARTED BY CHEESE PRODUCTION SUPERVISOR.
--- NOTE | 2022-02-07 21:30 | NUR ---
CLARIFIED RATE OF 1L LR BOLUS- TELEPHONE ORDER READ BACK FROM DR CARL TO INFUSE THE X1 LITER LR BOLUS OVER 1 HOUR (PRIMARY RN ZACH ALREADY RECEIVED ORIGINAL ORDER FOR THE BOLUS). ALSO CLARIFIED THAT CONT IV FLUIDS OF LR ARE TO BE INFUSED AT 200MLS/HR. BOLUS STARTED DIRECTED AT THIS TIME, IV SITE WNL AND FLUSHES EASILY. pt EDUCATED ON S/SX OF IV INFILTRATION, pt VERBALIZED UNDERSTANDING. CALL LIGHT IN REACH.
--- NOTE | 2022-02-07 23:30 | NUR ---
rounded on pt, pt resting quietly in bed. on ra, rr even and unlabored. no distress noted, awoke to voice. iv fluids infusing as directed, iv site wnl. call light in reach.
--- NOTE | 2022-02-08 00:38 | NUR ---
PT RESTING IN BED WITH EYES CLOSED. KNEES ARE UP BUT PT APPEARS COMFORTABLE. RESPIRATIONS ARE EVEN AND UNLABORED, NO SIGNS OF DISTRESS. CALL LIGHT WITHIN REACH.
--- NOTE | 2022-02-08 02:30 | NUR ---
IN PT ROOM D/T PAIN AND NAUSEA. PRN ZOFRAN AND DILAUDID ADMINISTERED. PT COUGHING STATING "I NEED TO GET THIS OUT", EMESIS OF 100 ML OF YELLOW WATER LIKE CONSISTENCY. PT NOW SETTLING DOWN AND LAID BACK IN BED W/WARM PACK. IV FLUIDS INFUSING DIRECTED. NO FURTHER NEEDS AT THIS TIME. 2ND ASSESSMENT PERFORMED, NO ACUTE CHANGES FROM PREVIOUS ASSESSMENT. TENDERNESS REMAINS W/PALPATION AND BOWEL TONES HYPOACTIVE X4 QUADRANTS. PAIN IN ABDOMEN 10/10 AT THIS TIME PER PT.
--- NOTE | 2022-02-08 03:23 | NUR ---
PT RESTING ON LFT SIDE W/EYES CLOSED AT THIS TIME. RESPIRATIONS ARE EVEN AND UNLABORED, NO SIGNS OF DISTRESS. CALL LIGHT WITHIN REACH. IV FLUIDS INFUSING DIRECTED.
--- NOTE | 2022-02-08 04:29 | NUR ---
IN PT ROOM FOR ROUNDING, PT REPORTS PAIN 8/10 AT THIS TIME. PRN DILAUDID GIVEN (SEE EMAR). CALL LIGHT WITHIN REACH, NO FURTHER NEEDS AT THIS TIME. CONTINUOUS IV FLUIDS INFUSING DIRECTED.
--- NOTE | 2022-02-08 05:35 | NUR ---
PT RESTING ON RT SIDE W/EYES CLOSED. RESPIRATIONS ARE EVEN AND UNLABORED, NO SIGNS OF DISTRESS. CALL LIGHT WITHIN REACH, IV FLUIDS INFUSING DIRECTED. IV SITE WNL.
--- NOTE | 2022-02-08 06:12 | NUR ---
IN PT ROOM D/T REPORTED PAIN 6/10 AND NAUSEA. PRN DILAUDID GIVEN (SEE EMAR). THIS RN IN ROOM FOR PHENERGEN ADMIN. STANDBY ASSIST FOR PT TO RESTROOM, PT STEADY ON FEET, 300 ML OUTPUT. WARM BLANKET PROVIDED. PT REPORTS NO BURNING OR PAIN AT IV SITE AT THIS TIME. PT NOW RELAXING W/EYES CLOSED.
--- NOTE | 2022-02-08 06:32 | NUR ---
IV PUMP ALARMING, ISSUE RESOLVED. IV SITE REMAINS WNL, FLUIDS INFUSING WNL. CALL LIGHT IN REACH. NO ADDITIONAL NEEDS OR CONCERNS VERBALIZED.
--- NOTE | 2022-02-08 07:32 | NUR ---
REPORT RECEIVED FROM BASIL SERRANO. PT RESTING IN BED. REPORTS NAUSEA HAS IMPROVED BUT PAIN REMAINS ELEVATED AT 7/10 IN RIGHT UPPER ABDOMEN. PT REQUESTS ADDITIONAL PAIN MEDICATION. SEE MAR FOR MEDICATION GIVEN. PT DENIES ADDITIONAL REQUESTS OR COMPLAINTS. CALL LIGHT WITHIN REACH. BED RAILS UP.
--- NOTE | 2022-02-08 09:32 | NUR ---
MORNING ASSESSMENT AND MEDICAITON DUE. PT RESTING IN BED. BEGINS CRYING OUT WHEN THIS RN ENTERS ROOM. PT RPEORTS 6/10 RIGHT UPPER QUADRANT PAIN AND REQUESTS ADDITIONAL PAIN MEDICATION, SEE MAR FOR MEDICATION GIVEN. PT ALERT AND OREINTED TO ALL. LUNG SOUNDS CLEAR. HEART TONES REGULAR. ABODME SOFT BUT VERY TENDER IN UPPER QUADRANTS. FLANK PAIN ALSO NOTED, TENDER TO TOUCH. ABDOMEN MILDY DISTENDED, BOWEL TONES VEYR HYPOACTIVE. PT REPORTS NAUSEA HAS RESOLVED STATING "SO FAR IT SEEMS TO BE GONE." PT RETURNS TO RESTING WITH EYES CLOSED, WARM BLANKETS PROVIDED. CALL LIGHT WITHIN REACH. BED RAILS UP.
--- NOTE | 2022-02-08 10:03 | NUR ---
THIS RN TO ROOM TO CHECK ON PT. PT REPORTS NAUSEA CONTINUES TO BE RESOLVED. PT REPORTS 6/10 PAIN CONTINUES IN ABODOMEN AND NOW "MOSTLY IN MY BACK NOW." HEAT PACK PROVIDED PER PT REQUEST. NO ADDITIONAL NEEDS AT THIS TIME. CALL LIGHT WITHIN REACH. BED RAILS UP.
--- NOTE | 2022-02-08 10:57 | NUR ---
THIS RN TO ROOM TO CHECK ON PT. PT RESTING ON LEFT SIDE WITH EYES CLOSED, RESPIRATIONS EVEN AND UNLABORED. BED RAILS UP. CALL LIGHT WITHIN REACH. BED RAILS UP.
--- NOTE | 2022-02-08 12:15 | NUR ---
THIS RN TO ROOM TO CHECK ON PT. PT RESTING WITH EYES CLOSED ON BACK, HEAD OF BED AT 20 DEGREES, WITH EYES CLOSED. RESPIRATIONS EVEN AND UNLABORED. PT ALLOWED TO REST. CALL LIGHT WITHIN REACH. BED RAILS UP.
--- NOTE | 2022-02-08 12:43 | NUR ---
THIS RN TO ROOM TO CHECK ON PT. PT RESTING ON RIGHT SIDE, EYES OPEN. PT REPORTS 7/10 PAIN IN RIGHT ABDOMEN AND BACK AND REQUESTS PAIN MEDICATION, SEE MAR FOR MEDICATION GIVEN. PT DENIES NAUSEA. PT REPORTS THE HEAT PACK IS HELPING. NO ADDITIONAL REQUESTS OR COMPLAINTS. CALL LIGHT WITHIN REACH. BED RAILS UP.
--- NOTE | 2022-02-08 13:59 | NUR ---
PATIENT IS SLEEPING.
--- NOTE | 2022-02-08 14:42 | NUR ---
PATIENT LAYING IN THE BED. REQUESTING A PAIN MED. CALL LIGHT WITH IN REACH. NO FURTHER NEEDS AT THIS TIME.
--- NOTE | 2022-02-08 14:43 | NUR ---
PT REPORTING 6/10 PAIN. 1MG DILAUDID ADMINISTERED.
--- NOTE | 2022-02-08 14:59 | NUR ---
AFTERNOON ASSESSMENT DUE. PT RESTING IN BED, AWAKE AND STATES SHE IS "TRYING TO REST." PT REPORTS 5/10 ABDOMINAL AND MID BACK PAIN AT THIS TIME AND STATES SHE "THEY JUST GAVE ME SOMETHING." PT REPORTS PAIN IS WELL CONTROLLED, AND DENIES NEED FOR ADDIITONAL PAIN MEDICAITON. PT CONTINUES TO STATE THAT NAUSEA IS RESOLVED. PT ENCOAURGED TO GET UP TO RESTROOM TO VOID. PT UP WITH STAND BY ASSIST FOR LINE AND TUBE MANAGEMENT. PT VOIDS 350ML OF CLEAR YELLOW URINE AT THIS TIME. PT PERFORMS SELF DEN CARE. NEW IV FLUID BAG HUNG. LUNG SOUNDS CLEAR, HEART TONES REGULAR. ABDOMEN REMAINS SOFT BUT TENDER. HYPOACTIVE BOWEL TONES NOTED. NO ADDITIONAL REQUESTS OR COMPLAINTS AT THIS TIME. PT RESTING IN SUPINE POSITON WITH HEAD OF BED AT 14 DEGREES. CALL LIGHT WITHIN REACH. BED RAILS UP.
--- NOTE | 2022-02-08 15:32 | NUR ---
THIS RN TO ROOM TO CHECK ON PT. PT RESTING ON RIGHT SIDE WITH EYES CLOSED, RESPRIATIONS EVEN AND UNLABORED. BED RAILS UP. CALL LIGHT WITHIN REACH. PT ALLOWED TO REST.
--- NOTE | 2022-02-08 16:32 | NUR ---
PUBLIC HEALTH ANALYST REPORTS TO THIS RN THAT PT HAS PULLED OUT HER IV. THIS RN TO ROOM. DRESSING LOOSE BUT IV REMAINS IN PLACE. IV ASSESSED, WNL. NEW DRESSING PLACED PER PROTOCOL. PT REPORTS 6/10 PAIN AND REQUESTS PAIN MEDICATION, SEE MAR FOR MEDICATION GIVEN. PT ROCKING AND ROLLING ARROUND IN BED. PT DENIES NAUSEA. NO ADDITIONAL REQUESTS OR COMPLAINTS. CALL LIGHT WITHIN REACH. BED RAILS UP.
--- NOTE | 2022-02-08 17:20 | NUR ---
PT HERE FOR PANCREATITIS. PT REMAINS IN BED FOR MOST OF SHIFT ALTHOUGH GETS UP TO RESTROOM WITH STAND BY ASSIST. PT REMAINS NPO THROUGHOUT SHIFT. NO ADDITIONAL NAUSEA SO FAR THIS SHIFT. PRN PAIN MEDICAITONS GIVEN FREQUENTLY FOR 5-8/10 PAIN. ABDOMEN SOFT BUT TENDERS. FLANK PAIN ALSO NOTED. BOWEL TONES HYPOACTIVE. PT ALERT AND ORIENTED. LUNG SOUNDS CLEAR. HEART TONES REGULAR. PT VOIDING QUANITTY SUFFICIENT. PT USES CALL LIGHT AND MAKES NEEEDS KNOWN.
--- NOTE | 2022-02-08 17:34 | NUR ---
PATIENT REFUSED SHOWER TODAY. I EVEN AKSED HER IF SHE WOULD LIKE TO DO A SHAMPOO CAP AND SHE WAS TO TIRED.
--- NOTE | 2022-02-08 20:30 | NUR ---
IN PT ROOM D/T CALL LIGHT ANSWERED FOR PAIN/NAUSEA. PAIN 8/10 IN ABDOMEN AT THIS TIME. PRN ZOFRAN AND DILAUDID GIVEN (SEE EMAR). IV SITE WNL. NEW BAG OF CONTINUOUS FLUIDS HANGING, INFUSING DIRECTED. ASSESSMENT PERFORMED. PT IS A&O. REPORTS NO DIZZINESS, SOB, N/T AT THIS TIME. BOWEL TONES ARE HYPOACTIVE X4, ABDOMEN TENDER IN EPIGASTRIC/LUQ, AND MILDLY DISTENDED PER PT. SKIN IS C/D/I, NO SIGNS OF SKIN BREAKDOWN, PT IS ABLE TO MOVE SELF IN BED. LAW EXAMINER STANDBY ASSIST W/PT TO RESTROOM, GAIT IS STEADY AT THIS TIME. CALL LIGHT WITHIN REACH, NO FURTHER NEEDS AT THIS TIME.
--- NOTE | 2022-02-08 23:00 | NUR ---
IN PT ROOM FOR ANSWERED CALL LIGHT. PT REPORTS 8/10 PAIN IN ABDOMEN AFTER AMBULATION TO VOID IN RESTROOM, STANDBY ASSIST. PRN DILAUDID GIVEN (SEE EMAR). PT REPORTED NAUSEA, PRN PHENERGEN GIVEN (SEE EMAR). PT STATED NO BURNING OR PAIN W/ADMIN, IV SITE WNL. PT NOW RESTING IN BED W/EYES CLOSED. RESPIRATIONS ARE EVEN AND UNLABORED, NO SIGNS OF DISTRESS. CALL LIGHT WITHIN REACH.
--- NOTE | 2022-02-09 01:16 | NUR ---
PT RESTING W/EYES CLOSED. RESPIRATIONS ARE EVEN AND UNLABORED, NO SIGNS OF DISTRESS. CALL LIGHT WITHIN REACH.
--- NOTE | 2022-02-09 01:47 | NUR ---
call light answered, iv pump alarming. new bag iv fluids hung and infusing as directed, iv site wnl. prn pain medication also given for reported 8/10 abdominal pain, see emar. pt also up sba to void, output 600mls noted. call light in reach.
--- NOTE | 2022-02-09 04:41 | NUR ---
IN PT ROOM D/T REQUEST FOR PAIN MEDS. PT STATES PAIN IN ABDOMEN POST AMBULATION IS 7/10. PRN DILAUDID GIVEN (SEE EMAR). ASSESSMENT PERFORMED. NO ACUTE CHANGES FROM PREVIOUS ASSESSMENT. ABDOMEN TENDER IN EPIGASTRIC, LUQ W/PALPATION, MINIMALLY DISTENDED, AND BOWEL TONES HYPOACTIVE. PT STATES SHE HAD MINISCULE BM. CALL LIGHT WITHIN REACH, NO FURTHER NEEDS AT THIS TIME.
--- NOTE | 2022-02-09 07:21 | NUR ---
REPORT RECEIVED FROM BASIL SERRANO. PT RESTING ON BACK WITH EYES CLOSED, RESPIRATIONS EVEN AND UNLABORED. PT ALLOWED TO REST. CALL LIGHT WITHIN REACH. BED RAILS UP.
--- NOTE | 2022-02-09 08:59 | NUR ---
MORNING ASSESSMENT AND MEDICAITON DUE. PT RESTING IN BED. PT REPORTS PAIN HAS IMPROVED NOW 3/10 IN ABDOMEN AND 5/10 IN MID BACK/FLANKS. PT DENIES NEED FOR ADDIITONAL PAIN MEDICATION. PT REPORTS NAUSEA HAS RESOLVED. PT ALERT AND ORINTED TO ALL, WATCHING TV AT THIS TIME. LUNG SOUDNS CLEAR. HEART TONES REGUALR. BOWEL TONES MORE ACTIVE TODAY. ABODME REMAINS SOFT BUT TENDER TO TOUCH. FLANKS ALSO TENDER. MILD DISTENTION NOTED. PT AGREES TO FLU VACCINATION, GIVEN PER MD ORDER. PT DENIES ADDIITONAL REQUESTS OR COMPLAINTS. CALL LIGHT WITHIN REACH. BED RAILS UP.
--- NOTE | 2022-02-09 10:04 | NUR ---
THIS RN TO ROOM TO CHECK ON PT. PT RESTING ON BACK, WATCHING TV. PT REPORTS 6/10 ABDOMINAL AND MID BACK PAIN, PT DECLINES PAIN MEDICATION AT THIS TIME. PT REPORTS NASUEA CONTINUES TO BE RESOLVED. PT DENIES ADDITIONAL REQUSETS OR COMPLAINTS. CALL LIGHT WITHIN REACH. BED RAILS UP.
--- NOTE | 2022-02-09 11:05 | NUR ---
PT CALL LIGHT ON. PT REQUESTS PAIN MEDICATION FOR 6/10 RIGHT UPPER QUDRANT ABDOMINAL PAIN AND 6/10 MID BACK/FLANK PAIN. SEE MAR FOR MEDICATION GIVEN. PT DENIES NASUEA. NEW IV FLUID BAG HUNG. PT RESTING ON RIGHT SIDE WITH EYES CLOSED, DENIES ADDITIONAL REQUSETS OR COMPLAINTS. CALL LIGHT WITHIN REACH. BED RAILS UP.
--- NOTE | 2022-02-09 12:04 | NUR ---
THIS RN TO ROOM TO CHECK ON PT. PT RESTING ON BACK WITH EYES CLOSED, RESPIRATIONS EVEN AND UNLABORED. PT ALLOWED TO REST. CALL LIGHT WITHIN REACH. BED RAILS UP.
--- NOTE | 2022-02-09 13:01 | NUR ---
THIS RN TO ROOM TO CHECK ON PT. PT RESTING IN BED, AWAKE AND ALERT. PT REPORTS 6/10 ABDOMINAL PAIN AND DENIES NEED FOR PAIN MEDICATION. PT DENIES NAUSEA. PT STATES SHE IS READY TO TRY CLEAR LIQUIDS. JELLO AND LEMON MCGRATH SODA PROVIDED PER PTS REQUEST. PT ENCORAUGED TO TAKE PO INTAKE SLOWLY. PT DENIES ADDITIONAL REQUESTS OR COMPLAINTS. CALL LIGHT WITHIN REACH. BED RAILS UP.
[2022-02-09] MEDS ORDERED: ONDANSETRON ODT8 MG SL ×2 (13:48)
--- NOTE | 2022-02-09 13:56 | NUR ---
AFTERNOON ASSESSMENT DUE. PT CALL LIGHT ON. PT REQUESTS PAIN MEDICATION FOR 6/10 ABDOMINAL AND MID BACK PAIN. SEE MAR FOR MEDICATION GIVEN. PT STATES SHE WAS ABLE TO TAKE "A FEW BITES" OF JELLO AND IS "TAKING IT SLOW." PT DENIES ANY RETURN OF NAUSEA. VITAL SIGNS STABLE. BOWEL TONES ACTIVE. ABDOMEN SOFT BUT TENDER TO TOUCH ESPICIALLY IN RIGHT UPPER QUADRANT. FLANKS REMAIN TENDER TO TOUCH WELL. LUNG SOUNDS CLEAR. HEART TONES REGULAR. PT DENIES ADDITIONAL REQUESTS OR COMPLAINTS. CALL LIGHT JEY ANDERSON. BED RAILS UP.
--- NOTE | 2022-02-09 15:24 | NUR ---
THIS RN TO ROOM TO CHECK ON PT. PT RESTING ON BACK WITH EYES CLOSED, RESPRIATIONS EVEN AND UNLABORED. BED RAILS UP. CALL LIGHT WITHIN REACH. PT ALLOWED TO REST.
--- NOTE | 2022-02-09 15:37 | NUR ---
PT CALL LIGHT ON. PT REQUESTS ASSISTANCE UP TO RESTROOM AND STATES SHE IS READY TO GO HOME. STAND BY ASSIST UP TO RESTROOM. PT VOIDS 700ML CLEAR YELLOW URINE. PT PERFORMS SELF DEN CARE. PT BACK TO BED. PT ADVISED TO TRY EATING CLEAR LIQUIDS (JELLO AND LEMON [place] TRIBE) TO SEE IF SHE CAN TOELRATE PO FLUIDS. PT AGREES "YEAH, I GUESS I'M NOT READY, I JUST DON'T WANT TO BE HERE FOR DAVID." PT DENIES ADDITIONAL REQUESTS OR COMPLAINTS. REPORTS 3/10 PAIN IN ABDOMEN AT THIS TIME. AND DENIES NAUSEA. NO ADDITIONAL REQUSETS OR COMPLAINTS. CALL LIGHT WITHIN REACH. BED RAILS UP.
--- NOTE | 2022-02-09 16:26 | NUR ---
PT CALL LIGHT ON. PT REQUESTS PAIN MEDICATION FOR 7/10 ABDOMINAL PAIN. PT ALSO REPORTS NAUSEA. PT REPORTS SHE HAS "ONE MORE BITE." OF HER JELLO. PT STATES SHE IS "BUMMED" THAT SHE HAS TO STAY AT THE HOSPITAL BUT "I KNOW I NEED TO STAY." IV NOTED TO BE INFILTRATED AND PAINFUL WITH FLUSH. IV DC'D PER PROTOCOL. NEW IV STARTED TO RIGHT UPPER FORARM PER PROTOCOL, BRISK BLOOD RETURN NOTED. MEDICATION GIVEN. IV FLUIDS INFUSING. PT TALKING WITH HER SIGNIFICANT OTHER ON THE PHONE. NO ADDITONAL REQUESTS OR COMPLAINTS. CALL LIGHT WITHIN REACH. BED RAILS UP.
--- NOTE | 2022-02-09 17:15 | NUR ---
PT HERE FOR PANCREATITIS. PT REMAINS IN BED FOR MOST OF SHIFT ALTHOUGH GETS UP TO RESTROOM WITH STAND BY ASSIST. PT ADVANCED TO CLEAR LIQUID DIET, NOT YET TOLEARTING WELL. OCCATIONAL NAUSEA WITH PRN MEDICAITONS GIVEN. PRN PAIN MEDICAITONS GIVEN FREQUENTLY FOR 3-8/10 PAIN. ABDOMEN SOFT BUT TENDER. FLANK PAIN ALSO NOTED. BOWEL TONES HYPOACTIVE. PT ALERT AND ORIENTED. LUNG SOUNDS CLEAR. HEART TONES REGULAR. PT VOIDING QUANITTY SUFFICIENT. PT USES CALL LIGHT AND MAKES NEEEDS KNOWN.
--- NOTE | 2022-02-09 17:51 | NUR ---
THIS RN TO ROOM TO CHECK ON PT. PT TALKING WITH HER NEICE ON THE PHONE LAUGHING AND JOKING. PT REPORTS NAUSEA HAS RESOLVED. PT REPORTS 6/10 PAIN IN ABDOMEN AND MID BACK/FLANKS. PT STATES SHE NEEDS ADDITIONAL PAIN MEDICATION TO "KICK IT IN THE ASS." PT CONTINEUS TO DECLINE PO INTAKE, EATING VERY LITTLE OF CLEAR LIQUID TRAY FOR DINNER. NO ADDITIONAL REQUESTS OR COMPLAINTS. CALL LIGHT [employer] REACH. BED RAILS UP.
--- NOTE | 2022-02-09 18:23 | NUR ---
THIS RN TO ROOM TO CHECK ON PT. IV PUMP ALARMING, "DISTAL OCCLUSION." IV ASSESSED, WNL. INFUSION RESTARTED. PT RPEORTS 5/10 PAIN IN ABDOMEN AND MID BACK AND DENIES NEED FOR ADDITIONAL PAIN MEDICATION. PT DENIES NASUEA. PT DECLINES CLEAR LIQUID DINNER TRAY STATING "I'LL TRY AGAIN TOMORROW." ADDITIONAL LEMON HO-CHUNK SODA PROVIDED PER PT REQUEST. NO ADDITIONAL REQUESTS OR COMPLAINTS. CALL LIGHT WITHIN REACH. BED RAILS UP.
--- NOTE | 2022-02-09 19:15 | NUR ---
RECEIVED REPORT FROM CARRIE GRACIA. PT RESTING IN BED WATCHING TV AT THIS TIME. CONTINUOUS FLUIDS INFUSING DIRECTED. CALL LIGHT WITHIN REACH, PT REPORTS NO NEEDS AT THIS TIME.
--- NOTE | 2022-02-09 20:30 | NUR ---
IN PT ROOM D/T REQUEST FOR PAIN MED, PAIN 7/10 AT THIS TIME. PRN DILAUDID GIVEN (SEE EMAR). ASSESSMENT PERFORMED. LUNGS CLEAR THROUGHOUT, PULSES PRESENT THROUGHOUT. SKIN IS C/D/I, NO SIGNS OF SKIN BREAKDOWN, PT IS ABLE TO MOVE SELF IN BED. ABDOMEN IS TENDER IN EPIGASTRIC/LUQ AT THIS TIME AND MILDLY DISTENDED. ABDOMEN IS HYPOACTIVE X4. PAIN INCREASES W/MOVEMENT. ORAL FLUIDS ENCOURAGED, PT TOLERATES SPRITE AT THIS TIME. PT IS A&O X4. CALL LIGHT WITHIN REACH, CONTINUOUS FLUIDS INFUSING (IV SITE WNL), NO FURTHER NEEDS AT THIS TIME.
--- NOTE | 2022-02-09 21:30 | NUR ---
CALL LIGHT ANSWERED. SBA TO THE BATHROOM AND BACK TO BED. WARM BLANKETS PROVIDED. NO OTHER CARE NEEDS AT THIS TIME.
--- NOTE | 2022-02-09 23:45 | NUR ---
PT RESTING W/EYES CLOSED. RESPIRATIONS ARE EVEN AND UNLABORED, NO SIGNS OF DISTRESS. CALL LIGHT WITHIN REACH, CONTINUOUS FLUIDS INFUSING DIRECTED (IV SITE WNL).
--- NOTE | 2022-02-10 00:45 | NUR ---
patient called to use the bathroom. sba. patient is back in bed. patient provided with warm blanket. patient asked pain med and primary rn notified.
--- NOTE | 2022-02-10 00:50 | NUR ---
PT REQUESTS PRN PAIN MED FOR 7/10 ABDOMINAL PAIN. PRN DILAUDID GIVEN (SEE EMAR). PT NOW RESTING W/EYES CLOSED. RESPIRATIONS EVEN AND UNLABORED, NO SIGNS OF DISTRESS. PT REPORTS NO FURTHER NEEDS AT THIS TIME, CONTINUOUS FLUIDS INFUSING DIRECTED.
--- NOTE | 2022-02-10 01:52 | NUR ---
PT RESTING W/EYES CLOSED. RESPIRATIONS ARE EVEN AND UNLABORED, NO SIGNS OF DISTRESS. CALL LIGHT WITHIN REACH, IV FLUIDS INFUSING DIRECTED.
--- NOTE | 2022-02-10 03:50 | NUR ---
PT RESTING W/EYES CLOSED. RESPIRATIONS ARE EVEN AND UNLABORED, NO SIGNS OF DISTRESS. CALL LIGHT WITHIN REACH.
--- NOTE | 2022-02-10 06:36 | NUR ---
CALL LIGHT ANSWERED. pt COMPLAINS OF 7/10 ABDOMINAL PAIN. PRN PAIN MEDICATION ADMINISTERED. NO ADDITIONAL REQUESTS. IVF INFUSING WNL. pt CLOSING EYES RN LEAVES ROOM.
--- NOTE | 2022-02-10 07:14 | NUR ---
REPORT RECEIVED FROM BASIL SERRANO. PT RESTING IN BED WITH EYES CLOSED, SUPINE WITH HEAD OF BED AT 15 DEGREES. RESPIRATIONS EVEN AND UNLABORED. CALL LIGHT WITHIN REACH. BED RAILS UP. PT ALLOWED TO REST.
--- NOTE | 2022-02-10 09:04 | NUR ---
WENT IN TO PATIENT'S ROOM TO CHECK ON HER. ASKED HER IF SHE WOULD LIKE TO GET UP AND SIT IN HER CHAIR. AND SHE SAID NOT AT 8 O CLOCK IN THE MORNING. I DID GET HER TO WASH HER FACE. ASKED HER IF SHE WOULD LIKE TO TAKE A SHOWER TODAY AND SHE SAID MAYBE. WILL TRY AGAIN.
--- NOTE | 2022-02-10 09:32 | NUR ---
MORNING ASSESSMENT AND MEDICATION DUE. PT RESTING IN BED WITH HEAD OF BED AT 10 DEGREES. PT REPORTS 6/10 PAIN IN ABDOMEN AND MID BACK/FLANKS AND REQUESTS PAIN MEDICATION. SEE MAR FOR MEDICATION GIVEN. PT TOLERATING PO LEMON [place] SODA AND EATING BITS OF CLEAR LIQUID BREAFKAST. BMAT LEVEL 4, PT INDEPENDANT IN ROOM AND STEADY ON FEET. ABDOMEN SOFT AND NON TENDER. BOWEL TONES ACTIVE. BOWEL MOVEMENT NOTED YESTERDAY, PT REPORTS SHE IS PASSING GAS. PT TOELRATING CLEARS. PT ADVANCED TO FULL LIQUID LOW FAT DIET. EDUCATION DONE WITH PT REGARDING DIET FOR PANCREATITIS. PT VERBLAIZES UNDERSTANDING. PT REPORTS SHE IS READY FOR DISCHRAGE. MD TO ROOM AND DISCUSSES PLAN FOR DISCHARGE WITH PT. IV SALINE LOCKED PER MD ORDER. PT UP IN ROOM TO GET DRESSED ON HER OWN. NO ADDITIONAL REQUESTS OR COMPLAINTS. CALL LIGHT WITHIN REACH.
[2022-02-10] MEDS ORDERED: HYDROMORPHONE HC2 MG PO ×2 (09:54)
--- NOTE | 2022-02-10 10:26 | NUR ---
THIS RN TO ROOM TO CHECK ON PT. PT EATING PUDDING AND CRACKERS. PT DENEIS NASUEA AND REPROTS PAIN AT 4/10 PAIN IN ABDOMEN AND BACK/FLANK. PT REPORTS PAIN IS WELL CONTROLLED AND DENIES NEED FOR ADDITIONAL PAIN MEDICAITON. DISCHARGE INSTRUCTIONS REVIEWED WITH PT. PT VERBALZIES UNDERSTANDING AND STATES HER QUESTIONS HAVE BEEN ANSWERED. NO ADDITIONAL REQUESTS OR COMPALINTS. WAITING FOR PTS RIDE HOME AND TO MONITOR FOR PO INTAKE TOLERANCE. CALL LIGHT WITHIN REACH. BED RAILS UP.
--- NOTE | 2022-02-10 11:06 | NUR ---
TOOK PATIENT'S IV OUT.
--- NOTE | 2022-02-10 11:09 | NUR ---
PT CLEARED BY DR. LOU, VERBAL ORDERS, FOR DISCHRAGE. IV DC'D BY ILENE CASTILLO, WNL. PT REPROTS SHE FEELS READY FOR DISCHARGE. PT REPORTS 4/10 PAIN THAT IS WELL CONTROLLED. PT DENEIS NAUSEA. PT RIDE HOME ARRIVED. PT TRANSFERES SELF TO WHEELCHAIR. PT WHEELED FROM MED/SURG WITH ALL BELONGS. NO ADDIITONAL REQUESTS OR CONCERNS.
== END 2022-02-10 11:07 | disposition home or self-care (01) | DRG 440 ==
LOC: ED 16:19 → MS 19:07
PROVIDERS: ADMIT Family Medicine; ATTEND Internal Medicine
DX: K85.90 Acute pancreatitis without necrosis or infection, unspecified (principal); G43.909 Migraine, unspecified, not intractable, without status migrainosus; F17.210 Nicotine dependence, cigarettes, uncomplicated; Z20.822 Contact with and (suspected) exposure to COVID-19; K86.1 Other chronic pancreatitis; F43.10 Post-traumatic stress disorder, unspecified; R11.2 Nausea with vomiting, unspecified; E03.9 Hypothyroidism, unspecified; Z87.01 Personal history of pneumonia (recurrent); Z85.038 Personal history of other malignant neoplasm of large intestine; Z90.49 Acquired absence of other specified parts of digestive tract; Z90.710 Acquired absence of both cervix and uterus; Z98.890 Other specified postprocedural states; Z88.8 Allergy status to other drugs, medicaments and biological substances; Z79.899 Other long term (current) drug therapy
CPT/HCPCS: 36415; 80048; 80053; 81003; 83690; 83735; 84100; 85025; 87502; J1170; J1650; J2405; J2550; J7030; J7121; U0003

== ENCOUNTER 2022-02-18 06:41 | Emergency (ER) | payer OTHER ==
[~2022-02-18] VITALS: Ht 160 cm; Wt 54.7 kg
[~2022-02-18 06:41] MED LIST changes: +HYDROMORPHONE HC2 MG PO; +ONDANSETRON ODT8 MG SL
[2022-02-18] MEDS ORDERED: OXYCODONE HCL5 MG PO (07:04)
[2022-02-18] MEDS ORDERED: REGLAN10 MG PO (19:35)
== END 2022-02-18 20:12 | disposition home or self-care (01) ==
LOC: ED 06:41
DX: K85.90 Acute pancreatitis without necrosis or infection, unspecified (principal); G43.909 Migraine, unspecified, not intractable, without status migrainosus; F43.10 Post-traumatic stress disorder, unspecified; F17.200 Nicotine dependence, unspecified, uncomplicated; Z88.8 Allergy status to other drugs, medicaments and biological substances; Z79.899 Other long term (current) drug therapy
CPT/HCPCS: 36415; 80053; 83605; 83690; 85025; 96361; 96374; 96375; 96376; 99284-25; J1170; J2405; J2550; J2765; J7030; J7121

== ENCOUNTER 2022-03-18 07:58 | Emergency (ER) | payer OTHER ==
[~2022-03-18] VITALS: Ht 160 cm; Wt 53.4 kg
--- NOTE | 2022-03-18 13:08 | EKG ---
[facility] [address] [place] [address] Signed Normal sinus rhythm Nonspecific ST abnormality Abnormal ECG When compared with ECG of 05-MAY-2021 05:36, No significant change was found Confirmed by MARIA ELENA DALTON MD ([id number]) on 03/18/2022 1:08:46 PM Electronically Signed By: MARIA ELENA DALTON MD 03/18/22 1308 PATIENT NAME: JOHNATHAN GOMEZ Rigoberto Electrocardiogram DATE OF : 63 PHYSICIAN: MARIA ELENA DALTON MD REPORT #: [id number] REPORT IS CONFIDENTIAL AND NOT TO BE RELEASED WITHOUT AUTHORIZATION
[2022-03-18] MEDS ORDERED: ACID-PEP20 MG PO (17:04)
[2022-03-19] MEDS ORDERED: K-TAB ER20 MEQ PO (14:49)
[2022-03-19] MEDS ORDERED: ONDANSETRON ODT4 MG PO (14:52)
== END 2022-03-18 17:14 | disposition home or self-care (01) ==
LOC: ED 07:58
DX: R10.13 Epigastric pain (principal); R11.2 Nausea with vomiting, unspecified; F17.200 Nicotine dependence, unspecified, uncomplicated; Z88.8 Allergy status to other drugs, medicaments and biological substances
CPT/HCPCS: 36415; 74176; 80053; 83690; 83735; 85025; 85060; 93005; 93010; 96374; 96375; 99284-25; J1170; J2060; J2405; J7030

== ENCOUNTER 2022-03-19 10:46 | Emergency (ER) | payer OTHER ==
[~2022-03-19] VITALS: Ht 160 cm; Wt 52.5 kg
[~2022-03-19 10:46] MED LIST changes: +ACID-PEP20 MG PO
[2022-03-19] MEDS ORDERED: K-TAB ER20 MEQ PO (14:49)
[2022-03-19] MEDS ORDERED: ONDANSETRON ODT4 MG PO (14:52)
== END 2022-03-19 16:41 | disposition home or self-care (01) ==
LOC: ED 10:46
DX: E87.6 Hypokalemia (principal); R11.10 Vomiting, unspecified; F19.20 Other psychoactive substance dependence, uncomplicated; G43.909 Migraine, unspecified, not intractable, without status migrainosus; F17.200 Nicotine dependence, unspecified, uncomplicated; Z88.8 Allergy status to other drugs, medicaments and biological substances; Z79.899 Other long term (current) drug therapy
CPT/HCPCS: 36415; 80048; 81003; 83690; 85025; 85060; 96374; 96375; 99284-25; A9270; J1170; J1200; J1790; J3480; J7030

== ENCOUNTER 2022-04-09 02:04 | Emergency (ER) | payer OTHER ==
[~2022-04-09] VITALS: Ht 160 cm; Wt 52.5 kg
[~2022-04-09 02:04] MED LIST changes: +K-TAB ER20 MEQ PO
[2022-04-09] MEDS ORDERED: PROMETHAZINE HC25 M1 PO (04:45)
[2022-04-09] MEDS ORDERED: REGLAN10 MG PO (04:45)
[2022-04-09] MEDS ORDERED: COMPAZINE25 MG PR (04:45)
== END 2022-04-09 06:08 | disposition home or self-care (01) ==
LOC: ED 02:04
DX: R10.13 Epigastric pain (principal); R11.2 Nausea with vomiting, unspecified; G43.909 Migraine, unspecified, not intractable, without status migrainosus; F17.200 Nicotine dependence, unspecified, uncomplicated; Z88.8 Allergy status to other drugs, medicaments and biological substances; Z79.899 Other long term (current) drug therapy
CPT/HCPCS: 80053; 83690; 85025; 96374; 96375; 99284-25; J2405; J2550; J2765; J7030

== ENCOUNTER 2023-03-11 12:27 | Emergency (ER) | payer OTHER ==
[~2023-03-11] VITALS: Ht 160 cm; Wt 53.4 kg
[~2023-03-11 12:27] MED LIST changes: +COMPAZINE25 MG PR; -ENZYMATIC DIGE1 EACH PO; -ESCITALOPRAM OX20 MG PO; -IPRAT-ALBUT 0.5-3 ML INH; +SUBOXONE 8 MG-1 EAC1 SL
[2023-03-11 12:40] LABS: BASOPHILS 0.8 % (0-2); EOSINOPHILS 3.5 % (0-6); HEMATOCRIT 45.9 % (35.0-50.0); HEMOGLOBIN 15.6 g/dL (12.0-18.0); LYMPHOCYTES 25.4 % (24-44); MCH 34.4 (27-36); MCHC 33.9 g/dl (30-36); MCV 101.4 fl (81-99); MONOCYTES 7.4 % (0-12); NEUTROPHILS 62.9 % (39-80); PLATELET COUNT 371 K/uL (140-440); RBC 4.53 M/ul (4.3-5.7); RDW 13.9 (10.5-15.0)
[2023-03-11 12:55] LABS: ALBUMIN 3.1 g/dL (3.4-5.0); ALBUMIN/GLOBULIN RATIO 0.62 (1.1-2.4); ANION GAP 15.6 (7-21); BILIRUBIN, TOTAL 0.4 ng/dL (0.2-1.0); BUN/CREATININE RATIO 5.43 (6.0-28.6); CALCIUM 9.2 mg/dL (8.5-10.1); CREATININE, SERUM 0.92 mg/dL (0.55-1.02); POTASSIUM 4.6 mmol/L (3.5-5.1); PROTEIN, TOTAL 8.1 g/dL (6.4-8.2)
[2023-03-11 13:52] LABS: BILIRUBIN, URINE NEGATIVE (negative); BLOOD/HGB, URINE NEGATIVE (Negative); KETONE, URINE NEGATIVE (Negative); LEUK ESTERASE, URINE NEGATIVE (negative); NITRITE, URINE NEGATIVE (negative); PH, URINE 6.5 (5-7)
[2023-03-11] MEDS ORDERED: ONDANSETRON ODT4 MG PO (16:36)
[2023-03-11] MEDS ORDERED: MORPHINE SULFAT15 MG PO (16:36)
[2023-03-11 16:40] VITALS: BP 135/84
[2023-03-11] MEDS ORDERED: PROMETHAZINE HC25 MG PR (21:10)
[2023-03-11] MEDS ORDERED: TRAMADOL HCL50 MG PO (21:10)
[2023-03-12] MEDS ORDERED: FOLIC ACID1 MG PO (10:44)
[2023-03-12] MEDS ORDERED: ROPINIROLE HC0.25 MG PO (10:45)
[2023-03-12] MEDS ORDERED: CLONIDINE HCL0.2 MG PO (10:45)
[2023-03-12] MEDS ORDERED: ESCITALOPRAM OX20 MG PO (10:45)
[2023-03-12] MEDS ORDERED: LEVOTHYROXINE88 MCG PO (10:46)
[2023-03-12] MEDS ORDERED: EZETIMIBE10 MG PO (10:46)
[2023-03-12] MEDS ORDERED: OMEPRAZOLE40 MG PO (10:46)
[2023-03-12] MEDS ORDERED: GABAPENTIN300 MG PO (10:46)
[2023-03-12] MEDS ORDERED: IRON325 M1 PO (11:53)
[2023-03-12] MEDS ORDERED: BUPROPION XL150 MG PO (11:53)
[2023-03-12] MEDS ORDERED: POTASSIUM CHLO10 MEQ PO (11:54)
[2023-03-12] MEDS ORDERED: ENZYMATIC DIGE1 EACH PO (11:55)
[2023-03-12] MEDS ORDERED: VENTOLIN HFA18 GM INH (11:56)
[2023-03-12] MEDS ORDERED: IPRAT-ALBUT 0.5-3 ML INH (11:56)
== END 2023-03-11 16:40 | disposition home or self-care (01) ==
LOC: ED 12:27
PROVIDERS: Emergency Medicine
DX: K86.1 Other chronic pancreatitis (principal); F17.200 Nicotine dependence, unspecified, uncomplicated; Z88.8 Allergy status to other drugs, medicaments and biological substances; Z79.899 Other long term (current) drug therapy
CPT/HCPCS: 36415; 74177; 80053; 81003; 83690; 85025; 96361; 96375; 96376; 99284-25; J1170; J2405; J7030; Q9967

== ENCOUNTER 2023-03-11 19:34 | Emergency (ER) | payer OTHER ==
[~2023-03-11] VITALS: Ht 160 cm; Wt 53.4 kg
[~2023-03-11 19:34] MED LIST changes: +MORPHINE SULFAT15 MG PO
[2023-03-11] MEDS ORDERED: TRAMADOL HCL50 MG PO (21:10)
[2023-03-11] MEDS ORDERED: PROMETHAZINE HC25 MG PR (21:10)
[2023-03-11 21:35] VITALS: BP 150/78
[2023-03-12] MEDS ORDERED: FOLIC ACID1 MG PO ×2 (10:44)
[2023-03-12] MEDS ORDERED: ROPINIROLE HC0.25 MG PO ×2 (10:45)
[2023-03-12] MEDS ORDERED: ESCITALOPRAM OX20 MG PO ×2 (10:45)
[2023-03-12] MEDS ORDERED: CLONIDINE HCL0.2 MG PO ×2 (10:45)
[2023-03-12] MEDS ORDERED: LEVOTHYROXINE88 MCG PO ×2 (10:46)
[2023-03-12] MEDS ORDERED: GABAPENTIN300 MG PO ×2 (10:46)
[2023-03-12] MEDS ORDERED: EZETIMIBE10 MG PO ×2 (10:46)
[2023-03-12] MEDS ORDERED: OMEPRAZOLE40 MG PO ×2 (10:46)
[2023-03-12] MEDS ORDERED: IRON325 M1 PO ×2 (11:53)
[2023-03-12] MEDS ORDERED: BUPROPION XL150 MG PO ×2 (11:53)
[2023-03-12] MEDS ORDERED: POTASSIUM CHLO10 MEQ PO ×2 (11:54)
[2023-03-12] MEDS ORDERED: ENZYMATIC DIGE1 EACH PO ×2 (11:55)
[2023-03-12] MEDS ORDERED: VENTOLIN HFA18 GM INH ×2 (11:56)
[2023-03-12] MEDS ORDERED: IPRAT-ALBUT 0.5-3 ML INH ×2 (11:56)
== END 2023-03-11 21:36 | disposition home or self-care (01) ==
LOC: ED 19:34
DX: K86.1 Other chronic pancreatitis (principal); F17.200 Nicotine dependence, unspecified, uncomplicated; Z88.8 Allergy status to other drugs, medicaments and biological substances; Z79.890 Hormone replacement therapy; Z79.899 Other long term (current) drug therapy
CPT/HCPCS: 96374; 96375; 99284-25; J1200; J1790; J2270

== ENCOUNTER 2023-03-12 04:13 | Observation (INO) | payer OTHER ==
[~2023-03-12] VITALS: Ht 160 cm; Wt 60.5 kg
[2023-03-12] VITALS (7 sets, daily range): BP systolic 134–175; BP diastolic 77–109
[~2023-03-12 04:13] MED LIST changes: +PROMETHAZINE HC25 MG PR; +TRAMADOL HCL50 MG PO
[2023-03-12 04:58] LABS: HEMATOCRIT 40.8 % (35.0-50.0); HEMOGLOBIN 13.9 g/dL (12.0-18.0); MCH 33.8 (27-36); MCV 99.4 fl (81-99); PLATELET COUNT 337 K/uL (140-440); RBC 4.11 M/ul (4.3-5.7); RDW 13.4 (10.5-15.0)
[2023-03-12 05:11] LABS: ALBUMIN 3.1 g/dL (3.4-5.0); ALBUMIN/GLOBULIN RATIO 0.7 (1.1-2.4); ANION GAP 16.4 (7-21); BANDS, MANUAL DIFF 2; BILIRUBIN, TOTAL 0.3 ng/dL (0.2-1.0); BUN/CREATININE RATIO 5.15 (6.0-28.6); CALCIUM 9.1 mg/dL (8.5-10.1); CREATININE, SERUM 0.97 mg/dL (0.55-1.02); LYMPHOCYTES, MANUAL DIFF 12; MONOCYTES, MANUAL DIFF 3; NEUTROPHILS, MANUAL DIFF 83; POTASSIUM 3.4 mmol/L (3.5-5.1); PROTEIN, TOTAL 7.5 g/dL (6.4-8.2)
--- NOTE | 2023-03-12 06:11 | NUR ---
pt ARRIVED TO MS FLOOR AT THIS TIME, TRANSFERRED SLEF TO BED. BROUGHT TO FLOOR BY PRIMARY RN NICKY. VS COLLECTED AND pt ORIENTED TO ROOM AND DISCUSSED POC FOR REMAINING SHIFT, QUESTIONS ANSWERED. IV SITE WNL, CURRENTLY SALINE LOCKED. ADMISSION COMPLETED AND CALL LIGHT IN REACH. pt REPORTS BURNING FEELING IN STOMACH R/T BILE/EMESIS, PRIMARY RN AWARE AND IN ROOM COMPLETING ASSESSMENT/pt CARES.
--- NOTE | 2023-03-12 07:30 | NUR ---
recieved pt report from nurse. pt is currently asleep. EVEN AND UNLABORED BREATHING NOTED CALL LIGHT WITHIN REACH
--- NOTE | 2023-03-12 08:45 | NUR ---
PT RECIEVED MEDS. PT STATES CURRENT IV IS BURNING. LOWERED RATE OF MEDS AND PT STILL COMPLAINS OF BURNING. CHARGE NURSE NOTIFIED AND STATES THAT SMALL BUSINESS REPRESENTATIVE WILL BE DOING A GUIDED IV START WITH IMAGING. PT IS CURRRENLY IN BED RESTING NO OTHER CARES NEEDED AT THIS TIME CALL LIGHT WIN REACH
--- NOTE | 2023-03-12 09:50 | NUR ---
UR REVIEW: UTILIZED MCG 03/12/23, PATIENT MEETS OBSERVATION CRITERIA FOR INTRACTABLE NAUSEA AND VOMITING EVEN AFTER TREATMENT IN EMERGENCY DEPARTMENT.
--- NOTE | 2023-03-12 10:30 | NUR ---
PATIENT RESTING IN BED VITALS CHARTED. PATIENT C/O HEADACHE. COOL WASHCLOTH PLACED ON FOREHEAD. BASIL OLIVA NOTIFIED OF HEADACH AND 100.0 TEMP. CALL LIGHT IN EASY REACH
[2023-03-12] MEDS ORDERED: FOLIC ACID1 MG PO ×2 (10:44)
[2023-03-12] MEDS ORDERED: ESCITALOPRAM OX20 MG PO ×2 (10:45)
[2023-03-12] MEDS ORDERED: ROPINIROLE HC0.25 MG PO ×2 (10:45)
[2023-03-12] MEDS ORDERED: CLONIDINE HCL0.2 MG PO ×2 (10:45)
--- NOTE | 2023-03-12 10:45 | NUR ---
DR LUTHER TALKED WITH PT AND ASKED ABOUT CODE STATUS. ALSO REQUESTED STAT BLOOD CULTURE, STAT CBC WITH MANUAL DIFFERENTIAL, AND STAT CMP LABS. ORDERS SENT. PT IS ALSO COMPLAINING OF PAIN DR REQUESTED PT TO RECIEVE MORPHINE 4MG.
[2023-03-12] MEDS ORDERED: EZETIMIBE10 MG PO ×2 (10:46)
[2023-03-12] MEDS ORDERED: LEVOTHYROXINE88 MCG PO ×2 (10:46)
[2023-03-12] MEDS ORDERED: GABAPENTIN300 MG PO ×2 (10:46)
[2023-03-12] MEDS ORDERED: OMEPRAZOLE40 MG PO ×2 (10:46)
--- NOTE | 2023-03-12 11:05 | NUR ---
clerical warehouse worker GABRIEL PUT IN AN IV 18G WITH 2.5 LENGTH IN PT LEFT AC. PT RECIEVED 4MG OF MORPHINE AND ALSO 4MG OF ZOFRAN. PT IS CURRENTLY IN ROOM TALKING WITH STANTON STEPHENSON. PT REQUESTED ICE CHIPS. NO OTHER CARES NEEDED OR REQUESTED AT THIS TIME CALL LIGHT WITHIN REACH
[2023-03-12 11:17] LABS: HEMATOCRIT 41.8 % (35.0-50.0); MCH 33.7 (27-36); MCHC 33.5 g/dl (30-36); MCV 100.6 fl (81-99); PLATELET COUNT 349 K/uL (140-440); RBC 4.16 M/ul (4.3-5.7); RDW 13.7 (10.5-15.0)
[2023-03-12 11:28] LABS: ALBUMIN 3.2 g/dL (3.4-5.0); ALBUMIN/GLOBULIN RATIO 0.74 (1.1-2.4); ANION GAP 15.5 (7-21); BILIRUBIN, TOTAL 0.4 ng/dL (0.2-1.0); CALCIUM 9.2 mg/dL (8.5-10.1); POTASSIUM 3.5 mmol/L (3.5-5.1); PROTEIN, TOTAL 7.5 g/dL (6.4-8.2)
[2023-03-12 11:41] LABS: LYMPHOCYTES, MANUAL DIFF 17; MONOCYTES, MANUAL DIFF 4; NEUTROPHILS, MANUAL DIFF 79
[2023-03-12] MEDS ORDERED: BUPROPION XL150 MG PO ×2 (11:53)
[2023-03-12] MEDS ORDERED: IRON325 M1 PO ×2 (11:53)
[2023-03-12] MEDS ORDERED: POTASSIUM CHLO10 MEQ PO ×2 (11:54)
[2023-03-12] MEDS ORDERED: ENZYMATIC DIGE1 EACH PO ×2 (11:55)
[2023-03-12] MEDS ORDERED: VENTOLIN HFA18 GM INH ×2 (11:56)
[2023-03-12] MEDS ORDERED: IPRAT-ALBUT 0.5-3 ML INH ×2 (11:56)
--- NOTE | 2023-03-12 11:56 | NUR ---
MED REC COMPLETE
--- NOTE | 2023-03-12 12:04 | NUR ---
ASSESSMENT COMPLETE PT IS CURRENTLY RESTING NO OTHER CARES NEEDED OR REQUESTED AT THIS TIME CALL LIGHT WITHIN REACH
--- NOTE | 2023-03-12 13:30 | NUR ---
Spoke with Kendall and she states she cont. to live alone in her apartment. She does not drive and she does not use any DME. She plans on return to her home when discharged. She states she has a follow up appt at [facility] 03-27-21 to remove a stent. Pt denies needs and will go home on dc.
--- NOTE | 2023-03-12 16:40 | NUR ---
pt states that pain is increasing in her back, abdominal area, and head. morphine given. vitals are being assessed per dr instructions. vitals take. no outside normals recorded no other cares needed or requested at this time call light within reach
--- NOTE | 2023-03-12 19:41 | NUR ---
REPORT RECIEVED FROM DAY SHIFT RN. PATIENT REPORTS HAVING ANXIETY. MD NOTIFIED OF ANXIETY AND ELEVATED BP. VERBAL ORDER FOR ATIVAN. VERIFIED USING REPEAT BACK METHOD.
--- NOTE | 2023-03-12 20:02 | NUR ---
waiting on telepharmacy to verify one time prn ativan, this rn in room to update pt. pt grimacing and resting in bed, but once rn talks about tv show pt perks up and smiles and interacts with staff-no distress noted. pt aware primary rn to administer prn anxiety medication once verified, call light in reach.
--- NOTE | 2023-03-12 20:24 | NUR ---
PRN ANXIETY MEDICATION ADMINISTERED, SEE MAR. PATIENT RIGHT HAND IV LEAKING AND PAINFUL. RIGHT HAND IV DCd WNL WITH CATHETER TIP INTACT. IV FLUSHED AND WNL. ASSESSMENT COMPLETE. ABD DISTENDED AND MILDY TENDER. PATIENT REPORTS NO FURTHER NEEDS. CALL LIGHT IN REACH.
--- NOTE | 2023-03-12 21:05 | NUR ---
IN ROOM FOR PRIMARY RN TO RECOLLECT VS, BP IMPROVED AND VSS. pt REPORTS SHE IS "STARTING TO FEEL BETTER", NO ADDITIONAL NEEDS OR CONCERNS. CALL LIGHT IN REACH. pt LEFT WATCHING TV IN BED. PRIMARY RN UPDATED AND AWARE.
--- NOTE | 2023-03-12 22:51 | NUR ---
PATIENT RESTING IN BED ON BACK WITH EYES CLOSED. RESPIRATIONS EVEN AND UNLABORED. CALL LIGHT IN REACH.
--- NOTE | 2023-03-12 23:57 | NUR ---
NEW BAG IV FLUID INFUSING PER ORDER. NO FURTHER NEEDS. CALL LIGHT IN REACH.
[2023-03-13] VITALS (7 sets, daily range): BP systolic 152–197; BP diastolic 84–115
--- NOTE | 2023-03-13 00:31 | NUR ---
SPOKE WITH . VERBAL ORDER RECIEVED FOR COREY PALMER. VERIFIED BY READBACK METHOD.
--- NOTE | 2023-03-13 02:15 | NUR ---
PATIENT RESTING IN BED. PATIENT REPORTS 6/10 HEAD AND BACK PAIN, REQUESTING PAIN MEDICATION. PRN PAIN MEDICATION ADMINISTERED PER PATIENT REQUEST. PATIENT HAS NO FURTHER NEEDS. CALL LIGHT IN REACH.
--- NOTE | 2023-03-13 04:13 | NUR ---
PATIENT RESTING IN BED ON LEFT SIDE OF BODY. RESPIRATIONS EVEN AND UNLABORED. CALL LIGHT IN REACH.
[2023-03-13 05:28] LABS: BASOPHILS 0.9 % (0-2); EOSINOPHILS 1.5 % (0-6); HEMATOCRIT 41.5 % (35.0-50.0); HEMOGLOBIN 13.7 g/dL (12.0-18.0); LYMPHOCYTES 30.1 % (24-44); MCH 33.6 (27-36); MCV 101.8 fl (81-99); MONOCYTES 9.5 % (0-12); PLATELET COUNT 303 K/uL (140-440); RBC 4.08 M/ul (4.3-5.7); RDW 13.8 (10.5-15.0)
[2023-03-13 05:43] LABS: ALBUMIN 2.7 g/dL (3.4-5.0); ALBUMIN/GLOBULIN RATIO 0.71 (1.1-2.4); ANION GAP 17.8 (7-21); BILIRUBIN, TOTAL 0.4 ng/dL (0.2-1.0); BUN/CREATININE RATIO 4.58 (6.0-28.6); CALCIUM 8.3 mg/dL (8.5-10.1); CREATININE, SERUM 1.09 mg/dL (0.55-1.02); POTASSIUM 3.8 mmol/L (3.5-5.1); PROTEIN, TOTAL 6.5 g/dL (6.4-8.2)
--- NOTE | 2023-03-13 06:32 | NUR ---
PATIENT RESTING IN BED WITH EYES CLOSED. RESPIRATIONS EVEN AND UNLABORED. ASSESSMENT COMPLETE. BOWEL TONES ACTIVE IN ALL 4 QUADRANTS. NO CURRENT COMPLAINTS OF PAIN. NO FURTHER NEEDS. CALL LIGHT IN REACH.
--- NOTE | 2023-03-13 07:44 | NUR ---
RECIEVED REPORT FROM NURSE AT 0720. PT IS CURRENTLY IN BED RESTING WITH EYES CLOSED AND EVEN UNLABORED BREATHING NOTED. NURSE REPORTED PT STATING PAIN LEVEL HAS BEEN BETWEEN 7-8. WILL CONTINUE TO MONITOR. NO CARES NEEDED AT THIS TIME CALL LIGHT WITHIN REACH.
--- NOTE | 2023-03-13 08:46 | NUR ---
PT MEDS GIVEN AND ASSESSMENT COMPLETE. PT STATES THAT SHE STILL "HAS A HEADACHE NEAR MY TEMPORAL LOBES". PT WAS GIVEN 1 MG OF ATIVAN . PT IS CURRENTLY RESTING WITH EYES CLOSED. NO ABNORMAL FINDINGS FROPM BASELINE. NO OTHER CARES NEEDED OR REQUESTED AT THIS TIME CALL LIGHT WITHIN REACH
--- NOTE | 2023-03-13 11:06 | NUR ---
pt requested nausea medication. when entered room pt was sitting up in bed leaning over a emesis bag and burping and spitting. no signs of emesis at the moment. but denita givemedication as prescribed. check emar. no other cares needed or requested call light within reach
--- NOTE | 2023-03-13 11:30 | NUR ---
called dr partida to inform him that pt is having severe nausea and anxiety. said to give pt 0.5 mg of ativan.
--- NOTE | 2023-03-13 12:08 | NUR ---
pt is having severe nausea with some 100ml of yellow emesis. pt is currently in the restroom trying to Void.
--- NOTE | 2023-03-13 13:24 | NUR ---
pt states "can you please knock me out. can you put me under?, can't i have a sedative? if i dont get something im gonna end up hurting myself. im not on drugs but why do i feel like im going through withdrawals? IM PROBBABLY HAVING A REACTION TO THE MORPHINE IM USE TO TAKING DILAUDID" THESE ARE ALL THE STATEMENTS SAID BY PT. PT IS ALSO SHAKING AND PULLING ON HER HAIR YET STATES THAT THE ISSUE IS NAUSEA. SHE IS SCREAMING AND NOW STATING THAT SHE IS IN PAIN. WHEN ASKED WHERE SHE STATES "IN MY STOMACH ALL OVER"COMPAZINE, ZOFRAN AND ATIVAN WAS ALL GIVEN RETOOK VITALS AFTER AND BP IS NOW 155/103 WITH A PULSE OF 95
--- NOTE | 2023-03-13 14:15 | NUR ---
PT C/O NAUSEA, PAIN IN "HEAD AND STOMACH" RATING 6?10. PT RESP RATE 32. INSTRUCTING PT THROUGH DEEP BREATHING, RESP RATE TO 22. PT SHAKING AND CONSTANTLY MOVING IN BED. ONE TIME ORDER FOR 5MG MORPHINE GIVEN. PRIMARY RN IN ROOM. CALL LIGHT IN REACH.
--- NOTE | 2023-03-13 14:45 | NUR ---
ATTEMPT TO INSERT IV UNSUCESSFULL. PT CONTINUES TO SHAKE AND MOVE IN BED, INCREASED RESP RATE, PT C/O ANXIETY STATING "WHATS WRONG WITH ME" PT PROVIDED THERAPEUTIC COMMUNICATION AND INSTRUCTED TRHOUGH DEEP BREATHING, BERTRAND RN IN ROOM. IV INSERTED. PT CONTINUES TO SHAKE AND WRITHE IN BED WITH INCREASED RESP RATE, CONTINUES TO C/O ANXIETY. CALL IN TO DR PRESLEY REGARDING PT BEHAVIOR, DR PRESLEY TO ROUND ON PT.
--- NOTE | 2023-03-13 14:57 | NUR ---
IN TO SEE PATIENT. NAUSEATED, ANXIOUS, ROLLING AROUND IN BED, SHAKINESS NOTED. 2 RN'S AT BEDSIDE. IV STARTED BY THIS NURSE X1 ATTEMPT WHILE IN ROOM. PATIENT DENIES DRUG OR ALCOHOL USE PRIOR TO ADMISSION. ENCOURAGED TO TAKE SLOW, DEEP BREATHS, DOES SO AND SHAKINESS DECREASES. UNABLE TO COMPLETE ASSESSMENT AT THIS TIME. WILL REATTEMPT AT A LATER TIME.
--- NOTE | 2023-03-13 15:15 | NUR ---
PT EXITS ROOM, APPEARS TO BE ANXIOUS. DIRECTED BACK TO ROOM, INTO BED. PROVIDED REASSURANCE, PT FOLLOWING INSTRUCTION FOR DEEP BREATHING. APPEARS ANXIETY IMPROVED AND PT RESTING WITH EYES CLOSED, RESPRATIONS 18, EVEN AND UNLABORED. DR PRESLEY TO FLOOR TO DISCUSS PLAN OF CARE WITH RN AND PRIMARY RN, HAZEL. NO NEW ORDERS AT THIS TIME. PT CONTINUES TO REST IN BED, CALL LIGHT IN REACH.
[2023-03-13 15:43] LABS: AMPHETAMINES, URINE NEGATIVE (NEGATIVE); BARBITURATES, URINE NEGATIVE (NEGATIVE); BENZODIAZEPINE, URINE NEGATIVE (NEGATIVE); BUPRENORPHINE, URINE NEGATIVE (NEGATIVE); CANNABINOID, URINE POSITIVE (NEGATIVE); COCAINE, URINE NEGATIVE (NEGATIVE); ECSTASY, URINE NEGATIVE (NEGATIVE); FENTANYL, URINE POSITIVE (NEGATIVE); METHADONE, URINE NEGATIVE (NEGATIVE); OPIATES, URINE POSITIVE (NEGATIVE); OXYCODONE, URINE NEGATIVE (NEGATIVE); PHENCYCLIDINE, URINE NEGATIVE (NEGATIVE)
--- NOTE | 2023-03-13 16:07 | NUR ---
PT RESTING QUIETLY IN BED, RESPIRATIONS EVEN AND UNLABORED. CALL LIGHT IN REACH.
--- NOTE | 2023-03-13 16:37 | NUR ---
REQUEST FROM CHARGE NURSE NOT TO WAKE PATIENT AT THIS TIME.
--- NOTE | 2023-03-13 18:10 | NUR ---
PT CONTINUES TO REST WITH EYES CLOSED, RESPIRATIONS EVEN AND UNLABORED, RATE 16. CALL LIGHT IN REACH.
--- NOTE | 2023-03-13 19:15 | NUR ---
REPORT RECIEVED FROM HAZEL GRACIA. pt RESTING IN THE BED. BOARD UPDATED. CALL LIGHT WITHIN REACH. IV ASSESSED, WNL.
--- NOTE | 2023-03-13 21:30 | NUR ---
ASSESSMENT AND VITAL SIGNS DONE. PO MEDICATIONS ADMINISTERED, SEE MAR. pt DENIES ANY NAUSEA OR PAIN A THIS TIME. 120 PO FLUIDS DRANK. IVF INFUSING PER ORDER, SEE MAR. WARM BLAKET PROVIDED. WATER REFRESHED. pt DENIES ANY OTHER NEEDS AT THIS TIME.
--- NOTE | 2023-03-13 21:55 | NUR ---
pt CALLED C/O NAUSEA. IV ZOFRAN ADMINISTERED, SEE MAR. pt TOLERATED. EMESIS BAG PROVIDED pt DENIES ANY OTHER NEEDS AT THIS TIME. CALL LIGHT WITHIN REACH.
--- NOTE | 2023-03-13 22:30 | NUR ---
pt CALLED COMPLAINING OF MORE NAUSEA AND PAIN. WHEN THIS RN WENT THE RM pt WAS SIPPING WATER AT THE TIME. THIS RN ENCOURAGE pt TO STOP DRINKING THE WATER. PRN PAIN MEDICATION WAS ADMINSITERED AND PRN ANTI NAUSEA MEDICATION ADMINISTERED, SEE MAR. THIS RN ENCOURAGED pt TO STOP DTINKING FLUIDS FOR THE REST OF THE NIGHT. SO HER STOMACH CAN REST. pt AGREED. pt DENIES ANY OTHER NEEDS AT THIS TIME. CALL LIGHT WITHIN REACH.
--- NOTE | 2023-03-13 23:55 | NUR ---
pt RESTING IN THE BED WITH EYES CLOSED. RR EVEN AND UNLABORED. CALL LIGHT WITHIN REACH.
--- NOTE | 2023-03-14 02:00 | NUR ---
pt RESTING IN THE BED WITH EYES CLOSED. RR EVEN AND UNLABORED. NO S/SX OF OBVIOUS DISTRESS. CALL LIGHT WITHIN REACH.
--- NOTE | 2023-03-14 04:08 | NUR ---
pt RESTING IN THE BED WITH EYES CLOSED. RR EVEN AND UNLABORED. NO S/SX OF OBVIOUS DISTRESS. CALL LIGHT WITHIN REACH.
[2023-03-14 05:03] VITALS: BP 149/73
[2023-03-14 05:31] LABS: BASOPHILS 0.4 % (0-2); HEMATOCRIT 37.5 % (35.0-50.0); HEMOGLOBIN 12.4 g/dL (12.0-18.0); LYMPHOCYTES 34.7 % (24-44); MCH 33.9 (27-36); MCHC 33.2 g/dl (30-36); MONOCYTES 11.3 % (0-12); NEUTROPHILS 52.6 % (39-80); PLATELET COUNT 268 K/uL (140-440); RBC 3.68 M/ul (4.3-5.7); RDW 13.4 (10.5-15.0)
[2023-03-14 05:46] LABS: ALBUMIN 2.5 g/dL (3.4-5.0); ALBUMIN/GLOBULIN RATIO 0.71 (1.1-2.4); ANION GAP 13.2 (7-21); BILIRUBIN, TOTAL 0.5 ng/dL (0.2-1.0); BUN/CREATININE RATIO 7.5 (6.0-28.6); CREATININE, SERUM 0.8 mg/dL (0.55-1.02); POTASSIUM 3.2 mmol/L (3.5-5.1)
--- NOTE | 2023-03-14 07:23 | NUR ---
RECIEVED PT REPORT FROM NURSE AT 0700. PT IS CURRENTLY RESTING WITH EVEN UNLABORED BREATHING. NO CARES NEEEDED AT THIS TIME. CALL LIGHT WITHIN REACH.
--- NOTE | 2023-03-14 07:26 | NUR ---
RECIEVED REPORT FROM NURSE. PT IS CURRENTLY RESTING WITH EYES CLOSED AND EVEN UNLABORED BREATHING NOTED. NO CARES NEEDED AT THIS TIME. CALL LIGHT WITHIN REACH
--- NOTE | 2023-03-14 08:53 | NUR ---
PT STATES PAIN IS 7/10. MORPHINE GIVEN. PT IS TOLRATING ORAL LIQUIDS AND PILLS. NO SIGNS OF NAUSEA OR VOMITING. NO OTHER CARES NEEDED AT THIS TIME CALL LIGHT WITHIN REACH
[2023-03-14 10:00] VITALS: BP 132/77
--- NOTE | 2023-03-14 11:13 | NUR ---
PT STATES THAT SHE IS FEELING MUCH BETTER. SHE IS TOLERATING FLUIDS AND PO MEDS WITHOUT NAUSEA OR EMESIS EPISODES. PT VITALS ARE STABLE AND PT HAS BEEN UP IN HER CHAIR IN THE ROOM. PT IS ASKING FOR DR TO SEE WHAT TIME SHE CAN BE DISCHARGED. I INFORMED PT THAT I WILL PASS ALONG HER MESSAGE. NO OTHER CARES NEEDED OR REQUESTED AT THIS TIME CALL LIGHT WITHIN REACH
--- NOTE | 2023-03-14 11:46 | NUR ---
dr met with pt and dr ordered 20 mg ptassium po, 2g magnesium iv, and kreon enzymes. pt diet changed to full liquid as well. pt states that shes feeling better and ready to go home. no other cares needed or requested at this time call light within reach
== END 2023-03-14 15:35 | disposition home or self-care (01) ==
LOC: ED 04:13 → MS 04:15
PROVIDERS: Family Medicine; ADMIT Internal Medicine; ATTEND Internal Medicine
DX: K85.90 Acute pancreatitis without necrosis or infection, unspecified (principal); K86.1 Other chronic pancreatitis; G89.29 Other chronic pain; F41.9 Anxiety disorder, unspecified; J44.9 Chronic obstructive pulmonary disease, unspecified; F32.9 Major depressive disorder, single episode, unspecified; F43.10 Post-traumatic stress disorder, unspecified; F17.290 Nicotine dependence, other tobacco product, uncomplicated; Z88.8 Allergy status to other drugs, medicaments and biological substances; Z79.899 Other long term (current) drug therapy
CPT/HCPCS: 36415; 80053; 80307; 83690; 83735; 85025; A9270; C9113; J0780; J1200; J1650; J1790; J1885; J2060; J2270; J2405; J3010; J3475; J3480; J3490; J7030; J7060; J7121

== ENCOUNTER 2023-09-18 18:41 | Emergency (ER) | payer OTHER ==
[~2023-09-18] VITALS: Ht 160 cm; Wt 59.1 kg
[~2023-09-18 18:41] MED LIST changes: +BUPROPION XL150 MG PO; +ENZYMATIC DIGE1 EACH PO; +ESCITALOPRAM OX20 MG PO; +EZETIMIBE10 MG PO; +FOLIC ACID1 MG PO; +IPRAT-ALBUT 0.5-3 ML INH; +IRON325 M1 PO; +LEVOTHYROXINE88 MCG PO; +OXYCODONE-ACET1 EAC1 PO; +POTASSIUM CHLO10 MEQ PO
[2023-09-18] MEDS ORDERED: PANTOPRAZOLE SODIUM 40 MG/10 ML VIAL IV ONE (19:00)
[2023-09-18] MEDS ORDERED: SODIUM CHLORIDE 0.9% 1,000 ML IV PRN (19:00)
[2023-09-18] MEDS ORDERED: PROCHLORPERAZINE EDISYLATE 10 MG/2 ML VIAL IV ONE (19:00)
[2023-09-18] MEDS ORDERED: fentaNYL citrate 100 MCG/2 ML VIAL IV ONE (19:00)
[2023-09-18] MEDS ORDERED: LOPERAMIDE HCL 2 MG CAP PO ONE (19:30)
[2023-09-18 19:38] LABS: EOSINOPHILS 1.3 % (0-6); HEMATOCRIT 48.6 % (35.0-50.0); HEMOGLOBIN 16.4 g/dL (12.0-18.0); LYMPHOCYTES 33.2 % (24-44); MCHC 33.7 g/dl (30-36); MONOCYTES 8.4 % (0-12); NEUTROPHILS 56.1 % (39-80); PLATELET COUNT 285 K/uL (140-440); RBC 4.96 M/ul (4.3-5.7); RDW 14.7 (10.5-15.0)
[2023-09-18] MEDS ORDERED: droPERidol 5 MG/2 ML VIAL IV ONE (19:45)
[2023-09-18 19:53] LABS: ALBUMIN/GLOBULIN RATIO 0.77 (1.1-2.4); ALCOHOL, MEDICAL <3 ng/dL (<3); ALKALINE PHOSPHATASE 162 U/L (46-116); ALT (SGPT) 17 U/L (14-59); ANION GAP 16.6 (7-21); AST (SGOT) 19 U/L (15-37); BILIRUBIN, TOTAL 0.6 ng/dL (0.2-1.0); BUN/CREATININE RATIO 6.38 (6.0-28.6); CALCIUM 8.7 mg/dL (8.5-10.1); CARBON DIOXIDE 19 mmol/L (21-32); CHLORIDE 100 mmol/L (98-107); CREATININE, SERUM 0.94 mg/dL (0.55-1.02); GLOMERULAR FILTRATION RATE,EST 70 mL/min (>60); MAGNESIUM 1.9 mg/dL (1.8-2.4); POTASSIUM 3.6 mmol/L (3.5-5.1); PROTEIN, TOTAL 6.9 g/dL (6.4-8.2); UREA NITROGEN 6 mg/dL (7-18)
[2023-09-18] MEDS ORDERED: SUCRALFATE 1 GM TAB PO ONE (20:15)
[2023-09-18] MEDS ORDERED: LORazepam 2 MG/ML VIAL IV ONE (20:15)
[2023-09-18] MEDS ORDERED: LIDOCAINE & ANTACID 35 ML BTL PO ONE (20:15)
[2023-09-18] MEDS ORDERED: SODIUM CHLORIDE 0.9% 1,000 ML IV ONE (20:15)
[2023-09-18] MEDS ORDERED: CARAFATE1 GM PO (21:43)
[2023-09-18] MEDS ORDERED: PROTONIX40 MG PO (21:43)
[2023-09-18] MEDS ORDERED: PROMETHAZINE HCL 25 MG HOME.PACK PO ONE (21:45)
[2023-09-18] MEDS ORDERED: LORazepam 1 MG HOME.PACK PO ONE (21:45)
[2023-09-18 21:58] VITALS: BP 133/79
--- NOTE | 2023-09-20 09:42 | EKG ---
[facility] [address] [facility] [place] [id number] Signed Normal sinus rhythm Nonspecific ST abnormality Abnormal ECG When compared with ECG of 18-MAR-2022 08:47, No significant change was found Confirmed by DAPHNIE TOWNSEND MD ([id number]) on 09/20/2023 9:42:25 AM Electronically Signed By: DAPHNIE TOWNSEND 09/20/23 0942 PATIENT NAME: JASONJOHNATHAN Franklin Electrocardiogram DATE OF : 63 PHYSICIAN: DAPHNIE TOWNSEND REPORT #: [id number] REPORT IS CONFIDENTIAL AND NOT TO BE RELEASED WITHOUT AUTHORIZATION
== END 2023-09-18 21:58 | disposition home or self-care (01) ==
LOC: ED 18:41
PROVIDERS: Emergency Medicine
DX: R11.2 Nausea with vomiting, unspecified (principal); F10.10 Alcohol abuse, uncomplicated; F17.200 Nicotine dependence, unspecified, uncomplicated; Z88.8 Allergy status to other drugs, medicaments and biological substances; Z79.890 Hormone replacement therapy; Z79.899 Other long term (current) drug therapy
CPT/HCPCS: 36415; 80053; 83605; 83690; 83735; 85025; 93005; 93010; 96361; 96374; 96375; 99284-25; G0480; J0780; J1790; J2060; J2470; J3010; J7030

== ENCOUNTER 2023-10-15 13:03 | Inpatient (IN) | payer OTHER ==
[~2023-10-15] VITALS: Ht 160 cm; Wt 58.4 kg
[~2023-10-15 13:03] MED LIST changes: +CARAFATE1 GM PO
[2023-10-15] MEDS ORDERED: ondansetron HCL 4 MG/2 ML VIAL IV ONE ×2 (13:30→15:30)
[2023-10-15 13:42] LABS: HEMATOCRIT 47.1 % (35.0-50.0); HEMOGLOBIN 15.8 g/dL (12.0-18.0); MCH 32.3 (27-36); MCHC 33.5 g/dl (30-36); MCV 96.5 fl (81-99); PLATELET COUNT 294 K/uL (140-440); RBC 4.88 M/ul (4.3-5.7); RDW 14.8 (10.5-15.0)
[2023-10-15] MEDS ORDERED: droPERidol 5 MG/2 ML VIAL IV ONE (13:45)
[2023-10-15] MEDS ORDERED: SODIUM CHLORIDE 0.9% 1,000 ML IV ONE (13:45)
[2023-10-15] MEDS ORDERED: HYDROmorphone HCL 1 MG/ML SYR IV PRN ×2 (13:45→16:15)
[2023-10-15] MEDS ORDERED: diphenhydrAMINE HCL 50 MG/ML VIAL ONE (13:46)
[2023-10-15 13:51] LABS: ALBUMIN/GLOBULIN RATIO 0.81 (1.1-2.4); ALKALINE PHOSPHATASE 182 U/L (46-116); ALT (SGPT) 12 U/L (14-59); ANION GAP 12.7 (7-21); AST (SGOT) 12 U/L (15-37); BILIRUBIN, TOTAL 0.5 ng/dL (0.2-1.0); BUN/CREATININE RATIO 3.52 (6.0-28.6); CALCIUM 8.9 mg/dL (8.5-10.1); CARBON DIOXIDE 28 mmol/L (21-32); CHLORIDE 100 mmol/L (98-107); CREATININE, SERUM 0.85 mg/dL (0.55-1.02); GLOMERULAR FILTRATION RATE,EST 79 mL/min (>60); MAGNESIUM 1.7 mg/dL (1.8-2.4); POTASSIUM 3.7 mmol/L (3.5-5.1); PROTEIN, TOTAL 6.7 g/dL (6.4-8.2); UREA NITROGEN 3 mg/dL (7-18)
[2023-10-15 14:00] LABS: BASOPHILS, MANUAL DIFF 1; EOSINOPHILS, MANUAL DIFF 2; LYMPHOCYTES, MANUAL DIFF 23; MONOCYTES, MANUAL DIFF 7; NEUTROPHILS, MANUAL DIFF 67
[2023-10-15] MEDS ORDERED: diphenhydrAMINE HCL 50 MG/ML VIAL IV ONE (14:00)
[2023-10-15] MEDS ORDERED: ondansetron HCL 4 MG/2 ML VIAL IV PRN (16:15)
[2023-10-15] MEDS ORDERED: PROCHLORPERAZINE EDISYLATE 10 MG/2 ML VIAL IV PRN (16:15)
[2023-10-15] MEDS ORDERED: ONDANSETRON ODT8 MG PO (16:39)
[2023-10-15] MEDS ORDERED: SODIUM CHLORIDE 0.9% 1,000 ML IV SCH (17:30)
[2023-10-15 17:33] VITALS: BP 177/103
[2023-10-15] MEDS ORDERED: LACTATED RINGER'S 1,000 ML IV SCH (18:00)
--- NOTE | 2023-10-15 19:38 | NUR ---
REPORT RECIEVED FROM DAY SHIFT RN. PATIENT RESTING IN BED WITH EYES CLOSED. RESPIRATIONS EVEN AND UNLABORED. CALL LIGHT IN REACH.
[2023-10-15 19:45] VITALS: BP 145/91
[2023-10-15] MEDS ORDERED: ALBUTEROL SULFATE 0.083% 3 ML VIAL INH PRN (19:45)
--- NOTE | 2023-10-15 19:49 | NUR ---
NEW BAG IV FLUID INFUSING PER ORDER. VS AND I&Os OBTAINED AND RECORDED. BED ALARM ON FOR SAFETY. PATIENT DENIES FURTHER NEEDS AT THIS TIME. CALL LIGHT IN REACH.
[2023-10-15 20:23] VITALS: BP 145/91
[2023-10-15] MEDS ORDERED: MAGNESIUM SULFATE 2 GM/50 ML BAG IV ONE (20:45)
[2023-10-15] MEDS ORDERED: PANTOPRAZOLE SODIUM 40 MG/10 ML VIAL IV SCH (21:00)
--- NOTE | 2023-10-15 21:15 | NUR ---
SCHEDULED MEDICATION ADMINISTERED. IV FLUSHES WNL. PATIENT DENIES NEEDS. BED ALARM ON FOR SAFETY. CALL LIGHT IN REACH. ASSESSMENT COMPLETE.
--- NOTE | 2023-10-15 23:11 | NUR ---
CALL LIGHT ANSWERED. PT NEEDED TO USE BATHROOM. SLICING MACHINE FEEDER SBA TO BATHROOM AND INSTRUCTED PT TO WIPE BEFORE SHE VOIDED SO THAT SLICING MACHINE FEEDER COULD COLLECT UNRINE SAMPLE. PT FOLLOWED DIRECTIONS AND URINE SAMPLE COLLECTED AND SENT TO LAB. PT ASSISTED BACK TO BED AND REQUESTED PAIN MEDS. RN NOTIFED. PT STATES NO FURTHER NEEDS AT THIS TIME. CALL LIGHT WITHIN REACH.
[2023-10-15 23:17] LABS: BILIRUBIN, URINE NEGATIVE (negative); BLOOD/HGB, URINE NEGATIVE (Negative); KETONE, URINE NEGATIVE (Negative); LEUK ESTERASE, URINE NEGATIVE (negative); NITRITE, URINE NEGATIVE (negative)
--- NOTE | 2023-10-15 23:20 | NUR ---
PATIENT HEARD WRETCHING FROM THE NURSES STATION. PATIENT STATES "I NEED PAIN MEDS AND NAUSEA MEDS!". PATIENT CONTINUED WRETCHING. THIS RN ADMINISTERED IV PAIN MEDICATON AND NAUSEA MEDICATION PER PATIENT REQUEST. CPOX PLACED SINCE PATIENT IS RECEIVING IV PAIN MEDICATION WELL ON O2 THAT IS NOT CHRONIC. PATIENT HAS NO FURTHER NEEDS. BED ALARM ON FOR SAFETY. CALL LIGHT IN REACH.
[2023-10-15 23:29] LABS: AMPHETAMINES, URINE NEGATIVE (NEGATIVE); BARBITURATES, URINE NEGATIVE (NEGATIVE); BENZODIAZEPINE, URINE NEGATIVE (NEGATIVE); BUPRENORPHINE, URINE POSITIVE (NEGATIVE); CANNABINOID, URINE POSITIVE (NEGATIVE); COCAINE, URINE NEGATIVE (NEGATIVE); ECSTASY, URINE NEGATIVE (NEGATIVE); FENTANYL, URINE NEGATIVE (NEGATIVE); METHADONE, URINE NEGATIVE (NEGATIVE); OPIATES, URINE POSITIVE (NEGATIVE); OXYCODONE, URINE NEGATIVE (NEGATIVE); PHENCYCLIDINE, URINE NEGATIVE (NEGATIVE)
[2023-10-15] MEDS ORDERED: HYDROmorphone HCL 1 MG/ML SYR IV ONE (23:45)
--- NOTE | 2023-10-15 23:50 | NUR ---
CALL PLACED TO MD REGARDING PATIENTS PAIN. NEW ORDER RECIEVED. VERIFIED USING REPEAT BACK METHOD.
[2023-10-16] VITALS: BP 174/95
--- NOTE | 2023-10-16 00:07 | NUR ---
SCHEDULED IV PAIN MEDICATION ADMINISTERED. PRN NAUSEA MEDICATION ADMINSITERED. VS AND I&Os OBTAINED AND RECORDED. BED ALARM ON FOR SAFETY. PATIENT RESTING IN BED, APPEARS TO BE LESS PAINFUL. NO CURRENT NEEDS. CALL LIGHT IN REACH.
--- NOTE | 2023-10-16 01:33 | NUR ---
PATIENT RESTING IN BED WITH EYES CLOSED. RESPIRATIONS EVEN AND UNLABORED. CALL LIGHT IN REACH.
--- NOTE | 2023-10-16 01:43 | NUR ---
SUPERVISOR ROD PLACING OBTAINED VITALS AND I&O. PT BREIF CHECKED AND WAS DRY AND PUREWICK IN THE RIGHT POSITION. PT BLADDER SCANNED AT RN REQUEST. BLADDER SCANNER SHOWED 271. RN NOTIFED. PT STATES NO NEEDS AT THIS TIME. CALL LIGHT WITHIN REACH.
--- NOTE | 2023-10-16 02:50 | NUR ---
CALL LIGHT ANSWERED. PT NEEDED TO USE BATHROOM. 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 PT VOIDED. PT ASSISTED BACK TO BED. OUTPUT MEASURED. PT STATES NO FURTHER NEEDS AT THIS TIME. CALL LIGHT WITHIN REACH.
--- NOTE | 2023-10-16 03:01 | NUR ---
PATIENT HEARD WRETCHING FROM ROOM. PATIENT REPORTS PAIN. PRN PAIN MEDICATION ADMINISTERED. BED ALARM ON. CALL LIGHT IN REACH.
--- NOTE | 2023-10-16 03:23 | NUR ---
PATIENT REPORTING NAUSEA. CALL PLACED TO MD REGARDING NAUSEA. NEW ORDERS RECEIEVED. VERIFIED USING REPEAT BACK METHOD.
--- NOTE | 2023-10-16 03:28 | NUR ---
PATIENT RESTING IN BED ON BACK WITH EYES CLOSED. RESPIRATIONS EVEN AND UNLABORED. CALL LIGHT IN REACH.
[2023-10-16] MEDS ORDERED: diphenhydrAMINE HCL 50 MG/ML VIAL IV PRN (03:30)
--- NOTE | 2023-10-16 03:45 | NUR ---
IV ALARMING. NEW BAG INFUSING. PT WITH EYES CLOSED, RESP EVEN AND UNLABORED. CPOX READING 93 % O2, HR 76.
[2023-10-16 05:44] LABS: HEMATOCRIT 40.5 % (35.0-50.0); HEMOGLOBIN 13.6 g/dL (12.0-18.0); MCH 32.5 (27-36); MCHC 33.6 g/dl (30-36); MCV 96.9 fl (81-99); PLATELET COUNT 254 K/uL (140-440); RBC 4.18 M/ul (4.3-5.7); RDW 14.9 (10.5-15.0)
--- NOTE | 2023-10-16 05:53 | NUR ---
PATIENT HEARD WRETCHING FROM ROOM. PATIENT REPORTS 10/10 LUQ PAIN. PRN PAIN MEDICATION ADMINISTERED. PATIENT REPORTS NAUSEA. PRN NAUSEA MEDICATION ADMINISTERED. PATIENT VERY RESTLESS IN BED. PATIENT JUMPED OUT OF BED TO USE THE BATHROOM TO VOID. PATIENT BACK TO BED. NO FURTHER NEEDS AT THIS TIME. CALL LIGHT IN REACH.
[2023-10-16 05:56] LABS: BANDS, MANUAL DIFF 1; LYMPHOCYTES, MANUAL DIFF 10; MONOCYTES, MANUAL DIFF 6; NEUTROPHILS, MANUAL DIFF 83
[2023-10-16 05:57] LABS: ALBUMIN 2.5 g/dL (3.4-5.0); ALBUMIN/GLOBULIN RATIO 0.74 (1.1-2.4); ANION GAP 12.7 (7-21); BILIRUBIN, TOTAL 0.6 ng/dL (0.2-1.0); BUN/CREATININE RATIO 3.44 (6.0-28.6); CALCIUM 8.3 mg/dL (8.5-10.1); CREATININE, SERUM 0.87 mg/dL (0.55-1.02); MAGNESIUM 1.9 mg/dL (1.8-2.4); PHOSPHORUS, INORGANIC 3.3 mg/dL (2.5-4.9); POTASSIUM 3.7 mmol/L (3.5-5.1); PROTEIN, TOTAL 5.9 g/dL (6.4-8.2)
[2023-10-16 06:28] VITALS: BP 136/85
--- NOTE | 2023-10-16 07:41 | NUR ---
RECIEVED SHIFT REPORT. PT IS RESTING IN BED, EYES CLOSED BREATHING EVEN AND UNLABORED. CALL LIGHT IN REACH
--- NOTE | 2023-10-16 07:54 | NUR ---
UR CLINICAL REVIEW: [facility] [place]-[facility] INPT CRITERIA FOR PANCREATITIS. [facility] INPT 11/15/23 @ 1611 ORDER MATCHES REG WILL SEND CLINICAL FOR INPT AUTH DISCHARGE TO HOME WHEN STABLE 10/19/23
--- NOTE | 2023-10-16 08:30 | NUR ---
MORNING ASSESSMENT COMPLETE. PT HAS BEEN IN THE BATHROOM 3 TIMES DURING ASSESSMENT WITH FREQ URINATION. REPORTS 10/10 PAIN REQUESTING NAUSEA MEDICATION AND REPORTS THE PAIN IS FROM THE NAUSEA PRN [place]A MEDICATION ADMINISTERED (PER EMAR). WARM BLANKET PROVIDED. EDUCATED PT ON THE NAUSEA MEDICATION SCHEDULE. CALL LIGHT IN REACH.
[2023-10-16] MEDS ORDERED: ENOXAPARIN SODIUM 40 MG/0.4 ML SYR SUB-Q SCH (09:00)
[2023-10-16 09:27] VITALS: BP 130/83
[2023-10-16] MEDS ORDERED: LACTATED RINGER'S 1,000 ML IV SCH ×2 (09:45→20:45)
--- NOTE | 2023-10-16 10:24 | NUR ---
PATIENT ALERT AND ORIENTED IN BED. STATES SHE CONTINUES TO LIVE ALONE. DEMOGRAPHICS VERIFIED WITH HER. STATES SHE HAS HAS A CAREGIVER THROUGH THE STATE FOR 20 HOURS/MONTH. NO DME. CONTINUES TO HAVE [employer] ASSIST WITH UTILITIES, FOOD STAMPS THROUGH STATE. DENIES NEEDS FOR ANYTHING ELSE AT THIS TIME, BUT WILL NOTIFY STAFF IF THAT CHANGES. SHE DOES PLAN TO RETURN HOME AT TIME OF DC.
--- NOTE | 2023-10-16 11:17 | NUR ---
VISITED DURING SPIRITUAL CARE ROUNDS. PT APPEARED TO BE SLEEPING. DID NOT DISTURB. PROVIDED PRAYER.
--- NOTE | 2023-10-16 11:24 | NUR ---
PT USES CALL LIGHT, STATES NEEDS TO USE RESTROOM. PT UP TO RESTROOM WITH SBA, BACK TO BED. PT REQUESTS WARM BLANKET, GIVEN. PT STATES NO FURTHER NEEDS AT THIS TIME, CALL LIGHT WITHIN REACH.
--- NOTE | 2023-10-16 11:50 | NUR ---
ADMIN DILAUDID 1MG SLOW IV PUSH FOR REPORTS OF 10/10 ABDOMINAL PAIN.
[2023-10-16] MEDS ORDERED: PHARMACY RENAL DOSE ADJUSTMENT 1 DOSE MISC PO SCH (12:00)
[2023-10-16] MEDS ORDERED: CREON DR 24,001 EACH PO (12:24)
--- NOTE | 2023-10-16 12:24 | NUR ---
MED REC COMPLETE
--- NOTE | 2023-10-16 13:11 | NUR ---
IN PT REPORTING PAIN 8/10 TO LEFT SIDE OF ABD. PRN PAIN MEDICATIONS ADMINISTERED, SEE MAR. OFFERED HOT PACK, PT ACCEPTS. HOT PACK PROVIDED. PT DENIES ANY OTHER NEEDS AT THIS TIME. CALL LIGHT IN REACH.
[2023-10-16 14:29] VITALS: BP 156/80
--- NOTE | 2023-10-16 16:19 | NUR ---
PT NOTIFIED STAFF, LEGS AND STOMACH ARE CRAMPING. THIS RN IN ROOM TO ASSESS. SUGGESTED HEATPAD. PT STATES IT DOESNT WORK BUT IS WILLING TO TRY. CLAIRIFIED IF LEGS WERE CRAMPING AND PT STATES "NO IM NOT CRAMPING, I AM IN PAIN". PRN PAIN MEDICATION ADMINISTERED (PER EMAR).
[2023-10-16 17:57] VITALS: BP 149/79
--- NOTE | 2023-10-16 18:00 | NUR ---
VITALS AND I&OS CHARTED. PATIENT UP TO BR AT THIS TIME
--- NOTE | 2023-10-16 20:04 | NUR ---
RN CALLED TO ROOM, PT APPEARS PAINFUL, REQUESTING NAUSEA MEDICATION AND PAIN MEDICATION FOR PAIN 09/25, PT MEDICATED PER ORDER, PAIN IN ABDOMEN, IV SITE PATENT, AFTER MEDICATED PT URGENTLY WANTS TO GO TO BR, NURSE ASSIST, VOIDED 200ML DILUTE YELLOW URINE, PT BACK TO BED, WARM BLANKET GIVEN, WET SWAB TO [facility], ENCOURAGED TO CALL NURSE FOR ASSIST TO BR, SIDE RAILS UP X 3, BED LOW POSITION.
--- NOTE | 2023-10-16 20:25 | NUR ---
Pt report received from BASIL Mcpherson at about 1925 hours. Pt is A&O x4, requesting to get up to void. SBA as pt took her IV pole and ambulated unassisted to the toilet where she voided 600ml clear yellow urine. Collection device had 600ml clear yellow urine in it that was emptied prior to her using it again. Pt back to bed. Reports she accidentally tugged on her IV earlier and now it feels like her left upper arm is swollen. Pt denies any needs at this time. Call light in reach.
[2023-10-16 21:19] VITALS: BP 170/94
[2023-10-17] VITALS (11 sets, daily range): BP systolic 154–174; BP diastolic 89–98
--- NOTE | 2023-10-17 02:11 | NUR ---
RESTING, EYES CLOSED, NO DISTRESS, IVF INFUSING
--- NOTE | 2023-10-17 02:49 | NUR ---
PT AWAKE, UP TO BRP, VOIDED, BACK TO BED, IV INFILTRATED, ULTRASOUND GUIDED IV NEEDLE INTACT. 2X2 IN PLACE, ARM ELEVATED WITH PILLOWS, GOOD CMS. WILL TRY AND RESTART IV, COMPLIANT, NO C/O N/V OR PAIN. COOPERATIVE WITH ASSESSMENTS
--- NOTE | 2023-10-17 03:13 | NUR ---
PT TRASHING IN BED, SCREAMING, CRYING, RESTLESS, MOVING FROM SIDE TO SIDE FORCEFULLY. C/O ABD PAIN. STILL UNABLE TO START IV. DR HENRY NOTIFIED VIA PHONE. ORDERS FOR ZOFRAN 4-8 ODT Q6HPRN AND PERCOCET 1-2 TABS PO Q6HPRN UNTIL IV RESTARTED OBTAINED. PT NPO. PT NOTIFIED, AND NOTIFIED OF WAIT TIL PHARMACY VERIFIES MEDS. NOT RECEPTIVE
[2023-10-17] MEDS ORDERED: OXYCODONE/APAP 5/325 TAB PO PRN (03:15)
[2023-10-17] MEDS ORDERED: ONDANSETRON 4 MG TAB ODT SL PRN (03:15)
--- NOTE | 2023-10-17 03:23 | NUR ---
PT MEDICATED WITH ZOFRAN 4MG ODT, 2 PERCOCET WITH INMEDIATE DECREASE OF ABD PAIN AND FEELINGS OF BEING NAUSEATED
--- NOTE | 2023-10-17 04:06 | NUR ---
RESTING, EYES CLOSED, CALMER SINCE BEING MEDICATED. STILL UNABLE TO START IV
--- NOTE | 2023-10-17 04:57 | NUR ---
QUALIFICATIONS EXAMINER SHINE AT RN STATION AND TO pt ROOM TO ATTEMPT IV PLACEMENT.
--- NOTE | 2023-10-17 05:25 | NUR ---
2 PERIPHERAL IV ATTEMPTS UNSUCCESSFUL ON RUE.
--- NOTE | 2023-10-17 05:41 | NUR ---
Unable to restart IV after several tries. cool elizabeth wash rag and fan given on requests, declined abd pack to abd at this time. Restless but cooperative
--- NOTE | 2023-10-17 06:40 | NUR ---
sTILL UNABLE TO RESTART iv, C/O ABD PIN, NO S/SX N/V. WARM PAD TO HER ABD GIVEN EARLIER. REDUCED EDEMA TO LAC . VERY RESTLESS IN BED, REASSURED. WILL NOTIFY
--- NOTE | 2023-10-17 06:55 | NUR ---
DR NOTIFIED OF PT STILL C/O ABD PAIN 09/25, SCREAMING, WRITHING IN CANTU AND RESTLESS IN BED. ONE TIME ORDER FOR PERCOET OBTAINED, PT REASSURED. UNABEL TO START IV, INCOMING BAKERY AND DELI SALES MANAGER/ RN'S TO TRY AND RESTART IV SITE
[2023-10-17] MEDS ORDERED: OXYCODONE/APAP 5/325 TAB PO ONE (07:00)
--- NOTE | 2023-10-17 07:02 | NUR ---
ANAWA 9, MEDICATED WITH 1 PERCOCET, NEW ORDER.
--- NOTE | 2023-10-17 07:33 | NUR ---
RECEIVED REPORT FROM NOC NURSE. PT IS A/O, RESPIRATIONS EVEN AND REGULAR. PT IS MOANING AND STATING THAT SHE IS IN PAIN. PT LAST RECEIVED PO PAIN MEDS AT 0700. WHEN ASKED IF THERE WAS ANYTHING I COULD GET FOR HER SHE STATED "WHAT I NEED I CAN'T HAVE." PT DID STATE SHE WOULD LIKE SOMEONE TO RESTART HER IV. CURRENTLY WAITING ON PARCEL CARRIER SHE HAS HAD SEVERAL UNSUCCESSFUL IN IV ATTEMPTS.
[2023-10-17 09:19] LABS: BASOPHILS 0.5 % (0-2); EOSINOPHILS 0.4 % (0-6); HEMATOCRIT 38.8 % (35.0-50.0); HEMOGLOBIN 13.2 g/dL (12.0-18.0); LYMPHOCYTES 12.5 % (24-44); MCH 32.4 (27-36); MCV 95.3 fl (81-99); MONOCYTES 9.8 % (0-12); NEUTROPHILS 76.8 % (39-80); PLATELET COUNT 236 K/uL (140-440); RBC 4.07 M/ul (4.3-5.7); RDW 14.5 (10.5-15.0)
[2023-10-17 09:34] LABS: ALBUMIN 2.8 g/dL (3.4-5.0); ALBUMIN/GLOBULIN RATIO 0.82 (1.1-2.4); ANION GAP 15.7 (7-21); BILIRUBIN, TOTAL 0.8 ng/dL (0.2-1.0); BUN/CREATININE RATIO 3.48 (6.0-28.6); CALCIUM 8.4 mg/dL (8.5-10.1); CREATININE, SERUM 0.86 mg/dL (0.55-1.02); MAGNESIUM 1.3 mg/dL (1.8-2.4); PROTEIN, TOTAL 6.2 g/dL (6.4-8.2)
[2023-10-17 09:46] LABS: POTASSIUM 2.7 mmol/L (3.5-5.1)
[2023-10-17] MEDS ORDERED: LORazepam 0.5 MG TAB PO PRN (10:15)
[2023-10-17] MEDS ORDERED: POTASSIUM CHLORIDE 10 MEQ TABCR PO SCH (10:15)
[2023-10-17] MEDS ORDERED: MAGNESIUM OXIDE 400 MG TABLET PO ONE ×2 (10:15→22:15)
--- NOTE | 2023-10-17 17:13 | NUR ---
ROUNDED ON PT. PT REQUESTING PAIN MEDICATION FOR A PUGH BUT IT IS TOO SOON. OFFERED PT WARM CLOTH FOR HEAD AND TURNED THE LIGHTS OFF IN THE ROOM. PT IS INDEPENDENT IN THE ROOM AND TRANSFERRED SELF TO COUCH.
[2023-10-17 18:15] LABS: ANION GAP 14.1 (7-21); BUN/CREATININE RATIO 4.59 (6.0-28.6); CALCIUM 8.5 mg/dL (8.5-10.1); CREATININE, SERUM 0.87 mg/dL (0.55-1.02); MAGNESIUM 1.4 mg/dL (1.8-2.4); POTASSIUM 4.1 mmol/L (3.5-5.1)
--- NOTE | 2023-10-17 19:54 | NUR ---
AWAKE, WAS LAYING IN COUCH, C/O 8/10 ABD PAIN, MEDICATED WITH 2 PERCOCET. NO C/O FEELING NAUSEATED, TOOK SIPS OF FLUIDS. CONTINUES NPO, HAS DECELINED TO HAVE DIET CHANGES. STILL UNABLE TO HAVE IV RESTARTED. HAS BEEN TRIED MULTIPLE TIMES, AMRS AND FEET. INDEPENDENT IN ROOM, VOIDING QS YELLOW URINE. CLEAR LUNGS, ON ROOM AIR. ABD SLIGHT DISTENTION AND TENDERNESS. LBM 10/16/23. WAS WIGLING ARM WHEN BP WAS BEING TAKEN, 'IT HURTS TOO MUCH STATED'. DECLINED TO HAVE IT RETAKEN. LABOVE AC AREA BRUISED AREA FROM IV INFILTRATION YESTERDAY. WAS MORE PLEASANT AND COOPERATIVE, CALMER. DENIES TREMORS, CIWA DONE, SEE FLOW SHEET. BACK TO BED, WARM BLANKET GIVEN ON REQUESTS
--- NOTE | 2023-10-17 21:57 | NUR ---
PT CALLED FOR 2200 MEDS. PT HAD PREVIOUSLY BEEN INFORMED THAT HER NURSE WAS AWARE AND PLANNING ON GIVING HER THE MEDICATION AT 2200.
--- NOTE | 2023-10-17 22:00 | NUR ---
PT NOTIFIED OF MAG OF 1.4. NEW PRDER TO GIVE 800MG MAG OX PO ONCE. OK TO CHANGE DIET TO SIPS OF FLUIDS TOLERATED UNTIL ABLE TO RESTART IV
--- NOTE | 2023-10-17 22:14 | NUR ---
pT MEDICATED WITH ZOFRAN ODT PER C/O FEELING NAUSEATED. MOANIGN AND GROANING, RESTLESS IN BED, NO FURTHER C/O PAIN. RECEIVED MAG OX 800MG PO, MED TEACHING DONE, NOT RECEPTVE. "JUT GIVE IT TO ME". CONT TO REINFORCE TEACHING. TURNS AND REPOSITIONS SELF IN BED. AWARE OF OK TO HAVE SIPS OF FLUIDS
--- NOTE | 2023-10-17 22:34 | NUR ---
PT PUT HER CALL LIGHT ON TO NOTIFY OF AN ONCOMING ANXIETY ATTACK. HER RN WAS NOTIFIED.
--- NOTE | 2023-10-17 22:36 | NUR ---
RESTLESS, MOVING FROM BED TO COUGH. STATED "I HAVE A PANIC ATTACK COMIN ON". MEDICATED WITH ATIVAN 0.5MG PO. REASSURED. WARM BLANKETS GIVEN ON REQUESTS, SIPS OF WATER
--- NOTE | 2023-10-17 22:46 | NUR ---
PT CALLED NURSES STATION TO INFORM RN OF ONGOING ANXIETY ATTACH AND HAVING A HARD TIME BREATHING.
--- NOTE | 2023-10-17 22:56 | NUR ---
SCREAMING AND RESLTESS IN BED, C/O MED NOT WORKING. JUST MEDICATED IWTH ATIVAN AND HAD PERCOCET A COUPLE AHOURA SGO AND ZOFRON A SHORT TIME AGO TOO. SEE EMAR FOR TIMES. THIS RN STAYED IN ROOM WITH PT VERBALLY REASSURING OF HER SAFETY AND WHEN MEDS ARE DUE. BACK RUB GIVEN. FAN ON. ROOM TEMP 75f, 6 WARM BLANKETS ON, REMOVED. HYPERVENTILATIND AND TRASHING IN BED, IRRITABLE MOOD, REASSURED MULTIPLE TIMES, FAN ON, BLANKETS APPLID AND REPOVED TO HER EQUESTS. CALMED DOWN.
--- NOTE | 2023-10-18 00:38 | NUR ---
Calmer, eyes closed, resting, laying on her stomach, no s/sx distress at this time.
--- NOTE | 2023-10-18 01:43 | NUR ---
Laying down in couch by window. c/o 8/10 abd and generalized pain, medicated with 2 percocet. calmer. turns and repositions self in bed and/or couch. voiding QS yellow urine, tolerating sips of fluids, no c/o n/v at this time. Cooperative with second assessment
--- NOTE | 2023-10-18 03:23 | NUR ---
Resting, eyes closed, no s/sx distress. calm quiet, resp even and unlabored. Sleeping on cough by window.
[2023-10-18 04:31] VITALS: BP 160/96
[2023-10-18 04:33] VITALS: BP 160/96
--- NOTE | 2023-10-18 04:36 | NUR ---
c/o anxiety , medicated with Ativan 0.5mg po w sips of water. calmer, turns and repositions self in bed. voiding QS.
[2023-10-18 05:16] LABS: BASOPHILS 0.9 % (0-2); EOSINOPHILS 0.7 % (0-6); HEMATOCRIT 40.2 % (35.0-50.0); HEMOGLOBIN 13.6 g/dL (12.0-18.0); LYMPHOCYTES 22.4 % (24-44); MCH 32.8 (27-36); MCHC 33.8 g/dl (30-36); MCV 97.1 fl (81-99); MONOCYTES 11.8 % (0-12); NEUTROPHILS 64.2 % (39-80); PLATELET COUNT 233 K/uL (140-440); RBC 4.14 M/ul (4.3-5.7); RDW 14.6 (10.5-15.0)
[2023-10-18 05:34] LABS: ALBUMIN 2.9 g/dL (3.4-5.0); ALBUMIN/GLOBULIN RATIO 0.85 (1.1-2.4); BILIRUBIN, TOTAL 0.7 ng/dL (0.2-1.0); BUN/CREATININE RATIO 5.55 (6.0-28.6); CALCIUM 8.6 mg/dL (8.5-10.1); CREATININE, SERUM 0.9 mg/dL (0.55-1.02); PROTEIN, TOTAL 6.3 g/dL (6.4-8.2)
--- NOTE | 2023-10-18 06:55 | NUR ---
laying down in couch by window. c/o feeling nauseated. Medciated with Zofran ODT 8mg . tolerating small amounts of clear liquids, no emesis
--- NOTE | 2023-10-18 07:39 | NUR ---
when entering room pt is in left lateral recumbent position on the couch. pt is indp in room, ice chips given per rounding handoff. pt later when walking aorund medical floor request a "soda". This meter repairer said that would be "up to the nurse". Nurse notified.
[2023-10-18] MEDS ORDERED: MAGNESIUM OXIDE 400 MG TABLET PO ONE (07:45)
--- NOTE | 2023-10-18 07:52 | NUR ---
update: pts diet changed to soft. menu and soda given. pt has no other requests.
--- NOTE | 2023-10-18 07:54 | NUR ---
PT RESTING EYES CLOSED AT TIME OF SHIFT REPORT, LEFT UNDISTURBED. ALERT NOW WALKS A LAP IN THE JJ RETURNS TO RESTING IN BED. DIET ADVANCED PER HOSPITALIST PT AGREES SHE COULD "EAT A LITTLE SOMETHING" PAIN TO BE TREATED WITH MORNING MEAL.
--- NOTE | 2023-10-18 08:19 | NUR ---
pt ambulating in halls indep.
--- NOTE | 2023-10-18 08:50 | NUR ---
PT HAD BEEN RESTLESS ALL MORNING PAIN MEDS ADMINISTERED WITH MORNING MEAL SHE IS RESTING EYES CLOSED ON THE COUCH AT THIS TIME. APPEARS RELAXED AND COMFORTABLE. CONSUMES A SMALL AMOUNT OF MORNING MEAL NO FURTHER COMPLAINTS
[2023-10-18 09:36] VITALS: BP 153/86
[2023-10-18 09:52] VITALS: BP 153/86
--- NOTE | 2023-10-18 09:55 | NUR ---
PT VERBALIZES UNDERSTANDING OF DC INSTRUCTIONS DENIES QUESTIONS OR CONCERNS. GATHERS HER OWN ITEMS FOR DC, NOTHING LEFT IN ROOM AFTER VISUAL SCAN BY THIS COTTON STOMPER. [facility] CALLED FOR PT.
== END 2023-10-18 09:55 | disposition home or self-care (01) | DRG 440 ==
LOC: ED 13:03 → MS 16:15
PROVIDERS: Emergency Medicine; ADMIT Family Medicine; ATTEND Internal Medicine
DX: K85.20 Alcohol induced acute pancreatitis without necrosis or infection (principal); K86.0 Alcohol-induced chronic pancreatitis; Z66 Do not resuscitate; G43.909 Migraine, unspecified, not intractable, without status migrainosus; F43.10 Post-traumatic stress disorder, unspecified; F17.210 Nicotine dependence, cigarettes, uncomplicated; E83.42 Hypomagnesemia; E03.9 Hypothyroidism, unspecified; R74.8 Abnormal levels of other serum enzymes; Z85.07 Personal history of malignant neoplasm of pancreas; Z85.41 Personal history of malignant neoplasm of cervix uteri; Z85.038 Personal history of other malignant neoplasm of large intestine; Z85.048 Personal history of other malignant neoplasm of rectum, rectosigmoid junction, and anus; Z85.841 Personal history of malignant neoplasm of brain; Z71.41 Alcohol abuse counseling and surveillance of alcoholic
CPT/HCPCS: 36415; 80048; 80053; 80307; 81003; 82150; 83690; 83735; 84100; 85025; 94760; 94762; A9270; J0780; J1170; J1200; J1650; J1790; J2405; J2470; J3475; J7030; J7121

== ENCOUNTER 2023-10-30 08:02 | Inpatient (IN) | payer OTHER ==
[~2023-10-30] VITALS: Ht 160 cm; Wt 56.4 kg
[~2023-10-30 08:02] MED LIST changes: +CREON DR 24,001 EACH PO
[2023-10-30] MEDS ORDERED: SUCRALFATE1 GM PO (08:14)
[2023-10-30] MEDS ORDERED: SODIUM CHLORIDE 0.9% 1,000 ML IV ONE (08:30)
[2023-10-30] MEDS ORDERED: HYDROmorphone HCL 1 MG/ML SYR IV PRN (08:30)
[2023-10-30] MEDS ORDERED: PANTOPRAZOLE SODIUM 40 MG/10 ML VIAL IV ONE (08:30)
[2023-10-30] MEDS ORDERED: PROCHLORPERAZINE EDISYLATE 10 MG/2 ML VIAL IV ONE (08:30)
[2023-10-30 09:13] LABS: BASOPHILS 0.7 % (0-2); HEMATOCRIT 42.9 % (35.0-50.0); HEMOGLOBIN 14.5 g/dL (12.0-18.0); LYMPHOCYTES 13.1 % (24-44); MCH 32.8 (27-36); MCHC 33.8 g/dl (30-36); MCV 97.1 fl (81-99); MONOCYTES 7.7 % (0-12); NEUTROPHILS 77.5 % (39-80); PLATELET COUNT 372 K/uL (140-440); RBC 4.42 M/ul (4.3-5.7)
[2023-10-30 09:37] LABS: ALBUMIN 2.8 g/dL (3.4-5.0); ALBUMIN/GLOBULIN RATIO 0.76 (1.1-2.4); ALKALINE PHOSPHATASE 148 U/L (46-116); ALT (SGPT) 16 U/L (14-59); ANION GAP 13.4 (7-21); AST (SGOT) 16 U/L (15-37); BILIRUBIN, TOTAL 0.7 ng/dL (0.2-1.0); BUN/CREATININE RATIO 8.42 (6.0-28.6); CALCIUM 8.6 mg/dL (8.5-10.1); CARBON DIOXIDE 24 mmol/L (21-32); CHLORIDE 100 mmol/L (98-107); CREATININE, SERUM 0.95 mg/dL (0.55-1.02); GLOMERULAR FILTRATION RATE,EST 69 mL/min (>60); POTASSIUM 3.4 mmol/L (3.5-5.1); PROTEIN, TOTAL 6.5 g/dL (6.4-8.2); UREA NITROGEN 8 mg/dL (7-18)
[2023-10-30] MEDS ORDERED: METOCLOPRAMIDE HCL 10 MG/2 ML SDV IV ONE (11:30)
[2023-10-30] MEDS ORDERED: fentaNYL citrate 100 MCG/2 ML VIAL IV PRN (14:00)
[2023-10-30] MEDS ORDERED: ondansetron HCL 4 MG/2 ML VIAL IV ONE (14:30)
[2023-10-30] MEDS ORDERED: PROCHLORPERAZINE EDISYLATE 10 MG/2 ML VIAL IV PRN (15:15)
[2023-10-30] MEDS ORDERED: ondansetron HCL 4 MG/2 ML VIAL IV PRN (15:15)
[2023-10-30] MEDS ORDERED: SODIUM CHLORIDE 0.9% 1,000 ML IV SCH (15:15)
--- NOTE | 2023-10-30 15:32 | NUR ---
MED REC COMPLETE
--- NOTE | 2023-10-30 15:45 | NUR ---
REPORT RECIEVED FROM BASIL MENDOZA. VITALS COMPLETE. 1615 ASSESSMENT COMPLETE. LUNG SOUNDS CLEAR. BOWEL TONES ACTIVE. SCATTERED SCABS/BRUISING NOTED TO BILATERAL ARMS. RADIAL PULSES PALPABLE, STRONG. PEDAL PULSES PALPABLE, STRONG. PT A&O TO SELF, PLACE, MONTH, YEAR AND SITUATION. ASKED PT THE DATE AND PT STATES "THE , OR THE ." INFORMED PT IT IS THE . IV FLUSHES WNL. IV FLUIDS STARTED, SEE APR. 1617 PRN PAIN MEDICATION ADMINISTERED FOR PAIN 09/25 TO ABD. PT ALSO REPORTING NAUSEA. COOL RAG OFFERED, PT DENIES. PT REPORTING TOILETING NEEDS. SBA FROM BED TO RESTROOM. PT STATES "I CANNOT GO" PT IS ALSO DRY HEAVING. PT AMBULATES BACK TO BED. PT DENIES ANY OTHER NEEDS AT THIS TIME. CALL LIGHT IN REACH. BED ALARM ON.
[2023-10-30 15:47] VITALS: BP 172/91
[2023-10-30 17:24] VITALS: BP 153/83
--- NOTE | 2023-10-30 19:10 | NUR ---
SHIFT REPORT RECEIVED FROM OBEY GRACIA, PT APPEARS TO SLEEP, RESP EVEN AND REG, CPOX PLACED ON PT, NS 2ND LITER HUNG PER DAYSHIFT, INFUSING WELL AT 500ML/HR.
--- NOTE | 2023-10-30 20:20 | NUR ---
PT AWAKE AND ANXIOUS, C/O PAIN 09/25, ALSO VERY NAUSEATED, PT MEDICATED WITH ZOFRAN AND FENTANYL PER ORDER, PT ASSITED UP TO BR, VOIDED 600ML YELLOW URINE, IV SITE PATENT, LEFT AC, PT BACK TO BED, BP ELEVATED IN 190'S, SYSTOLIC, PLAN TO RECHECK ONCE PT CALMS WHILE BACK IN BED, SIDE RAILS UP X 3, CPOX IN PLACE, CALL LIGHT IN REACH.
[2023-10-30 20:41] LABS: BILIRUBIN, URINE NEGATIVE (negative); BLOOD/HGB, URINE NEGATIVE (Negative); KETONE, URINE NEGATIVE (Negative); LEUK ESTERASE, URINE NEGATIVE (negative); NITRITE, URINE NEGATIVE (negative); PH, URINE 6.5 (5-7)
--- NOTE | 2023-10-30 20:44 | NUR ---
RN CALLED TO ROOM FOR CPOX ALARM, SATS 89-91%, PT PLACED ON 2L/NC, DISCUSSED THIS CAN HAPPEN AFTER OPIATES GIVEN, BP RECHECKED, NOW 156/92, HR 90, PT RESTING QUIETLY WITH EYES CLOSED.
[2023-10-30 20:46] VITALS: BP 152/90
--- NOTE | 2023-10-30 21:33 | NUR ---
PT ASLEEP, RESP EVEN AND REG, CPOX READING 95%, NEW BAG OF NS HUNG AND RATE CONTINUES AT 500ML/HR, SITE INTACT IN LEFT AC.
--- NOTE | 2023-10-30 21:46 | NUR ---
call light answered, pt reports nausea, unable to have next nausea medication for approx another hr, pt educated and verbalzied understanding. alcohol swap given and attempted to have pt sniff swab, unsuccessful. bed alarm on and call light in. pt deneis additional needs or concerns.
--- NOTE | 2023-10-30 23:17 | NUR ---
REPEAT PHOTOCOMPOSING MACHINE OPERATOR FOLLOW PT AND OTHER REPEAT PHOTOCOMPOSING MACHINE OPERATOR WITH A WHEEL CHAIR PT AMBULATED AROUND THE UNIT.
--- NOTE | 2023-10-30 23:21 | NUR ---
PT WANTED TO WALK TO HELP WITH HER ANXIETY. THIS MARINE ENGINEERING PROFESSOR ASSISTED PT TO WALK AND MARINE ENGINEERING PROFESSOR JUANA FOLLOWED WITH WHEEL CHAIR. PT ABLE TO WALK 1/2 LAP AROUND UNIT AND THEN BECAME NAUSEOUS. PT SAT IN WHEEL CHAIR AND WENT BACK TO ROOM. PT BACK IN BED AND CPOX RECONNECTED. PT STATES NO FURTHER NEEDS AT THIS TIME. CALL LIGHT WITHIN REACH AND BED ALARM ON.
--- NOTE | 2023-10-30 23:25 | NUR ---
TC TO DR CARL, DISCUSSED PT'S DESIRE FOR ANTIANXIETY MEDICATION, ORDER ENTERED PER MD, PT RESTING QUIETLY, CPOX ALARMING AT 86-87%, PT REPLACED ON 2L/NC, PT BACK TO SLEEP WHEN LEFT UNDISTURBED, STATES HE DOES WANT TO CONINUE IV AT 500ML/HR TONIGHT, MAY USE A PURE WICK PRN.
[2023-10-30] MEDS ORDERED: LORazepam 2 MG/ML VIAL IV PRN (23:30)
--- NOTE | 2023-10-30 23:45 | NUR ---
PT RESTING QUIETLY, EYES CLOSED RESP EVEN AND REG, NEW BAG OF NS HUNG AND INFUSING WELL AT 500ML/HR, SITE INTACT.
[2023-10-31] VITALS (12 sets, daily range): BP systolic 122–177; BP diastolic 77–97
--- NOTE | 2023-10-31 00:25 | NUR ---
PT ASLEEP, RESP EVEN AND REG, CPOX 97%, OXYGEN REMAINS ON.
[2023-10-31] MEDS ORDERED: ALBUTEROL SULFATE 0.083% 3 ML VIAL INH PRN (00:45)
--- NOTE | 2023-10-31 01:18 | NUR ---
CALL LIGHT ANSWERED, pt ASKING ABOUT PAIN AND NAUSEA MEDICATIONS, pt EDUCATED THAT THE NURSE IS ALREADY AWARE OF REQUEST AND PREPARING MEDICATIONS AND WILL BE IN TO ADMINISTER SHORTLY.
--- NOTE | 2023-10-31 01:41 | NUR ---
RN TO ROOM A FEW MINUTES EARILIER TO MEDICATE PT WITH PAIN AND NAUSEA MEDICATION, PT MOVING FROM LAYING TO SITTING POSITION, STATING SHE WANTS ANXIETY MEDICATION FIRST, PT GAGGING AND HOLDING ABDOMIN IN PAIN, RN STATES SHE WILL GIVE ZOFRAN AND DILAUDID FIRST THEN WILL GET ATIVAN, PT MEDICATED PER ORDER, PT CONTINUES RESTLESS, RN TO OBTAIN ATIVAN, BACK TO ROOM AND MEDICATED WITH 0.5MG IV ATIVAN PER ORDER, OXYGEN REPLACED ON PT AT 2L/NC, PT STARTING TO CALM, BP RECHECKED AND IS NOW 167/97 (114) HR 83
--- NOTE | 2023-10-31 01:49 | NUR ---
PT RESTING WITH EYES CLOSDED, RESP EVEN AND REG, OXYGEN IN PLACE, IV PATENT, NEW BAG OF NS HUNG AND CONTINUES AT 500ML/HR.
--- NOTE | 2023-10-31 03:05 | NUR ---
PT UP IN BR TO VOID, PT UNPLUGGED IV, TOOK OFF OXYGEN AND DISCONNECTED CPOX, PT SITTING ON TOILET.
--- NOTE | 2023-10-31 03:22 | NUR ---
PT BACK TO BED, LAYING ON LEFT SIDE, REPLACED ON CPOX, SATS 88%, REPLACED ON OXYGEN, SATS UP TO 94%, IVF INFUSING WELL.
--- NOTE | 2023-10-31 03:50 | NUR ---
PT RESTING QUIETLY, NEW BAG OF NS HUNG, SITE ASSESSED, PT LAYING ON LEFT SIDE, IV NOTED TO HAVE BLOOD RETURN, PLAN TO MONITOR SITE, SLIGHT PUFFINESS AT ELBOW NEAR SITE, MAYBE DUE TO POSITION.
--- NOTE | 2023-10-31 04:25 | NUR ---
TC TO DR CARL TO REPORT IV SITE INFILTRATING, ATTEMPTS TO RESTART UNSUCESSFUL DUE TO PT HAVING ANXIETY ATTACK, VERY RESTLESS, SITTING UP AND LAYING DOWN, THEN TO COUCH, ATTEMPTS TO CALM UNSUCESSFUL, MD ORDERS ONE TIME EXTRA DOSE OF ADIVAN IF ABLE TO HAVE PATENT IV.
[2023-10-31] MEDS ORDERED: LORazepam 2 MG/ML VIAL IV ONE (04:30)
--- NOTE | 2023-10-31 04:39 | NUR ---
PT MORE RELAXED, RESTING WITH EYES CLOSED, LAYING IN BED, IV SITE PAINFUL TO PT AND D/ROMEO INTACT, SMALL AMOUNT SERO SANG DRAINAGE FROM SITE. RN ABLE TO PLACE 22 G IN LEFT WRIST ALTHOUGH UNABLE TO INSERT ALL OF CANNULA DUE TO POSSIBLE VALVE, CANNULA PULLED BACK SLIGHTLY THEN FLUSHES WELL, PT MEDICATED WITH ATIVAN AND COMPAZINE FOR NAUSEA. PT REMAINS ON CPOX AND OXYGEN AT 2L/NC, PT RESTING QUIETLY, IVF RESTARTED AT RATE OF 100ML DUE TO SMALL DIAMETER OF IV, SITE INTACT.
[2023-10-31 05:14] LABS: EOSINOPHILS 0.1 % (0-6); HEMATOCRIT 35.6 % (35.0-50.0); HEMOGLOBIN 11.7 g/dL (12.0-18.0); LYMPHOCYTES 10.5 % (24-44); MCH 32.1 (27-36); MCV 97.3 fl (81-99); MONOCYTES 8.7 % (0-12); NEUTROPHILS 79.7 % (39-80); PLATELET COUNT 293 K/uL (140-440); RBC 3.66 M/ul (4.3-5.7); RDW 14.8 (10.5-15.0)
[2023-10-31 05:30] LABS: ALBUMIN 2.2 g/dL (3.4-5.0); ALBUMIN/GLOBULIN RATIO 0.73 (1.1-2.4); ANION GAP 10.9 (7-21); BILIRUBIN, TOTAL 0.6 ng/dL (0.2-1.0); BUN/CREATININE RATIO 5.63 (6.0-28.6); CALCIUM 7.4 mg/dL (8.5-10.1); CREATININE, SERUM 0.71 mg/dL (0.55-1.02); MAGNESIUM 1.3 mg/dL (1.8-2.4); PHOSPHORUS, INORGANIC 3.2 mg/dL (2.5-4.9); POTASSIUM 2.9 mmol/L (3.5-5.1); PROTEIN, TOTAL 5.2 g/dL (6.4-8.2)
--- NOTE | 2023-10-31 06:00 | NUR ---
iv pump alarming, partial occlusion noted. iv site wnl, iv fluids resumed. pt resting quietly in bed with eyes closed, rr even and unlabored. call light in reach.
--- NOTE | 2023-10-31 06:33 | NUR ---
IV BEEPING OCCULSION, IV INTACT, PULLED OUT SLIGHTLY AND FLUSHES WELL, REDRESSED, IV RATE DOWN TO 100ML/HR, DR CARL AWARE.
--- NOTE | 2023-10-31 07:20 | NUR ---
RECIEVED SHIFT REPORT FROM BASIL ANGEL. PT RESTING IN BED. RN LOOKING AT IV PT BECOMES IMPULSIVE AND REQUESTING TO USE BATHROOM. ONCE IN BED, PT BEGINS SAYING SHE NEEDS TO GET UP AND IS HAVING ANXIETY. PT QUICKLY MOVES TO THE CHAIR, FEET ELEVATED. LASTING A FEW MINUTES BEFORE NEEDING TO USE RESTROOM. PT UNABLE TO HAVE PRN ANTIANXIETY MEDICATION. PRN DILAUDID AND ZOFRAN GIVEN. PT COACHED ON DEEP BREATHING EXERCISES, UNCOOPERATIVE. GIVEN AN INCENTIVE SPIROMETER TO HELP CONTROL BREATHING. THIS RN AND BASIL BAUMANN AT BEDSIDE.
--- NOTE | 2023-10-31 07:45 | NUR ---
SPOKE WITH SIDDHARTHA PARIS REGARDING POTENTIAL BENADRYL DUE TO THE RELIEF FOR PT WITH LAST VISIT. PRN BENADRYL ORDERED AND ADMINISTERED (PER EMAR). PT UP THE BATHROOM, BACK IN BED BLANKETS APPLIED. CALL LIGHT IN REACH.
[2023-10-31] MEDS ORDERED: diphenhydrAMINE HCL 50 MG/ML VIAL IV PRN ×2 (08:00→16:39)
[2023-10-31] MEDS ORDERED: ENOXAPARIN SODIUM 40 MG/0.4 ML SYR SUB-Q SCH (09:00)
--- NOTE | 2023-10-31 09:46 | NUR ---
PATIENT ON COUCH SIDE LAYING TO THE LEFT. PATIENT HAS NO REQUESTS AT THIS TIME. CALL LIGHT WITHIN REACH.
[2023-10-31] MEDS ORDERED: POLYETHYLENE GLYCOL 3350 1 PACKET PO SCH (10:37)
[2023-10-31] MEDS ORDERED: SENNOSIDES/DOCUSATE 1 EA TAB PO SCH (10:38)
[2023-10-31] MEDS ORDERED: bisacodyL 10 MG SUPP PR ONE (11:15)
--- NOTE | 2023-10-31 11:40 | NUR ---
IN DOCTOR IS IN ROOM. PT IS LYING ON COUCH. PT IMPULSIVELY MOVES FROM COUCH TO BED AND DRY HEAVES INTO EMESIS BAG. PT REPORTING ANXIETY TO DOCTOR AND DISCUSSING HOME MEDICATIONS AND ROUTINES. PT RECEIVES PRN IV MEDICATIONS PER ORDER. DISCUSSED PRN ANXIETY MEDICATION ALTERATIONS WITH DOCTOR. PT MOVES BACK TO COUCH. CURRENTLY RESTING WITH EYES CLOSED, BREATHING UNLABORED, WITH SOME MUTTERING AND RESTLESSNESS. CALL LIGHT IN REACH.
[2023-10-31] MEDS ORDERED: PHARMACY RENAL DOSE ADJUSTMENT 1 DOSE MISC PO SCH (12:00)
[2023-10-31] MEDS ORDERED: POTASSIUM CHLORIDE 10 MEQ/100 ML BAG IV ONE (13:15)
[2023-10-31] MEDS ORDERED: POTASSIUM CHLORIDE 40 MEQ,LIDOCAINE HCL 1% 40 MG in DEXTROSE 5% 250 ML IV ONE ×2 (13:30→18:00)
[2023-10-31] MEDS ORDERED: POTASSIUM ACETATE 40 MEQ,LIDOCAINE HCL 1% 40 MG in DEXTROSE 5% 250 ML IV SCH (13:30)
[2023-10-31] MEDS ORDERED: MAGNESIUM SULFATE 2 GM/50 ML BAG IV ONE (13:30)
--- NOTE | 2023-10-31 15:23 | NUR ---
IN TO ROUND ON PT AND SECOND ASSESSMENT. PT RESTING ON LEFT SIDE IN BED, EYES CLOSED, BREATHING EVEN AND UNLABORED WITH OCASSIONAL JERKING MOVEMENTS AND WHIMPERS. BOWEL TONES HEARD IN ALL FOUR QUADRANTS. CALL LIGHT IN REACH, NO OTHER NEEDS NOTED AT THIS TIME.
[2023-10-31] MEDS ORDERED: LORazepam 2 MG/ML VIAL IV PRN (16:39)
--- NOTE | 2023-10-31 16:59 | NUR ---
COMPAZINE RECEIVED FOR NAUSEA AND VOMITING NOT RESPONSIVE TO ZOFRAN.
--- NOTE | 2023-10-31 17:10 | NUR ---
PT NOW RESTING IN BED, CALM AT THIS TIME. INSTRUCTED PT TO USE CALL LIGHT. PT NO LONGER ANXIOUS AND IMPULSIVELY MOVING ABOUT ROOM. PT MORE COOPERATIVE. RT IN TO SEE PT.
--- NOTE | 2023-10-31 18:38 | NUR ---
IN TO ROUND ON PT AND ADMINISTER MEDICATION PER APR. PT IS RESTING SUPINE WITH EYES CLOSED, BREATHING UNLABORED. PT AWAKES, AMBULATES TO RESTROOM AND BACK TO BED. CALL LIGHT IN REACH, NO OTHER NEEDS AT THIS TIME.
--- NOTE | 2023-10-31 19:10 | NUR ---
SHIFT REPORT RECEIVED FROM IBIS GRACIA AND FREDDIE GRACIA, ASSUMING CARE OF PT.
--- NOTE | 2023-10-31 19:50 | NUR ---
PT LAYING ON RIGHT SIDE, APPEARS TO SLEEP, RESP EVEN AND REG, IVF INFUSING AT 250ML/HR, POTASSIUM INFUSION CONTINUES PER ORDER, SIDE RAILS UP X 3.
--- NOTE | 2023-10-31 21:15 | NUR ---
RN TO ROOM, PT UP TO BR TO VOID, VOIDING LIGHT YELLOW URINE, IVF INFUSING WELL AT 250ML/HR, POTASSIUM CONTINUES PER ORDER, IV SITE PATENT IN RIGHT THUMB, DRESSING INTACT, PT BECOMING ANXIOUS, STATES SHE IS HAVING AN ANXIETY ATTACT AND THAT SHE WANTS ATIVAN WELL AT ZOFRAN FOR NAUSEA, PT UP AND DOWN TO COUCH FREQUENTLY.
--- NOTE | 2023-10-31 21:22 | NUR ---
PT MEDICATED WITH ATIVAN 0.5MG IV FOR ANXIETY.
--- NOTE | 2023-10-31 21:32 | NUR ---
PT MEDICATED WITH ZOFRAN PER ORDER PER REQUEST FOR NAUSEA.
--- NOTE | 2023-10-31 21:49 | NUR ---
PT CONTINUES TO BE VERY RESTLESS, STATING ATIVAN WASN'T ENOUGH, SHAKING IN BED THAN UP TO COUCH THEN TO BATHROOM, BACK TO BED, PT STATES SHE NORMALLY TAKES CLONIDINE AT HOME FOR ANXIETY, PT MEDICATED WITH BENADRYL PER ORDER, RN REMAINS AT BEDSIDE, PT BACK TO BED, SOME DIZZINESS REPORTED, BACK TO BED, SIDE RAILS UP X 3.
--- NOTE | 2023-10-31 22:01 | NUR ---
VS COMPLETED, PT COMPLAINTS HOW TIGHT CUFF GETS, ENCOURAGED TO TRY AND RELAX WHEN CUFF INFLATING, BP ELEVATED 177/94.
--- NOTE | 2023-10-31 23:33 | NUR ---
IV PUMP ALARMING. POTASSIUM INFUSION COMPLETED. PUMP CLEARED. PT WITH EYES CLOSED, RESP EVEN AND UNLABORED.
--- NOTE | 2023-10-31 23:50 | NUR ---
PT ASSISTED UP TO BR, VOIDED 400ML, BACK TO BED, ROLLS TO RIGHT SIDE, RESP EVEN AND REG, EYES CLOSED.
[2023-11-01] VITALS (10 sets, daily range): BP systolic 140–183; BP diastolic 75–94
--- NOTE | 2023-11-01 00:55 | NUR ---
IV ALARMING, TUBING ADJUSTED AND RESTARTED, INFUSING WELL, PT RESTING QUIETLY, RESP EVEN AND REG.
--- NOTE | 2023-11-01 02:35 | NUR ---
PT APPEARS TO SLEEP, RESP EVEN AND REG, IVF INFUSING WELL, MEASURING HAT EMPTIED FOR 1300ML LIGHT YELLOW URINE.
--- NOTE | 2023-11-01 03:31 | NUR ---
PT UP TO BR AND TO COUGH, STATES SHE IS HAVING AN ANXIETY, MEDICATED WITH 0.5MG OF ATIVAN, PT UP TO BR WHILE GIVING THE MEDICATION, STATES SHE WANTS ICE TO CHEW ON, DISCUSSED SHE NEEDS TO BE NPO AT THIS TIME, PT DECLINES LEMON SWABS, PT UP TO BR AND NOTED CUPPING HAND UNDER FACET, STATING SHE IS ONLY RINSING HER MOUTH, ADVISED AGAINST DRINKING.
--- NOTE | 2023-11-01 03:35 | NUR ---
PT MEDICATED FOR NAUSEA AND SMALL AMOUNT EMESIS WITH ZOFRAN PER ORDER, PT REMAINS RESTLESS.
--- NOTE | 2023-11-01 03:35 | NUR ---
PT NAUSEATED, GAGGING AND RESTLESS, MEDICATED WITH ZOFRAN PER REQUEST AND ORDER, PT STATES SHE WOULD BE A LOT HAPPIER WITH ICE CHIPS, DISCUSSED NPO STATUS OFFERED A WET SWAB. PT UP AND DOWN OUT OF BED, ROCKING.
--- NOTE | 2023-11-01 03:50 | NUR ---
Provided Pt x2 warm blankets and warm pack. No other needs expressed by Pt. Call light left in reach.
--- NOTE | 2023-11-01 03:54 | NUR ---
PT SHAKING AT TIMES, UP AND DOWN TO BR, THEN TO COUCH AND THEN TO BED, GAGGING AND HAVE SMALL LIGHT GREEN EMESIS, STATES STILL ANXIOUS AND DOESN'T KNOW WHATS WRONG, PT MEDICATED WITH BENADRYL PER ORDER FOR ANXIETY. RN REMAINS AT BEDSIDE.
--- NOTE | 2023-11-01 04:14 | NUR ---
PT ESCALATING, RESTLESS, SAYING SHE DOESN'T KNOW WHATS WRONG, PT HOLDING ABDOMEN AT TIMES, REPORTS PAIN 7/10, PT WANTING PAIN MEDICATION, PT MEDICATED WITH DILAUDID PER ORDER, IV REMAINS PATENT. PT ASKING NURSE TO STAY IN ROOM, PT CONTINUES TO GET UP AND DOWN, TO BR, COUCH THEN BACK TO BED. SUPPORT GIVEN AND ATTEMPTS TO USE THERAPEUTIC COMMUNICATION WITH PT TO HELP CALM NOT SEEMING TO HELP.
--- NOTE | 2023-11-01 04:25 | NUR ---
PT ASKING FOR SOMEONE ELSE TO COME TO ROOM TO HELP HER WITH HER ANXIETY, CHARGE NURSE BARTOLO GRACIA REQUESTED TO COME TO ROOM, BARTOLO GRACIA TALKING WITH PT.
--- NOTE | 2023-11-01 04:48 | NUR ---
SPENT 20 MIN WITH PT, SHE SAT UP AND DOWN REPEATEDLY IN BED, COMPLAINING OF ANXIETY, CAN'T STAND THIS, I NEED ICE; TURN SIDE TO SIDE, RUBBING HER HEAD. CONVERSATION QUIETLY WITH PT, DID GIVE HER 2 SMALL PIECES OF ICE, SHE STARTED TO SETTLE DOWN, DID DISCUSS WITH HER POSSIBILTY OF ICE INCREASING PAIN; WAS JUST MEDICATED FOR PAIN; APPROX. 5 MIN AFTER THE ICE CHIP, SHE LAID ON HER RIGHT SIDE, OCCASSIONALLY LEGS WOULD JERK, SHE WOULD MUTTER OUTLOUD; WHEN RN LEFT ROOM, PT WAS STILL, RESP EVEN AND UNLABORED. BED ALARM PLACED FOR SAFETY.
--- NOTE | 2023-11-01 04:53 | NUR ---
PT ASLEEP, RESP EVEN AND REG, LAYING ON RIGHT SIDE.
[2023-11-01 05:19] LABS: EOSINOPHILS 0.3 % (0-6); HEMATOCRIT 33.1 % (35.0-50.0); HEMOGLOBIN 11.2 g/dL (12.0-18.0); LYMPHOCYTES 13.5 % (24-44); MCH 32.6 (27-36); MCHC 33.7 g/dl (30-36); MCV 96.8 fl (81-99); NEUTROPHILS 77.2 % (39-80); PLATELET COUNT 239 K/uL (140-440); RBC 3.42 M/ul (4.3-5.7)
[2023-11-01 05:31] LABS: ANION GAP 14.1 (7-21); BUN/CREATININE RATIO 3.12 (6.0-28.6); CALCIUM 7.9 mg/dL (8.5-10.1); CREATININE, SERUM 0.64 mg/dL (0.55-1.02); MAGNESIUM 1.6 mg/dL (1.8-2.4); POTASSIUM 3.1 mmol/L (3.5-5.1)
--- NOTE | 2023-11-01 06:15 | NUR ---
BED ALARM SOUNDING. PATIENT IN BATHROOM WHEN THIS RN ENTERED ROOM. PATIENT STATED, " I HAD TO GO." PATIENT VOID WITH NO DIFFCULTY. ASSIST PATIENT BACK TO BED 1 PA STAND BY. AM VITALS OBTAINED, I'S AND O'S DOCUMENTED. NO FURTHER NEEDS AT THIS TIME. CALL LIGHT WITHIN REACH, BED ALARM ON.
--- NOTE | 2023-11-01 06:34 | NUR ---
PRIMARY RN NOTIFIED DR OF GLUCOSE OF 67 VIA BLOOD DRAW. ORDERS RECEIVED TO CHANGE DIET TO CLEARS, GIVE APPLEJUICE.
--- NOTE | 2023-11-01 07:06 | NUR ---
PT ANXIOUS, PAINFUL, MEDICATED WITH ATIVAN AND BENADRYL JESSIE JOE RN, PT REQUESTING WATER, REQUESTING JUST SIPS OF WATER, ENCOURAGE TO TAKE IT SLOW, PT REQUESTING PAIN MED.
--- NOTE | 2023-11-01 07:16 | NUR ---
PT MEDICATED WITH DILAUDID PER ORDER FOR C/O ABDOMINAL PAIN 10/26, SHIFT REPORT GIVEN.
--- NOTE | 2023-11-01 07:30 | NUR ---
RECHECKED BLOOD SUGAR 101.
--- NOTE | 2023-11-01 07:30 | NUR ---
RECIEVED SHIFT REPORT. PT IS PACING ROOM. IMPULSIVE WITH REQUESTING TO GET OUT OF BED, GO LAY ON THE COUCH, AND USE THE BATHROOM. PT STATES SHE IS NAUSEOUS, PRN MEDICATION GIVEN BY BASIL GOVEA (PER EMAR). CALL LIGHT IN REACH.
--- NOTE | 2023-11-01 08:05 | NUR ---
PT RESTING ON THE COUCH, EYES CLOSED, BREATHING EVEN AND UNLABORED. CALL LIGHT IN REACH.
--- NOTE | 2023-11-01 09:00 | NUR ---
PT RESTING IN BED, EYES CLOSED, BREATHING EVEN AND UNLABORED. CALL LIGHT IN REACH.
--- NOTE | 2023-11-01 10:00 | NUR ---
PT RESTING IN BED, EYES CLOSED. BREATHING EVEN AND UNLABORED. DISCUSSED WITH CHARGE NURSE REGARDING LOVENOX SHOT THAT PT IS RESTING AND WILL NOT WAKE HER AT THIS TIME. CHARGE NURSE AGREED.
--- NOTE | 2023-11-01 11:29 | NUR ---
PT AWAKE, USED RESTROOM. REQUESTING PAIN MEDICATION FOR 7/10 PAIN. DENIES NAUSEA. REFUSED CLEAR LIQUID BREAKFAST. RYLIE FROM RT PLACED PT BACK ON CPOX WHILE PT IS RESTING. SPO2 88%-94% ON RA. PT IS BREATHING IS UNLABORED AND EVEN. CALL LIGHT IN REACH.
--- NOTE | 2023-11-01 12:31 | NUR ---
PT RESTING COMFORTABLY IN BED. WAS ABLE TO TAKE A FEW SIPS OF CRANBERRY JUICE AND TOLERATED WELL. STATES SHE HAS ANXIETY BUT TOLERABLE AT THIS TIME.
--- NOTE | 2023-11-01 12:53 | NUR ---
PT UP TO THE BATHROOM. REQUESTING PAIN MEDICATION AND ANXIETY MEDS ADMINSTERED (PER EMAR). PT IS PACING ROOM AND MOVING FROM COUCH TO BED. CALL LIGHT IN REACH. DENIES NEEDS AT THIS TIME.
--- NOTE | 2023-11-01 13:10 | NUR ---
PT IS UP TO BATHROOM. THROWING UP. PRN ANTINAUSEA MEDICATION ADMINISTERED (PER EMAR). PT IS STICKING FINGER DOWN THROAT TO ENCOURAGE TO VOMIT. ADVISED NOT TO DO THAT.
[2023-11-01] MEDS ORDERED: POTASSIUM CHLORIDE 40 MEQ,LIDOCAINE HCL 1% 40 MG in DEXTROSE 5% 250 ML IV ONE (14:30)
[2023-11-01] MEDS ORDERED: MAGNESIUM SULFATE 2 GM/50 ML BAG IV ONE (14:30)
--- NOTE | 2023-11-01 15:46 | NUR ---
PATIENT IN BED AT THIS TIME. CALL LIGHT WITHIN REACH, NO FURTHER NEEDS AT THIS TIME.
--- NOTE | 2023-11-01 17:00 | NUR ---
PT PACING ROOM, IN BATHROOM. PT BEGINS TO YELL IN PAIN FROM KCL IV INFUSION. MD AT BEDSIDE. VERBAL ORDER TO STOP IV KCL AND ATTEMPT TO EAT CRACKERS AND GIVE POTASSIUM PO. PT REQUESTED JELLO, STARTED TO VOMIT AFTER EATING. OFFERED CRACKERS AND TOLERATED WELL.
[2023-11-01] MEDS ORDERED: POTASSIUM CHLORIDE 10 MEQ TABCR PO ONE (17:15)
--- NOTE | 2023-11-01 17:30 | NUR ---
PT ACCOUNTS RECEIVABLE SPECIALIST LIGHT. XUAN RN IN ROOM PT IS REQUESTING TO GO HOME DUE TO "THE DOCTOR BEING RIGHT THAT BEING IN THE HOSPITAL IS CAUSING MORE ANXIETY FOR HER". PT IMUPULSIVE PACING ROOM. MOVING FROM COUCH TO BED AND BATHROOM. MD NOTIFIED. RELAYED TO PT THAT MD STATED CAN BE RELEASED TOMORROW IF ABLE TO TAKE SMALL BITES AND TOLERATES FLUIDS. THIS RN DISCUSSED WITH PT TO TRY BENADRYL AND PRACTICE DEEP BREATHING EXCERCISES. PT ABLE TO TOLERATE POTASSIUM PO.
--- NOTE | 2023-11-01 17:40 | NUR ---
PT MOVED FROM COUCH TO BED, BEGAN TO VOMIT. THREW UP 10MEQ OF THE 40MEQ OF PO POTASSIUM. MEDICATION ADMINISTERED (PER EMAR) FOR EMESIS AND PAIN FOR 9/10 ABD PAIN.
[2023-11-01] MEDS ORDERED: SODIUM CHLORIDE 0.9% 1,000 ML IV SCH (17:45)
--- NOTE | 2023-11-01 18:50 | NUR ---
IV WAS REMOVED FROM PT. PT ASLEEP AT THIS TIME. SPOKE WITH . OKAY TO LEAVE OUT. MD WILL ENTER ORDERS.
--- NOTE | 2023-11-01 19:16 | NUR ---
SHIFT REPORT RECEIVED FROM FREDDIE GRACIA, ASSUMING CARE OF PT.
--- NOTE | 2023-11-01 19:25 | NUR ---
PT ASLEEP, RESP EVEN AND REG, LAYING ON SIDE, CPOX ON AND 90-91%. SIDE RAILS UP X 3, BED LOW POSITION.
--- NOTE | 2023-11-01 20:50 | NUR ---
PT ASLEEP, RESP EVEN AND REG, VS STABLE, ASSESSMENT COMPLETED. SIDE RAILS UP X 2, CPOX REMOVED AT THIS TIME, RECENTLY VOIDED 600ML LIGHT YELLOW URINE, BED LOW POSITION.
[2023-11-01] MEDS ORDERED: diphenhydrAMINE HCL 25 MG CAP PO PRN (21:00)
[2023-11-01] MEDS ORDERED: ondansetron HCL 4 MG TAB PO PRN (21:00)
[2023-11-01] MEDS ORDERED: LORazepam 0.5 MG TAB PO PRN (21:00)
--- NOTE | 2023-11-01 21:15 | NUR ---
PT RESTING QUIETLY, RESP EVEN AND REG. LAYING ON SIDE
--- NOTE | 2023-11-01 22:26 | NUR ---
PT CALLED, SAID SHE WAS GETTING TOO ANXIOUS. NEEDED SOMETHING. TO ROOM, PT UP AND DOWN, IN AND OUT OF BATHROOM, "GAGGING", SPITING INTO SINK. DENIED VOMITING. ATIVAN PO GIVEN; SAME RESTLESSNESS CONTINUED. WHILE RN IN ROOM, PT SAID I AM SICK, NEED SOMETHING. MED WITH PO ZOFRAN.
[2023-11-01] MEDS ORDERED: LORazepam 1 MG TAB PO PRN (22:45)
[2023-11-01] MEDS ORDERED: OXYCODONE HCL 5 MG TAB PO PRN (22:45)
--- NOTE | 2023-11-01 22:47 | NUR ---
PT CALLING FREQUENTLY THE LAST FEW MINUTES WANTING SOMETHING FOR ABDOMINAL PAIN, TC TO , STATES HE WILL PUT ORDER IN FOR MEDICATION, PT MEDICATED AT THIS TIME WITH BENADRYL PER ORDER FOR RESTLESSNESS, PT UP AND DOWN TO COUCH AND BACK TO BED.
--- NOTE | 2023-11-01 23:02 | NUR ---
RN TO ROOM WITH PAIN MEDICATION, PT NOTED TO BE LAYING ON THE FLOOR NEAR ENTRANCE, PT STATES SHE DID NOT FALL BUT WANTED TO LAY ON FLOOR, INSTRUCTED PT TO LAY IN BED IF POSSIBLE, PT BACK TO BED, MEDICATED WITH OXYCODONE 10MG PER ORDER FOR ABDOMINAL PAIN 11/25. PT UP TO COUCH TO LAY DOWN, PERIODIC MOANING.
--- NOTE | 2023-11-01 23:24 | NUR ---
NURSE CALLED TO ROOM, PT WANTING A WARM BLANKET, GIVEN, PT STATES WHY AM I SO ANXIOUS, SUPPORT GIVEN, ENCOURAGE TO TRY AND REST TO LET MEDICATION START TO WORK. PT STATES SHE THROW UP IN DOORWAY TO JJ, NOTED CLEAR FLUID ON FLOOR, CLEANED UP.
--- NOTE | 2023-11-01 23:45 | NUR ---
BARTOLO MANAGER AVIATION TO ROOM, PT REPORTS MEDICATION NOT WORKING, REASSURED THAT IT TAKES TIME FOR MEDICATIONS TO WORK.
--- NOTE | 2023-11-02 00:16 | NUR ---
PT RESTING ON COUCH, MOANING OCCASIONALLY.
--- NOTE | 2023-11-02 00:17 | NUR ---
PT TO DESK, HAS BEEN USING CALL LIGHT COMPLAINING OF ANXIETY. SUGGESTED TO PATIENT TO WALK LAPS TO SEE HOW THAT AFFECTS HER ANXIETY. ICE CARVER GAVE HER A BATHROB TO WEAR, HAS NONSKID SOCKS ON, AND SWEAT PANTS.
--- NOTE | 2023-11-02 01:00 | NUR ---
PT ASLEEP, LAYING IN BED ON LEFT SIDE, RESP EVEN AND REG.
--- NOTE | 2023-11-02 03:00 | NUR ---
PT CONTINUES TO SLEEP, RESP EVEN AND REG, REMAINS ON LEFT SIDE WITHOUT DISTRESS.
[2023-11-02 04:00] VITALS: BP 179/102
--- NOTE | 2023-11-02 04:02 | NUR ---
PT AWAKE, CALM, STATES SHE IS STARTING TO HURT IN ABDOMEN, REQUESTING MEDICATION AND AGREES TO MEDICATION FOR ANXIETY, PT MEDICATED WITH OXYCODONE 10MG, ZOFRAN AND ATIVAN 1MG PO WITH SIPS OF WATER, PT UP WALKING IN ROOM BRIEFLY THAN BACK TO BED, VS DONE, BP ELEVATED.
[2023-11-02 04:05] VITALS: BP 179/102
--- NOTE | 2023-11-02 04:36 | NUR ---
UP AND DOWN, RESTLESS, COMPLAINING OF STABBING ABDOMINAL PAIN. PRIOR TO THIS TIME, STATES SHE CAN'T BREATH. RT TO ROOM, OFFERED AND REFUSED BREATHING TREATMENT. STATES TO THIS RN, PAIN IN STOMACH MAKES HER FEEL LIKE SHE CAN'T BREATH. ON COUCH, OFF COUCH, TO BATHROOM TO SPIT UP. OFFERED AND REFUSED TO WALK IN JJ. MID ABDOMINAL AREA. REASSURANCE THAT TAKES TIME FOR MEDICATIONS TO WORK. SHE STATES, I JUST WANT TO PASS OUT, I NEED TO SLEEP. LAYS ON COLD FLOOR, WHY DOES THIS HAPPEN WHEN I WAKE UP.
--- NOTE | 2023-11-02 04:50 | NUR ---
WARM PACK OFFERED AND ACCEPTED. PT ON COUCH WHEN RN LEFT ROOM.
--- NOTE | 2023-11-02 05:02 | NUR ---
PT AMBULATED TO NURSES STATION ON HER OWN, STATES SHE NEEDS SOMETHING FOR PAIN, RN WALKED WITH PT BACK TO ROOM, PT MEDICATED WITH BENADRYL PER ORDER, INSTRUCTED PT IT IS TOO EARLY FOR PAIN MED, PT TO BED, THEN UP TO COUCH, REMAINS RESTLESS.
[2023-11-02 05:53] LABS: BUN/CREATININE RATIO 2.53 (6.0-28.6); CALCIUM 8.4 mg/dL (8.5-10.1); CREATININE, SERUM 0.79 mg/dL (0.55-1.02); MAGNESIUM 1.9 mg/dL (1.8-2.4)
--- NOTE | 2023-11-02 06:00 | NUR ---
PT ASLEEP ON THE COUCH, RESP EVEN AND REG, WITHOUT DISTRESS.
--- NOTE | 2023-11-02 09:58 | NUR ---
Patient resting, easily wakes to verbal stimuli. Patient reports 6/10 abdominal pain, no nausea. Admin oxycodone 10mg and benadryl 25mg po per patient request. Patient up to restroom to void at this time. No further needs, personal supplies and call light within reach.
[2023-11-02 10:14] VITALS: BP 151/95
[2023-11-02 10:21] VITALS: BP 151/95
--- NOTE | 2023-11-02 11:38 | NUR ---
UR CLINICAL AND CONCURRENT REVIEW: [facility] CRITERIA FOR INPT ADMISSION. GL DAY 2 MEET, PLAN TO DC TODAY ODS [facility] INPT 10/30/23 @ 4520 ORDER MATCHES REG CLINICAL FAXED TO [facility] FOR AUTH REVIEW DISCHARGE TO HOME IN 24 TO 48 HOURS 11/04/23
--- NOTE | 2023-11-02 11:45 | NUR ---
Spoke with Kendall. She was sleeping at 1015 and did not awaken to voice. Returned and pt awake watching TV. Pt. plans on discharge today. She cont. to live in her apartment. She does not drive. She has 20 hrs per week of CG service through the [facility]. She denies any needs and will go home. Pt is walking in the [place] and wants to go home as soon as the Dr. will write orders.
--- NOTE | 2023-11-02 12:28 | NUR ---
ADMIN ATIVAN 1MG PO FOR REPORTS OF ANXIETY. PATIENT REPORTS ABDOMINAL PAIN IS 5/10 WITH NO NAUSEA.
[2023-11-02 13:12] VITALS: BP 176/93
[2023-11-02] MEDS ORDERED: MAGNESIUM HYDROXIDE/AL HYDROX 30 ML CUP PO PRN (13:15)
[2023-11-02 14:36] VITALS: BP 176/93
[2023-11-02] MEDS ORDERED: HYDROCODON-ACE1 EA10 PO (14:46)
[2023-11-02] MEDS ORDERED: ONDANSETRON ODT8 MG PO (14:48)
== END 2023-11-02 15:33 | disposition home or self-care (01) | DRG 440 ==
LOC: ED 08:02 → MS 15:20
PROVIDERS: Emergency Medicine; Student in an Organized Health Care Education/Training Program; ADMIT Family Medicine; ATTEND Family Medicine
DX: K85.90 Acute pancreatitis without necrosis or infection, unspecified (principal); K86.1 Other chronic pancreatitis; F10.90 Alcohol use, unspecified, uncomplicated; E03.9 Hypothyroidism, unspecified; Z66 Do not resuscitate; F32.9 Major depressive disorder, single episode, unspecified; F41.1 Generalized anxiety disorder; R79.89 Other specified abnormal findings of blood chemistry; F43.10 Post-traumatic stress disorder, unspecified; G43.909 Migraine, unspecified, not intractable, without status migrainosus; F17.210 Nicotine dependence, cigarettes, uncomplicated; Z90.49 Acquired absence of other specified parts of digestive tract; Z98.890 Other specified postprocedural states; Z87.01 Personal history of pneumonia (recurrent); Z90.710 Acquired absence of both cervix and uterus; Z88.8 Allergy status to other drugs, medicaments and biological substances; Z79.899 Other long term (current) drug therapy; Z79.890 Hormone replacement therapy; Z79.51 Long term (current) use of inhaled steroids; Z85.841 Personal history of malignant neoplasm of brain; Z85.038 Personal history of other malignant neoplasm of large intestine; Z85.048 Personal history of other malignant neoplasm of rectum, rectosigmoid junction, and anus
CPT/HCPCS: 36415; 74177; 80048; 80053; 81003; 83605; 83690; 83735; 84100; 85025; 94760; 94762; A9270; A9270-GY; J0780; J1170; J1200; J1650; J2060; J2405; J2470; J2765; J3010; J3475; J3480; J3490; J7030; J7060; Q9967

== ENCOUNTER 2023-11-24 10:04 | Inpatient (IN) | payer OTHER ==
[~2023-11-24] VITALS: Ht 160 cm; Wt 55.0 kg
[~2023-11-24 10:04] MED LIST changes: +SUCRALFATE1 GM PO
[2023-11-24] MEDS ORDERED: ondansetron HCL 4 MG/2 ML VIAL IV ONE ×2 (10:30→13:45)
[2023-11-24 10:40] LABS: BASOPHILS 1.2 % (0-2); EOSINOPHILS 0.2 % (0-6); HEMATOCRIT 40.1 % (35.0-50.0); LYMPHOCYTES 16.1 % (24-44); MCH 33.2 (27-36); MCV 94.8 fl (81-99); MONOCYTES 4.6 % (0-12); NEUTROPHILS 77.9 % (39-80); PLATELET COUNT 340 K/uL (140-440); RBC 4.23 M/ul (4.3-5.7); RDW 14.9 (10.5-15.0)
[2023-11-24 10:58] LABS: ALBUMIN 3.2 g/dL (3.4-5.0); ALBUMIN/GLOBULIN RATIO 0.84 (1.1-2.4); ANION GAP 14.8 (7-21); BILIRUBIN, TOTAL 0.5 ng/dL (0.2-1.0); BUN/CREATININE RATIO 9.25 (6.0-28.6); CALCIUM 9.3 mg/dL (8.5-10.1); CREATININE, SERUM 1.08 mg/dL (0.55-1.02); MAGNESIUM 1.8 mg/dL (1.8-2.4); POTASSIUM 3.8 mmol/L (3.5-5.1)
[2023-11-24] MEDS ORDERED: HYDROmorphone HCL 1 MG/ML SYR IV PRN (11:00)
[2023-11-24] MEDS ORDERED: diphenhydrAMINE HCL 50 MG/ML VIAL IV ONE (11:00)
[2023-11-24] MEDS ORDERED: SODIUM CHLORIDE 0.9% 1,000 ML IV ONE ×2 (11:15→13:00)
[2023-11-24] MEDS ORDERED: HYDROCODONE/ACETA 5/325 TAB PO ONE (13:00)
[2023-11-24] MEDS ORDERED: PROMETHAZINE HCL 25 MG TAB PO ONE (13:00)
[2023-11-24 13:40] LABS: BILIRUBIN, URINE NEGATIVE (negative); BLOOD/HGB, URINE NEGATIVE (Negative); KETONE, URINE TRACE (Negative); LEUK ESTERASE, URINE NEGATIVE (negative); NITRITE, URINE NEGATIVE (negative); PH, URINE 7.5 (5-7)
[2023-11-24] MEDS ORDERED: LORazepam 2 MG/ML VIAL IV ONE (13:45)
[2023-11-24] MEDS ORDERED: NICOTINE 14 MG/24 HR 1 EA TDSY TD SCH (14:15)
[2023-11-24] MEDS ORDERED: ondansetron HCL 4 MG/2 ML VIAL IV PRN (14:30)
[2023-11-24] MEDS ORDERED: LACTATED RINGER'S 1,000 ML IV SCH (14:30)
[2023-11-24] MEDS ORDERED: BUPROPION XL300 MG PO (14:48)
[2023-11-24 14:49] VITALS: BP 134/81
[2023-11-24] MEDS ORDERED: FAMOTIDINE20 MG PO (14:49)
[2023-11-24] MEDS ORDERED: DOCUSATE SODIU250 MG PO (14:50)
--- NOTE | 2023-11-24 15:05 | NUR ---
THIS RN DOWN TO ER, RECEIVES BEDSIDE REPORT FROM BASIL SAUNDERS AT 1439. THIS RN ESCORTS PT VIA GURNEY FROM ER TO MED-SURG, ROOM 124. PT ARRIVES TO MED-SURG AT 1445. PT IS DROWSY, RESPONDS EASILY TO VERBAL STIMULI. PT ON 2L O2 VIA NC FOR SEDATION AFTER RECEIVING DILAUDID, PT NOT ON O2 CHRONICLY. VSS. RESP EVEN AND UNLABORED. LUNGS CLEAR, HRR, BT X4 QUADRANTS HYPOACTIVE. PT DENIES PAIN OR NAUSEA AT THIS TIME. ABDOMEN TENDER TO TOUCH AND SOFT. PT ORIENTED TO ROOM. CALL LIGHT IN REACH. IV IN RAC FLUSHED, PATENT, LR INFUSION STARTED ORDERED, SEE EMAR. NO REQUESTS AT THIS TIME.
--- NOTE | 2023-11-24 15:23 | NUR ---
IN TO ASSESS PATIENT. SHE APPEARS TO BE ASLEEP, EYES CLOSED, RESPIRATIONS UNLABORED. ALLOWED TO REST. WILL COMPLETE ASSESSMENT AT LATER TIME.
[2023-11-24] MEDS ORDERED: FLU VACC TS2024-25(6MOS UP)/PF 1 EACH SYR IM ONE (15:30)
--- NOTE | 2023-11-24 17:07 | NUR ---
PT RESTS IN BED WITH EYES CLOSED, RESP EVEN AND UNLABORED.
[2023-11-24 17:29] VITALS: BP 151/84
--- NOTE | 2023-11-24 17:48 | NUR ---
PT CONTINUES TO REST WITH EYES CLOSED, RESP EVEN AND UNLABORED.
[2023-11-24] MEDS ORDERED: LORazepam 2 MG/ML VIAL IV PRN (18:30)
--- NOTE | 2023-11-24 18:32 | NUR ---
PT HAS EPISODE OF NAUSEA WITH EMESIS OF APPROXIMATELY 50 MLS OF CLEAR VISCOUS OUTPUT. DR. MCKINLEY NOTIFIED. NEW ORDERED FOR ATIVAN RECEIVED. ATIVAN AND DILAUDID RECEIVED. PT ALSO REPORTS THE URGE TO VOID BUT IS UNABLE TO VOID WHEN SHE ATTEMPTS TO. BLADDER SCAN SHOWS [address] MCKINLEY NOTIFIED OF BLADDER SCAN, NEW ORDER RECEIVED FOR STRAIGHT CATH.
[2023-11-24] MEDS ORDERED: LIDOCAINE 2% VISCOUS 6 ML SYR TOP ONE (18:45)
--- NOTE | 2023-11-24 18:55 | NUR ---
PATIENT IN BED AT THIS TIME. HUMAN RESOURCES SPECIALIST CHARTED VITALS AND I&O'S. CALL LIGHT WITHIN REACH, NO FRUTHER NEEDS AT THIS TIME.
--- NOTE | 2023-11-24 19:01 | NUR ---
BLADDER STRAIGHT CATH PERFORMED VIA STERILE TECHNIQUE, 675 MLS OF CLEAR YELLOW URINE NOTED. CATHETER REMOVED, TIP INTACT. PT TOLERATED WELL.
--- NOTE | 2023-11-24 19:15 | NUR ---
pt RESTING IN THE BED WITH EYES CLOSED. BOARD UPDATED. REPORT RECEIVED FROM JEANNE GRACIA. CALL LIGHT WITHIN REACH.
[2023-11-24 20:58] VITALS: BP 184/107
[2023-11-24] MEDS ORDERED: cloNIDine HCL 0.1 MG TAB PO SCH (21:00)
[2023-11-24] MEDS ORDERED: ROPINIROLE HCL 0.25 MG TAB PO SCH (21:00)
[2023-11-24 21:08] VITALS: BP 184/107
--- NOTE | 2023-11-24 21:25 | NUR ---
ASSESSMENT AND VITAL SIGNS DONE. SCHEDULED MEDICATIONS ADMINISTERED. PRN PAIN MEDS ADMINISTERED. pt RESTING IN THE BED. PRN ANTINAUSEA MEDICATION ADMINISTERED. pt C/O 8 PAIN. pt DENIES ANY OTHER NEEDS AT THIS TIME. CALL LIGHT WITHIN REACH.
[2023-11-24 22:16] VITALS: BP 165/107
--- NOTE | 2023-11-24 22:47 | NUR ---
pt CALLED TO USE THE RESTROOM. pt SBA TO THE BR FOR LINE TUBE MANAGEMENT. POST VOID RESIDUAL OF 222ML. pt COMPLAINING OF NAUSEA. PRN MEDICATION ADMINISTERED. pt DENIES ANY OTHER NEEDS AT THIS TIME.
[2023-11-25] VITALS (11 sets, daily range): BP systolic 134–170; BP diastolic 83–102
--- NOTE | 2023-11-25 00:27 | NUR ---
pt RESTING IN THE BED WITH EYES CLOSED. RR EVEN AND UNLABORED. CALL LIGHT WITHIN REACH.
--- NOTE | 2023-11-25 01:15 | NUR ---
pt CALL TO US THE RESTROOM. pt BACK TO BED. pt C/O 09/25. PRN PAIN MEDICATION AND ANTINAUSEA MEDICATION ADMINISTERED. pt DENIES ANY OTHER NEEDS AT THIS TIME. CALL LIGHT WITHIN REACH.
--- NOTE | 2023-11-25 03:06 | NUR ---
SBA TO BATHROOM. PATIENT VOIDED 450 YELLOW URINE. PATIENT IS BACK IN BED. POST VOID SCANNED 358ML. PRIMARY RN NOTIFIED.
--- NOTE | 2023-11-25 03:20 | NUR ---
pt SITTING UP IN THE BED THROWING UP AND C/O 7/10 PAIN. PRN PAIN MEDICATION ADMINISTERED. pt DENIES ANY OTHER NEEDS AT THIS TIME. CALL LIGHT WITHIN REACH.
[2023-11-25 05:49] LABS: BASOPHILS 0.4 % (0-2); EOSINOPHILS 0.1 % (0-6); HEMATOCRIT 35.7 % (35.0-50.0); HEMOGLOBIN 12.3 g/dL (12.0-18.0); LYMPHOCYTES 9.2 % (24-44); MCH 32.8 (27-36); MCHC 34.4 g/dl (30-36); MCV 95.5 fl (81-99); MONOCYTES 8.8 % (0-12); NEUTROPHILS 81.5 % (39-80); PLATELET COUNT 276 K/uL (140-440); RBC 3.74 M/ul (4.3-5.7); RDW 14.9 (10.5-15.0)
[2023-11-25] MEDS ORDERED: ESCITALOPRAM OXALATE 10 MG TAB PO SCH (06:00)
[2023-11-25 06:06] LABS: ALBUMIN 2.6 g/dL (3.4-5.0); ALBUMIN/GLOBULIN RATIO 0.81 (1.1-2.4); ANION GAP 11.1 (7-21); BILIRUBIN, TOTAL 0.6 ng/dL (0.2-1.0); BUN/CREATININE RATIO 3.29 (6.0-28.6); CALCIUM 8.7 mg/dL (8.5-10.1); CREATININE, SERUM 0.91 mg/dL (0.55-1.02); MAGNESIUM 1.4 mg/dL (1.8-2.4); POTASSIUM 3.1 mmol/L (3.5-5.1); PROTEIN, TOTAL 5.8 g/dL (6.4-8.2)
--- NOTE | 2023-11-25 06:30 | NUR ---
PRN MEDICATION ADMINISTERED. pt DENIES ANY OTHER NEEDS AT THIS TIME. CALL LIGHT WITHIN REACH. pt C/O OF NAUSEA AT THIS TIME.
--- NOTE | 2023-11-25 07:40 | NUR ---
RECEIVED REPORT FROM BASIL ANGEL AND IBIS RN. PT STATES SHE "NEEDS TO THROW UP, BUT CAN'T". PT EDUCATION ON MEDICATIONS RECEIVED TODAY AND THIS RN DICUSSES OPTIONS WITH PT. PT REQUESTS WARM BLANKET, STATES SHE WOULD LIKE TO HAVE ADDITIONAL NAUSEA RELIEF MEDICATION IF AVAILABLE. CALL LIGHT WITHIN REACH.
[2023-11-25] MEDS ORDERED: MAGNESIUM SULFATE 2 GM/50 ML BAG IV SCH (08:15)
[2023-11-25] MEDS ORDERED: POTASSIUM CHLORIDE 10 MEQ TABCR PO ONE (08:15)
--- NOTE | 2023-11-25 08:27 | NUR ---
THIS RN UPDATES DR. MCKINLEY ON PT STATUS OF NAUSEA AFTER RECIEVING ORDERED MEDICATIONS. MD STATES TO ORDER 5MG IV COMPAZINE ONE TIME, ORDER ENTERED, REPEAT BACK PERFORMED.
[2023-11-25] MEDS ORDERED: POTASSIUM CHLORIDE 40 MEQ,LIDOCAINE HCL 1% 40 MG in DEXTROSE 5% 250 ML IV ONE (08:30)
[2023-11-25] MEDS ORDERED: PROCHLORPERAZINE EDISYLATE 10 MG/2 ML VIAL IV ONE (08:30)
--- NOTE | 2023-11-25 08:31 | NUR ---
PATIENT IN BED AT THIS TIME. HAZARDOUS MATERIALS DRIVER WENT INTO PATIENT ROOM TO DO ROUNDINGS, PATIENT IS COMPLAINING OF NAUSEA AND RN HAS BEEN NOTIFIED. CALL LIGHT WITHIN REACH, NO FURTHER NEEDS AT THIS TIME.
[2023-11-25] MEDS ORDERED: ENOXAPARIN SODIUM 40 MG/0.4 ML SYR SUB-Q SCH (09:00)
[2023-11-25] MEDS ORDERED: buPROPion HCL XL 150 MG TAB.XL.24H PO SCH (09:00)
[2023-11-25] MEDS ORDERED: LEVOTHYROXINE SODIUM 88 MCG TAB PO SCH (09:00)
--- NOTE | 2023-11-25 09:00 | NUR ---
PT APPEARS TO BE MORE COMFORTABLE AFTER HAVING COMPAZINE. PT LYING IN BED AWAKE. PT STATES NO PAIN AT REST, STATES ABDOMEN REMAINS TENDER TO PALPATION. BOWEL TONES ACTIVE IN LUQ, RLQ, AND LLQ, REMAINS HYPOACTIVE IN RUQ. PT STATES SHE CONTINUES TO HAVE MINIMAL NAUSEA, BUT THAT IT IS "BETTER" THAN PRIOR TO COMPAZINE DOSE. PT STATES SHE WOULD LIKE TO NOT TAKE PO MEDS "YET" D/T NAUSEA. PT STATES NO FURTHER NEEDS AT THIS TIME, CALL LIGHT WITHIN REACH.
--- NOTE | 2023-11-25 09:30 | NUR ---
Spoke with Kendall. He face is thin and sunken. She states she had a "very rough night". Cont. to live alone. Does not use any DME. She uses [facility] transport. Denies issues pay her bills at this time. She does receive assist through [facility] and [facility]. Wants to go home when feeling better.
--- NOTE | 2023-11-25 10:07 | NUR ---
UR CLINICAL REVIEW: [facility] IN[facility] CRITERIA FOR PANCREATITIS [facility] 11/24/23 @ 1417 ORDER MATCHES REG CLINICAL SENT FOR AUTH REVIEW DISCHARGE TO HOME WHEN STABLE 11/27/23
--- NOTE | 2023-11-25 10:51 | NUR ---
DR. MCKINLEY AT THE BEDSIDE DISCUSSING POC. PT STATES PAIN AND NAUSEA ARE MINIMAL AT THIS TIME. PT DECLINES PO MEDICATIONS AT THIS TIME. PT STATES NO CURRENT NEEDS, CALL LIGHT WITHIN REACH.
[2023-11-25] MEDS ORDERED: PHARMACY RENAL DOSE ADJUSTMENT 1 DOSE MISC PO SCH (12:00)
--- NOTE | 2023-11-25 12:12 | NUR ---
PT STATES PAIN IN ABDOMEN IS 6/10 AT THIS TIME, GETS UP TO RESTROOM WITH SBA, HAS SMALL EMESIS AND VOIDS. PT STATES SHE FEELS VERY NAUSEAS. PT REQUESTS PRN NAUSEA AND PAIN MEDICATION. PT EDUCATION ON EFFECTS OF IV PAIN MEDICATION AVAILABLE IN RELATION TO NAUSEA, PT VERBALIZES UNDERSTANDING, CONTINUES TO REQUEST, GIVEN BOTH PAIN AND NAUSEA MEDICATIONS ORDERED. PT STATES NO FURTHER NEEDS AT THIS TIME, CALL LIGHT WITHIN REACH. PT BACK TO BED AFTER RESTROOM.
--- NOTE | 2023-11-25 12:55 | NUR ---
PT STATES PAIN IS 10/10 AT THIS TIME, STATES SHE CONTINUES TO HAVE SOME NAUSEA. PT MOVING AROUND ROOM, RAISES VOICE TO THIS RN STATING "I CANNOT DO THIS, WHY AREN'T YOU HELPING ME". PT EDUCATION ON MEDICATIONS AND NONPHARMACOLOGIC METHODS USED TO ASSIST WITH PAIN AND NAUSEA, PT STATES SHE WOULD LIKE "SOMETHING ELSE TO HELP". PRN ATIVAN GIVEN PER ORDER. PT STATES NO FURTHER NEEDS AT THIS TIME. CALL LIGHT WITHIN REACH.
--- NOTE | 2023-11-25 13:10 | NUR ---
PT USES CALL LIGHT, STATES L ARM IS PAINFUL AT IV SITE. THIS RN TO BEDSIDE, SWELLING PRESENT AT IV INSERTION SITE. IVF AND POTASSIUM TURNED OFF AT THIS TIME. IV DC'D, IV INTACT, SWELLING PRESENT IN AREA, NO REDNESS. SITE WRAPPED IN GAUZE AND COBAN, HEAT PACK PLACED ON SITE PER PROTOCOL D/T POTASSIUM. CALL LIGHT WITHIN REACH.
[2023-11-25] MEDS ORDERED: LACTATED RINGER'S 1,000 ML IV SCH (13:15)
[2023-11-25] MEDS ORDERED: POTASSIUM CHLORIDE 10 MEQ/100 ML BAG IV ONE (13:15)
[2023-11-25] MEDS ORDERED: POTASSIUM CHLORIDE 40 MEQ in SODIUM CHLORIDE 0.9% 250 ML IV ONE (13:30)
--- NOTE | 2023-11-25 13:39 | NUR ---
PT NOT AVAILABLE FOR VISIT. PROVIDED PRAYER.
--- NOTE | 2023-11-25 13:50 | NUR ---
IV INSERTION UNSUCCESSFUL AFTER X3 ATTEMPTS BY TWO DIFFERENT RNs. THIS RN CALLS PHOTOGRAPHER NEWS FOR POSSIBLE ULTRASOUND IV ATTEMPT. BASIL ZELAYA ARRIVES TO MEDICAL FLOOR TO ATTEMPT INSERTION.
--- NOTE | 2023-11-25 15:31 | NUR ---
PATIENT IN BED AT THIS TIME. PATIENT WATNTED PAIN MEDICATION AND DEMANDED TO SPEAK TO RN. NURSE PRACTITIONER HOME ASSESSMENTS NOTIFIED RN. CALL LIGHT WITHIN REACH, NO FURTHER NEEDS AT THIS TIME.
--- NOTE | 2023-11-25 15:58 | NUR ---
COMPTOMETER OPERATOR WENT INTO PATIENTS ROOM FOR ROUNDINGS. PASTORA WAS VOMITING AND WANTED MORE PAIN MEDS, RN TOLD PATIENT THAT SHE HAS NO MEDS DUE AT THIS TIME. PATIENT THEN TOLD COMPTOMETER OPERATOR THAT SHE "WANTS A VOLUNTARY SUICIDE". ONE COMPTOMETER OPERATOR STAYED IN ROOM WITH PATIENT WHILE OTHER COMPTOMETER OPERATOR WENT TO NOTIFY NURSE IMMEDIATELY. RN AT BEDSIDE AT THIS TIME. CALL LIGHT WITHIN PATIENTS REACH.
--- NOTE | 2023-11-25 16:06 | NUR ---
PT SITS UP ON BEDSIDE, HEAVES SEVERAL TIMES, SMALL AMOUNT OF CLEAR VISCOUS EMESIS NOTED. PT GUARDS ABDOMEN. DILAUDID AND ZOFRAN RECEIVED. POTASSIUM INFUSION STARTED, IV IS PATENT, NO LEAKING, REDNESS OR SWELLING NOTED AT SITE. PT ASSISTED WITH ORAL CARE. PT ASSISTED TO LAY IN BED PER PT REQUEST. PT CONTINUES TO MOAN, DRY HEAVING REDUCES AT THIS TIME. PT CONTINUES TO BE RESTLESS. PT ENCOURAGED TO USE CALL LIGHT. NEW EMESIS BAG PROVIDED.
--- NOTE | 2023-11-25 16:53 | NUR ---
THIS RN TO BEDSIDE. PT APPEARS DROWSY, RESPONDS TO VOICE AND EASILY AROUSABLE. BOWEL TONES HYPOACTIVE, PT DENIES NAUSEA AT THIS TIME. PT STATES ABDOMEN REMAINS TENDER TO PALPATION. PT STATES NO FURTHER NEEDS AT THIS TIME, CALL LIGHT WITHIN REACH.
[2023-11-25] MEDS ORDERED: PANTOPRAZOLE SODIUM 40 MG/10 ML VIAL IV SCH (18:18)
--- NOTE | 2023-11-25 19:51 | NUR ---
REPORT RECEIVED FROM ALEK GRACIA. BOARD UPDATED. NO OTHER NEEDS AT THIS TIME. CALL LIGHT WITHIN REACH.
--- NOTE | 2023-11-25 21:05 | NUR ---
ASSESSMENT AND VITAL SIGNS DONE. pt RESTING IN THE BED. PRN ANTINAUSEA MEDS AND PAIN MEDS ADMINISTERED. pt REQUESTS TO GET UP TO THE BR. SBA FOR LINE/TUBE MANAGEMENT. pt BACK TO BED. IV ASSESSED, WNL. pt C/O 07/26 PAIN. pt DENIES ANY OTHER NEEDS AT THIS TIME. CALL LIGHT WITHIN REACH.
--- NOTE | 2023-11-25 23:34 | NUR ---
CALL LIGHT ANSWERED. PT NEEDED TO USE BATHROOM. SQUARE CUTTER ASSISTED PT TO BATHROOM. PT VOIDED AND WAS ASSISTED BACK TO BED. OUTPUT MEASURED. PT STATES NO FURTHER NEEDS AT THIS TIME. CALL LIGHT WITHIN REACH.
[2023-11-26] VITALS (8 sets, daily range): BP systolic 146–160; BP diastolic 88–125
--- NOTE | 2023-11-26 00:33 | NUR ---
CALL LIGHT ANSWERED. PT NEEDED TO USE BATHROOM. [employer] SPECIALIST SBA PT TO BATHROOM. PT VOIDED AND ASSISTED BACK TO BED. PT COMPLAINING OF NAUSEA. RN NOTFIED. CALL LIGHT WITHIN REACH.
--- NOTE | 2023-11-26 01:15 | NUR ---
PRN ANTINAUEA MEDICATION ADMINISTERED. pt DENIES ANY OTHER NEEDS AT THIS TIME. CALL LIGHT WITHIN REACH.
--- NOTE | 2023-11-26 03:33 | NUR ---
pt RESTING IN THE BED WITH EYES CLOSED. RR EVEN AND UNLABORED. CALL LIGHT WITHIN REACH.
--- NOTE | 2023-11-26 04:08 | NUR ---
CALL LIGHT ANSWERED. PT NEEDED TO USE BATHROOM. PACKAGING COORDINATOR SBA TO BATHROOM. PT VOIDED AND ASSISTED BACK TO BED. PT STATES NO FURTHER NEEDS A THIS TIME. CALL LIGHT WITHIN REACH AND BED ALARM ON.
[2023-11-26 05:38] LABS: BASOPHILS 0.3 % (0-2); EOSINOPHILS 0.2 % (0-6); HEMATOCRIT 32.1 % (35.0-50.0); HEMOGLOBIN 11.3 g/dL (12.0-18.0); LYMPHOCYTES 13.3 % (24-44); MCH 33.7 (27-36); MCHC 35.1 g/dl (30-36); MCV 95.9 fl (81-99); MONOCYTES 12.1 % (0-12); NEUTROPHILS 74.1 % (39-80); PLATELET COUNT 181 K/uL (140-440); RBC 3.35 M/ul (4.3-5.7)
[2023-11-26 05:54] LABS: ALBUMIN 2.3 g/dL (3.4-5.0); ALBUMIN/GLOBULIN RATIO 0.79 (1.1-2.4); ANION GAP 11.3 (7-21); BILIRUBIN, TOTAL 0.7 ng/dL (0.2-1.0); BUN/CREATININE RATIO 4.1 (6.0-28.6); CALCIUM 8.1 mg/dL (8.5-10.1); CREATININE, SERUM 0.73 mg/dL (0.55-1.02); MAGNESIUM 1.9 mg/dL (1.8-2.4); POTASSIUM 3.3 mmol/L (3.5-5.1); PROTEIN, TOTAL 5.2 g/dL (6.4-8.2)
--- NOTE | 2023-11-26 06:35 | NUR ---
pt RESTED ON AND OFF THROUGH OUT THE NIGHT. PRN MEDICATIONS ADMINISTERED NEEDS. pt NAUSOUS EVERY TIME SHES AWAKE. NO OTHER CONCERNS AT THIS TIME.
--- NOTE | 2023-11-26 07:25 | NUR ---
RECEIVED REPORT FROM BASIL SAUNDERS. PT RESTING IN BED WITH EYES CLOSED, BREATHING EVEN AND UNLABORED. CALL LIGHT WITHIN REACH.
[2023-11-26] MEDS ORDERED: POTASSIUM CHLORIDE 40 MEQ,LIDOCAINE HCL 1% 40 MG in DEXTROSE 5% 250 ML IV ONE (07:30)
--- NOTE | 2023-11-26 08:21 | NUR ---
PT STATES SHE WOULD LIKE PAIN AND ANXIETY MEDICATION WHEN NEXT AVAILABLE. DR. CARL TO BEDSIDE. CALL LIGHT WITHIN REACH.
[2023-11-26] MEDS ORDERED: CHOLECALCIFEROL 1,000 UNIT TAB PO SCH (09:15)
[2023-11-26] MEDS ORDERED: Calcium Gluconate in NS 1,000 MG/50 ML BAG IV ONE (09:15)
--- NOTE | 2023-11-26 09:20 | NUR ---
Attempted to speak with Kendall. She is resting on the sofa in the room. Pt eyes closed, denies needs.
--- NOTE | 2023-11-26 09:45 | NUR ---
PT NOT AVAILABLE FOR VISIT. PROVIDED PRAYER.
--- NOTE | 2023-11-26 10:45 | NUR ---
PT RESTING ON COUCH WITH EYES CLOSED, AWAKENS TO RN VOICE. PT STATES MINIMAL ABDOMINAL PAIN AT THIS TIME, STATES IV "IS BURNING", THIS RN UNWRAPS COBAN THAT IS WRAPPED AROUND IV SITE, SMALL AMOUNT OF SWELLING PRESENT ABOVE LOCATION OF COBAN WRAP. IV ASSESSED, BRISK BLOOD RETURN AND NO PAIN WITH FLUSHING, IV PATENT AT THIS TIME. POTASSIUM SLOWED TO DECREASE BURNING. PT STATES NO FURTHER BURNING AT THIS TIME, HEAT PACK GIVEN BY SN ALEXANDRE. PT C/O NAUSEA, ZOFRAN GIVEN PER PT REQUEST. PT TAKES PO MEDICATIONS W/O DIFFICULTY. PT STATES NO FURTHER NEEDS AT THIS TIME, STATES "JUST LEAVE ME ALONE SO I CAN SLEEP". CALL LIGHT WITHIN REACH, EMESIS BAG WITHIN REACH.
--- NOTE | 2023-11-26 12:00 | NUR ---
PT HAD MOVED TO THE COUCH PT COMPLAINED OF IV SITE PAIN W/ MEDICATION BEING RUN IV SITE UNWRAPPED FLUSHED AND CHECKED FOR INFILTRATION IV SITE PATENT PAIN DECREASED PT APPREARS CALM RESTING BACK IN BED PROVIDED HEAT PACK FOR IV SITE COMFORT ENCOURAGED PT TO USE CALL LIGHT IF PAIN RETURNS PT HAS BEEN SELF TOILETING APPEARS STEADY ON FEET NO OTHER NEEDS AT THIS TIME CALL LIGHT WITHIN REACH
--- NOTE | 2023-11-26 12:35 | NUR ---
PATIENT ON COUCH THIS TIME. PATIENT TOLD OCCUPATIONAL HYGIENIST THAT THE "SHEETS WERE TO ROUGH FOR HER BOTTOM", RN HAS BEEN NOTIFIED. OCCUPATIONAL HYGIENIST PROVIDED PATIENT WITH PULLUP IN STEAD OF HAVING PATIENTS BARE BOTTOM ON SHEETS. CALL LIGHT WITHIN REACH, NO FURTHER NEEDS AT THIS TIME.
--- NOTE | 2023-11-26 13:05 | NUR ---
THIS RN CALLED TO BEDSIDE D/T PT COMPLAINING OF A BURNING SENSATION IN BUTTOCK AREA. BLANCHABLE REDNESS PRESENT ON BILATERAL BUTTOCKS WELL A SMALL SPOT ON LATERAL SIDE OF L KNEE AREA. DR. CARL CALLED TO BEDSIDE TO ASSESS. MD STATES HE WILL PLACE NEW ORDERS. PT STATES NO FURTHER NEEDS AT THIS TIME. CALL LIGHT WITHIN REACH.
[2023-11-26] MEDS ORDERED: diphenhydrAMINE 2% CREAM TUBE TOP SCH (13:30)
--- NOTE | 2023-11-26 13:54 | NUR ---
BENADRYL CREAM APPLIED TO SMALL AREA OF BUTTOCK, PT STATES THIS CAUSES INCREASE IN BURNING SENSATION. CREAM REMOVED WITH COOL WASHCLOTH.
--- NOTE | 2023-11-26 14:24 | NUR ---
MED REC COMPLETE
--- NOTE | 2023-11-26 14:30 | NUR ---
IV OCCLUDED, NO BLOOD RETURN, NOT PATENT, LEAKING. IV FLUIDS STOPPED, IV DC'D WNL. FLOAT RN TO BEDSIDE TO ATTEMPT ULTRASOUND IV D/T HX OF DIFFICULTY WITH IV INSERTION AND MULTIPLE ATTEMPTS YESTERDAY FOR NEW IV. CALL LIGHT WITHIN REACH.
--- NOTE | 2023-11-26 14:47 | NUR ---
Patient called multiple times for several medication and anxiety needs. RN was notified and responded to those specific needs. No other cares from the 8TH GRADE MATHEMATICS TEACHER were requested.
--- NOTE | 2023-11-26 15:38 | NUR ---
PT MOANING/COMING OUT TO NURSES STATION, ARRIVED TO ROOM AND PATIENT MOANING AND ROLLING ON THE COUCH IN 08/25 PAIN SHE STATES. IV DIALUDID GIVEN ORDERED. SOON GIVEN, PT SITTING UP AND COUGHING. MOANING HAS SUBSIDED SOME AND LAID BACK ON THE COUCH. PT APPEARS VERY RESTLESS. ALL PT CARE NEEDS MET AT THIS TIME.
--- NOTE | 2023-11-26 15:45 | NUR ---
THIS RN AND STUDENT NURSE TO BEDSIDE, PT LYING ON FLOOR IN PT RESTROOM. THIS RN ASKS PT HOW SHE GOT ON THE FLOOR AND PT RESPONDS STATING "I LAID DOWN HERE". PT STATES SHE LAID ON RESTROOM FLOOR D/T PAIN, STATES SHE FEELS COLD. PT AMBULATES BACK TO BED, GIVEN WARM BLANKETS. PT STATES SHE WOULD LIKE TO REST. CALL LIGHT WITHIN REACH.
--- NOTE | 2023-11-26 18:11 | NUR ---
PT USES CALL LIGHT, REQUESTS WARM BLANKET, GIVEN. PT STATES NO FURTHER NEEDS AT THIS TIME, CALL LIGHT WITHIN REACH.
--- NOTE | 2023-11-26 18:52 | NUR ---
PT USES CALL LIGHT, THIS RN TO BEDSIDE. PT REQUESTS PRN PAIN MEDICATION FOR 7/10 PAIN IN ABDOMEN, GIVEN. PT STATES NO FURTHER NEEDS AT THIS TIME, CALL LIGHT WITHIN REACH.
--- NOTE | 2023-11-26 19:15 | NUR ---
REPORT RECEIVED FROM ALEK GRACIA. pt RESTING IN THE BED. BOARD UPDATED. NO FURTHER NEEDS AT THIS TIME. CALL LIGHT WITHIN REACH.
--- NOTE | 2023-11-26 20:42 | NUR ---
VS COMPLETED, I/O. NOTED BLOOD DRIED, ON SHEET AND DRAW SHEET. LINEN'S CHANGED. PT COMPLAIN OF HER BOTTOM "BURNING", EXAMINED, NO SIGN SORES, SL RED. CHANGED INTO HER PJ PANTS. COMPLAINED OF PAIN, PRIMARY RN IN ROOM WITH PAIN MEDICATIONS.
--- NOTE | 2023-11-26 20:45 | NUR ---
ASSESSMENT DONE. SCHEDULED MEDICATIONS ADMINISTERED. PRN PAIN MEDS ADMINISTERED FOR 8/10 PAIN. BOWEL TONES ACTIVE. pt DENIES ANY OTHER NEEDS AT THIS TIME. CALL LIGHT WITHIN REACH.
--- NOTE | 2023-11-26 22:39 | NUR ---
pt CALLED FOR PRN PAIN MEDICATION. pt C/O 09/25 PAIN. PRN PAIN AND NAUSEA MEDICATIONS ADMINISTERED. pt DENIES ANY OTHER NEEDS AT THIS TIME. CALL LIGHT WITHIN REACH.
--- NOTE | 2023-11-27 00:06 | NUR ---
pt RESTING IN THE BED WITH EYES CLOSED. RR EVEN AND UNLABORED. CALL LIGHT WITHIN REACH.
--- NOTE | 2023-11-27 02:10 | NUR ---
pt RESTING IN THE CHAIR WITH EYES CLOSED. RR EVEN AND UNLABORED. CALL LIGHT WITHIN REACH.
--- NOTE | 2023-11-27 04:06 | NUR ---
pt RESTING ON THE COUCH WITH EYES CLOSED. RR EVEN AND UNLABORED. CALL LIGHT WITHIN REACH.
[2023-11-27 05:50] LABS: BASOPHILS 0.5 % (0-2); EOSINOPHILS 0.5 % (0-6); HEMATOCRIT 31.5 % (35.0-50.0); HEMOGLOBIN 11.2 g/dL (12.0-18.0); LYMPHOCYTES 18.3 % (24-44); MCH 33.5 (27-36); MCHC 35.5 g/dl (30-36); MCV 94.4 fl (81-99); MONOCYTES 13.3 % (0-12); NEUTROPHILS 67.4 % (39-80); PLATELET COUNT 183 K/uL (140-440); RBC 3.34 M/ul (4.3-5.7); RDW 14.6 (10.5-15.0)
[2023-11-27 06:07] LABS: ALBUMIN 2.4 g/dL (3.4-5.0); ALBUMIN/GLOBULIN RATIO 0.73 (1.1-2.4); ANION GAP 13.5 (7-21); BILIRUBIN, TOTAL 0.7 ng/dL (0.2-1.0); BUN/CREATININE RATIO 6.57 (6.0-28.6); CALCIUM 8.3 mg/dL (8.5-10.1); CREATININE, SERUM 0.76 mg/dL (0.55-1.02); MAGNESIUM 1.4 mg/dL (1.8-2.4); POTASSIUM 3.5 mmol/L (3.5-5.1); PROTEIN, TOTAL 5.7 g/dL (6.4-8.2)
--- NOTE | 2023-11-27 06:36 | NUR ---
pt RESTED THROUGH OUT THE NIGHT. PRN PAIN MEDICATION ADMINISTERED WHEN ASKED FOR. MARTY STEPHENS PLACED ON pt BED FOR SORE BOTTOM, pt FEELING BETTER NOW. NO OTHER CONCERNS AT THIS TIME.
[2023-11-27 07:13] VITALS: BP 146/91
--- NOTE | 2023-11-27 07:43 | NUR ---
RECIEVED SHIFT REPORT. PT IS AWAKE IN BED, BASIL SAUNDERS ADMINISTERED MEDS (SEE EMAR). CALL LIGHT IN REACH
--- NOTE | 2023-11-27 07:54 | NUR ---
UR CONCURRENT REVIEW: [facility] [place]IT[place] VARIANCE ENTERED FOR GL DAY 2. [facility] 11/24/23 @ 1412 ORDER MATCHES REG AUTHED THROUGH 11/26/23, CLINICALS SENT VIA [facility] 11/26/23 FOR FURTHER AUTH. PLAN TO RETURN HOME WHEN STABLE 11/30/23
[2023-11-27 07:58] VITALS: BP 149/86
--- NOTE | 2023-11-27 08:04 | NUR ---
pt resting comfortably in bed
[2023-11-27] MEDS ORDERED: MAGNESIUM SULFATE 2 GM/50 ML BAG IV SCH (08:30)
[2023-11-27 10:29] VITALS: BP 148/93
--- NOTE | 2023-11-27 11:34 | NUR ---
PT WAS STANDING NEXT TO THE DOOR AND REPORTING SHE WAS FEELING VERY ANXIOUS PT ALSO ASKED FOR A "DRINK" AND "SOMETHING TO EAT" PT THEN ASKED IF SHE COULD "REQUEST A NEW HOSPITAL" PT IS ON NPO STATUS EDUCATED PT ON NPO STATUS PT STATED AGAIN THAT SHE WAS "VERY ANXIOUS" REPORTED PT COMMUNICATION TO PT NURSE AND CLINICAL CLASSIFIER CLINICAL CLASSIFIER WAS ABLE TO GIVE PATIENT ATIVAN PRESCRIBED CLINICAL CLASSIFIER ALSO STARTED PT'S 2ND DOSE OF MAG IV PT ASKED IF SHE COULD "TAKE OFF HER SHIRT" PT REPORTED "IT IS SCRATCHING HER BACK" HELPED PT REMOVE HER SHIRT AND LAY DOWN ON HER BED GOT PT A WARM BLANKET WHEN I LEFT PT WAS RESTING COMFORTABLY IN BED
--- NOTE | 2023-11-27 12:00 | NUR ---
MORTUARY TECHNICIAN REPORTS TO THIS RN THAT PT IS YELLING "I WANT TO GO HOME". THIS RN IN ROOM TO ASSESS AND PT REFUSING TO HAVE GOWN REMOVED DUE TO ITCHING BACK. PT IS IRRITABLE AND REQUESTING TO GO HOME. DISCUSSED WITH PT THAT SHE HAD RECIEVED HER ATIVAN FOR ANXIETY. PT STATES THE BED IS HARD, THIS RN LET AIR OUT OF THE WAFFLE MATTRESS AND PT STATED IT FELT BETTER. PT REQUESTING FOOD. TALKED TO . VERBAL ORDER TO HAVE CLEAR DIET PUT IN ADVANCE TOLERATE. SALINE LOCKED.
--- NOTE | 2023-11-27 12:28 | NUR ---
ENTERED ROOM PT ON FLOOR PT STATED "I WANT TO GO HOME" INFORMED PT THAT PHYSICIAN GAVE THE OK TO BEGIN LIQUIDS STOP NPO STATUS GAVE PT ICE WATER PHYSICIAN CAME IN AND MET WITH PT
--- NOTE | 2023-11-27 12:55 | NUR ---
CHECKED IN PT ROOM TO SEE IF FOOD TRAY HAD BEEN DELIVERED FOOD TRAY WAS DELIVERED PT HAD CONSUMED ONE OF 5 ITEMS ON THE TRAY PT WAS MOANING IN BED PT REPORTED BEING COLD BROUGHT PT WARM BLANKET PT HAD PUT HER SWEATSHIRT ON PT WAS COMFORTABLE IN BED AND AWAKE WHEN LEFT ROOM
--- NOTE | 2023-11-27 13:10 | NUR ---
Patient was moaning and restless but did not request any needs from CAKE DECORATOR solid waste facility operator.
--- NOTE | 2023-11-27 13:50 | NUR ---
Spoke with Kendall. Dr. Drake visited with her. Pt is wanting to go home. She denies needs and will need a taxi. is reviewing her case to see if she can dc.
[2023-11-27 13:58] VITALS: BP 125/76
--- NOTE | 2023-11-27 15:00 | NUR ---
PT ASLEEP IN BED, BROUGHT IN BOX LUNCH TO TRY TO EAT. PT ATE HALF OF IT AND REQUESTED TO GO HOME. FEELS GOOD DENIES NAUSEA. NOTIFIED.
[2023-11-27] MEDS ORDERED: OMEPRAZOLE40 MG PO (15:52)
[2023-11-27] MEDS ORDERED: ATIVAN0.5 MG PO (15:53)
[2023-11-27] MEDS ORDERED: PERCOCET 5-3251 EACH PO (15:53)
== END 2023-11-27 16:24 | disposition home or self-care (01) | DRG 440 ==
LOC: ED 10:04 → MS 14:17
PROVIDERS: Emergency Medicine; ADMIT Student in an Organized Health Care Education/Training Program; ATTEND Student in an Organized Health Care Education/Training Program
DX: K85.90 Acute pancreatitis without necrosis or infection, unspecified (principal); K86.1 Other chronic pancreatitis; F17.210 Nicotine dependence, cigarettes, uncomplicated; I10 Essential (primary) hypertension; E03.9 Hypothyroidism, unspecified; G43.909 Migraine, unspecified, not intractable, without status migrainosus; F43.10 Post-traumatic stress disorder, unspecified; F10.10 Alcohol abuse, uncomplicated; F41.1 Generalized anxiety disorder; F32.9 Major depressive disorder, single episode, unspecified; Z66 Do not resuscitate; Z71.6 Tobacco abuse counseling; Z71.41 Alcohol abuse counseling and surveillance of alcoholic; Z88.8 Allergy status to other drugs, medicaments and biological substances; Z90.49 Acquired absence of other specified parts of digestive tract; Z90.710 Acquired absence of both cervix and uterus; Z85.41 Personal history of malignant neoplasm of cervix uteri; Z87.01 Personal history of pneumonia (recurrent); Z79.899 Other long term (current) drug therapy; Z79.890 Hormone replacement therapy
CPT/HCPCS: 36415; 51798; 80053; 81003; 83690; 83735; 84478; 85025; 90656; J0780; J1170; J1200; J1650; J2060; J2405; J2470; J3475; J3480; J3490; J7030; J7050; J7060; J7121

== ENCOUNTER 2023-12-14 13:01 | Emergency (ER) | payer OTHER ==
[~2023-12-14] VITALS: Ht 160 cm; Wt 51.0 kg
[~2023-12-14 13:01] MED LIST changes: +ATIVAN0.5 MG PO; +BUPROPION XL300 MG PO; +DOCUSATE SODIU250 MG PO; +FAMOTIDINE20 MG PO
[2023-12-14] MEDS ORDERED: HYDROXYZINE HCL25 MG PO (13:20)
[2023-12-14 13:40] LABS: BASOPHILS 1.1 % (0-2); EOSINOPHILS 2.3 % (0-6); HEMOGLOBIN 13.4 g/dL (12.0-18.0); LYMPHOCYTES 24.4 % (24-44); MCH 33.3 (27-36); MCHC 34.3 g/dl (30-36); MCV 97.1 fl (81-99); MONOCYTES 10.7 % (0-12); NEUTROPHILS 61.5 % (39-80); PLATELET COUNT 435 K/uL (140-440); RBC 4.01 M/ul (4.3-5.7); RDW 15.2 (10.5-15.0)
[2023-12-14] MEDS ORDERED: HYDROmorphone HCL 1 MG/ML SYR IV PRN (13:45)
[2023-12-14] MEDS ORDERED: PANTOPRAZOLE SODIUM 40 MG/10 ML VIAL IV ONE (13:45)
[2023-12-14] MEDS ORDERED: ondansetron HCL 4 MG/2 ML VIAL IV ONE (13:45)
[2023-12-14 14:39] LABS: BILIRUBIN, URINE NEGATIVE (negative); BLOOD/HGB, URINE NEGATIVE (Negative); KETONE, URINE NEGATIVE (Negative); LEUK ESTERASE, URINE TRACE (negative); NITRITE, URINE NEGATIVE (negative)
[2023-12-14 14:45] LABS: RED BLOOD CELLS, URINE 0-1 /hpf (0-5)
[2023-12-14 14:46] LABS: BACTERIA, URINE RARE /hpf (negative); CASTS, URINE NONE SEEN \\lpf; COLLECTION TYPE, URINE CLEAN CATCH; CRYSTALS, URINE NONE SEEN (0-1+); EPITHELIAL CELLS, URINE SQUAMOUS 2+ /lpf (0-1+); REFLEX CULTURE, URINE No (No)
[2023-12-14 15:27] LABS: ALBUMIN 2.5 g/dL (3.4-5.0); ALBUMIN/GLOBULIN RATIO 0.6 (1.1-2.4); ANION GAP 14.5 (7-21); BILIRUBIN, TOTAL 0.3 ng/dL (0.2-1.0); BUN/CREATININE RATIO 6.12 (6.0-28.6); CREATININE, SERUM 0.98 mg/dL (0.55-1.02); POTASSIUM 4.5 mmol/L (3.5-5.1); PROTEIN, TOTAL 6.7 g/dL (6.4-8.2)
[2023-12-14] MEDS ORDERED: PROTONIX40 MG PO (16:40)
[2023-12-14] MEDS ORDERED: ONDANSETRON ODT8 MG PO (16:40)
[2023-12-14 17:00] VITALS: BP 149/89
[2023-12-14] MEDS ORDERED: OXYCODONE/APAP 10/325 TAB PO ONE (17:00)
[2023-12-15] MEDS ORDERED: ONDANSETRON ODT8 MG PO (03:02)
== END 2023-12-14 17:47 | disposition home or self-care (01) ==
LOC: ED 13:01
PROVIDERS: Emergency Medicine
DX: R10.12 Left upper quadrant pain (principal); K86.9 Disease of pancreas, unspecified; F17.200 Nicotine dependence, unspecified, uncomplicated; Z88.8 Allergy status to other drugs, medicaments and biological substances; Z79.899 Other long term (current) drug therapy; Z79.890 Hormone replacement therapy
CPT/HCPCS: 36415; 74177; 80053; 81001; 83605; 83690; 85025; 96375; 99284-25; J1171; J2405; J2470; Q9967

== ENCOUNTER 2023-12-14 23:40 | Emergency (ER) | payer OTHER ==
[~2023-12-14] VITALS: Ht 160 cm; Wt 50.0 kg
[~2023-12-14 23:40] MED LIST changes: +HYDROXYZINE HCL25 MG PO
[2023-12-14] MEDS ORDERED: LACTATED RINGER'S 1,000 ML IV ONE (23:45)
[2023-12-14] MEDS ORDERED: MORPHINE SULFATE 4 MG/ML VIAL IV ONE (23:45)
[2023-12-14] MEDS ORDERED: PROCHLORPERAZINE EDISYLATE 10 MG/2 ML VIAL IV ONE (23:45)
[2023-12-14] MEDS ORDERED: diphenhydrAMINE HCL 50 MG/ML VIAL IV ONE (23:45)
[2023-12-15 01:01] LABS: HEMATOCRIT 38.7 % (35.0-50.0); HEMOGLOBIN 13.2 g/dL (12.0-18.0); MCH 33.1 (27-36); MCHC 34.1 g/dl (30-36); MCV 97.2 fl (81-99); PLATELET COUNT 373 K/uL (140-440); RBC 3.98 M/ul (4.3-5.7); RDW 15.2 (10.5-15.0)
[2023-12-15 01:14] LABS: BANDS, MANUAL DIFF 1; LYMPHOCYTES, MANUAL DIFF 18; MONOCYTES, MANUAL DIFF 4; NEUTROPHILS, MANUAL DIFF 77
[2023-12-15 01:22] LABS: ALBUMIN 2.5 g/dL (3.4-5.0); ALBUMIN/GLOBULIN RATIO 0.58 (1.1-2.4); ANION GAP 12.1 (7-21); BILIRUBIN, TOTAL 0.4 ng/dL (0.2-1.0); BUN/CREATININE RATIO 4.8 (6.0-28.6); CALCIUM 9.5 mg/dL (8.5-10.1); CREATININE, SERUM 1.25 mg/dL (0.55-1.02); POTASSIUM 4.1 mmol/L (3.5-5.1); PROTEIN, TOTAL 6.8 g/dL (6.4-8.2)
[2023-12-15] MEDS ORDERED: ONDANSETRON ODT8 MG PO (03:02)
[2023-12-15] MEDS ORDERED: MAGNESIUM CITRATE 300 ML BTL PO ONE (03:15)
[2023-12-15 03:35] VITALS: BP 155/97
== END 2023-12-15 03:35 | disposition home or self-care (01) ==
LOC: ED 23:40
PROVIDERS: Family Medicine
DX: K59.00 Constipation, unspecified (principal); F17.200 Nicotine dependence, unspecified, uncomplicated; Z88.8 Allergy status to other drugs, medicaments and biological substances; Z79.899 Other long term (current) drug therapy; Z79.890 Hormone replacement therapy
CPT/HCPCS: 36415; 80053; 83690; 85025; 96374; 96375; 99284-25; J0780; J1200; J2270; J7121

== ENCOUNTER 2023-12-15 10:24 | Inpatient (IN) | payer OTHER ==
[~2023-12-15] VITALS: Ht 160 cm; Wt 51.3 kg
[2023-12-15] MEDS ORDERED: OXYCODONE HCL5 MG PO (11:00)
[2023-12-15] MEDS ORDERED: ondansetron HCL 4 MG/2 ML VIAL IV ONE ×2 (11:15→13:30)
[2023-12-15] MEDS ORDERED: HYDROmorphone HCL 1 MG/ML SYR IV PRN ×2 (11:15→22:45)
[2023-12-15 11:39] LABS: BASOPHILS 0.1 % (0-2); EOSINOPHILS 0.1 % (0-6); HEMATOCRIT 36.2 % (35.0-50.0); HEMOGLOBIN 12.4 g/dL (12.0-18.0); LYMPHOCYTES 9.7 % (24-44); MCH 32.9 (27-36); MCHC 34.3 g/dl (30-36); MCV 96.1 fl (81-99); MONOCYTES 4.6 % (0-12); NEUTROPHILS 85.5 % (39-80); PLATELET COUNT 454 K/uL (140-440); RBC 3.77 M/ul (4.3-5.7); RDW 15.1 (10.5-15.0)
[2023-12-15 11:57] LABS: ALBUMIN 2.8 g/dL (3.4-5.0); ALBUMIN/GLOBULIN RATIO 0.67 (1.1-2.4); ANION GAP 6.6 (7-21); BILIRUBIN, TOTAL 0.5 ng/dL (0.2-1.0); BUN/CREATININE RATIO 7.96 (6.0-28.6); CALCIUM 9.3 mg/dL (8.5-10.1); CREATININE, SERUM 1.13 mg/dL (0.55-1.02); POTASSIUM 3.6 mmol/L (3.5-5.1)
[2023-12-15] MEDS ORDERED: METOCLOPRAMIDE HCL 10 MG/2 ML SDV IV ONE ×2 (14:30→15:30)
[2023-12-15] MEDS ORDERED: LACTATED RINGER'S 1,000 ML IV SCH (16:00)
[2023-12-15] MEDS ORDERED: ondansetron HCL 4 MG/2 ML VIAL IV PRN (16:00)
[2023-12-15] MEDS ORDERED: bisacodyL 10 MG SUPP PR PRN (16:00)
[2023-12-15] MEDS ORDERED: PROCHLORPERAZINE EDISYLATE 10 MG/2 ML VIAL IV PRN (16:00)
[2023-12-15 16:02] LABS: LACTIC ACID, BLOOD 1.4 mmol/L (0.4-2.0)
[2023-12-15] MEDS ORDERED: ENOXAPARIN SODIUM 40 MG/0.4 ML SYR SUB-Q SCH (16:05)
[2023-12-15] MEDS ORDERED: PANTOPRAZOLE SODIUM 40 MG/10 ML VIAL IV SCH (16:05)
[2023-12-15] MEDS ORDERED: SCOPOLAMINE 1 MG/3 DAYS PATCH 1 EACH TDSY TD PRN (16:15)
[2023-12-15] MEDS ORDERED: LORazepam 2 MG/ML VIAL IV PRN (16:30)
[2023-12-15] MEDS ORDERED: DICYCLOMINE HCL 20 MG/2 ML VIAL IM PRN (16:30)
[2023-12-15 16:38] VITALS: BP 158/93
--- NOTE | 2023-12-15 16:49 | NUR ---
PATIENT FROM ER. IVF INFUSING LR @ 100. PATIENT GIVEN WARM BLANKET.
[2023-12-15] MEDS ORDERED: PIPERACILLIN/TAZOBACTAM 3.375 GM in DEXTROSE 5% 100 ML IV SCH ×2 (17:00→22:00)
--- NOTE | 2023-12-15 17:06 | NUR ---
VERBAL REPORT RECEIVED FROM BASIL MATHIS.
--- NOTE | 2023-12-15 18:19 | NUR ---
PT IN ROOM, RESTLESS, AGITATED, REPORT ABDOMINAL PAIN AND NAUSEA. DRY HEAVES. PT INCONSOLABLE. PRN MEDICATION FOR PAIN, NAUSEA AND ANXIETY RECEIVED. PT ATTEMPTS TO VOID, UNABLE TO VOID. STATES SHE FEELS THE NEED TO VOID BUT CANNOT. BLADDER SCAN SHOWS [address] BROWN NOTIFIED NEW ORDER RECEIVED TO STRAT CATH. STRAIGHT CATH PERFORMED WITH 16FR VIA STERILE TECHNIQUE. PT TOLERATES THIS WELL. 150 MLS COLLECTED, URINE CLEAR AND LUIS. UA SAMPLE SENT TO LAB ORDERED. PT NOW RESTS IN BED WITH EYES CLOSED, RESP EVEN AND UNLABORED, RESOUSES TO VOICE. BED ALARM ON.
[2023-12-15 18:23] LABS: BILIRUBIN, URINE NEGATIVE (negative); BLOOD/HGB, URINE TRACE-L (Negative); KETONE, URINE TRACE (Negative); LEUK ESTERASE, URINE NEGATIVE (negative); NITRITE, URINE NEGATIVE (negative); PH, URINE 7.5 (5-7)
[2023-12-15 18:32] LABS: CRYSTALS, URINE NONE SEEN (0-1+); EPITHELIAL CELLS, URINE SQUAMOUS 1+ /lpf (0-1+)
[2023-12-15 18:32] LABS: CHOLESTEROL/HDL RATIO 3.4
[2023-12-15 18:33] LABS: BACTERIA, URINE RARE /hpf (negative); CASTS, URINE NONE SEEN \\lpf; COLLECTION TYPE, URINE CLEAN CATCH; REFLEX CULTURE, URINE No (No)
[2023-12-15 18:37] LABS: AMPHETAMINES, URINE NEGATIVE (NEGATIVE); BARBITURATES, URINE NEGATIVE (NEGATIVE); BENZODIAZEPINE, URINE NEGATIVE (NEGATIVE); BUPRENORPHINE, URINE NEGATIVE (NEGATIVE); CANNABINOID, URINE POSITIVE (NEGATIVE); COCAINE, URINE NEGATIVE (NEGATIVE); ECSTASY, URINE POSITIVE (NEGATIVE); FENTANYL, URINE NEGATIVE (NEGATIVE); METHADONE, URINE NEGATIVE (NEGATIVE); OPIATES, URINE POSITIVE (NEGATIVE); OXYCODONE, URINE POSITIVE (NEGATIVE); PHENCYCLIDINE, URINE NEGATIVE (NEGATIVE)
--- NOTE | 2023-12-15 18:45 | NUR ---
PT RESTS IN BED WITH EYES CLOSED, RESP EVEN AND UNLABORED. CALL LIGHT AND CELL PHONE IN REACH. PT ROUSES EASILY TO VERBAL STIMULI, NO REQUESTS AT THIS TIME. BED ALARM ON.
--- NOTE | 2023-12-15 19:22 | NUR ---
REPORT RECEIVED FROM DAY SHIFT RN. PT LYING IN BED RESTING WITH EYES CLOSED. RESPIRATIONS EVEN. BED ALARM FOR SAFETY. CALL LIGHT IN REACH. WHITE BOARD UPDATED.
[2023-12-15] MEDS ORDERED: CAPSAICIN 0.025% CREAM TOP SCH (21:00)
[2023-12-15] MEDS ORDERED: ROPINIROLE HCL 0.25 MG TAB PO SCH (21:00)
[2023-12-15] MEDS ORDERED: MELATONIN 3 MG TAB PO PRN (21:00)
[2023-12-15] MEDS ORDERED: EZETIMIBE 10 MG TAB PO SCH (21:00)
[2023-12-15] MEDS ORDERED: GABAPENTIN 300 MG CAP PO SCH (21:00)
[2023-12-15 21:25] VITALS: BP 144/79
--- NOTE | 2023-12-15 21:39 | NUR ---
PT RESTING WITH EYES CLOSED. AWAKENS EASILY. EVENING ASSESSMENT COMPLETE. SCHEDULED MEDS ADMIN WITH SIPS OF WATER. PT DENIES PAIN OR NAUSEA AT THIS TIME. BOWEL TONES HYPOACTIVE. ABD SOFT AND MILDLY DISTENDED. PT UP TO BR WITH SBA TO ATTEMPT TO VOID WITH NO RESULTS. GAIT STEADY. BACK TO BED. BLADDER SCANNED FOR 300 ML. PT DENIES FURTHER NEEDS. BED ALARM FOR SAFETY. CALL LIGHT IN REACH.
--- NOTE | 2023-12-15 22:00 | NUR ---
PT UP TO BR WITH SBA TO ATTEMPT TO VOID WITH NO RESULTS. BACK TO BED, MO WELL. COMPLAINS OF BLADDER DISCOMFORT AND RECENT DIFFICULTY VOIDING. MD ON FLOOR AND UPDATED. NEW VERBAL ORDERS RECEIVED VERIFIED WITH READBACK METHOD. 18F HITCHCOCK CATH PLACED FOLLOWING STERILE PROCEDURE WITH IMMEDIATE RETURN OF 200 ML LUIS COLORED URINE. PT MO PROCEDURE WELL. NO FURTHER NEEDS. BED ALARM IN PLACE. CALL LIGHT IN REACH.
[2023-12-15] MEDS ORDERED: LIDOCAINE 2% VISCOUS 6 ML SYR ONE (22:01)
[2023-12-15] MEDS ORDERED: LIDOCAINE 2% VISCOUS 6 ML SYR TOP ONE (22:15)
[2023-12-15] MEDS ORDERED: TAMSULOSIN HCL 0.4 MG CAP PO ONE (22:15)
--- NOTE | 2023-12-15 22:40 | NUR ---
CALL LIGHT ANSWERED. PT MOANING, TEARFUL, TOSSING AND TURNING IN BED. C/O PAIN FROM HITCHCOCK CATH. EDUCATION PROVIDED. PT NOT RECEPTIVE OR CONSOLABLE. REQUESTS TO HAVE CORETTA TREJO MD NOTIFIED. NEW TELEPHONE ORDERS RECEIVED VERIFIED WITH READBACK METHOD TO ANEL HITCHCOCK.
--- NOTE | 2023-12-15 22:45 | NUR ---
HITCHCOCK DISCONTINUED.
[2023-12-16] VITALS (9 sets, daily range): BP systolic 146–158; BP diastolic 79–97
--- NOTE | 2023-12-16 00:12 | NUR ---
PT LYING ON LEFT SIDE RESTING IN BED WITH EYES CLOSED. RESPIRATIONS EVEN. BED ALARM FOR SAFETY. CALL LIGHT IN REACH.
--- NOTE | 2023-12-16 02:10 | NUR ---
IV PUMP ALARMING. ISSUE RESOLVED. PT RESTING WITH EYES CLOSED. AWAKENS BRIEFLY. SpO2 92% ON RA. HR 90'S. BED ALARM IN PLACE. CALL LIGHT IN REACH.
--- NOTE | 2023-12-16 03:20 | NUR ---
CALL LIGHT ANSWERED. PT REPORTS ANXIETY. PRN FOR ANXIETY ADMIN PER EMAR. NO FURTHER NEEDS.
--- NOTE | 2023-12-16 05:28 | NUR ---
BED ALARM SOUNDING. PT REPOSITIONING SELF IN BED. VS AND I&O OBTAINED. NO FURTHER NEEDS. BED ALARM FOR SAFETY. CALL LIGHT IN REACH.
--- NOTE | 2023-12-16 05:40 | NUR ---
PATIENT GOT UP TO THE RESTROOM TO VOID 300ML SLIGHTLY DARK URINE SBA AND BACK TO BED. LAB WAS IN THE ROOM TO DRAW. BED ALARM ON FOR SAFETY.
--- NOTE | 2023-12-16 05:57 | NUR ---
PT REPORTS LLQ PAIN 09/25. PRN FOR PAIN ADMIN PER EMAR. IV ABX INFUSING PER ORDER. NO FURTHER NEEDS.
[2023-12-16 05:58] LABS: HEMATOCRIT 31.9 % (35.0-50.0); HEMOGLOBIN 11.1 g/dL (12.0-18.0); MCH 33.5 (27-36); MCHC 34.7 g/dl (30-36); MCV 96.5 fl (81-99); PLATELET COUNT 423 K/uL (140-440); RDW 14.7 (10.5-15.0)
[2023-12-16] MEDS ORDERED: LEVOTHYROXINE SODIUM 100 MCG/5 ML VIAL IV SCH (06:00)
[2023-12-16 06:13] LABS: EOSINOPHILS, MANUAL DIFF 1; LYMPHOCYTES, MANUAL DIFF 31; MONOCYTES, MANUAL DIFF 7; NEUTROPHILS, MANUAL DIFF 61
[2023-12-16 06:14] LABS: ALBUMIN 2.3 g/dL (3.4-5.0); ALBUMIN/GLOBULIN RATIO 0.62 (1.1-2.4); BILIRUBIN, TOTAL 0.7 ng/dL (0.2-1.0); BUN/CREATININE RATIO 6.66 (6.0-28.6); CALCIUM 8.7 mg/dL (8.5-10.1); CREATININE, SERUM 1.05 mg/dL (0.55-1.02)
--- NOTE | 2023-12-16 06:35 | NUR ---
CALLED TO VERIFY IV LEVOTHYROXINE ORDER. NEW TELEPHONE ORDERS RECEIVED VERIFIED WITH READBACK METHOD.
[2023-12-16] MEDS ORDERED: LEVOTHYROXINE SODIUM 88 MCG TAB PO SCH (07:00)
--- NOTE | 2023-12-16 07:38 | NUR ---
REPORT RECEIVED FROM NIGHT RN - PT RESTING IN BED WITH EYES CLOSED ON SIDE, RR EVEN AND UNLABORED. BED ALARM ON.
[2023-12-16] MEDS ORDERED: POTASSIUM CHLORIDE 40 MEQ,LIDOCAINE HCL 1% 40 MG in DEXTROSE 5% 250 ML IV ONE (08:15)
[2023-12-16] MEDS ORDERED: POTASSIUM BICARBONATE/CIT AC 20 MEQ TABEF PO ONE (08:15)
[2023-12-16] MEDS ORDERED: buPROPion HCL XL 150 MG TAB.XL.24H PO SCH (09:00)
[2023-12-16] MEDS ORDERED: PANTOPRAZOLE SODIUM 40 MG TABEC PO SCH (09:00)
--- NOTE | 2023-12-16 09:25 | NUR ---
ASSESSMENT COMPLETE - PT MOANING LOUDLY, UNCOOPERATIVE WITH CARES. COMPLAINING OF "ANXIETY ATTACK" WITHOUT PAIN. PRN ADMINISTERED. HEAT PACK PROVIDED FOR COMFORT, WARM BLANKETS. PT IMPULSIVLY IN AND OUT OF BED DESPITE REQUESTS TO CALL FOR ASSISTANCE. PT VOIDING ON TOILET POST HITCHCOCK DC WITHOUT DIFFICULTY. NO NAUSEA OR EMESIS. IV PUMP CONTINUOUSLY ALARMING R/T PT INABILITY TO KEEP ARM STRAIGHT, DIFFICULT IV ACCESS.
--- NOTE | 2023-12-16 10:32 | NUR ---
VISITED DURING SPIRITUAL CARE ROUNDS. PT ANXIOUS, UNABLE TO BE PHYSICALLY STILL, STATED HAVING PANIC ATTACK, UNABLE TO ENGAGE IN CONVERSATION, STATED DESIRE FOR SLEEP. CABLE SPLICER HELPER PROVIDED SUPPORTIVE PRESENCE, ANXIETY CONTAINMENT, RELAYED PT REQUEST TO BASIL ANGEL. PT REMAINS ANXIOUS, FRUSTRATED.
--- NOTE | 2023-12-16 10:42 | NUR ---
SITTING UP AND LAYING BACK DOWN, MOANING LOUDLY. STATES SHE WANTS TO GO HOME. DISCUSSED HER PLAN FOR GOING HOME AND PAIN CONTROL. STATES "I'LL TAKE MY PAIN MEDICATION." ASKED WHAT HER PLAN IS IF THOSE ARENT EFFECTIVE, STATES "I'LL JUST SUFFER THROUGH THE PAIN." INFORMED PATIENT HER FREQUENT ER VISITS SHOW THAT THIS IS NOT WHAT SHE HAS PREVIOUSLY DONE AND IF SHE NEEDS TO BE IN THE HOSPITAL, SHE SHOULD STAY TO RECEIVE TREATMENT UNTIL SHE IS CLEARED TO RETURN HOME, OTHERWISE SHE IS EXTREMELY LIKELY TO RETURN AND BE READMITTED AGAIN. STATES SHE IS VERY ANXIOUS, CONTINUES TO MOAN IN BETWEEN QUESTIONS AND SIT UP THEN LAY BACK DOWN ON COUCH. ASKED PATIENT WHAT HER RETIREMENT GOALS ARE, STATES SHE WANTS TO HAVE HER PANCREAS REMOVED, DISCUSSED THAT IT IS NOT AN OPTION TO HAVE HER ENTIRE PANCREAS REMOVED WITHOUT A TRANSPLANT, STATES SHE'S BEEN TOLD BY SURGEON AND HER PCP SHE CAN HAVE HER PANCREAS REMOVED, ATTEMPTS TO EDUCATE CONTINUE TO AGITATE PATIENT AND SHE RAISES HER VOICE. CHANGED TO DISCUSS POTENTIAL PALLIATIVE CARE TO HELP MANAGE HER SYMPTOMS AT HOME. SHE IS AGREEABLE TO PALLIATIVE CARE THROUGH [facility]. TO ASSIST WITH HER CHRONIC MEDICAL NEEDS AND MANAGE SYMPTOMS BEST POSSIBLE AT HOME AND POTENTIALLY DECREASE ER VISITS AND HOSPITALIZATIONS. SHE LIVES ALONE IN [place] HOME. HAS CAREGIVERS ASSIST HER. NO DME. SHE DOES NOT DRIVE. NOTHING HAS CHANGED FOR HER SITUATION AT HOME. DISCUSSED HER WEIGHT LOSS, STATES SHE HAS ENOUGH FOOD, SHE JUST IS NOT HUNGRY AND HAS LOST WEIGHT. CURRENTLY DENIES OTHER NEEDS. DR. BROWN AND Romaine MORALES RN, NOTIFIED OF CONVERSATION WITH PATIENT.
--- NOTE | 2023-12-16 11:01 | NUR ---
PT USING CALL LIGHT MORE FREQUENTLY THAN 6 TIMES AND HOUR. PT UPSET BY IV ALARM BUT UNWILLING TO KEEP ARM STRAIGHT. PT CITING ANXIETY ONLY COMPLAINT AT THIS TIME AND REQUESTING MORE ATIVAN.
--- NOTE | 2023-12-16 11:19 | NUR ---
ARM SPLINT CREATED FROM CASTING APPLIED TO RIGHT ARM TO PREVENT OCCULSION. PT CONTINUES TO BE ANXIOUS/AGGITATED AND RESTLESS IN ROOM, NOT FOLLOWING STAFF DIRECTION. PT IMPULSIVE WITH AMBULATION, NEGLECTING IV LINE. EDUCATION PROVIDED ON ATIVAN DOSE AND TIMING. PT REQUESTING TO LEAVE PERSISTANTLY. AMA EDUCATION PROVIDED.
--- NOTE | 2023-12-16 11:40 | NUR ---
PT AMBULATING IN HALLWAY INDEPENDENTLY - PT OPENED DOOR TO BACK RN STATION AND PROCEEDED TO ASK MD FOR ANXIETY MEDS. PT INFORMED IT IS NOT APPROPRIATE TO APPOACH STAFF IN NON PT AREAS. PT ESCORTED BACK TO ROOM.
--- NOTE | 2023-12-16 11:51 | NUR ---
UR CLINICAL REVIEW: [facility] [place] [facility] 12/15/23 @ 1607 ORDER MATCHES REG CLINICALS FAXED TO [facility] FOR [facility] REVIEW DISCHARGE TO HOME WHEN STABLE. ANTICIPATE 1-2 DAYS 12/18/23
[2023-12-16] MEDS ORDERED: PHARMACY RENAL DOSE ADJUSTMENT 1 DOSE MISC PO SCH (12:00)
[2023-12-16] MEDS ORDERED: LORazepam 2 MG/ML VIAL IV PRN (12:30)
--- NOTE | 2023-12-16 12:55 | NUR ---
IV ATIVAN ADMINISTERED PER UPDATED EMAR - PT RESTING ON COUCH, STATES SHE JUST WANTS TO PASS OUT. ROOM DARKENED AND DOOR CLOSE TO PROMOTE REST.
--- NOTE | 2023-12-16 14:24 | NUR ---
RN IN ROOM TO ATTEND TO IV ALARM. PT RESTING ON COUCH WITH EYES CLOSED, RR EVEN AND UNLABORED. DOES NOT STIR TO ALARM NOISE. ABX STARTED.
[2023-12-16] MEDS ORDERED: hydrOXYzine pamoate 50 MG CAP PO SCH (15:00)
--- NOTE | 2023-12-16 15:00 | NUR ---
1400 VITALS WERE NOT DONE DO TO PATIENT SLEEPING. NURSE KNOWS.
--- NOTE | 2023-12-16 16:36 | NUR ---
PT REMAINS RESTING ON COUCH WITH EYES CLOSED - RR EVEN AND UNLABORED. DOES NOT STIR WITH RN IN ROOM AND PUMP ALARMING. ASSESSMENT, VS AND MEDS HELD AT THIS TIME TO ALLOW PT REST.
--- NOTE | 2023-12-16 18:24 | NUR ---
PT RESTING ON COUCH WITH EYES CLOSED, RR EVEN AND UNLABORED. IVF INFUSING WITHOUT DIFFICUTY. SCHEDULED MEDS HELD R/T PT SLEEPING AND NOT WAKING LONG ENOUGH TO SIT UP AND DRINK.
--- NOTE | 2023-12-16 19:32 | NUR ---
RECEIVED REPORT FROM DAY SHIFT. PATIENT IS RESTING ON COUCH WITH EYES CLOSED, RR 15. CALL LIGHT IN REACH. IV INFUSING PER ORDER.
--- NOTE | 2023-12-16 21:00 | NUR ---
PATIENTS VITALS TAKEN AND RECORDED. INTAKE AND OUTPUT RECORDED. PATIENT REPORTS 7/10 ABD PAIN, PRN PAIN MEDICATION PER ORDER. PATIENT DENIES ANY NAUSEA. PM MEDS GIVEN PER ORDER. WAFFLE OVERLAY PLACED ON PATIENTS BED. PATIENT MOVED FROM COUCH TO BED. PATIENT IS NOW RESTING IN BED. PATIENT IS AAOX4. PATIENT DENIES ANY FURTHER NEEDS. CALL LIGHT IN REACH. IV INFUSING PER ORDER.
--- NOTE | 2023-12-16 22:28 | NUR ---
PATIENT IS RESTING IN BED THRASHING AROUND AND YELLING. PATIENT REPORTS "I AM JUST SO ANXIOUS", PRN MEDICATION GIVEN PER ORDER. PATIENT CONTINUES TO RESTING IN BED. PATIENTS SCHEDULED IV ABX INFUSING PER ORDER. NO FURTHER NEEDS NOTED. PATIENT APPEARS TO BE CALM AT THIS TIME AFTER INTERVENTION. PATIENTS CALL LIGHT IN REACH.
[2023-12-17] VITALS (9 sets, daily range): BP systolic 127–153; BP diastolic 78–92
--- NOTE | 2023-12-17 00:04 | NUR ---
PATIENTS IV ALARMING. PATIENTS IV FLUSHED AND IV RESTARTED INFUSING. PATIENT DENIES ANY NEEDS. CALL LIGHT IN REACH.
--- NOTE | 2023-12-17 00:21 | NUR ---
PATIENTS IV PUMP ALARMING. IV RESTARTED AND INFUSING PER ORDER. WARM BLANKET PROVIDED. CALL LIGHT IN REACH. NAD NOTED.
--- NOTE | 2023-12-17 01:52 | NUR ---
PATIENT ASSISTED TO REPOSITION IN BED. PATIENT DENIES ANY PAIN OR NAUSEA. PATIENT DENIES ANY FURTHER NEEDS. CALL LIGHT IN REACH. IV INFUSING PER ORDER.
--- NOTE | 2023-12-17 04:32 | NUR ---
PATIENTS IV ALARMING. PATIENTS IV FLUSHED AND IV INFUSING PER ORDER. PATIENT DENIES ANY NEEDS. CALL LIGHT IN REACH. VITALS TAKEN AND RECORDED. INTAKE AND OUTPUT RECORDED.
[2023-12-17 05:52] LABS: BASOPHILS 0.2 % (0-2); EOSINOPHILS 0.8 % (0-6); HEMATOCRIT 29.3 % (35.0-50.0); HEMOGLOBIN 10.1 g/dL (12.0-18.0); LYMPHOCYTES 31.7 % (24-44); MCH 33.6 (27-36); MCHC 34.4 g/dl (30-36); MCV 97.6 fl (81-99); MONOCYTES 11.6 % (0-12); NEUTROPHILS 55.7 % (39-80); PLATELET COUNT 341 K/uL (140-440); RDW 15.1 (10.5-15.0)
--- NOTE | 2023-12-17 06:05 | NUR ---
PATIENT RATES PAIN AT A 10/10 IN HER LEFT LOW QUAD, PRN PAIN MEDICATION GIVEN PER ORDER. AM MEDS GIVEN PER ORDER. IV ABX INFUSING PER ORDER. PATIENT DENIES ANY NAUSEA. PATIENT DENIES ANY FURTHER NEEDS. CALL LIGHT IN REACH
[2023-12-17 06:07] LABS: ANION GAP 10.3 (7-21); BUN/CREATININE RATIO 4.16 (6.0-28.6); CALCIUM 8.1 mg/dL (8.5-10.1); CREATININE, SERUM 0.96 mg/dL (0.55-1.02); POTASSIUM 3.3 mmol/L (3.5-5.1)
--- NOTE | 2023-12-17 06:55 | NUR ---
Pt report received from BASIL Haddad. Pt is resting, supine, in bed, eyes closed, breathing is regular, even, and non-labored. IVF running at prescribed rate. Side rails up, call light in reach.
[2023-12-17] MEDS ORDERED: POTASSIUM CHLORIDE 40 MEQ,LIDOCAINE HCL 1% 40 MG in DEXTROSE 5% 250 ML IV ONE (08:15)
--- NOTE | 2023-12-17 08:43 | NUR ---
PATIENT IN BED AT THIS TIME. SUPERINTENDENT SCHOOLS WENT INTO PATIENT ROOM FOR HOURLY ROUNDS, SUPERINTENDENT [employer] ASSISTED PATIENT TO BATHROOM. SUPERINTENDENT SCHO[employer] GAVE PATIENT FRESH WATER, OKAYED BY RN. CALL LIGHT WITHIN REACH, NO FURTHER NEEDS AT THIS TIME.
--- NOTE | 2023-12-17 10:14 | NUR ---
PATIENT IN BED AT THIS TIME. DONOR SERVICES TEAM LEADER ASSISTED PATIENT TO BATHROOM AND THEN CHARTED VITALS AND I&O'S. CALL LIGHT WITHIN REACH, NO FURTHER NEEDS AT THIS TIME.
--- NOTE | 2023-12-17 10:15 | NUR ---
Verbal order from Dr. Navarro to change pt's IM Bentyl to PO bentyl, same dose and times.
--- NOTE | 2023-12-17 10:32 | NUR ---
VISITED DURING SPIRITUAL CARE ROUNDS. PT APPEARED TO BE SLEEPING. DID NOT DISTURB. PROVIDED PRAYER.
[2023-12-17] MEDS ORDERED: DICYCLOMINE HCL 10 MG CAP PO PRN (12:08)
--- NOTE | 2023-12-17 12:11 | NUR ---
RESTING WITH EYESL CLOSED. ALLOWED TO REST.
--- NOTE | 2023-12-17 15:23 | NUR ---
PATIENT IN BED AT THIS TIME. CENTRAL CONTROL ROOM OPERATOR CHARTED PATIENTS VITALS AND I&O'S. CALL LIGHT WITHIN REACH, NO FURTHER NEEDS AT THIS TIME. CALL LIGHT WITHIN REACH, NO FURTHER NEEDS AT THIS TIME.
--- NOTE | 2023-12-17 17:33 | NUR ---
Pt diet advanced to clears for dinner and dietary was requested to leave her tray at the nurse's station. The pt has been "chugging" water throughout the day, then complains of stomach pain. Dinner tray at nurse's station, chicken broth taken to pt, pt is asleep, breathing regular, even and non-labored, laying on her left side in bed. Emptied 400ml clear yellow urine from collection container in toilet. Noted stool smeared on the back of the collection container. Call light in reach, IVF running per ordered rate.
--- NOTE | 2023-12-17 18:04 | NUR ---
PT UP TO RESTROOM WITH SBA. PT BACK TO BED, STATES NO FURTHER NEEDS AT THIS TIME, CALL LIGHT WITHIN REACH.
--- NOTE | 2023-12-17 18:27 | NUR ---
Clear tray items provided to pt. Encouraged her to take it slow and sip her liquids. When awake, pt instantly rates her pain 7 or 8 out of 10, but then falls right back to sleep. Call light in reach.
--- NOTE | 2023-12-17 18:42 | NUR ---
PATIENT IN BED AT THIS TIME. SURVEILLANCE OBSERVER CHARTED PATIENTS VITALS AND I&O'S. CALL LIGHT WITHIN REACH, NO FURTHER NEEDS AT THIS TIME.
--- NOTE | 2023-12-17 19:10 | NUR ---
REPORT RECEIVED FROM BOYD GRACIA. pt DENIES ANY OTHER NEEDS AT THIS TIME. CALL LIGHT WITHIN REACH. BOARD UPDATED.
--- NOTE | 2023-12-17 21:05 | NUR ---
CLINICAL ENGINEERING DIRECTOR OBTAINED VITALS AND I&O. PT STATES NO FURTHER NEEDS AT THIS TIME. CALL LIGHT WITHIN REACH.
--- NOTE | 2023-12-17 21:30 | NUR ---
ASSESSMENT AND VITAL SIGNS DONE. pt UP TO THE BR. pt BACK TO BED. OK'D FOR MAINTENANCE FLUID TO DC'D. IB ABX INFUSING PER ORDER. SCHEDULED MEDS ADMINISTERED. pt C/O 08/25 PAIN. PRN PAIN MEDS ADMINISTERED. BOWEL TONES ACTIVE. WATER RESFRESHED. SNACK PROVIDED. pt DENIES ANY OTHER NEEDS AT THIS TIME. CALL LIGHT WITHIN REACH.
--- NOTE | 2023-12-18 00:41 | NUR ---
pt RESTING IN THE WITH EYES CLOSED. RR EVEN AND UNLABORED. CALL LIGHT WITHIN REACH.
--- NOTE | 2023-12-18 02:14 | NUR ---
pump alarming, iv abx complete. iv site wnl, saline locked. rr even and unlabored, no distress noted. call light in reach.
--- NOTE | 2023-12-18 02:33 | NUR ---
pt RESTING IN THE BED WITH EYES CLOSED. RR EVEN AND UNLABORED. CALL LIGHT WITHIN REACH.
[2023-12-18 05:32] VITALS: BP 151/82
[2023-12-18 05:34] VITALS: BP 151/82
[2023-12-18 05:58] LABS: BASOPHILS 0.8 % (0-2); EOSINOPHILS 2.7 % (0-6); HEMATOCRIT 30.9 % (35.0-50.0); HEMOGLOBIN 10.8 g/dL (12.0-18.0); MCH 33.5 (27-36); MCHC 34.9 g/dl (30-36); MONOCYTES 12.7 % (0-12); NEUTROPHILS 51.8 % (39-80); PLATELET COUNT 341 K/uL (140-440); RBC 3.22 M/ul (4.3-5.7); RDW 14.5 (10.5-15.0)
[2023-12-18 06:09] LABS: ANION GAP 10.5 (7-21); BUN/CREATININE RATIO 2.46 (6.0-28.6); CALCIUM 8.2 mg/dL (8.5-10.1); CREATININE, SERUM 0.81 mg/dL (0.55-1.02); POTASSIUM 3.5 mmol/L (3.5-5.1)
--- NOTE | 2023-12-18 06:42 | NUR ---
pt RESTED THROUGH OUT THE NIGHT. pt INDEPENDENT IN THE RM. PRN PAIN MEDICATION ADMINISTERED WHEN NEEDED. pt STATES SHE FEELS BETTER THAN BEFORE.
--- NOTE | 2023-12-18 07:00 | NUR ---
Pt report received from BASIL Vidal. Pt is asleep, initially, but awakens easily to quiet noise. Pt asking about breakfast. White board updated. [facility] Student Ratna present also. Call light in reach.
--- NOTE | 2023-12-18 07:15 | NUR ---
UR CONCURRENT CLINICAL REVIEW: [facility] INPT CRITERIA FOR GASTROENTERITIS-MEETS DC CRITERIA, WILL NOTIFY DOCTOR. [facility]DS [facility] INPT 12/15/23 @ 6857 ORDER MATCHES REG WILL SEND CLINICALS VIA RIGHT FAX TODAY FOR AUTH REVIEW DISCHARGE TO HOME WHEN STABLE. MEETS DC CRITERIA 12/21/23
--- NOTE | 2023-12-18 07:30 | NUR ---
RN Marcy advised that she just looked at the pt's IV site and noted some swelling in the area just above the insertion site. She placed the pump on standby and notified this RN. Advised warehouse stocker, Kee Schilling that we may need a new u/s guided IV started on this pt soon.
--- NOTE | 2023-12-18 07:57 | NUR ---
ENTERED PATS ROOM PATIENT HAD EYES CLOSED RESTING COMFORTABLY INTRODUCED SELF WITH ASSIGNED NURSE ASKED PATIENT HOW SHE WAS FEELING PATIENT REPORTED SHE WAS FEELING "BETTER"
[2023-12-18 08:02] VITALS: BP 156/96
--- NOTE | 2023-12-18 08:09 | NUR ---
PT WAS RESTING COMFORTABLY IN BED WHEN VITALS WERE TAKEN THE IV SITE LOOKED RED AND SWOLLEN AND I REPORTED THIS TO THE ASSIGNED NURSE PT REPORTED THAT WHEN PALPATED IT WAS TENDER TO THE TOUCH
--- NOTE | 2023-12-18 08:11 | NUR ---
PATIENT IN BED AT THIS TIME. INFORMATION SYSTEMS SECURITY MANAGER WENT INTO PATIENTS ROOM TO DO ROUNDINGS. CALL LIGHT WITHIN REACH, NO FURTHER NEEDS AT THIS TIME.
[2023-12-18 09:53] VITALS: BP 156/96
--- NOTE | 2023-12-18 10:10 | NUR ---
PATIENT IN BED AT THIS TIME. CARBON FURNACE OPERATOR CHARTED I&O'S, [employer] CORE DRILLER CHARTED VITALS. CALL LIGHT WITHIN REACH, NO FURTHER NEEDS AT THIS TIME.
[2023-12-18] MEDS ORDERED: HYDROCODONE/ACETA 5/325 TAB PO PRN (10:15)
[2023-12-18 10:46] VITALS: BP 151/81
[2023-12-18] MEDS ORDERED: CEFDINIR300 MG PO (10:46)
[2023-12-18] MEDS ORDERED: HYDROCODON-ACE1 EA10 PO (10:47)
--- NOTE | 2023-12-18 11:16 | NUR ---
CLINICALS AND ORDERS FAXED TO [facility].
--- NOTE | 2023-12-18 11:50 | NUR ---
PT NOT AVAILABLE FOR VISIT. PROVIDED PRAYER.
--- NOTE | 2023-12-18 12:07 | NUR ---
VISITED DURING SPIRITUAL CARE ROUNDS. PT IN OVERALL GOOD SPIRITS, EXPRESSED EXCITEMENT FOR DISCHARGE. MANAGER FOOD PROVIDED SUPPORTIVE PRESENCE, HOSPITALTIY, PRAYER, FACILITATED INTERACTION WITH THERAPY ANIMAL. PT EXPRESSED GRATITUDE.
[2023-12-18 12:27] VITALS: BP 151/81
== END 2023-12-18 12:34 | disposition home or self-care (01) | DRG 392 ==
LOC: ED 10:24 → MS 16:07
PROVIDERS: Emergency Medicine; ADMIT Student in an Organized Health Care Education/Training Program; ATTEND Student in an Organized Health Care Education/Training Program
DX: K52.9 Noninfective gastroenteritis and colitis, unspecified (principal); K86.1 Other chronic pancreatitis; G25.81 Restless legs syndrome; G62.9 Polyneuropathy, unspecified; E78.1 Pure hyperglyceridemia; E03.9 Hypothyroidism, unspecified; F32.9 Major depressive disorder, single episode, unspecified; R45.1 Restlessness and agitation; Z88.8 Allergy status to other drugs, medicaments and biological substances; F10.90 Alcohol use, unspecified, uncomplicated; F41.1 Generalized anxiety disorder; G43.909 Migraine, unspecified, not intractable, without status migrainosus; F43.10 Post-traumatic stress disorder, unspecified; Z87.01 Personal history of pneumonia (recurrent); Z85.038 Personal history of other malignant neoplasm of large intestine; Z86.19 Personal history of other infectious and parasitic diseases; Z87.19 Personal history of other diseases of the digestive system; F17.210 Nicotine dependence, cigarettes, uncomplicated; Z90.49 Acquired absence of other specified parts of digestive tract; Z90.710 Acquired absence of both cervix and uterus; Z98.890 Other specified postprocedural states; Z90.89 Acquired absence of other organs
CPT/HCPCS: 36415; 74177; 80048; 80053; 80061; 80307; 81001; 83605; 83615; 83690; 85025; A9270; J0500; J0780; J1171; J1650; J2060; J2405; J2470; J2543; J2765; J3480; J3490; J7060; J7121; Q9967

== ENCOUNTER 2024-04-03 14:50 | Emergency (ER) | payer OTHER ==
[~2024-04-03] VITALS: Ht 160 cm; Wt 59.9 kg
[~2024-04-03 14:50] MED LIST changes: +CEFDINIR300 MG PO
[2024-04-03] MEDS ORDERED: ondansetron HCL 4 MG/2 ML VIAL IV ONE (15:00)
[2024-04-03] MEDS ORDERED: HYDROmorphone HCL 1 MG/ML SYR IV PRN (15:00)
[2024-04-03] MEDS ORDERED: SODIUM CHLORIDE 0.9% 1,000 ML IV ONE (15:00)
[2024-04-03 15:35] LABS: BASOPHILS 0.5 % (0-2); EOSINOPHILS 1.2 % (0-6); HEMATOCRIT 40.7 % (35.0-50.0); HEMOGLOBIN 13.7 g/dL (12.0-18.0); LYMPHOCYTES 12.3 % (24-44); MCH 32.3 (27-36); MCHC 33.5 g/dl (30-36); MCV 96.3 fl (81-99); MONOCYTES 9.8 % (0-12); NEUTROPHILS 76.2 % (39-80); PLATELET COUNT 365 K/uL (140-440); RBC 4.23 M/ul (4.3-5.7); RDW 13.6 (10.5-15.0)
[2024-04-03 15:49] LABS: ALBUMIN 2.7 g/dL (3.4-5.0); ALBUMIN/GLOBULIN RATIO 0.68 (1.1-2.4); ANION GAP 15.1 (7-21); BILIRUBIN, TOTAL 0.4 mg/dL (0.2-1.0); BUN/CREATININE RATIO 10.63 (6.0-28.6); CALCIUM 8.3 mg/dL (8.5-10.1); CREATININE, SERUM 0.94 mg/dL (0.55-1.02); POTASSIUM 4.1 mmol/L (3.5-5.1); PROTEIN, TOTAL 6.7 g/dL (6.4-8.2)
[2024-04-03 17:24] LABS: BILIRUBIN, URINE NEGATIVE (negative); BLOOD/HGB, URINE NEGATIVE (Negative); KETONE, URINE NEGATIVE (Negative); LEUK ESTERASE, URINE NEGATIVE (negative); NITRITE, URINE NEGATIVE (negative)
[2024-04-03] MEDS ORDERED: HYDROCODONE BIT/ACETAMINOPHEN 5/325 MG 1 TAB HOME.PACK PO ONE (18:30)
[2024-04-03 19:14] VITALS: BP 120/83
== END 2024-04-03 19:14 | disposition home or self-care (01) ==
LOC: ED 14:50
PROVIDERS: Emergency Medicine
DX: R10.12 Left upper quadrant pain (principal); G43.909 Migraine, unspecified, not intractable, without status migrainosus; F17.200 Nicotine dependence, unspecified, uncomplicated; Z85.41 Personal history of malignant neoplasm of cervix uteri; Z85.038 Personal history of other malignant neoplasm of large intestine; Z85.048 Personal history of other malignant neoplasm of rectum, rectosigmoid junction, and anus; Z88.8 Allergy status to other drugs, medicaments and biological substances; Z79.890 Hormone replacement therapy; Z79.899 Other long term (current) drug therapy
CPT/HCPCS: 36415; 51701; 80053; 81003; 83690; 85025; 99284-25; A9270; J1171; J2405; J7030

== ENCOUNTER 2024-04-18 05:19 | Emergency (ER) | payer OTHER ==
[~2024-04-18] VITALS: Ht 160 cm; Wt 58.5 kg
[2024-04-18] MEDS ORDERED: LACTATED RINGER'S 1,000 ML IV ONE (05:30)
[2024-04-18] MEDS ORDERED: PROCHLORPERAZINE EDISYLATE 10 MG/2 ML VIAL IV ONE (05:30)
[2024-04-18] MEDS ORDERED: ondansetron HCL 4 MG/2 ML VIAL IV ONE (05:30)
[2024-04-18] MEDS ORDERED: HYDROmorphone HCL 1 MG/ML SYR IV ONE (05:30)
[2024-04-18] MEDS ORDERED: KETOROLAC TROMETHAMINE 15 MG/ML VIAL IV ONE (05:30)
[2024-04-18] MEDS ORDERED: PROCHLORPERAZINE EDISYLATE 10 MG/2 ML VIAL IM ONE (05:45)
[2024-04-18] MEDS ORDERED: ONDANSETRON 4 MG TAB ODT SL ONE (05:45)
[2024-04-18] MEDS ORDERED: HYDROmorphone HCL 1 MG/ML SYR IM ONE (05:45)
[2024-04-18 05:50] LABS: PLATELET COUNT 643 K/uL (140-440); RBC 4.09 M/ul (4.3-5.7)
[2024-04-18 05:52] LABS: BASOPHILS 1.3 % (0-2); EOSINOPHILS 2.2 % (0-6); HEMATOCRIT 38.1 % (35.0-50.0); LYMPHOCYTES 16.4 % (24-44); MCH 31.7 (27-36); MCV 93.2 fl (81-99); MONOCYTES 7.4 % (0-12); NEUTROPHILS 72.7 % (39-80); RDW 13.9 (10.5-15.0)
[2024-04-18] MEDS ORDERED: KETOROLAC TROMETHAMINE 60 MG/2 ML VIAL IM ONE (06:00)
[2024-04-18 06:05] LABS: ALBUMIN 2.4 g/dL (3.4-5.0); ALBUMIN/GLOBULIN RATIO 0.51 (1.1-2.4); ANION GAP 12.8 (7-21); BILIRUBIN, TOTAL 0.2 mg/dL (0.2-1.0); BUN/CREATININE RATIO 6.12 (6.0-28.6); CALCIUM 9.2 mg/dL (8.5-10.1); CREATININE, SERUM 0.98 mg/dL (0.55-1.02); MAGNESIUM 2.1 mg/dL (1.8-2.4); POTASSIUM 3.8 mmol/L (3.5-5.1); PROTEIN, TOTAL 7.1 g/dL (6.4-8.2)
[2024-04-18] MEDS ORDERED: PROMETHEGAN25 MG PR (06:24)
[2024-04-18] MEDS ORDERED: HYDROCODONE BIT/ACETAMINOPHEN 5/325 MG 1 TAB HOME.PACK PO ONE (06:30)
[2024-04-18] MEDS ORDERED: PROMETHAZINE HCL 25 MG SUPP. HOME.PACK PR ONE (06:30)
[2024-04-18] MEDS ORDERED: ONDANSETRON 4 MG HOME.PACK SL ONE (06:30)
[2024-04-18 06:46] VITALS: BP 146/95
== END 2024-04-18 06:47 | disposition home or self-care (01) ==
LOC: ED 05:19
PROVIDERS: Family Medicine
DX: K85.90 Acute pancreatitis without necrosis or infection, unspecified (principal); K86.1 Other chronic pancreatitis; G43.909 Migraine, unspecified, not intractable, without status migrainosus; F17.200 Nicotine dependence, unspecified, uncomplicated; Z88.8 Allergy status to other drugs, medicaments and biological substances; Z79.890 Hormone replacement therapy; Z79.899 Other long term (current) drug therapy
CPT/HCPCS: 36415; 80053; 83690; 83735; 85025; 85060; 96372; 99284; A9270; J0780; J1171; J1885

== ENCOUNTER 2024-04-19 06:10 | Inpatient (IN) | payer OTHER ==
[~2024-04-19] VITALS: Ht 160 cm; Wt 59.0 kg
[~2024-04-19 06:10] MED LIST changes: +PROMETHEGAN25 MG PR
[2024-04-19] MEDS ORDERED: PROCHLORPERAZINE EDISYLATE 10 MG/2 ML VIAL IV ONE (06:30)
[2024-04-19] MEDS ORDERED: HYDROmorphone HCL 1 MG/ML SYR IV ONE (06:30)
[2024-04-19] MEDS ORDERED: ondansetron HCL 4 MG/2 ML VIAL IV ONE (06:30)
[2024-04-19] MEDS ORDERED: SODIUM CHLORIDE 0.9% 1,000 ML IV ONE (06:30)
[2024-04-19 06:40] LABS: BASOPHILS 0.8 % (0-2); EOSINOPHILS 0.5 % (0-6); HEMOGLOBIN 12.6 g/dL (12.0-18.0); LYMPHOCYTES 8.2 % (24-44); MCH 31.5 (27-36); MCV 92.8 fl (81-99); MONOCYTES 7.6 % (0-12); NEUTROPHILS 82.9 % (39-80); PLATELET COUNT 535 K/uL (140-440); RBC 3.99 M/ul (4.3-5.7); RDW 13.8 (10.5-15.0)
[2024-04-19 06:57] LABS: ALBUMIN 2.5 g/dL (3.4-5.0); ALBUMIN/GLOBULIN RATIO 0.51 (1.1-2.4); ALKALINE PHOSPHATASE 201 U/L (46-116); ALT (SGPT) 17 U/L (14-59); ANION GAP 12.6 (7-21); AST (SGOT) 25 U/L (15-37); BILIRUBIN, TOTAL 0.3 mg/dL (0.2-1.0); CARBON DIOXIDE 29 mmol/L (21-32); CHLORIDE 95 mmol/L (98-107); CREATININE, SERUM 1.25 mg/dL (0.55-1.02); GLOMERULAR FILTRATION RATE,EST 49 mL/min (>60); POTASSIUM 3.6 mmol/L (3.5-5.1); PROTEIN, TOTAL 7.4 g/dL (6.4-8.2); UREA NITROGEN 10 mg/dL (7-18)
[2024-04-19 07:01] LABS: ALCOHOL, MEDICAL <3 ng/dL (<3); TRIGLYCERIDES 161 ng/dL (<150)
[2024-04-19] MEDS ORDERED: HYDROmorphone HCL 1 MG/ML SYR IV PRN (07:15)
[2024-04-19] MEDS ORDERED: LACTATED RINGER'S 1,000 ML IV SCH ×2 (07:15→15:45)
[2024-04-19] MEDS ORDERED: ondansetron HCL 4 MG/2 ML VIAL IV PRN ×2 (07:15→15:45)
[2024-04-19 07:58] VITALS: BP 158/84
--- NOTE | 2024-04-19 08:13 | NUR ---
THIS RN TO ER AT 0745, VERBAL REPORT RECEIVED FROM SKY Schilling RN. PT ESCORTED TO MED-SURG VIA GURNEY, ARRIVES AT 0750 TO ROOM 123. PT IS DROWSY, RESPONDS EASILY TO VERBAL STIMULI. 2L O2 IN PLACE VIA NC. VSS. PT AMBULATES TO BED. PT ORIENTED TO ROOM, BED AND CALL LIGHT. NO REQUESTS AT THIS TIME.
--- NOTE | 2024-04-19 10:13 | NUR ---
DILAUDID RECEIVED FOR ABDOMINAL PAIN. PT HAS EPISODE OF EMESIS.
--- NOTE | 2024-04-19 10:36 | NUR ---
PATIENT ALERT AND ORIENTED IN BED. STATES SHE REMAINS LIVING ALONE WITH A CAREGIVER COMING IN TWICE A WEEK TO ASSIST PATIENT. SHE HAS NO DME. PATIENT DOES NOT DRIVE, BUT USES [facility] FOR APPOINTMENTS. PATIENT STATES SHE HAS NOT HAD ANY DIFFICULTY FINANCIALLY. SHE HAS SNAP BENEFITS. SHE NO LONGER HAS HOME HEALTH. STATES SHE HAS NO KNOWN CM NEEDS AT THIS TIME.
[2024-04-19] MEDS ORDERED: MORPHINE SULFATE 4 MG/ML VIAL IV PRN (11:00)
[2024-04-19] MEDS ORDERED: LORazepam 2 MG/ML VIAL IV PRN (11:00)
[2024-04-19] MEDS ORDERED: OMEPRAZOLE40 MG PO (11:07)
--- NOTE | 2024-04-19 11:12 | NUR ---
DR. MCKINLEY NOTIFIED OF PERSISTENT NAUSEA AND EMESIS, NEW ORDERS RECEIVED FOR ATIVAN AND SCOPOLAMINE PATCH, BOTH RECEIVED, SEE EMAR.
[2024-04-19] MEDS ORDERED: SCOPOLAMINE 1 MG/3 DAYS PATCH 1 EACH TDSY TD SCH (11:30)
--- NOTE | 2024-04-19 12:56 | NUR ---
MORPHINE RECEIVED FOR ABDOMINAL PAIN, SEE EMAR.
[2024-04-19] MEDS ORDERED: PROCHLORPERAZINE EDISYLATE 10 MG/2 ML VIAL IV PRN ×2 (13:00→15:45)
--- NOTE | 2024-04-19 13:17 | NUR ---
COMPAZINE RECEIVED FOR EPISODE OF NAUSEA AND EMESIS, SEE EMAR.
--- NOTE | 2024-04-19 13:31 | NUR ---
PT REPORTS URGE TO VOID, ATTEMPTS TO VOID IN TOILET, UNABLE TO VOID. BLADDER SCAN SHOWS [address] MCKINLEY NOTIFIED, NEW ORDER RECEIVED OKAY TO STRIGHT CATH. UA DUE.
--- NOTE | 2024-04-19 14:16 | NUR ---
STRAIGHT CATHETERIZATION PERFORMED VIA STERILE TECHNIQUE WITH 16 FR. 650 MLS OF URINE REMOVED. PT REPORTS RELIEF. URINE IS DARK YELLOW AND CLEAR. UA OBTAINED AND SENT TO LAB. PT TOLERATED WELL. BED IN LOW POSITION, BELONGINGS IN REACH, CALL LIGHT IN REACH. NO REQUESTS AT THIS TIME.
[2024-04-19 14:17] LABS: BILIRUBIN, URINE NEGATIVE (negative); BLOOD/HGB, URINE NEGATIVE (Negative); KETONE, URINE NEGATIVE (Negative); LEUK ESTERASE, URINE NEGATIVE (negative); NITRITE, URINE NEGATIVE (negative)
[2024-04-19 14:19] VITALS: BP 182/100
--- NOTE | 2024-04-19 14:33 | NUR ---
PT BP 182/100, REPEAT BP 180/105. DR. MCKINLEY NOTIFIED, NEW ORDER RECEIVED TO NOTIFY DR. MCKINLEY OF SBP >200.
[2024-04-19 14:36] LABS: AMPHETAMINES, URINE NEGATIVE (NEGATIVE); BARBITURATES, URINE NEGATIVE (NEGATIVE); BENZODIAZEPINE, URINE NEGATIVE (NEGATIVE); BUPRENORPHINE, URINE NEGATIVE (NEGATIVE); CANNABINOID, URINE POSITIVE (NEGATIVE); COCAINE, URINE NEGATIVE (NEGATIVE); ECSTASY, URINE POSITIVE (NEGATIVE); FENTANYL, URINE NEGATIVE (NEGATIVE); METHADONE, URINE NEGATIVE (NEGATIVE); OPIATES, URINE POSITIVE (NEGATIVE); OXYCODONE, URINE NEGATIVE (NEGATIVE); PHENCYCLIDINE, URINE NEGATIVE (NEGATIVE)
--- NOTE | 2024-04-19 15:36 | NUR ---
DR. MCKINLEY IN TO SEE PATIENT. PATIENT IS VOMITING/RETCHING 100ML. PATIENT GIVEN 4MG IV ZOFRAN, 0.5MG IV ATIVAN, 4MG IV MORPHINE FOR 10/10 THROAT/ABDOMEN PAIN. IVF RATE INCREASED TO 200ML/HOUR PER DR. MCKINLEY. PATIENT IS RESTLESS, BUT SEEMS TO BE CALMING AT THIS TIME. WARM BLANKET PROVIDED.
[2024-04-19] MEDS ORDERED: NICOTINE 14 MG/24 HR 1 EA TDSY TD SCH (15:43)
[2024-04-19 17:50] VITALS: BP 175/106
[2024-04-19] MEDS ORDERED: LABETALOL HCL 20 MG/4 ML VIAL IV PRN (18:15)
--- NOTE | 2024-04-19 18:17 | NUR ---
BLADDER SCANNED PATIENT UPON RN REQUEST. BLADDER SCAN SHOWED 695 mL IN BLADDER, RN NOTIFIED.
--- NOTE | 2024-04-19 18:23 | NUR ---
LABETALOL RECEIVED FOR SBP >160. COMPAZINE RECEIVED FOR NAUSEA.
[2024-04-19 18:51] VITALS: BP 154/105
--- NOTE | 2024-04-19 18:54 | NUR ---
PT ATTEMPTS TO VOID IN TOILET SEVERAL TIMES, UNABLE TO VOID. BLADDER SCAN SHOWS [address] MCKINLEY NOTIFIED, NEW ORDER RECEIVED TO STRAIGHT CATH WITH PVR >600 ML. STRAIGHT CATHETERIZATION PERFORMED WITH 14 FR VIA STERILE TECHNIQUE. 710 MLS OF URINE REMOVED FROM BLADDER. PT REPORTS RELIEF OF BLADDER DISCOMFORT.
--- NOTE | 2024-04-19 19:01 | NUR ---
SBP IMPROVES SINCE LABETALOL, TO 154/105.
--- NOTE | 2024-04-19 19:49 | NUR ---
RECEIVED REPORT FROM BASIL ANGEL. PT RESTING IN BED, REPORTS PAIN 9/10 TO ABD, REQUESTING PAIN MED. PRN IV MORPHINE ADMINISTERED. IVF INFUSING INTO RIGHT FOOT IV. CALL LIGHT WITHIN REACH.
--- NOTE | 2024-04-19 20:10 | NUR ---
PT C/O NAUSEA AND DRY HEAVING. PRN ATIVAN ADMINISTERED PER EMAR. CONTINUES TO BE TEARFUL AND RESTLESS IN BED. LS DIM T/O. ON RA. HRR. BT HYPO. ABD SLIGHTLY DISTENDED, TENDER. CONSTIPATED. RIGHT FOOT IV INFUSING LR @ 200MLS/HR. NPO. BED ALARM IN PLACE FOR SAFETY. CALL LIGHT WITHIN REACH.
[2024-04-19 21:46] VITALS: BP 156/111
[2024-04-19 21:47] VITALS: BP 156/111
--- NOTE | 2024-04-19 22:21 | NUR ---
PT AWAKE, C/O NAUSEA. DRY HEAVING. PRN COMPAZINE ADMINISTERED. BED ALARM IN PLACE.
--- NOTE | 2024-04-19 23:15 | NUR ---
BED ALARMING. IN TO THE ROOM. SBA TO BATHROOM. PATIENT UNABLE TO URINATE. CHANGED HOSPITAL GOWN. PATIENT IS BACK IN BED. ALARM ON FOR SAFETY. EMESIS BAG DISPOSED WITH APPROXIMATELY 200ML GREENISH LIQUID. PRIMARY RN IS AWARE.
[2024-04-20] VITALS (12 sets, daily range): BP systolic 124–163; BP diastolic 84–117
--- NOTE | 2024-04-20 00:18 | NUR ---
UP TO BR, UNABLE TO VOID. WILL OBTAIN BLADDERSCAN.
--- NOTE | 2024-04-20 00:25 | NUR ---
BLADDER SCANNED WITH 552ML. PRIMARY RN NOTIFIED.
--- NOTE | 2024-04-20 01:40 | NUR ---
PT STILL UNABLE TO VOID-PVR HIGH 500'S AND PT QUITE UNCOMFORTABLE. PT ST CATH'D FOR 650cc. PRN DOSE ATIVAN GIVEN FOR ONGOING NAUSEA. RESTLESS IN BED.
--- NOTE | 2024-04-20 01:52 | NUR ---
PRN LABETALOL ADMINISTERED FOR SBP >160.
--- NOTE | 2024-04-20 02:56 | NUR ---
PT RESTING QUIETLY ON RIGHT SIDE. B/P IMPROVED.
--- NOTE | 2024-04-20 04:05 | NUR ---
PT CALLED REQUESTING PAIN MED AND ANTI-EMETIC. MEDICATED W/ PRN MORPHINE AND COMPAZINE. ONGOING N/V.
[2024-04-20 05:34] LABS: HEMATOCRIT 35.5 % (35.0-50.0); HEMOGLOBIN 12.1 g/dL (12.0-18.0); MCH 31.2 (27-36); MCHC 34.1 g/dl (30-36); MCV 91.6 fl (81-99); PLATELET COUNT 507 K/uL (140-440); RBC 3.88 M/ul (4.3-5.7); RDW 13.7 (10.5-15.0)
[2024-04-20 05:48] LABS: ANION GAP 10.4 (7-21); BUN/CREATININE RATIO 7.22 (6.0-28.6); CALCIUM 8.5 mg/dL (8.5-10.1); CREATININE, SERUM 0.83 mg/dL (0.55-1.02); MAGNESIUM 1.4 mg/dL (1.8-2.4); PHOSPHORUS, INORGANIC 3.2 mg/dL (2.5-4.9); POTASSIUM 3.4 mmol/L (3.5-5.1)
--- NOTE | 2024-04-20 05:48 | NUR ---
PT SLEEPING SOUNDLY. APPEARS COMFORTABLE AT THIS TIME.
[2024-04-20 06:00] LABS: LYMPHOCYTES, MANUAL DIFF 8; MONOCYTES, MANUAL DIFF 1; NEUTROPHILS, MANUAL DIFF 91
--- NOTE | 2024-04-20 06:53 | NUR ---
PT CALLED TO REPORT RIGHT FOOT PAIN. RIGHT FOOT IV INFILTRATED. IV DC'D INTACT. ATTEMPTED TO PLACE 22G TO LEFT FOOT WITHOUT SUCCESS.
--- NOTE | 2024-04-20 07:35 | NUR ---
REPORT RECEIVED RFOM CONGRESSIONAL DISTRICT AIDE RN. PATIENT LAYING IN BED WITH EMESIS BAG, DRY HEAVING. AIRPLANE PATROL PILOT NOTIFIED OF PATIENT NEED FOR NEW IV SIT. CONTACTED. MD RUSSELL WITH MIDLINE IV SITE PLACED BY US IV NURSE.
[2024-04-20] MEDS ORDERED: SALINE LOCK FLUSH 5 ML SYR IV PRN (07:45)
--- NOTE | 2024-04-20 07:55 | NUR ---
DAY SURGERY RN IN WITH PATIENT TO PLACE MIDLINE IV SITE.
[2024-04-20] MEDS ORDERED: POTASSIUM CHLORIDE 40 MEQ in DEXTROSE 5% 250 ML IV ONE (08:15)
[2024-04-20] MEDS ORDERED: MAGNESIUM SULFATE 2 GM/50 ML BAG IV SCH (08:15)
--- NOTE | 2024-04-20 08:40 | NUR ---
DAY SURGERY RN REMAINS AT [facility] WITH PATIENT TO INSERT MIDLINE IV.
[2024-04-20] MEDS ORDERED: ENOXAPARIN SODIUM 40 MG/0.4 ML SYR SUB-Q SCH (09:00)
--- NOTE | 2024-04-20 09:00 | NUR ---
MIDLINE PLACEMENT CALLED TO MED/SURG FOR IV ACCESS ON PT. VERBAL ORDER FROM DR MCKINLEY TO START MIDLINE DUE TO PT POOR ACCESS AND HISTORY OF. EXPLAINED PROCEDURE TO PT, PT GIVES VERBAL CONSENT TO CONTINUE WITH PLACEMENT. PT IS NOT COMFORTABLE DURING PROCEDURE DUE TO DIAGNOSIS, BUT COOPERATIVE WITH STAFF. BUE VEINS VISUALIZED AND ASSESSED. L BRACHIAL VEIN IDENTIFIED, 1.5 CM AND 18G CATHETER TO OCCUPY 37% OF VEIN. ARM PREPPED AND DRAPED FOLLOWING STERILE TECHNIQUE. 1% LIDOCAINE USED TO NUMB THE INSERTION SITE, VEIN ACCESSED WITH 18 G CATHETER. GUIDE WIRE DEPLOYED WITHOUT DIFFICULTY, CATHETER TO FOLLOW WITHOUT RESISTANCE. GUIDE WIRE REMOVED, INTACT, DARK RED, NON PULSATILE BLOOD RETURNED. SALINE FLUSH PUSHED WITHOUT PAIN OR DIFFICULTY. SITE SECURED AND DRESSED FOLLOWING STERILE TECHNIQUE. 0 CM EXPOSED, ARM CIRC JUST ABOVE THE BIOPATCH IS 28 CM. LINE IS READY FOR USE, LABELED APPROPRIATELY AND INFORMATION GIVEN TO PT AND NURSE. UNSUCESSFUL ATTEMPT TO R BASILIC VEIN ATTEMPTED IN SAME FASHION, BLOOD RETURED IN CATHETER BUT UNABLE TO PULL BLOOD OR FLUSH, REMOVED AND CATHETER WAS KINKED.
--- NOTE | 2024-04-20 09:20 | NUR ---
IN WITH PATIENT TO START IV MEDICATIONS AND ADMINSTER PRNS. PATIENT C/O NAUSEA, PAIN AND AN ANXIETY ATTACK. PRN'S GIVEN SEE MAR. PATIENT DRY HEAVING AT THIS TIME. ROLLING IN BED. PRN MEDICATIONS EFFECTIVE POST ADMMINSTRATION. PATIENT MIDLINE IV SITE PATENT AND WNL. PT IN ROOM WITH PATIENT AT THIS TIME.
--- NOTE | 2024-04-20 10:45 | NUR ---
PATIENT NO VOID AT THIS TIME IN THE SHIFT. BLADER SCANED FOR >570. PATIENT AMBULATED FROM RECLINER TO BATHROOM. VOID FOR 650 MLS. PATIENT REQUESTING TO GO BACK TO BED. LUNG SOUNDS CTA, HEART RATE NOTED TO BE TACHY THIS AM WITH VS. PATIENT REPORTS PAIN IS "OKAY" AT THIS TIME. BOWEL TONES HYPOACTIVE. PULSES INTACT. NOTED +1 EDEMA TO RIGHT FOOT WHERE OLD IV SITE WAS. PEDAL PULSES PALPABLE. PATIENT DENIES ANY FURTHER NEEDS AT THIS TIME. CALL LIGHT WITHIN REACH. BED ALARM ON.
--- NOTE | 2024-04-20 10:50 | NUR ---
PT NOT AVAILABLE FOR VISIT. PROVIDED PRAYER.
--- NOTE | 2024-04-20 11:04 | NUR ---
UR CLINICAL REVIEW: MCG-PER MCG REVIEW MEET INPT FOR CHRONIC PANCREATITIS WITH NEED FOR PAIN CONTROL [facility] INPT 04/19/24 @ 1543 ORDER MATCHES REG CLINICALS FAXED TO [facility] FOR AUTH REVIEW DISCHARGE TO HOME WHEN STABLE 04/22/24
--- NOTE | 2024-04-20 11:41 | NUR ---
PAtient sleeping, no request as this time
[2024-04-20] MEDS ORDERED: PHARMACY RENAL DOSE ADJUSTMENT 1 DOSE MISC PO SCH (12:00)
--- NOTE | 2024-04-20 12:37 | NUR ---
IV ALARMING. NEW BAG OF IVF HUNG. MIDLINE IV SITE REMAINS WNL. PATIENT DENIES ANY FURTHER NEEDS AT THIS TIME. CALL LIGHT WITHIN REACH.
--- NOTE | 2024-04-20 13:04 | NUR ---
STUDENT NURSE AND AUTOMOTIVE SALES REPRESENTATIVE IN WITH PATIENT AT THIS TIME. PATIENT AMBULATED TO BATHROOM WITH NO ISSUES OR CONCERNS. BACK INTO BED. NO FURTHER NEEDS. CALL LIGHT WITHIN REACH.
--- NOTE | 2024-04-20 13:44 | NUR ---
CALL LIGHT ANSWERED. PATIENT C/O PAIN 09/25. PRN'S ADMINSTERED SEE MAR. PATIENT UP TO BATHROOM. SMALL VOID. PATIENT BACK INTO BED. NO FURTHER NEEDS. CALL LIGHT WITHIN REACH. BED ALARM ON.
--- NOTE | 2024-04-20 14:42 | NUR ---
LYING IN BED, STATES SHE HAS BEEN VERY ANXIOUS TODAY. OTHERWISE, NO CM NEEDS AT THIS TIME.
[2024-04-20] MEDS ORDERED: LORazepam 2 MG/ML VIAL IV PRN (14:45)
[2024-04-20] MEDS ORDERED: LACTATED RINGER'S 1,000 ML IV SCH (15:00)
--- NOTE | 2024-04-20 15:09 | NUR ---
CALL LIGHT ANSWERED. C/O INCREASED ANXIETY. MD ENTERED NEW ORDERS FOR PRN MEDICATIONS. PRN ADMINSTERED. MIDLINE SITE REMAINS WNL, IVF INFSUING WITH NO IUSSUES OR CONCERNS. CALL LIGHT WITHIN REACH. BED ALARM ON.
--- NOTE | 2024-04-20 15:09 | NUR ---
PATIENT ADMITTED AT HIGH NUTRITION RISK DUE TO DECREASED APPETITE AND UNSURE ABOUT RECENT WEIGHT LOSS. PATIENT'S WEIGHT FOR THE PAST 1 YEAR HAS BEEN IN THE 113-133 LBS RANGE. SHE OFTEN GOES SEVERAL DAYS NPO UNTIL THE PANCREATITIS RESOLVES AND PATIENT ABLE TO EAT AGAIN. CLEAR LIQUIDS STARTED TODAY. ADMIT WEIGHT WAS 130 LBS. ANTICIPATE TO EAT WELL ONCE DIET ADVANCES, EXCEPT SHE HAS NO TEETH SO WILL NEED SOFTER FOOD. PATIENT IS AT MODERATE NUTRITION RISK, RD TO F/U WITHIN 5-7 DAYS.
[2024-04-20] MEDS ORDERED: HYDROXYZINE HCL25 MG PO (16:24)
--- NOTE | 2024-04-20 16:34 | NUR ---
BED ALARM SOUNDING. PATIENT TRANSFERING SELF TO BATHROOM. PATIENT BACK TO BED. C/O NAUSEA. PRN ADMINSTERED.
--- NOTE | 2024-04-20 17:42 | NUR ---
IV ALARMING. NEW BAG OF IVF HUNG. PATIENT DOES NOT WANT TO DRINK HER CLEAR LIQUIDS FOR DINNER. " THEY TASTE YUCKY." MIDLINE IV SITE REMAINS WNL. NO FURTHER NEEDS AT THIS TIME. CALL LIGHT WITHIN REACH.
[2024-04-20] MEDS ORDERED: OXYCODONE HCL 5 MG TAB PO PRN (18:15)
--- NOTE | 2024-04-20 18:34 | NUR ---
PATIENT RESTING IN BED WITH EYES CLOSED. RESPIRATIONS EVEN AND UNLABORED. CALL LIGHT WITHIN REACH.
--- NOTE | 2024-04-20 19:30 | NUR ---
RECEIVED REPORT FROM BASIL LEES. PT IN BED, RESTLESS. FREDY.
--- NOTE | 2024-04-20 20:00 | NUR ---
PT RESTING IN BED, SLIGHTLY ANXIOUS AND RESTLESS. COOPERAIVE W/ HS ASSESSMENT AND MEDS. ORIENTED X 4 BUT FORGETFUL AND IMPULSIVE. BED ALARM IN PLACE FOR SAFETY. PT REPORTS 9/10 ABD PAIN, PT MEDICATED W/ PRN OXYCODONE. C DIM T/O. ON RA. HRR BUT TACHY 110'S. BT HYPO. ABD SLIGHTLY DISTENDED, TENDER. DENIES NAUSEA CURRENTLY. CL LIQ DIET, PT GIVEN CLEAR ENSURE W/ PAIN MED BUT ONLY TOOK A SMALL SIP. LEFT ARM MIDLINE INFUSING LR @ 100, DRSG CDI. CALL LIGHT WITHIN REACH.
--- NOTE | 2024-04-20 20:30 | NUR ---
PT GETTING REALLY AGITATED AND YELLING. CONTINUALLY RESTLESS AND IMPULSIVE. PRN ATIVAN ADMINISTERED. BED ALARM IN PLACE.
--- NOTE | 2024-04-20 20:36 | NUR ---
BED ALARM ANSWERED. PT STATING SHE WAS NAUSEAS AND WANTED ATIVAN. RN NOTIFED. STORE HOST ASSISTED PT TO BATHROOM. PT VOIDED AND NOW BACK IN BED. VITALS AND I&O OBTAINED AND DOCUMENTED. PT STATES NO FURTHER NEEDS AT THIS TIME. CALL LIGHT WITHIN REACH AND BED ALARM ON. RN IN ROOM.
--- NOTE | 2024-04-20 22:06 | NUR ---
PT ASLEEP ON COUCH IN ROOM-APPEARS COMFORTABLE. IVF INFUSING.
--- NOTE | 2024-04-20 23:07 | NUR ---
PT SLEEPING SOUNDLY ON COUCH.
[2024-04-21] VITALS (8 sets, daily range): BP systolic 123–132; BP diastolic 79–93
--- NOTE | 2024-04-21 00:22 | NUR ---
PT CALLED TO REPORT "MAJOR ANXIETY". PT BACK IN BED. NOTED RANJANA MIDLINE DRSG BARELY IN PLACE. DRSG REINFORCED W/ FREQUENT CUES TO PT TO KEEP LEFT ARM STILL AND TO PROTRECT HER IV ACCESS. PRN ATIVAN AND OXYCODONE ADMINISTERED PER EMAR. ABD PAIN 08/25 AT THIS TIME.
--- NOTE | 2024-04-21 01:31 | NUR ---
PT SLEEPING SOUNDLY IN PRONE POSITION. APPEARS COMFORTABLE.
--- NOTE | 2024-04-21 03:36 | NUR ---
PT SLEEPING SOUNDLY. IVF INFUSING.
[2024-04-21 05:42] LABS: BASOPHILS 0.9 % (0-2); EOSINOPHILS 0.4 % (0-6); HEMATOCRIT 32.3 % (35.0-50.0); HEMOGLOBIN 10.8 g/dL (12.0-18.0); LYMPHOCYTES 21.2 % (24-44); MCHC 33.4 g/dl (30-36); MCV 92.8 fl (81-99); MONOCYTES 9.7 % (0-12); NEUTROPHILS 67.8 % (39-80); PLATELET COUNT 405 K/uL (140-440); RBC 3.48 M/ul (4.3-5.7); RDW 13.8 (10.5-15.0)
[2024-04-21 05:59] LABS: ANION GAP 9.5 (7-21); BUN/CREATININE RATIO 10.12 (6.0-28.6); CALCIUM 8.5 mg/dL (8.5-10.1); CREATININE, SERUM 0.79 mg/dL (0.55-1.02); MAGNESIUM 2.2 mg/dL (1.8-2.4); PHOSPHORUS, INORGANIC 3.1 mg/dL (2.5-4.9); POTASSIUM 3.5 mmol/L (3.5-5.1)
--- NOTE | 2024-04-21 06:09 | NUR ---
PT C/O ANXIETY AND IS THRASHING AROUND IN BED. REPORTS 8/10 ABD PAIN. PT MEDICATED W/ PRN IV ATIVAN AND PO OXYCODONE. PT BACK IN BED. BED ALARM IN PLACE FOR SAFETY.
--- NOTE | 2024-04-21 07:20 | NUR ---
REPORT RECEIVED FROM MIDDLE OR INTERMEDIATE SCHOOL PRINCIPAL RN. PATIENT RESTING ON COUCH IN ROOM. PATIENT IVF RUNNING, IV SITE REMAINS WNL AT THIS TIME. CALL LIGHT WITHIN REACH.
[2024-04-21] MEDS ORDERED: POTASSIUM CHLORIDE 40 MEQ in DEXTROSE 5% 250 ML IV ONE (08:15)
--- NOTE | 2024-04-21 09:15 | NUR ---
PATIENT RESTING ON COUCH. VSS. LUNGS CTA, BOWEL TONE HYPOACTIVE IN BILATERAL UPPER QUADRANTS, ACTIVE IN BILATERAL LOWER QUADRANTS. PATIENT CONSUMED A SMALL AMOUNT OF HER BREAKFAST THIS AM. NO C/O ABD PAIN AT THIS TIME. ASSISTED PATIENT TO BATHROOM VOID FOR 150MLS. MIDLINE SITE REMAINS WNL, PATENT IVF INFUSING WITH NO ISSUES OR CONCERNS. AM MEDICATIONS ADMINISTERED. NO FURTHER NEEDS CALL LIGHT WITHIN REACH.
--- NOTE | 2024-04-21 10:06 | NUR ---
MED REC COMPLETE
--- NOTE | 2024-04-21 10:45 | NUR ---
INTO SEE PATIENT. PATIENT LAYING ON COUCH. PATIENT WILL NEED TAXI RIDE AT TIME OF DISCHARGE WHEN MEDICALLY CLEARED. PATIENT HAS CAREGIVERS AT HOME. PATIENT DENIES ANY NEEDS FROM CM AT THIS TIME.
--- NOTE | 2024-04-21 11:30 | NUR ---
PT NOT AVAILABLE FOR VISIT. PROVIDED PRAYER.
--- NOTE | 2024-04-21 11:30 | NUR ---
PATIENT RESTING IN BED AT THIS TIME. NO C/O PAIN OR DISCOMFORT AT THIS TIME. IVF CONINTUE WITH NO ISSUES OR CONCERNS. MIDLINE IV SITE REMAINS WNL. CALL LIGHT WITHIN REACH.
--- NOTE | 2024-04-21 13:47 | NUR ---
PATIENT ASSDISTED TO BATHROOM. VOID IN TOILET FOR 200MLS. PATIENT MIDLINE IV SITE REMAINS WNL.IVF INFUSING WNL. BOWEL TONES ACTIVE X 4 QUADRANTS. TENDER WITH PALPATION. RESTING IN BED AT THIS TIME. NO FURTHER NEEDS. CALL LIGHT WITHIN REACH.
--- NOTE | 2024-04-21 14:15 | NUR ---
ROUNDING ON PATIENT DENIES ANY NEEDS AT THIS TIME. CALL LIGHT WITHIN REACH.
--- NOTE | 2024-04-21 15:15 | NUR ---
NOTED PATIENT TO HAVE A RASH TO BILATERAL POSTERIOR ASPECT OF HIPS. RASH TRAVELS TOWARDS BUTTOCKS. PATIENT DESCRIBES RASH ITCHY. RASH APPEARS TO BE RED IN COLOR NOT RAISED, NOT WARM. BUDGET TECHNICIAN IN ROOM WITH THIS RN TO ASSESS RASH. NOTED THAT PATIENT HAS A HISTORY OF THIS RASH THAT COMES AND GOES.
--- NOTE | 2024-04-21 16:20 | NUR ---
PATIENT RESTING IN RECLINER. NO NEEDS AT THIS TIME. CALL LIGHT WITHIN REACH.
--- NOTE | 2024-04-21 17:08 | NUR ---
CALL LIGHT ANSWERED. PATIENT REQUESTING PAIN MEDICATIONS AND ANXIETY MEDICATIONS. PRN'S GIVEN SEE MAR. DINNER TRAY AT BEDSIDE RN ENCOURAGED PATIENT TO DRINK SOME OF HER ITEMS ON DINNER TRAY. NO FURTHER NEEDS CALL LIGHT WITHIN REACH.
[2024-04-21] MEDS ORDERED: LACTATED RINGER'S 1,000 ML IV SCH (18:30)
--- NOTE | 2024-04-21 18:44 | NUR ---
PATIENT RESTING IN RECLINER. NO NEEDS AT THIS TIME. CALL LIGHT WITHIN REACH.
--- NOTE | 2024-04-21 19:35 | NUR ---
REPORT RECEIVED FROM DAYSHIFT RN. PATIENT SITTING UPRIGHT IN BED, WATCHING TV. NO NEEDS IDENTIFIED. CALL LIGHT IN REACH.
[2024-04-21] MEDS ORDERED: PANTOPRAZOLE SODIUM 40 MG TABEC PO SCH (21:00)
[2024-04-21] MEDS ORDERED: ROPINIROLE HCL 0.25 MG TAB PO SCH (21:00)
[2024-04-21] MEDS ORDERED: GABAPENTIN 300 MG CAP PO SCH (21:00)
--- NOTE | 2024-04-21 22:48 | NUR ---
PATIENT RESTING IN BED WITH EYES CLOSED. RESP. EVEN AND UNLABORED. NO NEEDS IDENTIFIED, CALL LIGHT IN REACH.
--- NOTE | 2024-04-21 23:55 | NUR ---
PATIENT RESTING WITH EYES CLOSED, RESP. EVEN AND UNLABORED. NO NEEDS IDENTIFIED, CALL LIGHT IN REACH.
--- NOTE | 2024-04-22 00:28 | NUR ---
NEW BAG OF IVF HUNG. pt RESTING IN THE BED WITH EYES CLOSED. RR EVEN AND UNLABORED. CALL LIGHT WITHIN REACH.
--- NOTE | 2024-04-22 03:04 | NUR ---
PATIENT RESTING WITH EYES CLOSED. RESP. EVEN AND UNLABORED. NO NEEDS IDENTIFIED, CALL LIGHT IN REACH.
[2024-04-22 05:35] VITALS: BP 126/62
[2024-04-22 05:39] LABS: BASOPHILS 1.2 % (0-2); EOSINOPHILS 1.2 % (0-6); HEMATOCRIT 32.6 % (35.0-50.0); HEMOGLOBIN 11.1 g/dL (12.0-18.0); MCH 31.6 (27-36); MCV 92.8 fl (81-99); MONOCYTES 10.8 % (0-12); NEUTROPHILS 60.8 % (39-80); PLATELET COUNT 398 K/uL (140-440); RBC 3.52 M/ul (4.3-5.7)
[2024-04-22 05:52] LABS: ANION GAP 9.7 (7-21); BUN/CREATININE RATIO 6.66 (6.0-28.6); CALCIUM 8.6 mg/dL (8.5-10.1); CREATININE, SERUM 0.75 mg/dL (0.55-1.02); PHOSPHORUS, INORGANIC 3.3 mg/dL (2.5-4.9); POTASSIUM 3.7 mmol/L (3.5-5.1)
--- NOTE | 2024-04-22 06:01 | NUR ---
pt JUST GOT BACK FROM USING THE BR. pt C/O 08/25 PAIN. PRN PAIN MEDS ADMINISTERED. VITAL SIGNS DONE. WARM PACK PROVIDED. pt DENIES ANY OTHER NEEDS AT THIS TIME. CALL LIGHT WITHIN REACH.
[2024-04-22] MEDS ORDERED: LEVOTHYROXINE SODIUM 88 MCG TAB PO SCH (07:30)
--- NOTE | 2024-04-22 07:30 | NUR ---
REPORT RECEIVED FROM FACILITY MAINTENANCE SUPERVISOR RN. PATIENT RESTING IN BED AT THIS TIME. DENIES ANY NEEDS. CALL LIGHT WITHIN REACH. MIDLINE IV SITE TO RANJANA REMAINS INTACT AND WNL.
--- NOTE | 2024-04-22 07:31 | NUR ---
PT IV ALARMING, NEW IV BAG HUNG AT THIS TIME. PT MOVED HERSELF FROM BED TO CHAIR, RESTING WITH FEET ELEVATED. CALL LIGHTW TIHIN REACH. ALL PT CARE NEEDS MET AT THIS TIME. PT STILL C/O PAIN 08/25 BUT RESTING WITHOUT GRIMACE/RESTLESSNESS WHILE IN CHAIR AT THIS TIME. PRIMARY RN UPDATED.
[2024-04-22] MEDS ORDERED: ESCITALOPRAM OXALATE 10 MG TAB PO SCH (09:00)
[2024-04-22] MEDS ORDERED: buPROPion HCL XL 300 MG TAB.XL.24H PO SCH (09:00)
[2024-04-22 09:21] VITALS: BP 141/98
--- NOTE | 2024-04-22 09:40 | NUR ---
PATIENT RESTING ON COUCH IN ROOM. LUNGS CTA, HEART SOUNDS REGULAR. IV SITE REMAINS PATENT AND WNL. FLUIDS INFUSING WNL. PATIENT DENIES ANY PAIN AT THIS TIME. NOTED ABD TO BE SLIGHTLY TENDER TO TOUCH. BOWEL TONES ACTIVE X 4 QUADRANTS. NO REPORTS OF NAUSEA OR GI UPSET. PATIENT DRANK SOME FLUIDS WITH HER BREAKFAST. REPORTS SHE " DOESN'T LIKE THE FOOD." OFFERED ALTERNATIVE PATIENT STATED, "I'M OKAY." NO FURTHER NEEDS AT THIS TIME. CALL LIGHT WITHIN REACH.
[2024-04-22] MEDS ORDERED: OXYCODONE HCL5 MG PO (09:44)
--- NOTE | 2024-04-22 10:15 | NUR ---
CARE RIDE FOR PATIENT TO BE HERE IN THE NEXT 20-25 MINS. PATIENT WILL BE TAKEN TO RESIDENCE. NO OTHER CM NEEDS AT THIS TIME.
--- NOTE | 2024-04-22 10:25 | NUR ---
patient midline iv removed. catherter intac. patient dressed, discharge paperwork signed. waiting for care ride.
[2024-04-22 10:26] VITALS: BP 149/104
--- NOTE | 2024-04-22 10:29 | NUR ---
PT NOT AVAILABLE FOR VISIT. PROVIDED PRAYER.
== END 2024-04-22 11:00 | disposition home or self-care (01) | DRG 440 ==
LOC: ED 06:10 → MS 06:12
PROVIDERS: Family Medicine; ADMIT Student in an Organized Health Care Education/Training Program; ATTEND Student in an Organized Health Care Education/Training Program
DX: K85.90 Acute pancreatitis without necrosis or infection, unspecified (principal); K86.1 Other chronic pancreatitis; I10 Essential (primary) hypertension; E03.9 Hypothyroidism, unspecified; G25.81 Restless legs syndrome; K21.9 Gastro-esophageal reflux disease without esophagitis; F10.10 Alcohol abuse, uncomplicated; G43.909 Migraine, unspecified, not intractable, without status migrainosus; F17.210 Nicotine dependence, cigarettes, uncomplicated; F32.9 Major depressive disorder, single episode, unspecified; F41.1 Generalized anxiety disorder; Z79.899 Other long term (current) drug therapy; Z88.8 Allergy status to other drugs, medicaments and biological substances; Z90.49 Acquired absence of other specified parts of digestive tract; Z98.890 Other specified postprocedural states; Z85.41 Personal history of malignant neoplasm of cervix uteri; Z85.038 Personal history of other malignant neoplasm of large intestine; Z90.710 Acquired absence of both cervix and uterus; Z90.89 Acquired absence of other organs
CPT/HCPCS: 36415; 36569; 51700; 51701; 51798; 74176; 80048; 80053; 80307; 81003; 83690; 83735; 84100; 84478; 85025; 96374; 96375; 96376; 97161; 97165; 99285-25; A9270; G0378; G0480; J0780; J1171; J1650; J2060; J2270; J2405; J3475; J3480; J7030; J7060; J7121

== ENCOUNTER 2024-05-07 23:54 | Emergency (ER) | payer OTHER ==
[~2024-05-07] VITALS: Ht 160 cm; Wt 57.3 kg
[2024-05-08] MEDS ORDERED: ondansetron HCL 4 MG/2 ML VIAL IV ONE (00:15)
[2024-05-08 00:37] LABS: ALBUMIN 2.9 g/dL (3.4-5.0); ALBUMIN/GLOBULIN RATIO 0.71 (1.1-2.4); ANION GAP 14.1 (7-21); BILIRUBIN, TOTAL 0.4 mg/dL (0.2-1.0); BUN/CREATININE RATIO 8.18 (6.0-28.6); CALCIUM 8.5 mg/dL (8.5-10.1); CREATININE, SERUM 1.1 mg/dL (0.55-1.02); MAGNESIUM 1.8 mg/dL (1.8-2.4); POTASSIUM 4.1 mmol/L (3.5-5.1)
[2024-05-08 00:52] LABS: BASOPHILS 1.4 % (0-2); EOSINOPHILS 1.9 % (0-6); HEMATOCRIT 39.2 % (35.0-50.0); HEMOGLOBIN 13.3 g/dL (12.0-18.0); LYMPHOCYTES 12.2 % (24-44); MCH 31.8 (27-36); MCV 93.5 fl (81-99); MONOCYTES 7.8 % (0-12); NEUTROPHILS 76.7 % (39-80); PLATELET COUNT 506 K/uL (140-440); RBC 4.19 M/ul (4.3-5.7); RDW 16.6 (10.5-15.0)
[2024-05-08] MEDS ORDERED: KETOROLAC TROMETHAMINE 30 MG/ML VIAL IV ONE (01:30)
[2024-05-08] MEDS ORDERED: METOCLOPRAMIDE HCL 10 MG/2 ML SDV IV ONE (01:30)
[2024-05-08 02:09] VITALS: BP 150/99
== END 2024-05-08 02:07 | disposition left against medical advice (07) ==
LOC: ED 23:54
PROVIDERS: Emergency Medicine
DX: R10.13 Epigastric pain (principal); F43.10 Post-traumatic stress disorder, unspecified; F17.200 Nicotine dependence, unspecified, uncomplicated; Z88.8 Allergy status to other drugs, medicaments and biological substances
CPT/HCPCS: 36415; 74177; 80053; 83690; 83735; 85025; 96374; 96375; 99284-25; J1885; J2405; J2765; Q9967

== ENCOUNTER 2024-05-10 14:31 | Emergency (ER) | payer OTHER ==
[~2024-05-10] VITALS: Ht 160 cm; Wt 55.2 kg
[2024-05-10 15:26] LABS: BASOPHILS 0.8 % (0-2); EOSINOPHILS 0.4 % (0-6); HEMOGLOBIN 12.8 g/dL (12.0-18.0); LYMPHOCYTES 9.9 % (24-44); MCH 31.6 (27-36); MCHC 33.7 g/dl (30-36); MCV 93.6 fl (81-99); MONOCYTES 7.2 % (0-12); NEUTROPHILS 81.7 % (39-80); PLATELET COUNT 364 K/uL (140-440); RBC 4.06 M/ul (4.3-5.7); RDW 17.1 (10.5-15.0)
[2024-05-10] MEDS ORDERED: ondansetron HCL 4 MG/2 ML VIAL IV ONE ×2 (15:30→17:45)
[2024-05-10 15:35] LABS: ALBUMIN 2.5 g/dL (3.4-5.0); ALBUMIN/GLOBULIN RATIO 0.58 (1.1-2.4); BILIRUBIN, TOTAL 0.8 mg/dL (0.2-1.0); BUN/CREATININE RATIO 22.48 (6.0-28.6); CALCIUM 8.7 mg/dL (8.5-10.1); CREATININE, SERUM 1.29 mg/dL (0.55-1.02); MAGNESIUM 2.1 mg/dL (1.8-2.4); PROTEIN, TOTAL 6.8 g/dL (6.4-8.2)
[2024-05-10] MEDS ORDERED: SODIUM CHLORIDE 0.9% 1,000 ML IV ONE (16:00)
[2024-05-10] MEDS ORDERED: KETOROLAC TROMETHAMINE 15 MG/ML VIAL IV ONE (16:00)
[2024-05-10] MEDS ORDERED: HYDROmorphone HCL 1 MG/ML SYR IV PRN (16:30)
[2024-05-10] MEDS ORDERED: ONDANSETRON ODT8 MG PO (17:47)
[2024-05-10 17:54] VITALS: BP 112/60
== END 2024-05-10 18:01 | disposition home or self-care (01) ==
LOC: ED 14:31
PROVIDERS: Emergency Medicine
DX: R10.10 Upper abdominal pain, unspecified (principal); R10.816 Epigastric abdominal tenderness; F17.200 Nicotine dependence, unspecified, uncomplicated; G43.909 Migraine, unspecified, not intractable, without status migrainosus; F43.10 Post-traumatic stress disorder, unspecified; Z88.8 Allergy status to other drugs, medicaments and biological substances
CPT/HCPCS: 36415; 80053; 83690; 83735; 85025; 96361; 96374; 96375; 99284-25; J1171; J1885; J2405; J7030

== ENCOUNTER 2024-05-20 22:46 | Inpatient (IN) | payer OTHER ==
[~2024-05-20] VITALS: Ht 160 cm; Wt 56.0 kg
[2024-05-20] MEDS ORDERED: PROCHLORPERAZINE EDISYLATE 10 MG/2 ML VIAL IV ONE (23:00)
[2024-05-20] MEDS ORDERED: diphenhydrAMINE HCL 50 MG/ML VIAL IV ONE (23:00)
[2024-05-20] MEDS ORDERED: KETOROLAC TROMETHAMINE 30 MG/ML VIAL IV ONE (23:00)
[2024-05-20 23:35] LABS: HEMOGLOBIN 12.9 g/dL (12.0-18.0); NEUTROPHILS 85.4 % (39-80)
[2024-05-20 23:38] LABS: BASOPHILS 0.7 % (0-2); EOSINOPHILS 0.8 % (0-6); HEMATOCRIT 37.6 % (35.0-50.0); LYMPHOCYTES 9.1 % (24-44); MCH 30.7 (27-36); MCHC 34.2 g/dl (30-36); MCV 89.8 fl (81-99); PLATELET COUNT 563 K/uL (140-440); RBC 4.19 M/ul (4.3-5.7); RDW 16.8 (10.5-15.0)
[2024-05-20 23:51] LABS: ALBUMIN 2.6 g/dL (3.4-5.0); ALBUMIN/GLOBULIN RATIO 0.62 (1.1-2.4); BILIRUBIN, TOTAL 0.3 mg/dL (0.2-1.0); BUN/CREATININE RATIO 10.78 (6.0-28.6); CALCIUM 8.9 mg/dL (8.5-10.1); CREATININE, SERUM 1.02 mg/dL (0.55-1.02); MAGNESIUM 1.5 mg/dL (1.8-2.4); PROTEIN, TOTAL 6.8 g/dL (6.4-8.2)
[2024-05-21] VITALS (13 sets, daily range): BP systolic 134–185; BP diastolic 69–108
[2024-05-21] MEDS ORDERED: SODIUM CHLORIDE 0.9% 500 ML IV PRN (00:30)
[2024-05-21] MEDS ORDERED: ondansetron HCL 4 MG/2 ML VIAL IV PRN ×2 (00:30→09:00)
[2024-05-21] MEDS ORDERED: MORPHINE SULFATE 4 MG/ML VIAL IV PRN ×2 (00:30→09:00)
[2024-05-21] MEDS ORDERED: DEXTROSE 5% - LACTATED RINGERS 1,000 ML IV SCH (00:30)
[2024-05-21] MEDS ORDERED: MAGNESIUM SULFATE 2 GM/50 ML BAG IV ONE (00:30)
[2024-05-21] MEDS ORDERED: ACETAMINOPHEN 325 MG TAB PO PRN (00:30)
[2024-05-21] MEDS ORDERED: KETOROLAC TROMETHAMINE 15 MG/ML VIAL IV PRN ×2 (00:45→09:15)
[2024-05-21] MEDS ORDERED: diphenhydrAMINE HCL 50 MG/ML VIAL IV PRN (00:45)
[2024-05-21] MEDS ORDERED: PROCHLORPERAZINE EDISYLATE 10 MG/2 ML VIAL IV PRN ×2 (00:45→09:00)
--- NOTE | 2024-05-21 01:30 | NUR ---
REPORT RECEIVED FROM BASIL HERRERA, RECEIVED PATIENT FROM ER. ADMITTED TO MS RM 114 VIA WHEELCHAIR. PATIENT DOES NOT HAVE DENTURES PRESENT WITH HER ON ADMIT. ALL PERSONAL BELONGINGS WITH PATIENT. ASSESSMENT COMPLETE, PATIENT REPORTS 7/10 LUQ ABD PAIN, ACTIVE BOWEL SOUNDS, SOFT. CPOX AT BEDSIDE.
--- NOTE | 2024-05-21 02:35 | NUR ---
PATIENT RESTING WITH EYES CLOSED, RESP EVEN AND UNLABORED. IV MEDICATION COMPLETE, IVF CONTINUING PER ORDER. NO NEEDS, CALL LIGHT IN REACH.
[2024-05-21] MEDS ORDERED: ALBUTEROL SULFATE 0.083% 3 ML VIAL INH PRN (04:00)
--- NOTE | 2024-05-21 04:09 | NUR ---
PATIENT RESTING WITH EYES CLOSED, RESP EVEN AND UNLABORED. IVF CONTINUING TO INFUSE PER ORDER, CPOX AT BEDSIDE. BED ALARM ON. NO NEEDS IDENTIFIED, CALL LIGHT IN REACH
--- NOTE | 2024-05-21 06:16 | NUR ---
PATIENT REPORTING THAT SHE HAS TO VOID, UP TO RESTROOM X2, UNABLE TO VOID AND PAINFUL PER PATIENT. PRN PAIN MEDICATION GIVEN, PRN NAUSEA MEDICATION GIVEN. BLADDER SCAN COMPLETED, 572 ML URINE NOTED IN BLADDER.
--- NOTE | 2024-05-21 06:25 | NUR ---
TC TO DR. MCKINLEY TO NOTIFY OF INABILITY TO VOID, AND BEING PAINFUL AND NAUSEOUS, INFORMED OF BLADDER SCAN OF 572ML. NEW ORDERS RECEIVED.
--- NOTE | 2024-05-21 06:56 | NUR ---
STRAIGHT CATH COMPLETED WITH STERILE PROCEDURE FOR 700ML CLEAR AND YELLOW URINE. PATIENT REPORTS IMPROVED DISCOMFORT. BED ALARM ON, LIGHTS TURNED OFF AND PATIENT DENIES NEEDS, CALL LIGHT IN REACH
--- NOTE | 2024-05-21 07:12 | NUR ---
REPORT RECEIVED FROM SOLID WASTE ANALYST RN JACKSON. PATIENT IS LYING IN BED ON THEIR LEFT SIDE WITH EYES CLOSED AND RESPIRATIONS ARE EVEN AND UNLABORED. CPOX AT BEDSIDE. CONTINUOUS FLUIDS ARE INFUSING. CALL LIGHT AND PERSONAL BELONGINGS ARE WITHIN REACH.
--- NOTE | 2024-05-21 08:41 | NUR ---
IS ROUNDING ON THE PATIENT AT THIS TIME. CALL LIGHT AND PERSONAL BELONGINGS ARE WITHIN REACH.
--- NOTE | 2024-05-21 08:44 | NUR ---
PATIENT IS COUGHING AND DRY HEAVING AND REPORTED FEELING NAUSEAS. BASIL CHATMAN AND STUDENT NURSE ARMANDO NOTIFIED.
[2024-05-21] MEDS ORDERED: NICOTINE 14 MG/24 HR 1 EA TDSY TD SCH (09:00)
[2024-05-21] MEDS ORDERED: PANTOPRAZOLE SODIUM 40 MG/10 ML VIAL IV SCH (09:00)
[2024-05-21] MEDS ORDERED: LACTATED RINGER'S 1,000 ML IV SCH (09:00)
[2024-05-21] MEDS ORDERED: LORazepam 2 MG/ML VIAL IV PRN ×2 (09:15→17:30)
--- NOTE | 2024-05-21 09:32 | NUR ---
PATIENT IS LYING IN BED WITH EYES CLOSED AND RSPIRATIONS ARE EVEN AND UNLABORED. EMESIS BAG WITHIN REACH. CALL LIGHT AND PERSONAL BELONGINGS ARE WITHIN REACH.
--- NOTE | 2024-05-21 10:00 | NUR ---
PATIENT IS GOING DOWN FOR IMAGING AT THIS TIME. IV FLUSHED WITH 10 ML NORMAL SALINE AND IS SALINE LOCKED. IV DRESSING IS CLEAN, DRY, AND INTACT. BED LINENS CHANGED AT THIS TIME.
--- NOTE | 2024-05-21 10:15 | NUR ---
PATIENT RETURNED TO THE FLOOR AT THIS TIME. BED ALARM ON. PATIENT STATED NO NEEDS AT THIS TIME. CALL LIGHT AND PERSONAL BELONGINGS ARE WITHIN REACH.
--- NOTE | 2024-05-21 11:00 | NUR ---
PATIENT IS LYING IN BED WITH EYES OPEN AND RESPIRATIONS ARE EVEN AND UNLABORED. PRN ATIVAN ADMINISTERED PER THE EMAR. FULL ASSESSMENT COMPLETE AND DOCUMENTED IN THE CHART. PATIENT IS ALERT AND ORIENTED TIMES FOUR. GENERALIZED WEAKNESS NOTED. PATIENT WITH SCATTERED TATTOOS NOTED. LAST BM WAS 05/19/24. IV SITE FLUSHED WITH 10 ML NORMAL SALINE. LR IS INFUSING AT 150 ML/HR. IV DRESSING IS CLEAN, DRY, AND INTACT. PATIENT IS NPO AT THIS TIME. BOWEL TONES ARE ACTIVE IN ALL FOUR QUADRANTS. PATIENT WITH MILD DISTENTION AND TENDER TO PALPATION. PATIENT WITH COMPLAINS OF NAUSEA AT THIS TIME. PATIENT IS ON ROOM AIR AND THE CPOX AT BEDSIDE. LUNG SOUNDS ARE CLEAR THROUGHOUT. CARDIAC WITH NORMAL S1 AND S2 ON AUSCULTATION. RADIAL AND PEDAL PULSES ARE STRONG BILATERALLY. CAPILLARY REFILL IN THE UPPER AND LOWER EXTREMITIES IS LESS THAN 3 SECONDS. NO EDEMA NOTED. SENSATION INTACT WITH NO COMPLAINS OF NUMBNESS OR TINGLING. PATIENT STATED NO FURTHER NEEDS AT THIS TIME. CALL LIGHT AND PERSONAL BELONGINGS ARE WITHIN REACH.
--- NOTE | 2024-05-21 11:35 | NUR ---
NOTIFIED OF PATIENT BP OF 185/98 AND A HR OF 90. MD GAVE NO FURTHER ORDERS OFR THE BP. PATIENT HAS NOT VOIDED SINCE HUMAN PERFORMANCE PROFESSOR STRAIGHT CATH HER THIS MORNING AROUND 0700. BLADDER COMPLETE AND FOUNDS 157 ML NAD 173 ML OF URINE. MD GAVE VERBAL ORDER TO BLADDER SCAN EVERY 6 HOURS AND TO STRAIGHT CATH FOR GREATER THAN 600 ML. MD ALSO STATED TO INCREASE FLUID RATE TO 200 ML/HR. NO FURTHER ORDERS AT THIS TIME. ORDERS INPUT BY THIS RN.
[2024-05-21] MEDS ORDERED: PHARMACY RENAL DOSE ADJUSTMENT 1 DOSE MISC PO SCH (12:00)
--- NOTE | 2024-05-21 12:15 | NUR ---
PATIENT IS LYING IN BED WITH EYES CLOSED AND RESPIRATIONS ARE EVEN AND UNLABORED. LR IS INFUSING AT 200 ML/HR. BED ALARM ON. CALL LIGHT AND PERSONAL BELONGINGS ARE WITHIN REACH.
--- NOTE | 2024-05-21 13:10 | NUR ---
PRN ZOFRAN ADMINISTERED AT THIS TIME. VITAL SIGNS TAKEN AND DOCUMENTED IN THE CHART. PATIENT ATTEMPTED TO USE THE COMMODE. PATIENT UNABLE TO VOID. PATIENT IS BACK IN BED AND POSITIONED FOR COMFORT. PATIENT HAS LR INFUSING AT 200 ML/HR. PATIENT STATED NO FURTHER NEEDS AT THIS TIME. CALL LIGHT AND PERSONAL BELONGINGS ARE WITHIN REACH.
--- NOTE | 2024-05-21 14:01 | NUR ---
THIS RN NOTIFIED REGARDING PATIENT INABILITY TO VOID FOR DAY SHIFT. THIS RN ASKED MD IF HE WOULD LIKE A URINE SAMPLE WHEN SHE VOIDS. MD STATED "I DON'T THINK I NEED ONE". NO NEW ORDERS AT THIS TIME. CALL ENDED.
--- NOTE | 2024-05-21 14:25 | NUR ---
PATIENT CALLED FOR LOWER ABDOMINAL PAIN 07/26. [facility] [place] [place], DENIED ANY LIGHTHEADEDNESS OR TINGLING. SHE HAD AN EPISODE OF NAUSEA. SHE REQUESTED A BLADDER SCAN AND TO BE STRAIGHT CATHED. PRIMARY NURSE NOTIFIED.
--- NOTE | 2024-05-21 14:49 | NUR ---
PATIENT IS LYING IN BED WITH HOB ELEVATED. CPOX AT BEDSIDE. PATIENT HAS PAIN RATED 6/10 IN THE BLADDER PER PATIENT REPORT. IV SITE FLUSHED WITH 10 ML NORMAL SALINE AND HAS LR INFUSING AT 200 ML/HR. IV DRESSING IS CLEAN, DRY, AND INTACT. ABDOMEN IS MORE FIRM THAN THIS MORNING AND TENDER TO PALPATION. BOWEL TONES ARE ACTIVE IN ALL FOUR QUADRANTS. PATIENT IS UNABLE TO URINATE. BLADDER SCANNED FOR GREATER THAN 400 ML URINE IN THE BLADDER. PATIENT APPEARS VERY UNCOMFORTABLE. PATIENT IS REQUESTING A BLADDER SCAN. PATIENT STATED NO FURTHER NEEDS AT THIS TIME. CALL LIGHT AND PERSONAL BELONGINGS ARE WITHIN REACH.
--- NOTE | 2024-05-21 14:55 | NUR ---
PATIENT HAS NOT VOIDED. BASIL CHATMAN NOTIFIED AND BLADDER SCANNED THE PATIENT.
--- NOTE | 2024-05-21 14:56 | NUR ---
MD NOTIFIED OF PATIENT MOST RECENT BLADDER SCAN. MD STATED TO INSERT A HITCHCOCK CATHETER AT THIS TIME. RN TO PUT IN ORDER. CALL ENDED.
[2024-05-21] MEDS ORDERED: LIDOCAINE 2% VISCOUS 6 ML SYR TOP ONE (15:00)
--- NOTE | 2024-05-21 15:15 | NUR ---
HITCHCOCK CATHETER INSERTED PER MD ORDER. PATIENT TOLERATED WELL. PATIENT WITH 450 ML CLOUDY YELLOW URINE IN THE CATHETER BAG. PATIENT WITH 250 ML GREEN EMESIS POST HITCHCOCK INSERTION. PRN COMPAZINE ADMINISTERED PER THE EMAR. IV FLUSHED WITH 10 ML NORMAL SALINE. IV DRESSING IS CLEAN, DRY, AND INTACT. LR IS INFUSING AT 200 ML/HR. NEXT BAG OF LR IS IN THE ROOM AND ON THE PUMP. PATIENT STATED NO FURTHER NEEDS AT THIS TIME. CPOX DISCONTINUED BY RT NEDRA. NEW EMESIS BAG ON THE BEDSIDE TABLE. CALL LIGHT AND PERSONAL BELONGINGS ARE WITHIN REACH.
[2024-05-21] MEDS ORDERED: ESCITALOPRAM OX20 MG PO (15:36)
[2024-05-21] MEDS ORDERED: PANTOPRAZOLE SO40 MG PO (15:38)
--- NOTE | 2024-05-21 16:17 | NUR ---
PATIENT IS LYING IN BED WITH EYES CLOSED AND RESPIRATIONS ARE EVEN AND UNLABORED. LR IS INFUSING AT 200 ML/HR. CALL LIGHT AND PERSONAL BELONGINGS ARE WITHIN REACH.
--- NOTE | 2024-05-21 16:35 | NUR ---
STUDENT NURSE, ARMANDO NOTIFIED THIS RN REGARDING PATIENT REPORTING HAVING A PANIC ATTACK AND CHEST PAIN. PRN ATIVAN ADMINISTERED PER THE EMAR. VITAL SIGNS TAKEN AND DOCUMENTED IN THE CHART. JASON MCCLELLAN RN ENTERED THE ROOM. THIS RN GAVE JASON AN UPDATE. JASON MCCLELLAN RN NOTIFIED AND TOLD JASON HE WOULD BE RIGHT THERE. THIS RN AND BASIL GOMEZ REMAIN AT THE BEDSIDE.
--- NOTE | 2024-05-21 16:49 | NUR ---
PATIENT STATED SHE FEELS LIKE HER CHEST PAIN IS GETTING WORSE. PATIENT ASKS THIS RN "AM I HAVING A HEART ATTACK?". RN WITH PATIENT AT BEDSIDE AND REASSURING PATIENT THAT THE DOCTOR IS ON THE WAY.
--- NOTE | 2024-05-21 16:50 | NUR ---
PATIENT RATED PAIN 8/10 IN THE CHEST THAT IS A SHARP PAIN.
--- NOTE | 2024-05-21 16:59 | NUR ---
BASIL RIOS IS AT THE BEDSIDE AND GETTING EKG. BASIL GOMEZ NOTIFIED THIS RN THAT CHEST X RAY AND LABS HAVE BEEN ORDERED. THIS RN, BASIL GOMEZ, BASIL RIOS AND ARMANDO STUDENT NURSE REMAIN AT THE BEDSIDE.
--- NOTE | 2024-05-21 17:00 | NUR ---
ARRIVED TO THE BEDSIDE. NEW ORDERS PUT IN AT THIS TIME. MULTIPS RN'S, RT, AND LAB IS AT THE BEDSIDE.
[2024-05-21] MEDS ORDERED: LIDOCAINE HCL 4% 1 EACH PATCH TD SCH (17:10)
[2024-05-21 17:21] LABS: HEMATOCRIT 32.7 % (35.0-50.0); HEMOGLOBIN 11.1 g/dL (12.0-18.0); MCH 30.5 (27-36); MCV 89.7 fl (81-99); PLATELET COUNT 489 K/uL (140-440); RBC 3.65 M/ul (4.3-5.7); RDW 16.8 (10.5-15.0)
[2024-05-21 17:33] LABS: BANDS, MANUAL DIFF 1; LYMPHOCYTES, MANUAL DIFF 6; MONOCYTES, MANUAL DIFF 2; NEUTROPHILS, MANUAL DIFF 91
[2024-05-21 17:34] LABS: ALBUMIN 2.2 g/dL (3.4-5.0); ALBUMIN/GLOBULIN RATIO 0.58 (1.1-2.4); ANION GAP 11.9 (7-21); BILIRUBIN, TOTAL 0.3 mg/dL (0.2-1.0); CALCIUM 8.2 mg/dL (8.5-10.1); CREATININE, SERUM 0.75 mg/dL (0.55-1.02); POTASSIUM 3.9 mmol/L (3.5-5.1)
--- NOTE | 2024-05-21 17:35 | NUR ---
THIS RN ADMINISTERED PRN TORADOL AND SCHEDULED LIDOCAINE PATCH AT THIS TIME. IMAGING CAME UP TO THE FLOOR AND TOOK THEM OFF THE FLOOR. PATIENT BELONGINGS MOVED TO ROOM 112 WHERE THE PATIENT WILL RETURN TO AFTER IMAGING.
--- NOTE | 2024-05-21 17:58 | NUR ---
PATIENT RETURNED TO THE ROOM. PATIENT IS NOW LYING IN BED WITH EYES CLOSED AND RESPIRATIONS ARE EVEN AND UNLABORED. CPOX AT BEDSIDE. LR IS INFUSING AT 200 ML/HR. PATIENT STATED NO NEEDS AT THIS TIME. CALL LIGHT AND PERSONAL BELONGINGS ARE WITHIN REACH. WARM BLANKETS PROVIDED PER PATIENT REQUEST.
[2024-05-21] MEDS ORDERED: ACETAMINOPHEN 1,000 MG/100 ML VIAL IV PRN (18:00)
--- NOTE | 2024-05-21 18:11 | NUR ---
PATIENT IS LYING IN BED WITH EYES CLOSED AND RESPIRATIONS ARE EVEN AND UNLABORED. CPOX AT [facility]. CALL LIGHT AND PERSONAL BELONGINGS ARE WITHIN REACH.
[2024-05-21 18:53] LABS: BILIRUBIN, URINE NEGATIVE (negative); BLOOD/HGB, URINE TRACE-I (Negative); KETONE, URINE NEGATIVE (Negative); LEUK ESTERASE, URINE NEGATIVE (negative); NITRITE, URINE NEGATIVE (negative); PH, URINE 7.5 (5-7)
--- NOTE | 2024-05-21 18:58 | EKG ---
[facility] [address] [place], [place] [address] Signed Normal sinus rhythm Prolonged QT Abnormal ECG Confirmed by Kane Scherer MD ([id number]) on 05/21/2024 6:57:55 PM Electronically Signed By: KANE SCHERER MD 05/21/24 185 PATIENT NAME: JOHNATHAN GOMEZ Rigoberto Electrocardiogram DATE OF : 63 PHYSICIAN: KANE SCHERER MD REPORT #: [id number] REPORT IS CONFIDENTIAL AND NOT TO BE RELEASED WITHOUT AUTHORIZATION
[2024-05-21 19:03] LABS: CRYSTALS, URINE NONE SEEN (0-1+); EPITHELIAL CELLS, URINE NONE SEEN /lpf (0-1+)
[2024-05-21 19:04] LABS: BACTERIA, URINE RARE /hpf (negative); CASTS, URINE NONE SEEN \\lpf; COLLECTION TYPE, URINE CATH; REFLEX CULTURE, URINE No (No)
--- NOTE | 2024-05-21 19:19 | NUR ---
RECEIVED REPORT FROM DAY SHIFT RN. PATIENT IS RESTING IN BED. LAB PRESENT IN ROOM. PATIENT DENIES ANY NEEDS. CALL LIGHT IN REACH.
--- NOTE | 2024-05-21 19:53 | NUR ---
PATIENTS VITALS TAKEN AND RECORDED. PATIENTS HITCHCOCK EMPTIED. OUPUT RECORDED. PATIENT REMAINS NPO AT THIS TIME. IV FLUIDS INFUSING PER ORDER. PATIENT IS ON RA. CPOX IN USE. PATIENT ASSEMSEMT COMPLETED. PATIENT DENIES ANY NAUSEA. PATIENT RATES PAIN AT A 5/10 AND DENIES THE NEED FOR PAIN MEDICATION AT THIS TIME. PATIENS ADB IS TENDER BUT PAINFUL IN LUQ. PATIENT IS AAOX4. UPDATE PATIENT ON PLAN OF CARE AND ALL QUESTIONS ANSWERED. PATIENT DENIES ANY NEEDS. CALL LIGHT IN REACH. BED ALARM ON FOR SAFETY.
[2024-05-21] MEDS ORDERED: LIDOCAINE PATCH REMOVAL 1 EA TD SCH (21:00)
--- NOTE | 2024-05-21 21:14 | NUR ---
PATIENT UP TO BR A 1PA. PATIENT PASSED GAS BUT UNABLE TO HAVE BM. PATIENT IS BACK IN BED RESTING. PATIENT REPORTS PAIN AND NAUSEA, PRN MEDICATION GIVEN PER ORDER. PATIENT DENIES ANY FURTHER NEEDS. CALL LIGHT IN REACH. BED ALARM ON FOR SAFETY. IV INFUSING PER ORDER.
--- NOTE | 2024-05-21 22:00 | NUR ---
PATIENT IS RESTING IN BED WITH EYES CLOSED, RR 16. NAD NOTED. CALL LIGHT IN REACH. IV INFUSING PER ORDER. BED ALARM ON FOR SAFETY.
--- NOTE | 2024-05-21 23:03 | NUR ---
PATIENT UP TO THE RECLINER WITH DEWATERER OPERATOR. PATIENT PROVIDED WARM PACK FOR C/O BACK DISCOMFORT. PATIENT DENIES ANY FURTHER NEEDS. IV INFUSING PER ORDER. PATIENT DENIES ANY FURTHER NEEDS. CALL LIGHT IN REACH.
--- NOTE | 2024-05-21 23:17 | NUR ---
PATIENT MOVED FROM RECLINER TO BED. PATIENT REPORTS 8/10 PAIN AND NAUSEA, PRN MEDICATION GIVEN PER ORDER. PATIENT PROVIDED WARM BLANKET. PATIENT DENIES ANY FURTHER NEEDS. CALL LIGHT IN REACH. BED ALARM ON FOR SAFETY. IV INFUSING PER ORDER.
[2024-05-22] VITALS (8 sets, daily range): BP systolic 132–146; BP diastolic 71–86
--- NOTE | 2024-05-22 00:31 | NUR ---
PATIENT ASSISTED TO POSTION ONTO HER RIGHT SIDE. PATIENT DENIES ANY FURTHER NEEDS. CALL LIGHT IN REACH. IV INFUSING PER ORDER. BED ALARM ON FOR SAFETY.
--- NOTE | 2024-05-22 00:50 | NUR ---
PATIENT CAN BE HEARD FROM THE RN STATION MAKING WRETCHING LIKE NOISES. PATIENT REPORTS 10/10 PAIN IN HER LUQ AND NAUSEA, PRN MEDICATIONS GIVEN PER ORDER. PATIENT ASSISTED TO REPOSITION TO HER SIDE. NO FURTHER NEEDS NOTED. CALL LIGHT IN REACH. IV INFUSING PER ORDER.
--- NOTE | 2024-05-22 02:07 | NUR ---
PATIENT IS RESTING IN BED ON RIGHT SIDE WITH EYES CLOSED, CPOX READINGS ARE WNL. NAD NOTED. IV INFUSING PER ORDER. CALL LIGHT IN REACH. BED ALARM ON FOR SAFETY.
--- NOTE | 2024-05-22 04:05 | NUR ---
PATIENT CAN BE HEARD FROM RN STATION CRYING OUT. THIS RN INTO ROOM TO DOUND ON PATIENT. PATIENT REPORTS ABD PAIN AND NAUSEA, MS MEDICATION GIVEN PER ORDER. PATIENT ASSISTED TO REPOSITION IN HER LEFT SIDE. PATIENT DENIES ANY FURTHER NEEDS. CALL LIGHT IN REACH. IV INFUSING PER ORDER. BED ALARM ON FOR SAFETY.
[2024-05-22 05:21] LABS: HEMATOCRIT 29.8 % (35.0-50.0); HEMOGLOBIN 10.1 g/dL (12.0-18.0); MCH 30.6 (27-36); MCHC 33.8 g/dl (30-36); MCV 90.4 fl (81-99); PLATELET COUNT 392 K/uL (140-440); RBC 3.29 M/ul (4.3-5.7); RDW 16.7 (10.5-15.0)
[2024-05-22 05:27] LABS: ANION GAP 10.6 (7-21); BUN/CREATININE RATIO 8.69 (6.0-28.6); CALCIUM 8.1 mg/dL (8.5-10.1); CREATININE, SERUM 0.69 mg/dL (0.55-1.02); MAGNESIUM 1.8 mg/dL (1.8-2.4); POTASSIUM 3.6 mmol/L (3.5-5.1)
--- NOTE | 2024-05-22 05:31 | NUR ---
PATIENTS VITALS TAKEN AND RECORDED. HITCHCOCK EMPTIED. INTAKE AND OUTPUT RECORDED. PATIENT REPORTS NAUSEA, PRN MEDICATION GIVEN PER ORDER. PATIENTS IV INFUSING PER ORDER. NAD NOTED. CPOX IN USE. NO FURTHER NEEDS NOTED. CALL LIGHT IN REACH.
--- NOTE | 2024-05-22 05:45 | NUR ---
PATIENT UP TO RECLINER A 1PA. PATIENTS BELONGINGS WITH IN REACH. IV INFUSING PER ORDER. PATIENT DENIES ANY FURTHER NEEDS. CALL LIGHT IN REACH.
--- NOTE | 2024-05-22 05:50 | NUR ---
THIS RN IN TO ROUND ON PATIENT. PATIENT REQUESTED TO GET UP. PATIENT PROCEEDED TO GET UP AND THEN LAY ON THE FLOOR. PATIENT EDUCATED THE FLOOR IS NOT A CLEAN PLACE. THIS RN HELPED PATIENT UP TO BED. OPERATOR ENGINEER IN ROOM TO ASSISST. PATIENT THEN FLOPPED DOWN ON BED AND PULLED ON CATHETER. DURING THIS TIME PATIENT GOT TANGLED IN IV AND PULLED IV OUT. PATIENT IS NOW RESTING IN BED THROWING FEET AND HANDS ON BED. PATIENT EDUCATED TO TAKE A DEEP BREATH AND TRY AND RELAX. PATIENT STATED "WHY ARE YOU YELLING AT ME". THIS RN AND OPERATOR ENGINEER ASSURED PATIENT THAT NO ONE IS YELLING AT HER. PATIENT PROVIDED SUPPORT. PATIENT IS PULLING AT HITCHCOCK AND YELLING "GET THIS OUT". PATIENT EDUCATED THAT SHE IS UNABLE TO PEE WITHOUT HITCHCOCK AND THAT SHE HAS RETENTION ISSUES. FLOAT RN IN TOOM TO START NEW US GUIDED IV. CALL LIGHT IN REACH. BED ALARM ON FOR SAFETY.
[2024-05-22 05:52] LABS: EOSINOPHILS, MANUAL DIFF 1; LYMPHOCYTES, MANUAL DIFF 8; MONOCYTES, MANUAL DIFF 4; NEUTROPHILS, MANUAL DIFF 87
--- NOTE | 2024-05-22 06:54 | NUR ---
NEW US GUIDED IV PLACED BY SKY GRACIA. PATIENT DID NOT TOLERATE ACTIVITY WELL. SUPPORT PROVIDED THROUGHTOUT PROCEDURE. PATIENT GIVEN PRN NAUSEA AND PAIN MEDICATION PER REQUEST. PATIENT IS NOW RESTING IN BED ON RIGHT SIDE. IV INFUSING PER ORDER. CPOX IN USE. IV INFUSING PER ORDER. BED ALARM ON FOR SAFETY.
--- NOTE | 2024-05-22 07:03 | NUR ---
REPORT RECEIVED FROM JEWELRY DIPPER RN JONEL. PATIENT IS LYING IN BED WITH EYES CLOSED AND RESPIRATIONS ARE EVEN AND UNLABORED. CPOX AT THE BEDSIDE. CALL LIGHT AND PERSONAL BELONGINGS ARE WITHIN REACH.
[2024-05-22] MEDS ORDERED: LACTATED RINGER'S 1,000 ML IV SCH (07:45)
--- NOTE | 2024-05-22 08:07 | NUR ---
HOURLY ROUNDING. BOARD HAS BEEN UPDATED, PATIENT SOMETIMES SCREAMS. NO REQUEST FROM PATIENT. NURSE HAS BEEN NOTIFIED
--- NOTE | 2024-05-22 08:40 | NUR ---
0900 MEDICATIONS ADMINISTERED PER THE EMAR. PATIENT WITH NO COMPLAINTS OF NAUSEA OR PAIN. PATIENT IS DROWSY BUT IS AROUSABLE TO VOICE. PRN ATIVAN HELD AT THIS TIME. PATIENT ANSWERS RN QUESTIONS AND FALLS BACK ASLEEP SHORTLY AFTER. PATIENT WITH MODERATE TREMORS IN THE HANDS AND LEGS. BLOOD SUGAR TAKEN AND IS 87 AT THIS TIME. LR IS INFUSING AT 150 ML/HR. PATIENT STATED NO FURTHER NEEDS. CALL LIGHT AND PERSONAL BELONGINGS ARE WITHIN REACH.
[2024-05-22] MEDS ORDERED: ENOXAPARIN SODIUM 40 MG/0.4 ML SYR SUB-Q SCH (09:00)
--- NOTE | 2024-05-22 09:26 | NUR ---
PATIENT IS LYING IN BED WITH HOB ELEVATED. PATIENT WITH EYES CLOSED AND RESPIRATIONS ARE EVEN AND UNLABORED. ARMANDO, STUDENT NURSE PROVIDED PATIENT WITH A WARM BLANKET. CALL LIGHT AND PERSONAL BLEONGINGS ARE WITHIN REACH.
[2024-05-22] MEDS ORDERED: bisacodyL 10 MG SUPP PR ONE (09:30)
[2024-05-22] MEDS ORDERED: OXYCODONE HCL 5 MG TAB PO PRN (09:30)
--- NOTE | 2024-05-22 10:28 | NUR ---
PATIENT IS LYING IN BED WITH EYES CLOSED AND RESPIRATIONS ARE EVEN AND UNLABORED. CALL LIGHT AND PERSONAL BELONGINGS ARE WITHIN REACH.
--- NOTE | 2024-05-22 10:45 | NUR ---
SUPPPOSITORY ADMINISTERED PER THE EMAR. PATIENT RESPONDS TO RN BUT STILL IS DROWSY. FULL ASSESSMENT COMPLETE AND DOCUMENTED IN THE CHART. PATIENT WITH NO COMPLAINTS OF NAUSEA OR PAIN. PATIENT IS ALERT AND ORIENTED TIMES TWO. PATIENT DOES NOT KNOW WHY SHE IS IN THE HOSPITAL AND WHAT MONTH IT IS. PATIENT EDUCATED AT THIS TIME. PATIENT WITH GENERALIZED WEAKNESS. SCATTERED TATTOOS NOTED. NO REDNESS OR SKIN BREAKDOWN ON THE COCCYX NOTED. IV SITE IS CLEAN, DRY, AND INTACT. LR IS INFUSING AT 150 ML/HR. HITCHCOCK CATHETER IN PLACE. PATIENT IS DUSTY CLEAR LIQUID DIET FOR LUNCH. PATIENT WITH ACTIVE BOWEL TONES. ABDOMEN IS MILDLY DISTENDED. PATIENT IS ON ROOM AIR AND LUNG SOUNDS ARE CLEAR THROUGHOUT. CARDIAC WITH NORMAL S1 AND S2 ON AUSCULTATION. RADIAL AND PEDAL PULSES ARE STRONG BILATERALLY. CAPILLARY REFILL IN THE UPPER AND LOWER EXTREMITIES IS LESS THAN 3 SECONDS BILATERALLY. NO EDEMA NOTED. SENSATION INTACT WITH NO COMPLAINTS OF NUMBNESS OR TINGLING. PATIENT STATED NO FURTHER NEEDS AT THIS TIME. CALL LIGHT AND PERSONAL BELONGINGS ARE WITHIN REACH.
--- NOTE | 2024-05-22 11:18 | NUR ---
PATIENT IS LYING IN BED ON HER LEFT SIDE WITH EYES CLSOED AND RESPIRATIONS ARE EVEN AND UNLABORED. CALL LIGHT AND PERSONAL BELONGINGS ARE WITHIN REACH.
--- NOTE | 2024-05-22 11:31 | NUR ---
PATIENT UP TO BATHROOM TO TRY AND BM, PASSING GAS, NO BM AT THIS TIME. DR. MCKINLEY IS ADDING MIRALAX FOR PATIENT.
[2024-05-22] MEDS ORDERED: POLYETHYLENE GLYCOL 3350 1 PACKET PO ONE (11:45)
--- NOTE | 2024-05-22 12:25 | NUR ---
MIRALAX ONE TIME DOSE ADMINISTERED PER THE EMAR. PATIENT REPORT NOT FEELING HUNGRY. LUNCH TRAY IS AT BEDSIDE. PATIENT EDUCATED TO TAKE THE EATING SLOW. PATIENT EXPRESED UNDERSTANDING AND THE FEAR OF BECOMING NAUSEOUS AGAIN. PATIENT ASKED WHY SHE HAS TO KEEP THE CATHETER IN. PATIENT EDUCATED ON RETENTION SHE HAS BEEN HAVING AND MONITOR INTAKE AND OUTPUT. PATIENT EXPRESSED UNDERSTANDING. PATIENT STATED NO FURTHER NEEDS AT THIS TIME. CALL LIGHT AND PERSONAL BELONGINGS ARE WITHIN REACH.
--- NOTE | 2024-05-22 13:12 | NUR ---
PATIENT GIVEN 1MG OF IV ATIVAN FOR NAUSEA.
--- NOTE | 2024-05-22 13:49 | NUR ---
PATIENT LYING IN BED RESTLESS AND AGITATED. SHE WANTS TO WALK AROUND THE ROOM. SHE WAS EDUCATED TO STAY IN BED FOR LINE MANAGEMENT. CALL LIGHT AND PERSONAL BELONGINGS WITHIN REACH AND BED ALARM ON.
--- NOTE | 2024-05-22 14:34 | NUR ---
PATIENT SITTING IN CHAIR WITH FEET ELEVATED. PATENT HAS EVEN AND UNLABORED RESPIRATIONS WITH EYES CLOSED. PATIENT HAS CHAIR ALARM ON AND CALL LIGHT WITHIN REACH.
--- NOTE | 2024-05-22 14:53 | NUR ---
PATIENT IS SITTING IN THE CHAIR WITH BILATERAL LOWER EXTREMITIES ELEVATED. PATIENT IS ALERT AND ORIENTED TIMES FOUR. IV FLUSHED WITH 10 ML NORMAL SALINE. LR IS INFUSING AT 150 ML/HR. IV DRESSING IS CLEAN, DRY, AND INTACT. PATIENT WITH NO COMPLAINTS OF PAIN OR NAUSEA. BOWEL TONES ARE ACTIVE IN ALL FOUR QUADRANTS. PATIENT ABDOMEN IS DISTENDED AND TENDER TO PALPATION. HITCHCOCK CATHETER CARE AND DEN CARE COMPLETE. PATIENT STATED NO FURTHER NEEDS AT THIS TIME. CALL LIGHT AND PERSONAL BELONGINGS ARE WITHIN REACH.
--- NOTE | 2024-05-22 15:23 | NUR ---
PATIENT SITTING IN CHAIR WITH LEGS ELEVATED. NEW BAG OF LR STARTED AND CHAIR ALARM ON. SHE DENIES ANY NEEDS AT THIS TIME AND HAS CALL LIGHT WITHIN REACH.
--- NOTE | 2024-05-22 16:00 | NUR ---
PATIENT IS SITTING IN THE CHAIR WITH BILATERAL LOWER EXTREMITIES ELEVATED. PATIENT WITH EYES CLOSED AND RESPIRATIONS ARE EVEN AND UNLABORED. LR IS INFUSING AT 150 ML/HR. CALL LIGHT AND PERSONAL BELONGINGS ARE WITHIN REACH.
--- NOTE | 2024-05-22 16:36 | NUR ---
MED REC COMPLETE
--- NOTE | 2024-05-22 17:13 | NUR ---
PATIENT GIVEN 4MG OF IV MORPHINE FOR 7/10 ABD PAIN. PATIENT BACK TO BED, BED ALARM IS ON.
--- NOTE | 2024-05-22 17:15 | NUR ---
PATIENT LAYING IN BED WITH EVEN UNLABORED RESPIRATIONS. CALL LIGHT AND PERSONAL BELONGINGS WITHIN REACH.
--- NOTE | 2024-05-22 18:15 | NUR ---
PATIENT LYING IN BED WITH HOB ELEVATED. REFUSED DINNER OPTIONS EXCEPT FOR THE APPLE JUICE. SHE HAS MIRALAX ON HER BEDSIDE TABLE ALONG WITH HER CALL LIGHT AND PERSONAL ITEMS. 1800 VS AND I&OS TAKEN AND DOCUMENTED IN THE CHART. PATIENT STATED NO FURTHER NEEDS.
--- NOTE | 2024-05-22 18:35 | NUR ---
PATIENT IS LYING IN BED ON HER LEFT SIDE WITH EYES CLOSED AND RESPIRATIONS ARE EVEN AND UNLABORED. CALL LIGHT AND PERSONAL BELONGINGS ARE WITHIN REACH.
--- NOTE | 2024-05-22 19:23 | NUR ---
RECEIVED REPORT FROM DAY SHIFT RN. PATIENT IS TEARFUL. PATIENT REPORTS 5/10 PAIN IN HER LOW ABD, PRN PAIN MEDICATION GIVEN PER ORDER. PATIENT REPORTS CONCERNS FOR ANXIETY, PRN MEDICATION GIVEN PER ORDER. PATIENT IS RESTING IN BED AND ASSISTED TO REPOSTION TO HER RIGHT SIDE. NO FURTHER NEEDS NOTED. CALL LIGHT IN REACH. BED ALARM ON FOR SAFETY.
--- NOTE | 2024-05-22 20:08 | NUR ---
PATIENT IS RESTING IN BED ON RIGHT SIDE. PATIENTS VITALS TAKEN AND RECORDED. HITCHCOCK EMPTIED AND HITCHCOCK CARE COMPLETED. INTAKE AND OUTPUT RECORDED. PATIENT DENIES ANY NAUSEA. PATIENT REPORTS IMPROVEMENT IN PAIN AND IT IS 4/10 AND DENIES THE NEED FOR FURTHER INTERVENTION AT THIS TIME. PATIENT ASSESMENT COMPLETED. PATIENT DENIES ANY FURTHER NEEDS. CALL LIGHT IN REACH. BED ALARM ON FOR SAFETY. IV INFUSING PER ORDER.
--- NOTE | 2024-05-22 21:59 | NUR ---
PATIENT IS RESTING IN BED ON LEFT SIDE. PATIENT BRIEFLY AWOKE AND ASKED FOR A WARM BLANKET. WARM BLANKET PROVIDED. HITCHCOCK EMPTIED. IV INFUSING PER ORDER. NAD NOTED. CALL LIGHT IN REACH. BED ALARM ON FOR SAFETY.
--- NOTE | 2024-05-22 22:59 | NUR ---
PATIENT CALLED AND REPORTED "I AM SO ANXIOUS", PRN ANXIETY MEDICATION GIVEN PER ORDER. PATIENT REPORTS 8/10 BACK PAIN, PRN PAIN MEDICATION PER ORDER. PATIENT ASSISTED TO POSITION ON HER RIGHT SIDE. PATIENT DENIES ANY FURTHER NEEDS. CALL LIGHT IN REACH. BED ALARM ON FOR SAFETY. IV INFUSING PER ORDER.
--- NOTE | 2024-05-22 23:59 | NUR ---
PATIENT REPORTS 8/10 PAIN IN HER BACK, PRN PAIN MEDICATION GIVEN PER ORDER. PATIENT REQUESTONS ANXIETY MEDICATION AND STATED "I JUST CANT SETTLE DOWN", PATIENT IS NOTED TO BE THRASHING IN BED AND CRYING. PRN ANXIETY MEDICATION GIVEN PER ORDER. PATIENT DENIES ANY FURTHER NEEDS. CALL LIGHT IN REACH. BED ALARM ON FOR SAFETY. IV INFUSING PER ORDER.
[2024-05-23] VITALS (8 sets, daily range): BP systolic 128–137; BP diastolic 72–92
--- NOTE | 2024-05-23 02:06 | NUR ---
PATIENT IS RESTING IN BED WITH EYES CLOSED, RR 17. NAD NOTED. CALL LIGHT IN REACH. BED ALARM ON FOR SAFETY. IV INFUSING PER ORDER.
--- NOTE | 2024-05-23 04:11 | NUR ---
PATIENT CALLED AND REPORTED 08/25, PRN PAIN MEDICATION GIVEN PER ORDER. PATIENT GIVEN PRN ANXIETY MEDICATION PER REQUEST. PATIENTS IV NOTED TO BE INFILTRATED. FLOAT RN NOTIFIED PATIENT WILL NEED NEW US GUIDED IV. PATIENTS HITCHCOCK EMPTIED. INTAKE AND OUTPUT RECORDED. VITALS TAKEN ADN RECORDED. PATIENT DENIES ANY FURTHER NEEDS. CALL LIGHT IN REACH. BED ALARM ON FOR SAFETY.
--- NOTE | 2024-05-23 05:12 | NUR ---
ATTEMPTED USIV X2 WITHOUT SUCCESS. PRIMARY RN IN ROOM TO ATTEMPT IV PLACEMENT.
--- NOTE | 2024-05-23 05:18 | NUR ---
MULTIPLE ATTEMPTS COMPLETED FOR AN US GUIDED IV WITH NO SUCCESS. THIS RN PLACED A 22 IN HER RIGHT INDEX FINGER. PATIENT DID NOT TOLERATE ACTIVITY WELL. PATIENT WOULD NOT HOLD STILL AND KEPT YELLING DURING IV ATTEMPTS. PATIENT IS NOW RESTING IN BED. PATIENT DENIES ANY FURTHER NEEDS. CALL LIGHT IN REACH. BED ALARM ON FOR SAFETY.
[2024-05-23 05:20] LABS: HEMATOCRIT 28.7 % (35.0-50.0); HEMOGLOBIN 9.6 g/dL (12.0-18.0); MCH 30.2 (27-36); MCHC 33.3 g/dl (30-36); MCV 90.7 fl (81-99); PLATELET COUNT 385 K/uL (140-440); RBC 3.17 M/ul (4.3-5.7); RDW 16.7 (10.5-15.0)
[2024-05-23 05:23] LABS: ANION GAP 10.1 (7-21); BUN/CREATININE RATIO 5.26 (6.0-28.6); CALCIUM 7.8 mg/dL (8.5-10.1); CREATININE, SERUM 0.57 mg/dL (0.55-1.02); MAGNESIUM 1.4 mg/dL (1.8-2.4); POTASSIUM 3.1 mmol/L (3.5-5.1)
[2024-05-23 05:51] LABS: EOSINOPHILS, MANUAL DIFF 1; LYMPHOCYTES, MANUAL DIFF 10; MONOCYTES, MANUAL DIFF 7; NEUTROPHILS, MANUAL DIFF 82
--- NOTE | 2024-05-23 06:11 | NUR ---
PATIENT IS RESTING IN BED WITH EYES CLOSED, RR 15. NAD NOTED. CALL LIGHT IN REACH. IV INFUSING PER ORDER. BED ALARM ON FOR SAFETY.
[2024-05-23] MEDS ORDERED: POTASSIUM CHLORIDE 40 MEQ in DEXTROSE 5% 250 ML IV ONE ×2 (07:00→12:00)
[2024-05-23] MEDS ORDERED: MAGNESIUM SULFATE 2 GM/50 ML BAG IV SCH (07:00)
[2024-05-23] MEDS ORDERED: LACTATED RINGER'S 1,000 ML IV SCH (07:00)
--- NOTE | 2024-05-23 07:20 | NUR ---
PT SLEEPING SOUNDLY AT TIME OF SHIFT REPORT, LEFT UNDISTURBED. CALL LIGHT IN REACH FRESH H2O TO BEDSIDE
[2024-05-23] MEDS ORDERED: POTASSIUM CHLORIDE 10 MEQ TABCR PO ONE (08:00)
--- NOTE | 2024-05-23 08:04 | NUR ---
UR CLINICAL REVIEW: [facility] REVIEW MEET INPT FOR ACUTE ON CHRONIC PANCREATITIS WITH NEED FOR PAIN CONTROL [facility] 05/21/24 @ 0859 ORDER MATCHES REG CLINICALS SENT TO [facility] FOR AUTH REVIEW DISCHARGE TO HOME WHEN STABLE 05/25/24
--- NOTE | 2024-05-23 08:31 | NUR ---
PT AWAKENED FOR MORNING MEDS. DRINKS APPLE JUICE AND EATS JELLO THEN TAKES MEDS. PT IS ASKING IF SHE GETS TO GO HOME TODAY. PT IS MOANING AND RESTLESS APPEARS UNCOMFORTABLE. PRN OXY ADMINISTERED SHE DENIES OTHER NEEDS
[2024-05-23] MEDS ORDERED: PANTOPRAZOLE SODIUM 40 MG TABEC PO SCH (09:00)
[2024-05-23] MEDS ORDERED: TAMSULOSIN HCL 0.4 MG CAP PO SCH (09:00)
--- NOTE | 2024-05-23 09:27 | NUR ---
PT CONTINUES TO BE RESTLESS ASKED IF SHE NEEDS ANYTHING SHE DOES NOT SPECIFICALLY ANSWER. STATES SHE CAN'T GET COMFORTABLE. SHE IS UP IN THE CHAIR AT THIS TIME
--- NOTE | 2024-05-23 10:33 | NUR ---
PATIENT UP IN CHAIR. DISCUSSED DC PLAN. SHE LIVES HOME ALONE BUT HAS [employer] CARE[employer] HOURS. DISCUSSED GOALS OF CARE, WOULD LIKE TO CONTINUE TREATMENTS. DOES NOT WANT TO DISCUSS HOSPICE AT THIS TIME. STATES SHE NO LONGER HAS HOME HEALTH BUT SHE DOES STILL HAVE HER CAREGIVER IN TO ASSIST HER MULTIPLE DAYS A WEEK. NO CM NEEDS AT THIS TIME.
--- NOTE | 2024-05-23 10:56 | NUR ---
PT RESTING IN CHAIR EYES CLOSED
--- NOTE | 2024-05-23 11:25 | NUR ---
PT BACK TO BED ASSISTED WITH COVERS TURNS TO SIDE RESTING EYES CLOSED
--- NOTE | 2024-05-23 14:06 | NUR ---
PT RESTING EYES CLOSED
--- NOTE | 2024-05-23 14:46 | NUR ---
PT UP TO THE TOILET ABLE TO VOID POST HITCHCOCK REMOVAL. AGREES SHE IS FEELING A LITTLE BETTER. RETURNS TO REST IN BED
--- NOTE | 2024-05-23 14:53 | NUR ---
PT NOT AVAILABLE VISIT. PROVIDED PRAYER.
--- NOTE | 2024-05-23 17:07 | NUR ---
PT TO THE TOILET THEN RETURNS TO BED. AWILDA PROVIDED PER REESAMMIE.
--- NOTE | 2024-05-23 19:36 | NUR ---
PATIENT RESTING IN BED, REPORTS THAT SHE IS FEELING PAIN AND WANTS TO KNOW IF SHE CAN HAVE PAIN MEDICATION. DENIES OTHER NEEDS, CALL LIGHT IN REACH. REPORT RECEIVED FROM COLIN GRACIA.
--- NOTE | 2024-05-23 20:10 | NUR ---
SCHEDULED MEDS ADMINISTERED PER ORDER, VS OBTAINED AND RECORDED. ASSESSMENT COMPLETE. PATIENT REPORTING DISCOMFORT ON BUTTOCKS, SPLOTCHY REDNESS NOTED ON L CHEEK. BLANCHABLE. IVF CONTINUING TO INFUSE PER ORDER. NIO BOWEL ROUTINE ORDERS INITIATED FOR PATIENT NOT HAVING BOWEL MOVEMENT FOR MULTIPLE DAYS, PATIENT REPORTS ABD DISCOMFORT. ABD SOFT, NON-DISTENDED, TENDER LUQ AND RUQ. DECLINES FURTHER NEEDS, CALL LIGHT IN REACH.
[2024-05-23] MEDS ORDERED: SENNOSIDES/DOCUSATE 1 EA TAB PO SCH (21:00)
[2024-05-23] MEDS ORDERED: POLYETHYLENE GLYCOL 3350 1 PACKET PO SCH (21:00)
--- NOTE | 2024-05-23 23:18 | NUR ---
PRN PAIN MEDICATION ADMINISTERED PER REQUEST. IVF CONTINUING TO INFUSE PER ORDER. NO FURTHER NEEDS, CALL LIGHT IN REACH
--- NOTE | 2024-05-24 00:26 | NUR ---
CALL LIGHT ANSWERED, PATIENT WANTED TO SIT UP IN BED AND WANTED ASSISTANCE. PATIENT REMINDED OF LOCATION OF CONTROLS ON BED. DENIES OTHER NEEDS, CALL LIGHT IN REACH
--- NOTE | 2024-05-24 02:03 | NUR ---
IN ROOM TO ANSWER CALL LIGHT, PATIENT VOIDED AND AMBULATED TO AND FROM BATHROOM. BACK TO BED, BED ALARM ON. PRN MEDICATION ADMINISTERED TO PATIENT PER REQUEST. NO FURTHER NEEDS, CALL LIGHT IN REACH.
--- NOTE | 2024-05-24 02:39 | NUR ---
PATIENT UP TO BR A 1PA. PATIENT ABLE TO VOID. PATIENT IS BACK IN BED RESTING. PATIENT DENIES ANY FURTHER NEEDS. CALL LIGHT IN REACH. BED ALARM ON FOR SAFETY. IV INFUSING PER ORDER.
--- NOTE | 2024-05-24 03:42 | NUR ---
PATIENT RATES PAIN AT 5/10 AT A 5/10 IN HER BACK AND SHOULDERS. PRN PAIN MEDICATION GIVEN PER ORDER. PATIENT DENIES ANY NAUSEA. IV INFUSING PER ORDER. WARM BLANKET PROVIDED. PATIENT DENIES ANY FURTHER NEEDS. CALL LIGHT IN REACH. BED ALARM ON FOR SAFETY.
[2024-05-24 05:31] VITALS: BP 155/84
[2024-05-24 05:36] VITALS: BP 155/84
[2024-05-24 05:37] LABS: EOSINOPHILS 3.6 % (0-6); HEMATOCRIT 28.2 % (35.0-50.0); HEMOGLOBIN 9.6 g/dL (12.0-18.0); LYMPHOCYTES 17.2 % (24-44); MCH 30.7 (27-36); MCHC 33.9 g/dl (30-36); MCV 90.5 fl (81-99); MONOCYTES 10.4 % (0-12); NEUTROPHILS 67.8 % (39-80); PLATELET COUNT 379 K/uL (140-440); RBC 3.12 M/ul (4.3-5.7); RDW 16.7 (10.5-15.0)
[2024-05-24 05:54] LABS: ANION GAP 6.8 (7-21); BUN/CREATININE RATIO 2.77 (6.0-28.6); CALCIUM 7.7 mg/dL (8.5-10.1); CREATININE, SERUM 0.72 mg/dL (0.55-1.02); MAGNESIUM 2.2 mg/dL (1.8-2.4); POTASSIUM 3.8 mmol/L (3.5-5.1)
--- NOTE | 2024-05-24 05:56 | NUR ---
PATIENT UP TO BR A 1PA. PATIENT ABLE TO VOID. PATIENT IS BACK IN BED RESTING. PATIENTS VITALS TAKEN AND RECORDED. INTAKE AND OUTPUT RECORDED. PATIENT DENIES ANY NAUSEA. PATIENT REPORTS 5/10 ABD PAIN. PRIMARY RN NOTIFIED. CALL LIGHT IN REACH. BED ALARM ON FOR SAFETY.
--- NOTE | 2024-05-24 06:23 | NUR ---
PRN PAIN MEDICATION GIVEN PER PATIENT REQUEST FOR 08/25 PAIN. PATIENT DECLINES FURTHER NEEDS, CALL LIGHT IN REACH. BED ALARM ON, IVF CONTINUING TO INFUSE PER ORDER.
--- NOTE | 2024-05-24 06:38 | NUR ---
PATIENT TTP RUQ AND LUQ. ACTIVE BOWEL TONES. PATIENT DECLINES NEEDS, CALL LIGHT IN REACH.
--- NOTE | 2024-05-24 07:26 | NUR ---
REPORT RECEIVED FROM RL EATON
--- NOTE | 2024-05-24 08:44 | NUR ---
PT SITTING UP IN CHAIR EATING BREAKFAST, ASSESSMENT COMPLETE. PT C/O PAIN TO ABD 8/10 BUT DECLINES PAIN MEDS AT THIS TIME. PT ALSO STATES GENERALIZED ACHING "ALL OVER" THIS MORNING. LIDOCAINE PATCH PLACED TO R) HIP PER PT REQUEST. PT ALSO AMBULATED TO RESTROOM TO VOID, TOLERATED WELL. PT HAS CHAIR ALARM ON AND CALL LIGHT WITHIN REACH. NO OTHER REQUESTS AT THIS TIME.
--- NOTE | 2024-05-24 09:10 | NUR ---
Spoke with Kendall. She states she is feeling better. She is wanting to go home. She denies any needs. States she cont. to live with her roommate, Silviano, who is like a brother. Silviano will drive her home.
[2024-05-24 09:29] VITALS: BP 128/75
[2024-05-24 10:08] VITALS: BP 128/75
--- NOTE | 2024-05-24 10:17 | NUR ---
PT RESTING IN BED. IV SALINE LOCKED PER ORDER. PT GIVEN REGULAR DIET MENU AND EDUCATED ON MEAL CHOICES AND HOW TO ORDER IF SHE WANTS. PT STATED UNDERSTANDING AND CALLED DIETARY. CALL LIGHT WITHIN REACH. NO OTHER REQUESTS AT THIS TIME.
--- NOTE | 2024-05-24 10:57 | NUR ---
PT SITTING AT SIDE OF BED, RATES PAIN TO HIPS ROCKY AND ABD 7/10, PAIN MED GIVEN ORDERED. CALL LIGHT WITHIN REACH.
[2024-05-24] MEDS ORDERED: TAMSULOSIN HCL0.4 MG PO (11:45)
--- NOTE | 2024-05-24 11:46 | NUR ---
PT SITTING UP IN CHAIR DRESSED. PT STATES SHE WANTS TO GO HOME, DR CARL AWARE. CALL LIGHT WITHIN REACH.
--- NOTE | 2024-05-24 12:05 | NUR ---
DR BOYD IN TO SEE PT AND DISCUSS POC.
[2024-05-24 12:14] VITALS: BP 129/80
== END 2024-05-24 12:15 | disposition home or self-care (01) | DRG 439 ==
LOC: ED 22:46 → MS 22:48
PROVIDERS: Family Medicine; ADMIT Student in an Organized Health Care Education/Training Program; ATTEND Student in an Organized Health Care Education/Training Program
DX: K85.90 Acute pancreatitis without necrosis or infection, unspecified (principal); E87.1 Hypo-osmolality and hyponatremia; G43.909 Migraine, unspecified, not intractable, without status migrainosus; F17.210 Nicotine dependence, cigarettes, uncomplicated; F43.10 Post-traumatic stress disorder, unspecified; F12.90 Cannabis use, unspecified, uncomplicated; E03.9 Hypothyroidism, unspecified; K21.9 Gastro-esophageal reflux disease without esophagitis; R39.198 Other difficulties with micturition; F32.9 Major depressive disorder, single episode, unspecified; F41.1 Generalized anxiety disorder; G25.81 Restless legs syndrome; K86.1 Other chronic pancreatitis; E83.42 Hypomagnesemia; R11.2 Nausea with vomiting, unspecified; Z87.01 Personal history of pneumonia (recurrent); Z85.07 Personal history of malignant neoplasm of pancreas; Z98.890 Other specified postprocedural states; Z85.41 Personal history of malignant neoplasm of cervix uteri; Z90.49 Acquired absence of other specified parts of digestive tract; Z85.038 Personal history of other malignant neoplasm of large intestine; Z90.710 Acquired absence of both cervix and uterus; Z90.89 Acquired absence of other organs; Z88.8 Allergy status to other drugs, medicaments and biological substances; Z79.891 Long term (current) use of opiate analgesic; Z79.899 Other long term (current) drug therapy; Z79.890 Hormone replacement therapy; Z79.51 Long term (current) use of inhaled steroids; Z71.51 Drug abuse counseling and surveillance of drug abuser
CPT/HCPCS: 36415; 51798; 71045; 71260; 74018; 74177; 80048; 80053; 81001; 83690; 83735; 84484; 85025; 93005; 93010; 94760; 94762; 96374; 96375; 99285-25; 99407; A9270; J0131; J0780; J1200; J1650; J1885; J2060; J2270; J2405; J2470; J3475; J7121

== ENCOUNTER 2024-08-07 16:47 | Emergency (ER) | payer OTHER ==
[~2024-08-07] VITALS: Ht 160 cm; Wt 61.0 kg
[~2024-08-07 16:47] MED LIST changes: +TAMSULOSIN HCL0.4 MG PO
[2024-08-07] MEDS ORDERED: OMEPRAZOLE40 MG PO (16:54)
[2024-08-07] MEDS ORDERED: ondansetron HCL 4 MG/2 ML VIAL IV ONE ×2 (17:00→18:15)
[2024-08-07 17:38] LABS: BASOPHILS 0.6 % (0.1-1.2); HEMATOCRIT 38.6 % (34.1-44.9); HEMOGLOBIN 12.9 g/dL (11.2-15.7); LYMPHOCYTES 22.2 % (19.3-51.7); MCH 30.6 PG (25.6-32.2); MCHC 33.4 g/dL (32.2-35.5); MCV 91.7 fL (79.4-94.8); MONOCYTES 7.8 % (4.7-12.5); NEUTROPHILS 67.1 % (34.0-71.1); PLATELET COUNT 396 K/uL (182-369); RBC 4.21 M/uL (3.93-5.22)
[2024-08-07 17:52] LABS: ALBUMIN 3.2 g/dL (3.4-5.0); ALBUMIN/GLOBULIN RATIO 0.74 (1.1-2.4); ANION GAP 10.4 (7-21); BILIRUBIN, TOTAL 0.2 mg/dL (0.2-1.0); BUN/CREATININE RATIO 8.4 (6.0-28.6); CALCIUM 8.8 mg/dL (8.5-10.1); CREATININE, SERUM 1.19 mg/dL (0.55-1.02); POTASSIUM 4.4 mmol/L (3.5-5.1); PROTEIN, TOTAL 7.5 g/dL (6.4-8.2)
[2024-08-07] MEDS ORDERED: SODIUM CHLORIDE 0.9% 1,000 ML IV PRN (18:15)
[2024-08-07] MEDS ORDERED: MORPHINE SULFATE 10 MG/ML VIAL IV ONE (18:15)
[2024-08-07 20:18] LABS: BILIRUBIN, URINE NEGATIVE (negative); BLOOD/HGB, URINE NEGATIVE (Negative); KETONE, URINE NEGATIVE (Negative); LEUK ESTERASE, URINE NEGATIVE (negative); NITRITE, URINE NEGATIVE (negative); PH, URINE 5.5 (5-7)
[2024-08-07] MEDS ORDERED: CIPRO500 MG PO (20:29)
[2024-08-07] MEDS ORDERED: ONDANSETRON 4 MG HOME.PACK SL ONE (20:30)
[2024-08-07] MEDS ORDERED: methylPREDNISolone 4 MG HOME.PACK PO ONE (20:30)
[2024-08-07] MEDS ORDERED: metroNIDAZOLE 500 MG HOME.PACK PO ONE (20:30)
[2024-08-07] MEDS ORDERED: CIPROFLOXACIN 500 MG TAB PO ONE (20:30)
[2024-08-07] MEDS ORDERED: HYDROCODONE BIT/ACETAMINOPHEN 5/325 MG 1 TAB HOME.PACK PO ONE (20:30)
[2024-08-07 20:58] VITALS: BP 131/82
== END 2024-08-07 20:58 | disposition home or self-care (01) ==
LOC: ED 16:47
PROVIDERS: Emergency Medicine
DX: K86.1 Other chronic pancreatitis (principal); K52.9 Noninfective gastroenteritis and colitis, unspecified; F17.200 Nicotine dependence, unspecified, uncomplicated; F43.10 Post-traumatic stress disorder, unspecified
CPT/HCPCS: 36415; 74177; 80053; 81003; 83690; 83735; 85025; 96361; 96375; 96376; 99284-25; A9270; J2270; J2405; J7030